=== PATIENT | female | born 1955 | race Caucasian/White ===

== ENCOUNTER 2020-07-07 07:47 | Outpatient (REF) | payer BC, SELFPAY ==
[2020-07-07 10:34] LABS: MANUAL DIFF FLAG NO
[2020-07-07 10:37] LABS: Basophils Absolute Auto 0.1 X10*3/uL (0.0-0.2); Basophils Percent Auto 0.8 % (0-2); Eosinophils Absolute Auto 0.3 X10*3/uL (0.0-0.4); Eosinophils Percent Auto 2.6 % (0-4); Hematocrit 41.4 % (37-47); Hemoglobin 13.7 g/dl (12.0-16.0); Imm Gran Abs Auto 0.03 X10*3/uL (0.00-0.03); Imm Gran Pct Auto 0.3 % (0.0-0.4); Lymphocytes Percent Auto 31.5 % (20-40); Mean Corpuscular HGB Conc 33.1 g/dl (31.0-35.0); Mean Corpuscular Hemoglobin 29.9 pg (27.0-33.0); Mean Corpuscular Volume 90.4 fL (80-98); Mean Platelet Volume 10.2 fL (9.4-12.3); Monocytes Absolute Auto 0.6 X10*3/uL (0.1-1.2); Monocytes Percent Auto 5.9 % (2-11); Neutrophils Absolute Auto 5.6 X10*3/uL (2.0-8.3); Neutrophils Percent Auto 58.9 % (45-73); Platelet Count 251 X10*3/uL (160-400); Red Blood Count 4.58 X10*6/uL (4.20-5.50); Red Cell Distribution Width 13.6 % (11.0-16.0); White Blood Count 9.5 X10*3/uL (4.8-10.8)
[2020-07-07 11:03] LABS: Alanine Aminotransferase 12 U/L (0-31); Albumin Level 3.9 g/dL (3.5-5.0); Alkaline Phosphatase 78 U/L (39-117); Anion Gap 10 (12-20); Aspartate Amino Transferase 12 U/L (5-31); Bilirubin Total 0.7 mg/dL (0.0-1.0); Blood Urea Nitrogen 11 mg/dL (9-16); Calcium 8.8 mg/dL (8.4-10.2); Carbon Dioxide 31 mmol/L (22-29); Chloride 105 mmol/L (96-108); Cholesterol 267 mg/dL; Estimated Glomerular Filt Rate > 60; Glucose Fasting 81 mg/dL (60-99); HDL Cholesterol 43 mg/dL; LDL Cholesterol Calculated 197 mg/dl; Potassium 4.4 mmol/L (3.3-5.1); Sodium 142 mmol/L (135-145); Total Protein 6.2 g/dL (6.5-8.0); Triglycerides 138 mg/dL
[2020-07-07 11:25] LABS: Free T4 (Free Thyroxine) 0.61 ng/dL (0.71-1.85)
[2020-07-08 05:42] LABS: Triiodothyronine T3 Total 90 ng/dL (76-181)
== END 2020-07-07 07:48 | disposition home or self-care (01) ==
LOC: HO.WFDLDS 07:47
PROVIDERS: Visit Provider Family Medicine
DX: Z00.00 Encounter for general adult medical examination without abnormal findings (principal); E03.9 Hypothyroidism, unspecified
CPT/HCPCS: 36415; 80053; 80061; 84439; 84443; 84480; 85025

== ENCOUNTER 2020-07-09 13:55 | Outpatient (REF) | payer BC, SELFPAY | END 2020-07-09 13:56 | disposition home or self-care (01) | LOC: HO.LNP 13:55 | PROVIDERS: Visit Provider Family Medicine | DX: N39.0 Urinary tract infection, site not specified (principal) | CPT/HCPCS: 87086 ==

== ENCOUNTER 2020-08-27 07:35 | Outpatient (REF) | payer BC, SELFPAY ==
[2020-08-27 11:08] LABS: Cholesterol 232 mg/dL; HDL Cholesterol 49 mg/dL; LDL Cholesterol Calculated 158 mg/dl; Triglycerides 127 mg/dL
[2020-08-27 12:19] LABS: Free T4 (Free Thyroxine) 0.61 ng/dL (0.71-1.85); Thyroid Stimulating Hormone 3.66 uIU/mL (0.32-4.0)
[2020-08-28 09:01] LABS: Triiodothyronine T3 Total 93 ng/dL (76-181)
== END 2020-08-27 07:36 | disposition home or self-care (01) ==
LOC: HO.WFDLDS 07:35
PROVIDERS: Visit Provider Family Medicine
DX: Z00.00 Encounter for general adult medical examination without abnormal findings (principal); E03.9 Hypothyroidism, unspecified; E78.5 Hyperlipidemia, unspecified; R30.0 Dysuria
CPT/HCPCS: 36415; 80061; 84439; 84443; 84480; 87086

== ENCOUNTER 2020-09-20 13:00 | Outpatient (REF) | payer BC, SELFPAY ==
[2020-09-24 12:36] LABS: HPV mRNA E6/E7 rflx Not Detected (Not Detected)
== END 2020-09-20 13:01 | disposition home or self-care (01) ==
LOC: HO.LAB 13:00
PROVIDERS: PCP Family Medicine; Visit Provider Obstetrics & Gynecology
DX: Z01.419 Encounter for gynecological examination (general) (routine) without abnormal findings (principal); N95.0 Postmenopausal bleeding; N95.8 Other specified menopausal and perimenopausal disorders
CPT/HCPCS: 58100; 87624; 88142

== ENCOUNTER 2020-09-29 12:52 | Outpatient (REF) | payer BC, SELFPAY ==
--- NOTE | ~2020-09-29 | US_ITS ---
EXAMINATION: ULTRASOUND PELVIS COMPLETE. CLINICAL INFORMATION: Postmenopausal bleeding. COMPARISON: None TECHNIQUE: Transabdominal and transvaginal imaging of pelvis is performed. FINDINGS: Transabdominal and transvaginal imaging of pelvis reveals nonvisualization of uterus and the ovaries. No pelvic mass or free fluid seen. Partially distended urinary bladder is noted. US/US pelvic and transvaginal IMPRESSION: Unremarkable pelvis exam with nonvisualization of uterus and ovaries. There is no given history of hysterectomy or oophorectomy by patient at this time No pelvic mass or free fluid seen.
== END 2020-09-29 12:53 | disposition home or self-care (01) ==
LOC: HO.US 12:52
PROVIDERS: Visit Provider Obstetrics & Gynecology
DX: N95.0 Postmenopausal bleeding (principal)
CPT/HCPCS: 76830; 76856

== ENCOUNTER 2020-10-12 09:52 | Outpatient (REF) | payer BC, SELFPAY ==
--- NOTE | ~2020-10-12 | MM_ITS ---
EXAMINATION: MM SCREENING DIGITAL BREAST TOMOSYNTHESIS, BILATERAL CLINICAL INFORMATION: Screening. Asymptomatic. The lifetime risk of breast cancer based on the Tyrer-Cuzick Model is 5.2%. COMPARISON: Mammography: None TECHNIQUE: Digital breast tomosynthesis is performed in both the craniocaudal and mediolateral oblique views along with computer-aided detection (CAD). Synthesized 2D images are generated from the tomosynthesis. FINDINGS: There are scattered areas of fibroglandular density (ACR BI-RADS breast composition Category b). There are no significant masses, abnormal calcifications, or other abnormalities. MM/MM tomosynthesis screening BI IMPRESSION: No specific mammographic evidence to suggest malignancy. ASSESSMENT: BI-RADS 1: Negative RECOMMENDATION: Routine annual mammography screening. This patient's information was entered into a reminder system with a target due date for their next mammogram.
== END 2020-10-12 09:53 | disposition home or self-care (01) ==
LOC: HO.MAMMO 09:52
PROVIDERS: Visit Provider Family Medicine
DX: Z12.31 Encounter for screening mammogram for malignant neoplasm of breast (principal)
CPT/HCPCS: 77063; 77067

== ENCOUNTER → 2020-10-13 10:56 | Outpatient (BNVA) | payer BC, SELFPAY | PROVIDERS: PCP Family Medicine; Visit Provider Obstetrics & Gynecology ==

== ENCOUNTER 2020-12-06 10:48 | Outpatient (REF) | payer BC, SELFPAY ==
[2020-12-06 13:40] LABS: Glucose Urine UA NEG (NEG); Leukocyte Esterase Urine 2+ (NEG); Nitrite Urine POS (NEG); Specific Gravity - Urine <= 1.005 (1.005-1.025); UACC Culture Trigger YES; Urine Blood NEG (NEG); Urine Ketones NEG (NEG); Urine Protein NEG (NEG-TRACE)
[2020-12-06 13:48] LABS: Appearance Urine HAZY; Color Urine YELLOW
[2020-12-06 13:50] LABS: Bacteria Urine 3+ /LPF; RBC Urine 0 /HPF (0); Squamous Epithelial Cell Urine 1+ /LPF
== END 2020-12-06 10:49 | disposition home or self-care (01) ==
LOC: HO.WFDLDS 10:48
PROVIDERS: Visit Provider Internal Medicine
DX: R30.0 Dysuria (principal)
CPT/HCPCS: 81001; 87086; 87088; 87186

== ENCOUNTER 2020-12-28 12:01 | Outpatient (REF) | payer BC, SELFPAY ==
[2020-12-28 14:13] LABS: Cholesterol 228 mg/dL; HDL Cholesterol 49 mg/dL; LDL Cholesterol Calculated 151 mg/dl; Triglycerides 143 mg/dL
[2020-12-28 14:35] LABS: TSH reflex Free T4 3.33 uIU/mL (0.32-4.0)
== END 2020-12-28 12:02 | disposition home or self-care (01) ==
LOC: HO.WFDLDS 12:01
PROVIDERS: Visit Provider Family Medicine
DX: Z00.00 Encounter for general adult medical examination without abnormal findings (principal); E78.5 Hyperlipidemia, unspecified
CPT/HCPCS: 36415; 80061; 84443

== ENCOUNTER 2021-02-28 12:21 | Outpatient (REF) | payer BC, SELFPAY ==
[2021-02-28 15:23] LABS: Free T4 (Free Thyroxine) 0.65 ng/dL (0.71-1.85)
[2021-03-04 21:46] LABS: Factor V Leiden POSITIVE
== END 2021-02-28 12:22 | disposition home or self-care (01) ==
LOC: HO.WFDLDS 12:21
PROVIDERS: Visit Provider Family Medicine
DX: Z00.00 Encounter for general adult medical examination without abnormal findings (principal)
CPT/HCPCS: 36415; 81241; 84439; 84443

== ENCOUNTER 2021-03-11 17:59 | Outpatient (REF) | payer BC, SELFPAY | END 2021-03-11 18:00 | disposition home or self-care (01) | LOC: HO.LNP 17:59 | PROVIDERS: Visit Provider Hospitalist | DX: N39.0 Urinary tract infection, site not specified (principal) | CPT/HCPCS: 87086; 87088; 87186 ==

== ENCOUNTER 2021-04-06 13:35 | Outpatient (REF) | payer BC, SELFPAY | END 2021-04-06 13:36 | disposition home or self-care (01) | LOC: HO.LNP 13:35 | PROVIDERS: Visit Provider Hospitalist | DX: N39.0 Urinary tract infection, site not specified (principal) | CPT/HCPCS: 87086 ==

== ENCOUNTER 2021-05-25 14:01 | Outpatient (REF) | payer BC, SELFPAY | END 2021-05-25 14:02 | disposition home or self-care (01) | LOC: HO.LNP 14:01 | PROVIDERS: Visit Provider Hospitalist | DX: N39.0 Urinary tract infection, site not specified (principal) | CPT/HCPCS: 87086; 87088; 87186 ==

== ENCOUNTER 2021-06-27 18:59 | Outpatient (REF) | payer BC, SELFPAY | END 2021-06-27 19:00 | disposition home or self-care (01) | LOC: HO.LNP 18:59 | PROVIDERS: Visit Provider Hospitalist | DX: N39.0 Urinary tract infection, site not specified (principal) | CPT/HCPCS: 87086; 87088; 87186 ==

== ENCOUNTER 2021-08-30 07:08 | Outpatient (REF) | payer BC, SELFPAY ==
[2021-08-30 12:04] LABS: Alanine Aminotransferase 15 U/L (0-31); Albumin Level 4.2 g/dL (3.5-5.0); Alkaline Phosphatase 82 U/L (39-117); Anion Gap 11 (12-20); Aspartate Amino Transferase 17 U/L (5-31); Bilirubin Total 0.5 mg/dL (0.0-1.0); Blood Urea Nitrogen 15 mg/dL (9-16); Calcium 9.6 mg/dL (8.4-10.2); Carbon Dioxide 30 mmol/L (22-29); Chloride 104 mmol/L (96-108); Cholesterol 297 mg/dL; Estimated Glomerular Filt Rate > 60; Glucose Fasting 72 mg/dL (60-99); HDL Cholesterol 47 mg/dL; LDL Cholesterol Calculated 227 mg/dl; Potassium 4.3 mmol/L (3.3-5.1); Sodium 141 mmol/L (135-145); Total Protein 7.1 g/dL (6.5-8.0); Triglycerides 119 mg/dL
[2021-08-30 12:28] LABS: TSH reflex Free T4 3.43 uIU/mL (0.32-4.0)
== END 2021-08-30 07:09 | disposition home or self-care (01) ==
LOC: HO.WFDLDS 07:08
PROVIDERS: Visit Provider Family Medicine
DX: Z00.00 Encounter for general adult medical examination without abnormal findings (principal)
CPT/HCPCS: 36415; 80053; 80061; 84443

== ENCOUNTER 2021-11-30 11:45 | Outpatient (REF) | payer BC, SELFPAY ==
[2021-11-30 15:44] LABS: Free T4 (Free Thyroxine) 0.64 ng/dL (0.71-1.85)
== END 2021-11-30 11:46 | disposition home or self-care (01) ==
LOC: HO.WFDLDS 11:45
PROVIDERS: Visit Provider Hospitalist
DX: E03.9 Hypothyroidism, unspecified (principal)
CPT/HCPCS: 36415; 84439; 84443

== ENCOUNTER 2022-02-24 14:47 | Outpatient (REF) | payer BC, SELFPAY ==
[2022-02-24 17:16] LABS: TSH reflex Free T4 4.19 uIU/mL (0.32-4.0)
[2022-02-24 17:48] LABS: Free T4 (Free Thyroxine) 0.64 ng/dL (0.71-1.85)
== END 2022-02-24 14:48 | disposition home or self-care (01) ==
LOC: HO.HMGCLDS 14:47
PROVIDERS: PCP Hospitalist; Visit Provider Hospitalist
DX: E03.9 Hypothyroidism, unspecified (principal)
CPT/HCPCS: 36415; 84439; 84443

== ENCOUNTER 2022-05-10 08:41 | Emergency (ER) | payer BC, SELFPAY ==
--- NOTE | ~2022-05-10 | XR_ITS ---
EXAMINATION: XR CHEST CLINICAL INFORMATION: Cough COMPARISON: None TECHNIQUE: Frontal view of the chest was obtained. FINDINGS: Lungs are well-inflated and clear. Trachea is midline in position. No interstitial disease, consolidation or mass. No pleural effusion or pneumothorax. Cardiac silhouette and pulmonary vessels are normal in size. The mediastinum and reba have normal contour. The visualized bones, and upper abdomen, are unremarkable. XR/XR chest 1V IMPRESSION: No evidence of pneumonia. No acute cardiopulmonary abnormality.
[2022-05-10 08:48] VITALS: BP 142/70; PULSE 68; RESP 18; TEMP 36.7; O2SAT 95; BMI 27.4
--- NOTE | 2022-05-10 09:20 | ED.URI ---
HPI - URI/Sore Throat General Chief Complaint: Upper Respiratory Symptoms Stated Complaint: Sore Throat Time Seen by Provider: 05/10/22 09:12 Source: patient Mode of arrival: ambulatory Limitations: no limitations History of Present Illness HPI Narrative: 67 y/o female with history of factor V Leiden mutation, hypothyroidism, GERD, HLD Who presents to the ER for evaluation of 5 days of worsening sore throat. She also developed a dry cough that is throaty sort hurts her throat whenever she coughs. She states the pain is worse when eating but she has been able to eat and drink normally. She denies any fevers. She has intermittent nausea but no vomiting. No known sick contacts. No shortness of breath or chest pain. She states the pain is her entire throat, not worse on 1 side or the other. No voice changes. MD elicited complaint: cough and sore throat Onset (ago): day(s) (5) Consistency: constant and progressively worsening Severity: moderate Able to tolerate fluids by mouth: Yes Exacerbating factors: swallowing and other ( Coughing) Relieving factors: rest Associated symptoms: sore throat, cough and nausea Treatments prior to arrival: none Related Data Previous Rx's Medication Instructions Recorded atorvastatin 40 mg tablet 40 mg PO BEDTIME #90 tabs 01/24/22 [place] Thy[place] 15 mg tablet 45 mg PO DAILY 30 days #90 tabs 04/12/22 (thyroid (pork)) Allergies Allergy/AdvReac Type Severity Reaction Status Date / Time No Known Allergies Allergy Verified 11/30/21 11:29 Review of Systems Review of Systems: Yes all other systems are reviewed and are negative [facility] Past Medical History Surgical History History of bladder surgery Family History Family History Mother No problems noted. Father No problems noted. Brother Prostate cancer Social History Social History Household Members: Other Housing: Other (mobile home) Housing Other:: mobile home Alcohol intake: never Patient Tobacco Use Status: Never used Tobacco e-Cigarette/Vaping Use: Never Used Second Hand Smoke Exposure: No Advance Directives: No Advance Directives Information Provided: No service: No Current occupational status: employed Current occupation: [employer] office Gender identity: Female Cognitive needs: No Hearing needs: No Vision needs: No Physical Exam Vital Signs: Vital Signs: Last Vital Signs Temp 98.1 F 05/10/22 08:48 Pulse 68 05/10/22 08:48 Resp 18 05/10/22 08:48 BP 142/70 H 05/10/22 08:48 Pulse Ox 95 05/10/22 08:48 O2 Del Method 05/10/22 08:48 BMI result Body Mass Index 27.4 Appearance: Alert. Oriented X3. No acute distress. Eyes: Pupils equal, round and reactive to light. ENT: Pharynx with moist mucous membranes, moderate posterior pharyngeal erythema without tonsillar exudate or swelling. Uvula midline. Voice is normal. Normal tympanic membranes bilaterally. Neck: Normal inspection. Neck supple. no lymphadenopathy. Trachea midline. CVS: Normal heart rate and rhythm. Pulses normal. Respiratory: No respiratory distress. Breath sounds normal. Skin: Skin warm and dry. Normal skin color. Normal skin turgor. No rashes. Extremities Normal inspection x4, no lower extremity swelling. Neuro: Oriented X 3. Grossly normal, nonfocal Course Course Course Narrative: 67 yo female presenting with sore throat and dry cough. VSS and physical exam is unremarkable aside from generalized posterior pharyngeal erythema, no tonsillar exudate. Doubt strep. Swabs for flu, covid, rsv and strep have been sent. cxr done to r/o PNA. Reevaluation(s) Reevaluation #1: x-rays negative. Swabs were all negative. Patient counseled on results and management. Stable for discharge home. Medical Decision Making Differential Diagnosis Differential Diagnoses: The differential diagnosis associated with the presentation includes Viral pharyngitis, strep pharyngitis Less likely peritonsillar or retropharyngeal abscess, doubt bacterial PNA Lab Data [facility] Lab Attestation statement: I reviewed the patient's lab results. Labs: Lab Results 05/10/22 05/10/22 Range/Units 09:05 09:05 Influenza Type A (PCR) NEGATIVE (Negative) Influenza Type B (PCR) NEGATIVE (Negative) RSV RNA Qual (PCR) NEGATIVE (Negative) SARS-CoV-2 RNA (RT-PCR) NEGATIVE (Negative) S. pyogenes GrpA LYNN Negative (Negative) Independent Interpretation I performed an independent interpretation of an: Plain X-Ray Interpretation: Independent interpretation is clear lungs no pneumonia Radiology Impression Discussion of test interpretation with radiology: I have reviewed the radiologist's reading. Radiologist Impression: IMPRESSION: No evidence of pneumonia. No acute cardiopulmonary abnormality. Prescription Management I considered prescription management with: Pain Medication, Antiviral and Antibiotic Critical Care Time Critical Care Time Critical Care Time: No Discharge Plan Discharge Clinical Impression: Viral infection Patient Disposition: Home, Self-Care Instructions: Viral Syndrome (ED) Additional Instructions: you tested negative for strep throat, COVID-19, influenza and RSV. Use symptoms nose likely due to another viral illness. Treatment is rest of supportive care. Recommend gargling with salt water 3 times a day. Recommend [id number] Chloraseptic spray or Cepacol lozenges as needed for sore throat. rest and drink plenty of fluids. follow up with your PCP as needed. If you develop new or worsening symptoms call 911 or come back to the ER for further evaluation. Prescriptions: No Action atorvastatin 40 mg tablet 40 mg PO BEDTIME Qty: 90 3RF thyroid (pork) [Distant Thyroid] 15 mg tablet 45 mg PO DAILY 30 Days Qty: 90 3RF Rx Instructions: Brand Name Only, DORIS/Dispense As Written Stand Alone Forms: Work/School Release Interventions: ED Discharge Assessment Last Done: 05/10/22 10:20 Discharge Date/Time: 05/10/22 10:20
[2022-05-10 09:24] LABS: IDNOW Serial# 6674DD1D; Strep A Nucleic Acid Negative (Negative)
[2022-05-10 10:07] LABS: Influenza A PCR NEGATIVE (Negative); Influenza B PCR NEGATIVE (Negative); Resp Syncy Virus RNA Qual PCR NEGATIVE (Negative); SARS COV2 PCR INHOUSE NEGATIVE (Negative)
== END 2022-05-10 10:20 | disposition home or self-care (01) ==
PROVIDERS: Emergency Provider Emergency Medicine Emergency Medical Services; PCP Hospitalist
DX: B34.9 Viral infection, unspecified (principal); Z20.828 Contact with and (suspected) exposure to other viral communicable diseases; J02.9 Acute pharyngitis, unspecified
CPT/HCPCS: 0241U; 71045; 87651; 99282; 99283

== ENCOUNTER 2022-05-12 12:52 | Emergency (ER) | payer BC, SELFPAY ==
--- NOTE | 2022-05-12 14:02 | ED_ITS ---
HPI - URI/Sore Throat General Chief Complaint: Upper Respiratory Symptoms Stated Complaint: cough, sore throat Time Seen by Provider: 05/12/22 14:09 Source: patient Mode of arrival: ambulatory Limitations: no limitations History of Present Illness HPI Narrative: Patient is a 67-year-old female presenting to the emergency department complaining of a dry nonproductive cough that is progressively worsening, headache. Symptom onset was 5 days ago. She states that she was seen here 2 days ago had viral testing which was negative, a chest x-ray that was normal, at that time was experiencing a sore throat but this has improved. Denies dizziness, lightheadedness, neck pain, neck stiffness, chest pain, shortness of breath, difficulty breathing, nausea, vomiting, abdominal pain, numbness or tingling in the extremities. Related Data Previous Rx's Medication Instructions Recorded atorvastatin 40 mg tablet 40 mg PO BEDTIME #90 tabs 01/24/22 [place] Thyroid 15 mg tablet 45 mg PO DAILY 30 days #90 tabs 04/12/22 (thyroid (pork)) azithromycin 250 mg tablet See Rx Instructions PO .COMPLEX #6 05/12/22 tabs benzonatate 100 mg capsule 100 mg PO BID PRN cough #14 caps 05/12/22 Allergies Allergy/AdvReac Type Severity Reaction Status Date / Time No Known Allergies Allergy Verified 11/30/21 11:29 Review of Systems Review of Systems: Constitutional: No fever. Now chills. No weakness. Positive fatigue. ENT/ Mouth: No Ear Pain, positive Nasal Congestion, no sore throat, No Rhinorrhea, No Swallowing Difficulty Skin: No rash or itching. Cardiovascular: No chest pain. No palpitations. Respiratory: No shortness of breath. Positive cough. No sputum production. Gastrointestinal: No nausea. No vomiting. No diarrhea. No abdominal pain. Genitourinary: No burning micturition. No urinary frequency. Neurologic: Positive headache. No dizziness. No syncope. No numbness or tingling in the extremities. Musculoskeletal: No muscle pain. No back pain. No joint pain or stiffness. Yes all other systems are reviewed and are negative [facility] Past Medical History Attestation statement: The following information was validated with the patient. Source: old records reviewed Surgical History History of bladder surgery Family History Family History Mother No problems noted. Father No problems noted. Brother Prostate cancer Social History Social History Household Members: Other Housing: Other (mobile home) Housing Other:: mobile home Alcohol intake: never Patient Tobacco Use Status: Never used Tobacco e-Cigarette/Vaping Use: Never Used Second Hand Smoke Exposure: No Advance Directives: Yes Advance Directives Information Provided: Yes Advance Directives on File: No service: No Current occupational status: employed Current occupation: Post office Gender identity: Female Cognitive needs: No Hearing needs: No Vision needs: No Physical Exam Vital Signs: Vital Signs: Last Vital Signs Temp 97.5 F 05/12/22 14:03 Pulse 72 05/12/22 14:03 Resp 20 05/12/22 14:03 BP 143/80 H 05/12/22 14:03 Pulse Ox 95 05/12/22 14:03 O2 Del Method 05/12/22 14:03 BMI result Body Mass Index 27.4 Vital signs have been reviewed as normal and appeared to be correct. Blood pressure normal.? Heart rate normal.? Respiration rate normal. Temperature normal.? Oxygen saturation normal. Appearance: Alert.?Oriented to person, place and time. No acute distress.?Normal affect. Eyes: Pupils equal, round and reactive to light.? ENT: TM normal bilaterally. Pharynx normal.?? Neck: Normal inspection.? Neck supple.??No cervical adenopathy. No nuchal rigidity, full AROM CVS: Heart sounds normal. Normal heart rate and rhythm.? Pulses normal.?? Respiratory: No respiratory distress.? Lung sounds clear to auscultation bilaterally?? Abdomen: Soft and non-tender. Normoactive bowel sounds. Skin: Skin warm and dry.? Normal skin color.? ? Extremities: No lower extremity edema.? Neuro: Moves all extremities spontaneously. Sensation intact bilaterally. No motor deficits. Ambulates with normal steady gait. Medical Decision Making Medical Decision Making MDM Narrative: Patient is a 67-year-old female with history of factor V Leiden mutation, hypothyroidism, GERD, HLD, presents emergency department for evaluation of worsening cough. Overall well appearing, vital signs stable, nontoxic. Reviewed chest x-ray from 2 days ago no evidence of pneumonia, negative viral testing. Currently with complaint of headache, no meningismus, low suspicion for meningitis. At this time symptoms most consistent bronchitis, provided with prescription for azithromycin and Tessalon Perles. Stable for discharge. Prescription Management I considered prescription management with: Pain Medication and Antibiotic Discharge Plan Discharge Clinical Impression: Bronchitis Patient Disposition: Home, Self-Care Instructions: Acute Bronchitis (ED) Additional Instructions: A prescription for azithromycin and Tessalon were sent to your pharmacy, please complete these as prescribed. Be sure to rest, stay well hydrated drinking plenty of fluids, eat small frequent meals. Tylenol/ibuprofen can be used as needed for fever/pain. You may return to the emergency department with any new or worsening symptoms or concerns. Follow-up with your primary care provider as needed. Prescriptions: New azithromycin 250 mg tablet See Rx Instructions .ROUTE .COMPLEX Qty: 6 0RF Rx Instructions: For 250 mg dose pack: take 500 mg today (day 1), then 250 mg for 4 days (days 2-5) benzonatate 100 mg capsule 100 mg PO BID PRN (Reason: cough) Qty: 14 0RF No Action atorvastatin 40 mg tablet 40 mg PO BEDTIME Qty: 90 3RF thyroid (pork) [[place] Thyroid] 15 mg tablet 45 mg PO DAILY 30 Days Qty: 90 3RF Rx Instructions: Brand Name Only, DORIS/Dispense As Written Referrals: Alix Zhou NP [Primary Care Provider] - Stand Alone Forms: Work/School Release Interventions: ED Discharge Assessment Last Done: 05/12/22 14:14 Discharge Date/Time: 05/12/22 14:19
[2022-05-12 14:03] VITALS: BP 143/80; PULSE 72; RESP 20; TEMP 36.4; O2SAT 95; BMI 27.4
== END 2022-05-12 14:19 | disposition home or self-care (01) ==
PROVIDERS: Emergency Provider Emergency Medicine; PCP Hospitalist
DX: J40 Bronchitis, not specified as acute or chronic (principal); R05.9 Cough, unspecified
CPT/HCPCS: 99282; 99283

== ENCOUNTER 2022-06-29 12:13 | Outpatient (REF) | payer BC, SELFPAY ==
[2022-06-29 14:27] LABS: Appearance Urine Clear; Color Urine Yellow; Glucose Urine UA Negative (Negative); Leukocyte Esterase Urine Moderate (2+) (Negative); Nitrite Urine Negative (Negative); PH 6.5 (5.0-9.0); Specific Gravity - Urine <= 1.005 (1.005-1.025); UMIC TRIGGER UA YES; Urine Blood Negative (Negative); Urine Ketones Negative (Negative); Urine Protein Negative (Neg-Trace)
[2022-06-29 14:32] LABS: Bacteria Urine None Seen (None Seen); Hyaline Casts Urine 0-2 /LPF (0-2); RBC Urine 0-2 /HPF (0-2); WBC Urine 21-50 /HPF (0-5)
== END 2022-06-29 12:14 | disposition home or self-care (01) ==
LOC: HO.LAB 12:13
PROVIDERS: Visit Provider Hospitalist
DX: N39.0 Urinary tract infection, site not specified (principal)
CPT/HCPCS: 81001

== ENCOUNTER 2022-08-09 10:43 | Outpatient (REF) | payer BC, SELFPAY ==
--- NOTE | ~2022-08-09 | XR_ITS ---
EXAMINATION: XR HAND, LEFT CLINICAL INFORMATION: Left ankle contusion. COMPARISON: None available. TECHNIQUE: PA, lateral, and oblique views of the left hand. FINDINGS: The bones and soft tissues are normal. No fracture. Alignment is anatomic. Joint spaces are maintained. No erosions or soft tissue calcifications. XR/XR hand LT min 3V IMPRESSION: Unremarkable left hand.
== END 2022-08-09 10:44 | disposition home or self-care (01) ==
LOC: HO.HMGCX 10:43
PROVIDERS: PCP Hospitalist; Visit Provider Internal Medicine
DX: S60.222A Contusion of left hand, initial encounter (principal); X58.XXXA Exposure to other specified factors, initial encounter; Y93.9 Activity, unspecified; Y92.9 Unspecified place or not applicable; Y99.9 Unspecified external cause status
CPT/HCPCS: 73130

== ENCOUNTER 2022-08-23 06:07 | Outpatient (REF) | payer BC, SELFPAY ==
[2022-08-23 12:27] LABS: TSH reflex Free T4 9.25 uIU/mL (0.32-4.0)
[2022-08-23 13:14] LABS: Free T4 (Free Thyroxine) 0.61 ng/dL (0.71-1.85)
== END 2022-08-23 06:08 | disposition home or self-care (01) ==
LOC: HO.HMGCLDS 06:07
PROVIDERS: PCP Hospitalist; Visit Provider Hospitalist
DX: E03.9 Hypothyroidism, unspecified (principal)
CPT/HCPCS: 36415; 84439; 84443

== ENCOUNTER 2022-10-19 16:44 | Outpatient (REF) | payer BC, SELFPAY | END 2022-10-19 16:45 | disposition home or self-care (01) | LOC: HO.LAB 16:44 | PROVIDERS: Visit Provider Hospitalist | DX: Z13.89 Encounter for screening for other disorder (principal) ==

== ENCOUNTER 2022-10-20 11:11 | Outpatient (REF) | payer BC, SELFPAY ==
[2022-10-20 11:38] LABS: Appearance Urine Clear; Color Urine Yellow; Glucose Urine UA Negative (Negative); Leukocyte Esterase Urine Moderate (2+) (Negative); Nitrite Urine Positive (Negative); Specific Gravity - Urine <= 1.005 (1.005-1.025); UMIC TRIGGER UACC YES; Urine Blood Negative (Negative); Urine Ketones Negative (Negative); Urine Protein Negative (Neg-Trace)
[2022-10-20 11:44] LABS: Bacteria Urine 4+ (None Seen); Hyaline Casts Urine 0-2 /LPF (0-2); RBC Urine 0-2 /HPF (0-2); Squamous Epithelial Cell Urine 0-2 /HPF (0-2); UACC Culture Trigger YES; WBC Urine 21-50 /HPF (0-5)
== END 2022-10-20 11:12 | disposition home or self-care (01) ==
LOC: HO.LNP 11:11
PROVIDERS: Visit Provider Nurse Practitioner Family
DX: N39.0 Urinary tract infection, site not specified (principal)
CPT/HCPCS: 81001; 87086; 87088; 87186

== ENCOUNTER 2022-12-18 09:33 | Emergency (ER) | payer BC, SELFPAY ==
--- NOTE | ~2022-12-18 | CT_ITS ---
EXAMINATION: CT CERVICAL SPINE WITHOUT CONTRAST CLINICAL INFORMATION: Neck pain radiating to the shoulders COMPARISON: None available. TECHNIQUE: Axial sections performed and bone and soft tissue windows without IV contrast enhancement. This CT examination was performed using dose optimization techniques as appropriate, variously including the following: *Automated exposure control *Adjustment of mA and/or kV according to patient size (this includes techniques or standardized protocols for targeted exams where dose is matched to indication/reason for exam; i.e. extremities or head) *Use of iterative reconstruction technique DLP: 341 mGy-cm FINDINGS: The odontoid and the condyles are unremarkable. No acute cervical compression fractures. Spondylosis and degenerative disc space narrowing observed C5-C7. There is mild facet arthrosis. C1 and C2 arches are intact. There are mild uncinate hypertrophic changes with slight right foraminal encroachment at C6-C7. Visualized epiglottis and vocal cords unremarkable. No suspiciously enlarged jugulodigastric or cervical chain nodes. No appreciable central canal stenosis. CT/CT cervical spine wo IV con IMPRESSION: 1. No evidence for bony fracture. 2. Spondylosis and degenerative disc space narrowing C5-C7. Mild facet arthrosis. 3. Slight right foraminal encroachment C6-C7. 4. Other incidental findings as noted above. Fleischner guidelines were followed.
[2022-12-18 09:39] VITALS: BP 139/65; PULSE 70; RESP 18; TEMP 36.5; O2SAT 96; BMI 30.9
--- NOTE | 2022-12-18 13:19 | ED.GENADULT ---
HPI - General Adult General Chief complaint: General Medical Stated complaint: upper shoulder pain and neck pain Time Seen by Provider: 12/18/22 11:52 Source: patient Mode of arrival: ambulatory Limitations: no limitations History of Present Illness HPI narrative: [age] year female presents to ED for neck pain going down to right shoulder and upper back since yesterday. Patient denies any recent trauma, headache, fever, chills, nausea, vomiting, paralysis or tingling of upper extremities. Patient denies any nausea, vomiting, facial droop, paralysis of extremities, loss of vision, chest pain, shortness of breath, trauma,abdominal pain, urinary/bowel incontinence or slurred speech. Related Data Previous Rx's Medication Instructions Recorded omeprazole 20 mg capsule,delayed 20 mg PO DAILY 30 days #30 caps 10/19/22 release sulfamethoxazole 800 1 tab PO Q12H 5 days #10 tabs 10/19/22 mg-trimethoprim 160 mg tablet (Bactrim DS) [place] Thyroid 15 mg tablet 60 mg PO DAILY #120 tabs 11/02/22 (thyroid (pork)) naproxen 500 mg tablet 500 mg PO BID PRN pain 7 days #14 12/18/22 tabs prednisone 20 mg tablet 40 mg PO DAILY 5 days #10 tabs 12/18/22 Allergies Allergy/AdvReac Type Severity Reaction Status Date / Time No Known Allergies Allergy Verified 10/19/22 16:23 Review of Systems Review of Systems: Neck pain radiating down to right shoulder upper back Yes all other systems are reviewed and are negative [facility] Past Medical History Surgical History History of bladder surgery Family History Family History Mother No problems noted. Father No problems noted. Brother Prostate cancer Social History Social History Household Members: Other Housing: Other Housing Other:: mobile home Alcohol intake: never Patient Tobacco Use Status: Never used Tobacco e-Cigarette/Vaping Use: Never Used Second Hand Smoke Exposure: No Advance Directives: No Advance Directives Information Provided: No service: No Current occupational status: employed Current occupation: Post office Gender identity: Female Cognitive needs: No Hearing needs: No Vision needs: No Physical Exam ED Vital Signs: Vital Signs - 24 hr 12/18/22 09:39 Temperature 97.7 F Pulse Rate 70 Respiratory Rate 18 Blood Pressure 139/65 Pulse Oximetry 96 Oxygen Delivery Method Room Air BMI result Body Mass Index 30.9 Const General: cooperative, healthy appearing, comfortable, no acute distress, well developed, alert, awake and Physically active Orientation/consciousness: oriented to person, oriented to place, oriented to time and patient oriented x3 [facility] Head: Yes normal to inspection, Yes No palpable skull fracture present, Yes normocephalic, Yes atraumatic and No abrasion Eyes General: appearance normal, both eyes and all related structures Neck Neck: Yes normal visual inspection, Yes full ROM, Yes no lymphadenopathy, Yes no meningeal signs, Yes trachea midline, Yes supple, No anterior neck swelling and Yes tender ( cervical spine tenderness) Chest Chest palpation & inspection: normal inspection of the chest and normal palpation of entire chest wall Resp Effort & Inspection: normal respiratory effort and able to speak in complete sentences Auscultation: clear to auscultation bilaterally Cardio Jugular venous distension: no JVD Heart sounds: S1 normal heart sound present and S2 normal heart sound present GI Inspection: Yes normal to inspection and No abdominal wall ecchymosis Palpation (GI): Soft to palpation, not firm, nontender, no guarding and not rigid General: No CVA tenderness and Yes no CVA tenderness Back/Spine/Pelvis Back: no CVA tenderness, No CVA tenderness and No back tenderness Skin General skin exam: no rashes or lesions noted, elasticity normal and turgor normal Neuro General: oriented to person, oriented to place, oriented to time, patient oriented x3, gait normal, tone normal, moves all extremities, Normal light touch and pain sensation, no meningeal signs, no focal motor deficits, CN's II-XI intact bilaterally and normal sensation to monofilament Extrem General: Yes normal to inspection and Yes full ROM Psych Appearance: grossly normal, well kempt and not disheveled Medical Decision Making Medical Decision Making MDM Narrative: 67-year-old female who presents to ED for neck pain radiating down right shoulder and upper back since yesterday. Patient denies any trauma, nausea, vomiting, headache, photophobia, rash, slurred speech, facial droop, dizziness, headache, or paralysis of extremities. Cervical spine CT scan confirms cervical radiculopathy which is consistent with symptoms. Patient will be discharged with pain medication and steroids. Patient given copy of report of CT scan for follow-up with primary care provider to see if there is indication for physical therapy or [facility] History physical exam not consistent with meningitis. Differential Diagnosis Differential Diagnoses: The differential diagnosis associated with the presentation includes ( Muscle spasm, cervical spinal fracture, cervical spine subluxation, meningitis, carotid dissection,) Admission/Observation Consideration of admission/observation: Escalation of care including admission/observation considered Independent Interpretation I performed an independent interpretation of an: CT Scan Radiology Impression Discussion of test interpretation with radiology: I have reviewed the radiologist's reading. External Record Review External record reviewed: Other (Prior ED visit) Tests considered The following testing was considered but not selected: LP Prescription Management I considered prescription management with: Pain Medication and Other (Steroids) Discharge Plan Discharge Clinical Impression: Cervical radiculopathy Patient Disposition: Home, Self-Care Instructions: Cervical Radiculopathy (ED) Additional Instructions: return to the ED immediately for any slurred speech, facial droop, paralysis of extremities, worsening neck pain, headache, nausea, vomiting, fever, chills, dizziness, photophobia, rash, or any other concerning symptoms. Please follow-up with the primary care provider. Show report of your CT scan of cervical spine. Prescriptions: New naproxen 500 mg tablet 500 mg PO BID PRN (Reason: pain) 7 Days Qty: 14 0RF prednisone 20 mg tablet 40 mg PO DAILY 5 Days Qty: 10 0RF No Action [place] Thyroid 15 mg tablet 60 mg PO DAILY Qty: 120 1RF omeprazole 20 mg capsule,delayed release(DR/EC) 20 mg PO DAILY 30 Days Qty: 30 3RF sulfamethoxazole-trimethoprim [Bactrim DS] 800-160 mg tablet 1 tab PO Q12H 5 Days Qty: 10 0RF Stand Alone Forms: Work/School Release Interventions: ED Discharge Assessment Last Done: 12/18/22 13:42 Discharge Date/Time: 12/18/22 13:43 Print Language: Swazi
== END 2022-12-18 13:43 | disposition home or self-care (01) ==
PROVIDERS: Emergency Provider Emergency Medicine; PCP Hospitalist
DX: M54.12 Radiculopathy, cervical region (principal); M54.2 Cervicalgia; E78.00 Pure hypercholesterolemia, unspecified; Z79.899 Other long term (current) drug therapy
CPT/HCPCS: 72125; 99282; 99284

== ENCOUNTER 2022-12-21 16:32 | Outpatient (REF) | payer BC, SELFPAY ==
[2022-12-21 19:25] LABS: Appearance Urine Turbid; Color Urine Yellow; Glucose Urine UA Negative (Negative); Leukocyte Esterase Urine Large (3+) (Negative); Nitrite Urine Positive (Negative); PH 5.5 (5.0-9.0); UMIC TRIGGER UACC YES; Urine Blood Moderate (2+) (Negative); Urine Ketones Negative (Negative); Urine Protein 30 (1+) mg/dL (Neg-Trace)
[2022-12-21 19:30] LABS: Bacteria Urine 4+ (None Seen); RBC Urine >20 /HPF (0-2); UACC Culture Trigger YES; WBC Urine >50 /HPF (0-5)
== END 2022-12-21 16:33 | disposition home or self-care (01) ==
LOC: HO.LAB 16:32
PROVIDERS: PCP Hospitalist; Visit Provider Nurse Practitioner Family
DX: R30.0 Dysuria (principal); N39.0 Urinary tract infection, site not specified
CPT/HCPCS: 81001; 87086; 87088; 87186

== ENCOUNTER 2022-12-22 09:28 | Outpatient (AMB) | payer BC, SELFPAY ==
[2022-12-22 09:41] VITALS: BP 128/76; PULSE 63; RESP 12; TEMP 36.3; O2SAT 97; BMI 31.5
--- NOTE | 2022-12-22 09:41 | MHC.PC.OV ---
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 Accompanied by: Self / Same As Patient Allergies No Known Allergies Allergy (Verified 12/22/22 09:59) Medication List - Last Reconciled 12/22/22 by AURE Al Thyroid (thyroid (pork)) 60 mg (4 x 15 mg) PO DAILY NS naproxen 500 mg PO BID PRN 7 days prednisone 40 mg (2 x 20 mg) PO DAILY 5 days Tobacco use date assessed: 06/29/22 Fall risk assessment: No Falls in past year Last assessed Fall Risk: 12/22/22 Dental Screening Dental Screen Date: 12/22/22 Did you have a dental visit in the last 12 months?: Yes Did you have a dental problem in the last 6 months where you did not have access to dental care?: No Was dental information given to patient?: Patient has dentist HPI HPI Comments History of Present Illness Details 67 y/o female presents with c/o frequent urination since yesterday. She reports initial dysuria which completely resolved. She denies abdominal pain, hematuria, fever, chills, flank pain, body aches, fatigue, or weakness. She reports h/o frequent UTI. She was treated for UTI with Bactrim on 10/19/2022. She notes she was followed by urology and the cause for her UTI could not be determined. She declines referral to urology. She admits to wiping her genital from front to back and wearing cotton panties. [facility] Medical History No pertinent past medical history Surgical History History of bladder surgery Family History Mother No problems noted. Father No problems noted. Brother Prostate cancer Social History Household Members: Other Housing: Other Housing Other:: mobile home Alcohol intake: never Patient Tobacco Use Status: Never used Tobacco e-Cigarette/Vaping Use: Never Used Second Hand Smoke Exposure: No service: No Current occupational status: employed Current occupation: Post office Gender identity: Female Cognitive needs: No Hearing needs: No Vision needs: No Review of Systems Const Details: Const Denies chills, Denies fatigue, Denies fever(s), Denies headache(s) and Denies weakness ENT Denies dizziness and Denies headache(s) Card Denies chest pain, Denies lightheadedness, Denies dyspnea and Denies other (Palpitations) Resp Denies cough, Denies dyspnea, Denies wheezing and Denies other ( shortness of breath) GI Reports as per HPI Reports as per HPI Musc Denies abnormal gait, Denies myalgias, Denies arthralgias, Denies numbness and Denies tingling Skin/Breast Denies rash, Denies unusual bruising and Denies wounds Neuro Denies abnormal gait, Denies dizziness, Denies headache(s), Denies memory loss, Denies numbness, Denies Sensory deficit (Neuro), Denies tingling and Denies weakness Psych Denies anxiety, Denies depression, Denies memory loss Endo Denies cold intolerance, Denies fatigue, Denies heat intolerance, Denies polydipsia and Denies polyuria Aller/Immun Denies wheezing Physical exam (Primary Care) Vital Signs: Last Vital Signs Temp 97.3 F 12/22/22 09:41 Pulse 63 12/22/22 09:41 Resp 12 12/22/22 09:41 BP 128/76 12/22/22 09:41 Pulse Ox 97 12/22/22 09:41 Oxygen Delivery Method Room Air 12/22/22 09:41 BMI result Body Mass Index 31.5 Tobacco/Smoking Status: Tobacco use Status Tobacco use date assessed 06/29/22 12/22/22 09:53 Patient Tobacco Use Status Never used Tobacco 12/22/22 09:53 e-Cigarette/Vaping Use Never Used 12/22/22 09:53 Const Other: General: no acute distress and well developed Nutritional Appearance: well nourished Orientation/consciousness: patient oriented x3 HENMT Head: Yes normocephalic and Yes atraumatic Eyes General: appearance normal, both eyes and all related structures Pupils: Equal, round and reactive pupils present EOM: EOMs intact bilaterally Resp Effort & Inspection: normal respiratory effort Auscultation: clear to auscultation bilaterally Cardio Rate: regular rate Rhythm: regular rhythm Heart sounds: S1 normal heart sound present, S2 normal heart sound present, no gallops, no murmurs and no rubs GI Palpation (GI): No Abdominal aortic bruit present, Soft to palpation, nontender, No hepatosplenomegaly present and No Rebound tenderness present Auscultation: normal bowel sounds General: Yes no CVA tenderness Back/Spine/Pelvis Back: no CVA tenderness Cervical Spine: cervical ROM normal and No Cervical spine tenderness Thoracic/Lumbar Spine: thoraco-lumbar ROM normal, No pain with thoraco-lumbar ROM, No thoracic spinal tenderness and No lumbar spinal tenderness Extrem General: Yes normal to inspection, No edema and No calf tenderness Skin General: warm and dry. Normal skin color. Normal skin turgor Lesions: no lesions Rashes: no rashes Trauma: no lacerations or abrasions Wounds: no wounds Nails: normal Neuro General: patient oriented x3, gait normal and no focal neuro deficit Cranial nerves: Yes Equal, round and reactive pupils present Cognition (Neuro): normal cognition Gait exam (Neuro): Normal gait present Sensory Exam: No Sensory deficit (Neuro) Psych Appearance: grossly normal Affect: normal affect Attitude: cooperative Thought process: Normal thought process present Assessment and Plan Assessment & Plan (1) UTI (urinary tract infection): Code(s): N39.0 - Urinary tract infection, site not specified Plan: Urinalysis is positive for leukocytes, RBCs, nitrite, hyaline cast, and bacteria. Awaiting culture results. Bactrim ordered. Take as prescribed Adequate hydration encouraged Declined urology referral Follow-up with worsening or new symptoms Verbalized understanding and agreed with treatment plan Medications: New sulfamethoxazole-trimethoprim 800-160 mg (Bactrim DS) 1 tab PO Q12H 5 days 10 tabs 0RF Coding Level of Care Code Est Pt Level 3 (78759) Diagnoses UTI (urinary tract infection) N39.0 Time Spent (min) 25
== END 2022-12-22 10:14 | disposition home or self-care (01) ==
PROVIDERS: PCP Hospitalist; Visit Provider Nurse Practitioner Family
DX: N39.0 Urinary tract infection, site not specified (principal)
CPT/HCPCS: 99213

== ENCOUNTER 2023-01-03 11:25 | Outpatient (REF) | payer BC, SELFPAY ==
--- NOTE | ~2023-01-03 | MM_ITS ---
EXAMINATION: MM SCREENING DIGITAL BREAST TOMOSYNTHESIS, BILATERAL CLINICAL INFORMATION: Screening. Asymptomatic. COMPARISON: Mammography: This study is compared with prior exams dating back to TECHNIQUE: Digital breast tomosynthesis is performed in both the craniocaudal and mediolateral oblique views along with computer-aided detection (CAD). Synthesized 2D images are generated from the tomosynthesis. FINDINGS: There are scattered areas of fibroglandular density (ACR BI-RADS breast composition Category b). There are no significant masses, abnormal calcifications, or other abnormalities. MM/MM tomosynthesis screening BI IMPRESSION: No mammographic evidence of malignancy. ASSESSMENT: BI-RADS BI-RADS 1 - Negative RECOMMENDATION: Routine annual mammography screening. 1 year F/U This examination should not preclude the clinical evaluation of a suspicious palpable abnormality. This patient's information was entered into a reminder system with a target due date for their next mammogram.
== END 2023-01-03 11:26 | disposition home or self-care (01) ==
LOC: HO.MAMMO 11:25
PROVIDERS: Visit Provider Hospitalist
DX: Z12.31 Encounter for screening mammogram for malignant neoplasm of breast (principal)
CPT/HCPCS: 77063; 77067

== ENCOUNTER → 2023-01-03 11:45 | Outpatient (BNV) | payer BC, SELFPAY | PROVIDERS: Visit Provider Radiology Diagnostic Radiology | DX: Z12.31 Encounter for screening mammogram for malignant neoplasm of breast (principal) | CPT/HCPCS: 77063; 77067 ==

== ENCOUNTER 2023-01-18 17:40 | Emergency (ER) | payer BC, SELFPAY ==
--- NOTE | 2023-01-18 | ECG_ITS ---
Test Reason : chest pain Blood Pressure : / mmHG Vent. Rate : 067 BPM Atrial Rate : 067 BPM P-R Int : 134 ms QRS Dur : 092 ms QT Int : 408 ms P-R-T Axes : 013 -07 010 degrees QTc Int : 431 ms Normal sinus rhythm Normal ECG No previous ECGs available Referred By: Generic ED Physician Electronically Signed By:DONOVAN AVILA
--- NOTE | ~2023-01-18 | XR_ITS ---
EXAMINATION: CHEST 2 VIEWS CLINICAL INFORMATION: chest pain. COMPARISON: 05/10/2022. TECHNIQUE: PA and lateral views of the chest obtained. FINDINGS: The lungs are well expanded. No focal infiltrate, effusion, edema, or pneumothorax. Cardiac and mediastinal silhouettes are within normal limits for size with a tortuous calcified aorta again noted. No acute bony abnormality seen XR/XR chest 2V IMPRESSION: No evidence of acute disease.
[2023-01-18 18:00] VITALS: BP 158/89; PULSE 73; RESP 18; TEMP 36.7; O2SAT 96; BMI 31.3
--- NOTE | 2023-01-18 18:00 | ED_ITS ---
HPI - Chest Pain General Chief Complaint: Chest Pain Stated Complaint: Chest Pain Time Seen by Provider: 01/18/23 19:40 Source: patient Mode of arrival: ambulatory History of Present Illness HPI narrative: 67-year-old female who presents with sharp, constant left lower edge chest wall pain that started about an hour ago while she was waiting to get ready to eat. She denies any shortness of breath, dizziness and has no significant history of hypertension or diabetes. Pain has resolved but patient reports that she can reproduce pain by pushing on the left lower edge of her ribs. Related Data Previous Rx's Medication Instructions Recorded naproxen 500 mg tablet 500 mg PO BID PRN pain 7 days #14 12/18/22 tabs prednisone 20 mg tablet 40 mg (2 x 20 mg) PO DAILY 5 days 12/18/22 #10 tabs nitrofurantoin macrocrystal 100 mg 100 mg PO Q12H 5 days #10 caps 12/22/22 capsule Brinkley Thyroid 15 mg tablet 60 mg (4 x 15 mg) PO DAILY #120 01/04/23 (thyroid (pork)) tabs Allergies Allergy/AdvReac Type Severity Reaction Status Date / Time sulfamethoxazole Allergy Itching Verified 01/18/23 18:06 [From Sulfamethoxazole-Trimethoprim] trimethoprim Allergy Itching Verified 01/18/23 18:06 [From Sulfamethoxazole-Trimethoprim] Review of Systems 2 Review of Systems: Pertinent positives and negatives as stated in HPI [facility] Past Medical History Source: nursing notes reviewed Medical History No pertinent past medical history Surgical History History of bladder surgery Family History Family History Mother No problems noted. Father No problems noted. Brother Prostate cancer Social History Social History Household Members: Other Housing: Other Housing Other:: mobile home Alcohol intake: never Patient Tobacco Use Status: Never used Tobacco e-Cigarette/Vaping Use: Never Used Second Hand Smoke Exposure: No service: No Current occupational status: employed Current occupation: Post office Gender identity: Female Cognitive needs: No Hearing needs: No Vision needs: No Physical Exam 2 Vital Signs: Vital Signs: Last Vital Signs Temp 98.0 F 01/18/23 18:00 Pulse 73 01/18/23 18:00 Resp 18 01/18/23 18:00 BP 158/89 H 01/18/23 18:00 Pulse Ox 96 01/18/23 18:00 O2 Del Method Room Air 01/18/23 18:00 BMI result Body Mass Index 31.3 VITAL SIGNS: Reviewed. GENERAL: Well developed, well nourished, in no acute distress. HEAD: Normocephalic/atraumatic EYES: PERRLA, EOMI EARS: Ext canals without abnormality NOSE: Nares patent bilateral OROPHARYNX: no oral lesions noted, posterior pharynx clear NECK: Supple, no adenopathy LUNGS: Normal breath sounds. No adventitious sounds or accessory muscle use. SpO2<96>; CHEST WALL: There is reproducible pain on palpation CARDIOVASCULAR: Regular rate and rhythm without noted murmurs, no JVD or lower extremity edema. ABDOMEN: Soft, non-tender, non-distended with bowel sounds. MUSCULOSKELETAL: No tenderness, deformities, or effusions noted on gross inspection. EXTREMITIES: No cyanosis, clubbing or edema. SKIN: Inspection of the skin reveals no rashes NEUROLOGIC: Alert and oriented x 4. Strength and sensation to light touch were grossly intact x 4. Course Course Course Narrative: This is an RME: Additional HPI, ROS, PE not included below will be deferred to primary provider. This is 83-msep-cse-female, hx of hypothyroidism, presenting to emergency department with complaints of left-sided chest pain which started 1 hour ago. Patient reports that she was sitting down to eat her dinner when suddenly she developed this pain. She denies any pain radiation. Endorsing nausea. Denies history of similar symptoms in the past. Reporting 10/10 pain. VSS. Pt appears comfortable. Plan: Labs, EKG, chest x-ray, troponin Medical Decision Making Medical Decision Making MDM Narrative: 67-year-old female with history and clinical presentation, DDX: Atypical chest pain, indigestion, acid reflux, costochondritis/MSK. I reviewed all investigations and hematologic indices are grossly within normal limits without leukocytosis/left shift/anemia or thrombocytopenia. Chemistry indices are negative for acute findings as there is no GREG or electrolyte/liver enzyme abnormalities, troponin is undetectable. Chest x-ray without infiltrate and otherwise my interpretation is in agreement with radiology's impression.EKG with normal sinus rhythm and no ST-T abnormalities noted. My interpretation is that patient is experiencing a musculoskeletal condition likely a costochondritis/musculoskeletal pain. Differential Diagnosis Differential Diagnoses: The differential diagnosis associated with the presentation includes Please see the discussion above Admission/Observation Consideration of admission/observation: Escalation of care including admission/observation considered Please see the discussion above Lab Data MDM Lab Attestation statement: I reviewed the patient's lab results. Please see the discussion above 01/18/23 18:20 01/18/23 18:20 Labs: Lab Results 01/18/23 Range/Units 18:20 WBC 8.3 (4.8-10.8) X10*3/uL RBC 5.08 (4.20-5.50) X10*6/uL Hgb 15.0 (12.0-16.0) g/dl Hct 44.9 (37.0-47.0) % MCV 88.4 (80.0-98.0) fL MCH 29.5 (27.0-33.0) pg MCHC 33.4 (31.0-35.0) g/dl RDW 13.9 (11.0-16.0) % Plt Count 276 (160-400) X10*3/uL MPV 9.8 (9.4-12.3) fL Immature Gran % (Auto) 0.2 (0.0-0.4) % Neut % (Auto) 52.7 (45-73) % Lymph % (Auto) 35.6 (20-40) % Jerome % (Auto) 7.0 (2-11) % Eos % (Auto) 3.9 (0-4) % Baso % (Auto) 0.6 (0-2) % Lymph # (Auto) 2.9 (1.2-4.9) X10*3/uL Jerome # (Auto) 0.6 (0.1-1.2) X10*3/uL Eos # (Auto) 0.3 (0.0-0.4) X10*3/uL Baso # (Auto) 0.1 (0.0-0.2) X10*3/uL Abs Immat Gran (auto) 0.02 (0.00-0.03) X10*3/uL Absolute Neuts (auto) 4.4 (2.0-8.3) x10*3/uL Absolute Nucleated RBC 0.000 (0.0-0.012) X10*3/uL Nucleated RBC % (auto) 0.0 (0.0-0.2) /100WBC Sodium 144 (135-145) mmol/L Potassium 4.0 (3.3-5.1) mmol/L Chloride 107 (96-108) mmol/L Carbon Dioxide 29 (22-29) mmol/L Anion Gap 12 (12-20) BUN 11 (9-16) mg/dL Creatinine 0.82 (0.5-1.4) mg/dL Estim Creat Clear Calc 67.7 Estimated GFR > 60 Random Glucose 96 (60-115) mg/dL Calcium 9.7 (8.4-10.2) mg/dL Total Bilirubin 0.4 (0.0-1.0) mg/dL Direct Bilirubin 0.1 (0.0-0.5) mg/dL AST 17 (5-31) U/L ALT 20 (0-31) U/L Alkaline Phosphatase 85 (39-117) U/L Troponin I High Sens < 2.7 (<3.5-17.0) ng/L Total Protein 7.2 (6.5-8.0) g/dL Albumin 4.3 (3.5-5.0) g/dL Independent Interpretation I performed an independent interpretation of an: EKG Interpretation: Normal sinus rhythm, HR-67, no STEMI, OK/QRS/QTC is within normal limits. Radiology Impression Discussion of test interpretation with radiology: I have reviewed the radiologist's reading. Radiologist Impression: Please see the discussion above External Record Review External record reviewed: Outpatient record, Prior outpatient labs and Prior outpatient radiology Discharge Plan Discharge Clinical Impression: Chest wall pain, Acute costochondritis Patient Disposition: Home, Self-Care Instructions: Costochondritis (ED), Chest Wall Pain (ED) Additional Instructions: 1. Resume all home medications as prescribed. 2. I have recommend [id number] Tylenol for similar symptoms, may use lidocaine patch which is also available [id number]. 3. Please follow-up with your primary care doctor for re-evaluation and further outpatient management Return to the ER for any worsening symptoms. Prescriptions: No Action nitrofurantoin macrocrystal 100 mg capsule 100 mg PO Q12H 5 Days Qty: 10 0RF Rx Instructions: must administer with a meal/food Brinkley Thyroid 15 mg tablet 60 mg PO DAILY Qty: 120 1RF naproxen 500 mg tablet 500 mg PO BID PRN (Reason: pain) 7 Days Qty: 14 0RF prednisone 20 mg tablet 40 mg PO DAILY 5 Days Qty: 10 0RF Referrals: Alix Zhou NP [Primary Care Provider] -
[2023-01-18 18:24] LABS: MANUAL DIFF FLAG NO
[2023-01-18 18:30] LABS: Basophils Absolute Auto 0.1 X10*3/uL (0.0-0.2); Basophils Percent Auto 0.6 % (0-2); Eosinophils Absolute Auto 0.3 X10*3/uL (0.0-0.4); Eosinophils Percent Auto 3.9 % (0-4); Hematocrit 44.9 % (37.0-47.0); Imm Gran Abs Auto 0.02 X10*3/uL (0.00-0.03); Imm Gran Pct Auto 0.2 % (0.0-0.4); Lymphocytes Absolute Auto 2.9 X10*3/uL (1.2-4.9); Lymphocytes Percent Auto 35.6 % (20-40); Mean Corpuscular HGB Conc 33.4 g/dl (31.0-35.0); Mean Corpuscular Hemoglobin 29.5 pg (27.0-33.0); Mean Corpuscular Volume 88.4 fL (80.0-98.0); Mean Platelet Volume 9.8 fL (9.4-12.3); Monocytes Absolute Auto 0.6 X10*3/uL (0.1-1.2); Neutrophils Absolute Auto 4.4 x10*3/uL (2.0-8.3); Neutrophils Percent Auto 52.7 % (45-73); Platelet Count 276 X10*3/uL (160-400); Red Blood Count 5.08 X10*6/uL (4.20-5.50); Red Cell Distribution Width 13.9 % (11.0-16.0); White Blood Count 8.3 X10*3/uL (4.8-10.8)
[2023-01-18 18:42] LABS: Alanine Aminotransferase 20 U/L (0-31); Albumin Level 4.3 g/dL (3.5-5.0); Alkaline Phosphatase 85 U/L (39-117); Anion Gap 12 (12-20); Aspartate Amino Transferase 17 U/L (5-31); Bilirubin Direct 0.1 mg/dL (0.0-0.5); Bilirubin Total 0.4 mg/dL (0.0-1.0); Blood Urea Nitrogen 11 mg/dL (9-16); Calcium 9.7 mg/dL (8.4-10.2); Carbon Dioxide 29 mmol/L (22-29); Chloride 107 mmol/L (96-108); Creatinine Clr Calc Pharmacy 67.7; Estimated Glomerular Filt Rate > 60; Glucose Random 96 mg/dL (60-115); Sodium 144 mmol/L (135-145); Total Protein 7.2 g/dL (6.5-8.0)
[2023-01-18 18:50] LABS: Troponin-I High Sensitivity < 2.7 ng/L (<3.5-17.0)
[2023-01-18] MEDS: Acetaminophen 325 MG TABLET 975 MG PO (21:02)
[2023-01-18] MEDS: Lidocaine 4 % Patch ADH..PATCH 1 PATCH TRANSDERMA (21:02)
== END 2023-01-18 21:15 | disposition home or self-care (01) ==
PROVIDERS: Physician Assistant Medical; Emergency Provider Student in an Organized Health Care Education/Training Program; PCP Hospitalist
DX: R07.89 Other chest pain (principal); M94.0 Chondrocostal junction syndrome [Tietze]
CPT/HCPCS: 36415; 71046; 80048; 80076; 84484; 85025; 93005; 99283

== ENCOUNTER 2023-02-07 11:01 | Outpatient (REF) | payer BC, SELFPAY ==
[2023-02-07 14:11] LABS: Thyroid Stimulating Hormone 1.04 uIU/mL (0.32-4.0)
== END 2023-02-07 11:02 | disposition home or self-care (01) ==
LOC: HO.LAB 11:01
PROVIDERS: Visit Provider Physician Assistant
DX: R19.8 Other specified symptoms and signs involving the digestive system and abdomen (principal); D68.51 Activated protein C resistance; K21.9 Gastro-esophageal reflux disease without esophagitis; K59.00 Constipation, unspecified; R10.9 Unspecified abdominal pain
CPT/HCPCS: 36415; 84443

== ENCOUNTER 2023-02-07 11:01 | Outpatient (AMB) | payer BC, SELFPAY ==
--- NOTE | 2023-02-07 11:11 | MHC.OFFVIS ---
Intake Vital Signs 02/07/23 11:17 Height 5 ft 3 in Weight 188 lb BMI 33.3 BP 133/68 Blood Pressure Location Lt brachial Position Sitting Pulse 67 Intake Visit Reasons: Gastroesophageal reflux disease (GERD) Intake Note: Patient new consult for GERD. Patient cc: constipation on and off, acid reflex with burning sensation and abdominal bloating. 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 Accompanied by: Self / Same As Patient Allergies sulfamethoxazole [From Sulfamethoxazole-Trimethoprim] Allergy (Verified 02/07/23 11:09) Itching trimethoprim [From Sulfamethoxazole-Trimethoprim] Allergy (Verified 02/07/23 11:09) Itching Medication List - Last Reconciled 02/07/23 by Eryn Burnett PA-C [place] Thyroid (thyroid (pork)) 60 mg (4 x 15 mg) PO DAILY NS bisacodyl (Dulcolax (bisacodyl)) 20 mg (4 x 5 mg) PO ONCE 1 day omeprazole 20 mg PO DAILY polyethylene glycol 3350 (Miralax) 238 grams PO ONCE PRN 1 day HPI HPI Comments History of Present Illness Details 67-year-old female referred with persistent acid reflux- LUQ pain- burning-taking tums -however she has had acid reflux for many years she has not had evaluation she sees Dilip- however she has been out she has never had a colonoscopy- Bowels fairly normal- however when thyroid is off-she gets constipation No nausea, vomiting hematemesis, hematochezia fever chills Works full-time the postop [employer] Medical History No pertinent past medical history Surgical History History of bladder surgery Family History Mother No problems noted. Father No problems noted. Brother Prostate cancer Social History Household Members: Other Housing: Other Housing Other:: mobile home Alcohol intake: never Patient Tobacco Use Status: Never used Tobacco e-Cigarette/Vaping Use: Never Used Second Hand Smoke Exposure: No service: No Current occupational status: employed Current occupation: Post office Gender identity: Female Cognitive needs: No Hearing needs: No Vision needs: No Review of Systems Const All systems reviewed & are unremarkable except as noted in HPI and below Card Denies chest pain and Denies dyspnea Resp Denies dyspnea GI Reports abdominal pain, Denies change in stool character, Reports constipation, Reports nausea and Denies vomiting Physical Exam Vital Signs: Last Vital Signs Pulse 67 02/07/23 11:17 BP 133/68 02/07/23 11:17 BMI result Body Mass Index 33.3 Const General: cooperative, healthy appearing, comfortable and no acute distress Orientation/consciousness: patient oriented x3 Limitations: no limitations Eyes Conjunctivae: conjunctivae normal Resp Effort & Inspection: normal respiratory effort and able to speak in complete sentences Auscultation: clear to auscultation bilaterally, no rales, no rhonchi and no wheezes Cardio Rate: regular rate Rhythm: regular rhythm Heart sounds: S1 normal heart sound present and S2 normal heart sound present GI Palpation (GI): Soft to palpation and nontender Auscultation: normal bowel sounds Skin General skin exam: no rashes or lesions noted Neuro General: patient oriented x3 Extrem General: Yes full ROM Psych Appearance: grossly normal and well kempt Mental Status: mental status grossly normal Speech and movement: Normal speech and movement present and Clear speech present Affect: normal affect Attitude: cooperative Thought process: Normal thought process present Thought content: Normal thought content present Insight: Good insight present (Psych) Judgement: Good judgement present (Psych) Assessment & Plan Assessment & Plan (1) Factor V Leiden mutation: Code(s): D68.51 - Activated protein C resistance (2) GERD (gastroesophageal reflux disease): Comment: Omeprazole 20 mg EGD Barretts surveillance,r/o pud, nonulcer dyspepsia, esophagitis other endoscopic findings to account for sx Code(s): K21.9 - Gastro-esophageal reflux disease without esophagitis Plan: EGD (3) Constipation: Code(s): K59.00 - Constipation, unspecified Plan: Maintain high-fiber diet Persistent bowel red (4) Encounter for screening colonoscopy: Code(s): Z12.11 - Encounter for screening for malignant neoplasm of colon Plan: Screening colonoscopy (5) Abdominal pain: Comment: Vague wondering abdominal pain-left upper quadrant/right upper-somewhat vague Code(s): R10.9 - Unspecified abdominal pain Plan: EGD and colonoscopy-MG prep discussed procedure, rare risks, need for escorted due to anesthesia Abdominal ultrasound Plan stool antigen for H pylori begin omeprazole 20 mg daily reviewed reflux precautions Maintain high-fiber diet Consistent bowel regimen index colonoscopy-MiraLax Gatorade split prep literature given EGD Abdominal ultrasound assess gallbladder etc Orders: Orders EGD/[place] Combo - GI Use Only 02/07/23 D68.51 - Activated protein C resistance, K21.9 - Gastro-esophageal reflux disease without esophagitis, Z12.11 - Encounter for screening for malignant neoplasm of colon US abdomen complete 02/07/23 R10.9 - Unspecified abdominal pain Thyroid Stimulating Hormone 02/07/23 R19.8 - Other specified symptoms and signs involving the digestive system and abdomen H pylori Ag Stool Today A04.8 - Other specified bacterial intestinal infections Medications: New omeprazole 20 mg PO DAILY 30 caps 5RF bisacodyl (Dulcolax (bisacodyl)) Day before procedure, prep day Take 4 tablets by mouth upon awakening followed by large glass of water 20 mg (4 x 5 mg) PO ONCE 1 day 4 tabs 0RF colonoscopy prep Z12.11 - Encounter for screening for malignant neoplasm of colon polyethylene glycol 3350 (Miralax) Take as directed by mouth the day before your procedure. 238 grams PO ONCE 1 day PRN 238 grams 0RF laxative effect Patient Instructions: Pleasant 67-year-old female referred with persistent acid reflux has never had screening colonoscopy stool antigen for H pylori begin omeprazole 20 mg daily reviewed reflux precautions Maintain high-fiber diet Consistent bowel regimen index colonoscopy-MiraLax Gatorade split prep literature given EGD Abdominal ultrasound assess gallbladder etc Coding Level of Care Code New Pt Level 4 (43299) Diagnoses Factor V Leiden mutation D68.51 GERD (gastroesophageal reflux disease) K21.9 Constipation K59.00 Encounter for screening colonoscopy Z12.11 Abdominal pain R10.9 Time Spent (min) 45
[2023-02-07 11:17] VITALS: BP 133/68; PULSE 67; BMI 33.3
== END 2023-02-07 11:51 | disposition home or self-care (01) ==
PROVIDERS: Visit Provider Physician Assistant
DX: D68.51 Activated protein C resistance (principal); K21.9 Gastro-esophageal reflux disease without esophagitis; K59.00 Constipation, unspecified; Z12.11 Encounter for screening for malignant neoplasm of colon; R10.9 Unspecified abdominal pain
CPT/HCPCS: 99204

== ENCOUNTER 2023-02-08 11:29 | Outpatient (REF) | payer BC, SELFPAY | END 2023-02-08 11:30 | disposition home or self-care (01) | LOC: HO.LNP 11:29 | PROVIDERS: Visit Provider Physician Assistant | DX: A04.8 Other specified bacterial intestinal infections (principal) | CPT/HCPCS: 87338 ==

== ENCOUNTER 2023-02-14 11:13 | Outpatient (REF) | payer BC, SELFPAY ==
--- NOTE | ~2023-02-14 | US_ITS ---
EXAMINATION: US ABDOMEN COMPLETE CLINICAL INFORMATION: Unspecified abdominal pain. COMPARISON: No prior abdominal ultrasound. CT scan dated October 23, 2007. TECHNIQUE: Real-time imaging of the abdominal viscera. FINDINGS: PANCREAS: Head and body appear unremarkable. Tail not visualized. ABDOMINAL AORTA: The proximal, mid, and distal segments appear unremarkable in caliber. INFERIOR VENA CAVA: Visualized portions appear normal. LIVER: The liver is normal in size. The liver contour is normal. 1.3 x 1.0 x 1.0 cm benign right simple hepatic cyst for which no further dedicated follow up imaging is indicated. No intrahepatic biliary duct dilatation is seen. GALLBLADDER: The gallbladder is physiologically distended. Multiple mobile gallstones are present. No evidence of gallbladder wall thickening, hyperemia, or pericholecystic fluid. Technologist reports negative sonographic Lea's sign. COMMON BILE DUCT: Normal in caliber measuring 0.6 cm in diameter. RIGHT KIDNEY: No hydronephrosis. No renal calculi or focal parenchymal lesion identified. The kidney measures 10.4 cm in maximum dimension. LEFT KIDNEY: No hydronephrosis. No renal calculi or focal parenchymal lesion identified. The kidney measures 9.6 cm in maximum dimension. SPLEEN: The spleen measures 9.7 cm in maximum dimension. FREE FLUID: None. ADDITIONAL FINDINGS: Limited, directed images of the superficial soft tissues of the left upper quadrant below the rib age performed in the region of pain as indicated by the patient appear unremarkable. US/US abdomen complete IMPRESSION: No acute finding. Cholelithiasis.
== END 2023-02-14 11:14 | disposition home or self-care (01) ==
LOC: HO.HMGCX 11:13
PROVIDERS: PCP Internal Medicine; Visit Provider Physician Assistant
DX: R10.9 Unspecified abdominal pain (principal)
CPT/HCPCS: 76700

== ENCOUNTER 2023-03-05 11:43 | Outpatient (AMB) | payer BC, SELFPAY ==
--- NOTE | 2023-03-05 11:48 | MHC.OFFVIS ---
Intake Vital Signs 03/05/23 11:49 Height 5 ft 3 in Weight 180 lb BMI 31.9 BP 119/77 Blood Pressure Location Lt brachial Position Sitting Pulse 82 Intake Visit Reasons: Follow up US results Intake Note: Patient follow up for US results. Patient cc: abdominal bloating, and denies any other GI issues. 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 Accompanied by: Self / Same As Patient Allergies sulfamethoxazole [From Sulfamethoxazole-Trimethoprim] Allergy (Verified 03/05/23 11:47) Itching trimethoprim [From Sulfamethoxazole-Trimethoprim] Allergy (Verified 03/05/23 11:47) Itching Medication List - Last Reconciled 03/05/23 by Eryn Brunett PA-C [place] Thyroid (thyroid (pork)) 60 mg (4 x 15 mg) PO DAILY NS bisacodyl (Dulcolax (bisacodyl)) 20 mg PO ONCE bismuth subsalicylate (Bismuth) 2 tabs PO QID 14 days omeprazole 20 mg PO DAILY polyethylene glycol 3350 (Miralax) 238 grams PO ONCE PRN 1 day HPI HPI Comments History of Present Illness Details A 67 y/o female f/u after U/S and acid reflux H pylori-was positive she has nearly completed quadruple therapy-however she omitted the last couple days of tetracycline She apparently had many GI side effects to antibiotics in which she was unable to going to work-she also had he irritation to her tongue that is now resolving. No skin eruption Her symptoms are no resolving. She had abdominal ultrasound-reviewed findings and recommendation Currently no nausea, hematemesis, hematochezia fever or chills PFSH Medical History No pertinent past medical history Surgical History History of bladder surgery Family History Mother No problems noted. Father No problems noted. Brother Prostate cancer Social History Household Members: Other Housing: Other Housing Other:: mobile home Alcohol intake: never Patient Tobacco Use Status: Never used Tobacco e-Cigarette/Vaping Use: Never Used Second Hand Smoke Exposure: No service: No Current occupational status: employed Current occupation: Post office Gender identity: Female Cognitive needs: No Hearing needs: No Vision needs: No Review of Systems Const All systems reviewed & are unremarkable except as noted in HPI and below Card Denies chest pain and Denies dyspnea Resp Denies dyspnea GI Denies abdominal pain, Denies nausea and Denies vomiting Physical Exam Vital Signs: Last Vital Signs Pulse 82 03/05/23 11:49 BP 119/77 03/05/23 11:49 BMI result Body Mass Index 31.9 Const General: cooperative, healthy appearing, comfortable and no acute distress Limitations: no limitations HEENT Mouth: moist mucous membranes and tongue abnormal fissured (Very mild healing-nt); without plaques and not hairy Resp Effort & Inspection: normal respiratory effort and able to speak in complete sentences Skin General skin exam: no rashes or lesions noted Extrem General: Yes full ROM Psych Appearance: grossly normal Mental Status: mental status grossly normal Speech and movement: Normal speech and movement present Affect: normal affect Attitude: cooperative Thought process: Normal thought process present Thought content: Normal thought content present Insight: Good insight present (Psych) Judgement: Good judgement present (Psych) Results Reviewed Results Reviewed: US/US abdomen complete IMPRESSION: No acute finding. Cholelithiasis. Assessment & Plan Assessment & Plan (1) H. pylori infection: Comment: anti bx made her sick- out of work Code(s): A04.8 - Other specified bacterial intestinal infections Plan: work note-to cover time-out LUIS ANGEL-6 weeks- (2) Cholelithiasis: Comment: Reviewed report, Code(s): K80.20 - Calculus of gallbladder without cholecystitis without obstruction Plan: HIDA (3) GERD (gastroesophageal reflux disease): Comment: Omeprazole 20 mg EGD Barretts surveillance,r/o pud, nonulcer dyspepsia, esophagitis other endoscopic findings to account for sx Code(s): K21.9 - Gastro-esophageal reflux disease without esophagitis Plan: EGD/ colon- pending Orders: Orders H pylori Ag Stool 6 Weeks A04.8 - Other specified bacterial intestinal infections NM hepatobiliary w pharm Today K80.20 - Calculus of gallbladder without cholecystitis without obstruction Patient Instructions: An H pylori stool antigen for LUIS ANGEL 6 weeks No antibiotics were PPI for 2 weeks prior to submitting sample Will call with any concerns or worsening oral complaints Work note provided Awaiting EGD colonoscopy to be scheduled Encouraged to call with any questions or concerns Coding Level of Care Code Est Pt Level 3 (11795) Diagnoses H. pylori infection A04.8 Cholelithiasis K80.20 GERD (gastroesophageal reflux disease) K21.9 Time Spent (min) 30
[2023-03-05 11:49] VITALS: BP 119/77; PULSE 82; BMI 31.9
== END 2023-03-05 12:25 | disposition home or self-care (01) ==
PROVIDERS: PCP Internal Medicine; Visit Provider Physician Assistant
DX: A04.8 Other specified bacterial intestinal infections (principal); K80.20 Calculus of gallbladder without cholecystitis without obstruction; K21.9 Gastro-esophageal reflux disease without esophagitis
CPT/HCPCS: 99213

== ENCOUNTER → 2023-03-05 11:43 | Outpatient (BNVA) | payer BC, SELFPAY | PROVIDERS: PCP Internal Medicine; Visit Provider Physician Assistant ==

== ENCOUNTER 2023-03-09 08:32 | Outpatient (AMB) | payer BC, SELFPAY ==
[2023-03-09 08:43] VITALS: BP 126/82; PULSE 80; O2SAT 98; BMI 32.1
--- NOTE | 2023-03-09 08:43 | AM.OFFWIN_ITS ---
Intake Vital Signs 03/09/23 08:43 Height 5 ft 3 in Weight 181 lb BMI 32.1 BP 126/82 Blood Pressure Location Lt brachial Position Sitting Pulse 80 Pulse Source Pulse Oximeter Pulse Oximetry (%) 98 Oxygen Delivery Method Room Air Intake Visit Reasons: EP, UTI? Patient Tobacco Use Status: Never used Tobacco Allergies sulfamethoxazole [From Sulfamethoxazole-Trimethoprim] Allergy (Verified 03/09/23 08:45) Itching trimethoprim [From Sulfamethoxazole-Trimethoprim] Allergy (Verified 03/09/23 08:45) Itching Medication List - Last Reconciled 03/09/23 by Anjali Miranda MD [place] Thyroid (thyroid (pork)) 60 mg (4 x 15 mg) PO DAILY NS bisacodyl (Dulcolax (bisacodyl)) 20 mg PO ONCE bismuth subsalicylate (Bismuth) 2 tabs PO QID 14 days nitrofurantoin monohyd/m-cryst 100 mg (Macrobid) 100 mg PO Q12H 5 days omeprazole 20 mg PO DAILY polyethylene glycol 3350 (Miralax) 238 grams PO ONCE PRN 1 day Do you need a note to return to daycare/school/sports/work: Yes HPI EP, UTI? HPI Details Patient is a 67-year-old female came in today to be evaluated for possible cystitis Patient says the symptoms developed 2 days ago with frequency and dysuria On UA today she has a urinary tract infection I have sent Macrobid for 5 days We will send urine for culture as well Review of system: There is no fever chills, there is no back pain there is no nausea or vomiting She does have suprapubic discomfort with pressure PFSH Medical History No pertinent past medical history Surgical History History of bladder surgery Family History Mother No problems noted. Father No problems noted. Brother Prostate cancer Social History Household Members: Other Housing: Other Housing Other:: mobile home Alcohol intake: never Patient Tobacco Use Status: Never used Tobacco e-Cigarette/Vaping Use: Never Used Second Hand Smoke Exposure: No service: No Current occupational status: employed Current occupation: Post office Gender identity: Female Cognitive needs: No Hearing needs: No Vision needs: No Review of Systems Const All systems reviewed & are unremarkable except as noted in HPI and below Physical Exam Vital Signs: Last Vital Signs Pulse 80 03/09/23 08:43 BP 126/82 03/09/23 08:43 Pulse Ox 98 03/09/23 08:43 Oxygen Delivery Method Room Air 03/09/23 08:43 BMI result Body Mass Index 32.1 Const General: no acute distress Orientation/consciousness: patient oriented x3 Eyes General: appearance normal, both eyes and all related structures Resp Effort & Inspection: normal respiratory effort and able to speak in complete sentences Auscultation: clear to auscultation bilaterally Cardio Other: S1 S2 GI Other: Mild suprapubic discomfort with pressure General: Yes no CVA tenderness Back/Spine/Pelvis Back: no CVA tenderness Neuro General: patient oriented x3 Psych Mental Status: mental status grossly normal Results AMB Urinalysis, Automated UA Leukoctes 500 Gerardo/uL Last Edit by Kierra Chow CMA on 03/09/23 08:46 UA Nitrite Positive Last Edit by Kierra Chow CMA on 03/09/23 08:46 UA Urobilinogen 0.2 mg/dL Last Edit by Kierra Chow CMA on 03/09/23 08:46 UA Protein 0 mg/dL Last Edit by Kierra Chow CMA on 03/09/23 08:46 UA pH 8.5 Last Edit by Kierra Chow CMA on 03/09/23 08:46 UA Blood 0 Ashish/uL Last Edit by Kierra Chow CMA on 03/09/23 08:46 UA Specific [place] 1.010 Last Edit by Kierra Chow CMA on 03/09/23 08:46 UA Ketone Negative Last Edit by Kierra Chow CMA on 03/09/23 08:46 UA Bilirubin 0 mg/dL Last Edit by Kierra Chow CMA on 03/09/23 08:46 UA Glucose 0 mg/dL Last Edit by Kierra Chow CMA on 03/09/23 08:46 Results Reviewed Results Reviewed: Laboratory Last Values Urine pH (Auto) 8.5 03/09/23 08:43 Specific [place] (Auto) 1.010 03/09/23 08:43 Urine Protein (Auto) 0 mg/dL 03/09/23 08:43 Glucose (UA)(Auto) 0 mg/dL 03/09/23 08:43 Urine Ketones (Auto) Negative 03/09/23 08:43 Urine Blood (Auto) 0 Ashish/uL 03/09/23 08:43 Urine Nitrite (Auto) Positive 03/09/23 08:43 Urine Bilirubin (Auto) 0 mg/dL 03/09/23 08:43 Urine Urobilinogen (Auto) 0.2 mg/dL 03/09/23 08:43 Leukocyte Esterase (Auto) 500 Gerardo/uL 03/09/23 08:43 Assessment & Plan Assessment & Plan (1) Acute cystitis: Code(s): N30.00 - Acute cystitis without hematuria Qualifiers: Hematuria presence: without hematuria Qualified Code(s): N30.00 - Acute cystitis without hematuria Plan Patient is a 67-year-old female came in today to be evaluated for possible cystitis Patient says the symptoms developed 2 days ago with frequency and dysuria On UA today she has a urinary tract infection I have sent Macrobid for 5 days We will send urine for culture as well Review of system: There is no fever chills, there is no back pain there is no nausea or vomiting She does have suprapubic discomfort with pressure Orders: Orders AMB Urinalysis Automated Today Z13.9 - Encounter for screening, unspecified Urine Culture Today N30.00 - Acute cystitis without hematuria Medications: New nitrofurantoin monohyd/m-cryst 100 mg (Macrobid) must administer with a meal/food 100 mg PO Q12H 10 caps 0RF 5 days Coding Level of Care Code Est Pt Level 3 (02907) Diagnoses Acute cystitis without hematuria N30.00 Hematuria presence: without hematuria
== END 2023-03-09 09:32 | disposition home or self-care (01) ==
PROVIDERS: PCP Internal Medicine; Visit Provider Internal Medicine
DX: N30.00 Acute cystitis without hematuria (principal); Z13.9 Encounter for screening, unspecified
CPT/HCPCS: 81003; 99213

== ENCOUNTER 2023-03-09 11:12 | Outpatient (REF) | payer BC, SELFPAY | END 2023-03-09 11:13 | disposition home or self-care (01) | LOC: HO.LNP 11:12 | PROVIDERS: Visit Provider Internal Medicine | DX: N30.00 Acute cystitis without hematuria (principal) | CPT/HCPCS: 87086; 87088; 87186 ==

== ENCOUNTER 2023-04-02 08:00 | Outpatient (AMB) | payer BC, SELFPAY ==
--- NOTE | 2023-04-02 08:01 | AM.OFFWIN_ITS ---
Intake Vital Signs 04/02/23 08:03 Height 5 ft 3 in Weight 181 lb BMI 32.1 BP 118/76 Blood Pressure Location Lt brachial Position Sitting Pulse 78 Pulse Source Pulse Oximeter Temp 98.0 F Temp Source Temporal Artery Scan Pulse Oximetry (%) 97 Intake Visit Reasons: EST/Uti(lobby) Intake Note: pt is here for c/o possible uti Patient Tobacco Use Status: Never used Tobacco Allergies sulfamethoxazole [From Sulfamethoxazole-Trimethoprim] Allergy (Verified 04/02/23 08:04) Itching trimethoprim [From Sulfamethoxazole-Trimethoprim] Allergy (Verified 04/02/23 08:04) Itching Do you need a note to return to daycare/school/sports/work: Yes HPI EST/Uti(lobby) HPI Details Patient presents for a sick visit. Reports symptoms of increased frequency of urination, burning on urination and discomfort in the suprapubic area. Symptoms started in the past few days. No fevers or chills. No nausea or vomiting. [facility] Medical History No pertinent past medical history Surgical History History of bladder surgery Family History Mother No problems noted. Father No problems noted. Brother Prostate cancer Household Members: Other Housing: Other Housing Other:: mobile home Alcohol intake: never Patient Tobacco Use Status: Never used Tobacco e-Cigarette/Vaping Use: Never Used Second Hand Smoke Exposure: No service: No Current occupational status: employed Current occupation: Post office Gender identity: Female Cognitive needs: No Hearing needs: No Vision needs: No Physical Exam General: Yes Bimanual renal exam normal bilaterally and Yes no CVA tenderness Back/Spine/Pelvis Back: no CVA tenderness Results AMB Urinalysis, Automated UA Leukoctes 500 Gerardo/uL Last Edit by Ricardo Healy CMA on 04/02/23 08:2 0 UA Nitrite Negative Last Edit by Ricardo Healy CMA on 04/02/23 08:20 UA Urobilinogen 0.2 mg/dL Last Edit by Ricardo Healy CMA on 04/02/23 08 :20 UA Protein 0 mg/dL Last Edit by Ricardo Healy CMA on 04/02/23 08:20 UA pH 6.0 Last Edit by Ricardo Healy, TEENA on 04/02/23 08:20 UA Blood 200 Ashish/uL Last Edit by Ricardo Healy CMA on 04/02/23 08:20 UA Specific [place] 1.010 Last Edit by Ricardo Healy CMA on 04/02/23 08:20 UA Ketone Negative Last Edit by Ricardo Healy CMA on 04/02/23 08:20 UA Bilirubin 0 mg/dL Last Edit by Ricardo Healy CMA on 04/02/23 08:20 UA Glucose 0 mg/dL Last Edit by Ricardo Healy CMA on 04/02/23 08:20 Assessment & Plan Assessment & Plan (1) UTI (urinary tract infection): Code(s): N39.0 - Urinary tract infection, site not specified Plan: Take antibiotics and Pyridium as directed. Increase fluid intake. If symptoms of burning persist, new onset of fever or lower back pain, to follow-up at the clinic. Orders: Orders AMB Urinalysis Automated Today Z13.9 - Encounter for screening, unspecified Medications: New ciprofloxacin HCl 250 mg PO BID 10 tabs 0RF 5 days phenazopyridine TID daily after meals for 2 days 200 mg PO TID 6 tabs 0RF Discontinued levofloxacin Discontinued Reason: Doctor's Order 500 mg PO DAILY 3 tabs 0RF 3 days Coding Level of Care Code Est Pt Level 3 (35656) Diagnoses UTI (urinary tract infection) N39.0
[2023-04-02 08:03] VITALS: BP 118/76; PULSE 78; TEMP 36.7; O2SAT 97; BMI 32.1
== END 2023-04-02 08:52 | disposition home or self-care (01) ==
PROVIDERS: PCP Internal Medicine; Visit Provider Internal Medicine
DX: N39.0 Urinary tract infection, site not specified (principal); R30.9 Painful micturition, unspecified
CPT/HCPCS: 81003; 99213

== ENCOUNTER → 2023-04-09 07:38 | Outpatient (REF) | payer BC, SELFPAY ==
--- NOTE | ~2023-04-09 | NM_ITS ---
EXAMINATION: BILIARY TRACT IMAGING STUDY WITH CCK CLINICAL INFORMATION: Calculus of gallbladder without cholecystitis and without obstruction.. COMPARISON: No previous biliary scan is available for comparison. Abdominal ultrasound dated 02/14/[address] scan of the abdomen and pelvis dated 10/22/2017 are available for comparison.. TECHNIQUE: Serial gamma scintillation camera images were obtained over the abdomen for a total observation period of 90 minutes following the intravenous administration of 5.0 mCi Tc-99m Mebrofenin. FINDINGS: There is good concentration of activity in the liver by 5 minutes post injection. Biliary activity is visualized by 10 minutes. The gallbladder is well visualized by 50 minutes. Small bowel is well visualized by 20 minutes. At 90 minutes post radiopharmaceutical injection, a 30-minute infusion of 1.6 micrograms Sincalide was then begun and an additional 30 minutes of images were obtained. There is only minimal gallbladder emptying during the sincalide infusion. At the end of the study there is abnormal retention of activity in the gallbladder but almost complete clearance of activity from the liver, and there is also diffuse small bowel activity visualized at this time. The calculated gallbladder ejection fraction is 13% (normal gallbladder ejection fraction is greater than 35%). NM/NM hepatobiliary w pharm IMPRESSION: 1. Visualization of the gallbladder is evidence of a patent cystic duct and strong evidence against the diagnosis of acute cholecystitis. The common bile duct is patent. Liver function appears normal. 2. Poor gallbladder emptying and a low gallbladder ejection fraction are evidence of impaired gallbladder contractility and most likely due to chronic cholecystitis.
== END ==
LOC: HO.NUCMED 07:38
PROVIDERS: PCP Internal Medicine; Visit Provider Physician Assistant
DX: K80.20 Calculus of gallbladder without cholecystitis without obstruction (principal)
CPT/HCPCS: 78227; A9537; J2805

== ENCOUNTER 2023-04-17 11:38 | Outpatient (REF) | payer BC, SELFPAY | END 2023-04-17 11:39 | disposition home or self-care (01) | LOC: HO.LNP 11:38 | PROVIDERS: Visit Provider Physician Assistant | DX: A04.8 Other specified bacterial intestinal infections (principal) | CPT/HCPCS: 87338 ==

== ENCOUNTER 2023-05-08 10:03 | Outpatient (AMB) | payer BC, SELFPAY ==
--- NOTE | 2023-05-08 10:06 | A.OFFVIS_ITS ---
Intake Vital Signs 05/08/23 10:13 Height 5 ft Weight 185 lb BMI 36.1 BP 139/75 Blood Pressure Location Rt brachial Position Sitting Pulse 75 Intake Visit Reasons: Cholelithiasis-HIDA scan done Intake Note: Patient referred by Eryn Burnett CUE SELECTOR/GI for cholelithiasis. HIDA scan on 04/09/23. Patient c/o: pain, discomfort on the LUQ. 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 She has had a workup for this including sonogram demonstrating cholelithiasis and HIDA scan demonstrating biliary dyskinesia. She has no other GI issues or complaints. She has time diet. Having regular bowel habits. She is unclear if she has fatty food intolerance. She has never been jaundiced before. Chart was reviewed patient evaluated. No prior abdominal surgeries. [facility] Medical History No pertinent past medical history Surgical History History of bladder surgery Family History Mother No problems noted. Father No problems noted. Brother Prostate cancer Social History Household Members: Other Housing: Other Housing Other:: mobile home Alcohol intake: never Patient Tobacco Use Status: Never used Tobacco e-Cigarette/Vaping Use: Never Used Second Hand Smoke Exposure: No service: No Current occupational status: employed Current occupation: Post office Gender identity: Female Cognitive needs: No Hearing needs: No Vision needs: No Physical Exam Vital Signs: Last Vital Signs Pulse 75 05/08/23 10:13 BP 139/75 05/08/23 10:13 BMI result Body Mass Index 36.1 Eyes Other: Anicteric Chest Other: Chest sounds bilaterally, HS 1 in 2 GI Other: Moderate [place], soft, benign. Assessment & Plan Assessment & Plan (1) Cholelithiasis: Comment: Reviewed report, Code(s): K80.20 - Calculus of gallbladder without cholecystitis without obstruction Plan Risks, benefits, alternatives of laparoscopic possible open cholecystectomy were reviewed with the patient and included but not limited to bleeding, infection, recurrence of symptoms, numbness, pain, scarring, bowel or bile duct injury or leak and the patient wishes to proceed. All questions answered. Arrangements will be made for this. Coding Level of Care Code New Pt Level 5 (06198) Diagnoses Cholelithiasis K80.20
[2023-05-08 10:13] VITALS: BP 139/75; PULSE 75; BMI 36.1
== END 2023-05-08 10:23 | disposition home or self-care (01) ==
PROVIDERS: PCP Internal Medicine; Referring Provider Physician Assistant; Visit Provider Surgery
DX: K80.20 Calculus of gallbladder without cholecystitis without obstruction (principal)
CPT/HCPCS: 99204

== ENCOUNTER → 2023-05-08 10:03 | Outpatient (BNVA) | payer BC, SELFPAY | PROVIDERS: PCP Internal Medicine; Referring Provider Physician Assistant; Visit Provider Surgery ==

== ENCOUNTER 2023-05-15 08:14 | Outpatient (AMB) | payer BC, SELFPAY ==
--- NOTE | 2023-05-15 08:21 | MHC.OFFVIS ---
Intake Vital Signs 05/15/23 08:23 Height 5 ft 3 in Weight 189 lb 9.561 oz BMI 33.6 BP 141/76 H Blood Pressure Location Lt brachial Position Sitting Pulse 73 Intake Visit Reasons: follow up Hida Scan Intake Note: Kaylin presents in the office as a follow up HIDA scan. CC: She has gall bladder surgery 06/28 and she is having pains in the LUQ. She thought that was going to have a BA swallow. She wants to know if there is anything else besides her gall bladder. Her gall bladder is working on 13%. Allergies sulfamethoxazole [From Sulfamethoxazole-Trimethoprim] Allergy (Verified 05/15/23 08:23) Itching trimethoprim [From Sulfamethoxazole-Trimethoprim] Allergy (Verified 05/15/23 08:23) Itching Medication List - Last Reconciled 05/15/23 by Eryn Burnett PA-C [place] Thyroid (thyroid (pork)) 60 mg (4 x 15 mg) PO DAILY NS bisacodyl (Dulcolax (bisacodyl)) 20 mg PO ONCE omeprazole 20 mg PO DAILY phenazopyridine 200 mg PO TID polyethylene glycol 3350 (Miralax) 238 grams PO ONCE PRN 1 day HPI HPI Comments History of Present Illness Details A 68 y/o female with chronic abdominal pain- LUQ has been ongoing and nothing specific makes it better or worse. Does not seem to be aggravated by food U/S- HIDA- see by Dr. Mata scheduled for 06/28/23 Scheduled for EGD/ colo- 10/2023 She has occasional nausea no vomiting no hematemesis, hematochezia fever chills [facility] Medical History (Updated 05/15/23 @ 10:51 by Eryn Burnett PA-C) No pertinent past medical history Surgical History History of bladder surgery Family History Mother No problems noted. Father No problems noted. Brother Prostate cancer Social History Household Members: Other Housing: Other Housing Other:: mobile home Alcohol intake: never Patient Tobacco Use Status: Never used Tobacco e-Cigarette/Vaping Use: Never Used Second Hand Smoke Exposure: No service: No Current occupational status: employed Current occupation: Post office Gender identity: Female Cognitive needs: No Hearing needs: No Vision needs: No Review of Systems Const All systems reviewed & are unremarkable except as noted in HPI and below Card Denies chest pain and Denies dyspnea Resp Denies dyspnea GI Reports abdominal pain (LUQ), Reports heartburn, Reports nausea and Denies vomiting Psych Reports anxiety Physical Exam Vital Signs: Last Vital Signs Pulse 73 05/15/23 08:23 BP 141/76 H 05/15/23 08:23 BMI result Body Mass Index 33.6 Const General: cooperative, healthy appearing, comfortable and no acute distress Orientation/consciousness: patient oriented x3 Limitations: no limitations Eyes Sclerae: sclerae normal Resp Effort & Inspection: normal respiratory effort and able to speak in complete sentences Auscultation: clear to auscultation bilaterally, no rales, no rhonchi and no wheezes Cardio Rate: regular rate Rhythm: regular rhythm Heart sounds: S1 normal heart sound present and S2 normal heart sound present GI Palpation (GI): Soft to palpation, Tenderness to palpation present (GI) (anterior rib) in the LUQ, no guarding and not rigid Auscultation: normal bowel sounds Skin General skin exam: no rashes or lesions noted Neuro General: patient oriented x3 Extrem General: Yes full ROM Psych Appearance: grossly normal Mental Status: mental status grossly normal Speech and movement: Clear speech present Affect: Anxious affect present Thought process: Normal thought process present Thought content: Normal thought content present Results Reviewed Results Reviewed: NM/NM hepatobiliary w pharm IMPRESSION: 1. Visualization of the gallbladder is evidence of a patent cystic duct and strong evidence against the diagnosis of acute cholecystitis. The common bile duct is patent. Liver function appears normal. 2. Poor gallbladder emptying and a low gallbladder ejection fraction are evidence of impaired gallbladder contractility and most likely due to chronic cholecystitis. US/US abdomen complete IMPRESSION: No acute finding. Cholelithiasis. Assessment & Plan Assessment & Plan (1) Abdominal pain: Comment: Vague wondering abdominal pain-left upper quadrant-at point rib/ cart? costochondritis Multiple, vague c/o Code(s): R10.9 - Unspecified abdominal pain Plan: trial nsaid w/ food Q6-8 hours prn monitor aait nolan EGD/ colon (2) Nausea: Comment: Intermittent, vague Code(s): R11.0 - Nausea Plan: Dietary modification (3) GERD (gastroesophageal reflux disease): Comment: Continue Omeprazole 20 mg EGD Code(s): K21.9 - Gastro-esophageal reflux disease without esophagitis Plan: Reflux precautions Dietary modification Plan trial nsaid w/ food Q6-8 hours prn monitor await nolan EGD/ colon Medications: Changed From phenazopyridine TID daily after meals for 2 days 200 mg PO TID 6 tabs 0RF To phenazopyridine TID daily after meals for 2 days 200 mg PO TID Patient Instructions: trial nsaid w/ food Q6-8 hours prn monitor -update on progress await nolan EGD/ colon Continue PPI Reflux precautions reviewed Avoid culprits Encouraged to call with questions or concerns Coding Level of Care Code Est Pt Level 3 (50477) Diagnoses Abdominal pain R10.9 Nausea R11.0 GERD (gastroesophageal reflux disease) K21.9 Time Spent (min) 30
[2023-05-15 08:23] VITALS: BP 141/76; PULSE 73; BMI 33.6
== END 2023-05-15 10:11 | disposition home or self-care (01) ==
PROVIDERS: PCP Internal Medicine; Visit Provider Physician Assistant
DX: R10.9 Unspecified abdominal pain (principal); R11.0 Nausea; K21.9 Gastro-esophageal reflux disease without esophagitis
CPT/HCPCS: 99213

== ENCOUNTER → 2023-05-15 08:14 | Outpatient (BNVA) | payer BC, SELFPAY | PROVIDERS: PCP Internal Medicine; Visit Provider Physician Assistant ==

== ENCOUNTER 2023-05-16 01:38 | Emergency (ER) | payer BC, SELFPAY ==
--- NOTE | 2023-05-16 | ECG_ITS ---
Test Reason : CHEST PAIN Blood Pressure : / mmHG Vent. Rate : 074 BPM Atrial Rate : 074 BPM P-R Int : 144 ms QRS Dur : 086 ms QT Int : 368 ms P-R-T Axes : 028 009 039 degrees QTc Int : 408 ms Normal sinus rhythm Normal ECG When compared with ECG of 18-JAN-2023 17:49, Nonspecific T wave abnormality has replaced inverted T waves in Inferior leads Referred By: Generic ED Physician Electronically Signed By:BECCA CAO MD
[2023-05-16 01:44] VITALS: BP 153/74; PULSE 71; RESP 18; TEMP 36.6; O2SAT 96; BMI 30.9
[2023-05-16 02:04] LABS: MANUAL DIFF FLAG NO
[2023-05-16 02:06] LABS: Basophils Absolute Auto 0.1 X10*3/uL (0.0-0.2); Eosinophils Absolute Auto 0.3 X10*3/uL (0.0-0.4); Eosinophils Percent Auto 3.8 % (0-4); Hemoglobin 13.9 g/dl (12.0-16.0); Imm Gran Abs Auto 0.01 X10*3/uL (0.00-0.03); Imm Gran Pct Auto 0.1 % (0.0-0.4); Lymphocytes Absolute Auto 2.6 X10*3/uL (1.2-4.9); Lymphocytes Percent Auto 36.6 % (20-40); Mean Corpuscular HGB Conc 33.1 g/dl (31.0-35.0); Mean Corpuscular Hemoglobin 29.1 pg (27.0-33.0); Mean Corpuscular Volume 88.1 fL (80.0-98.0); Mean Platelet Volume 9.8 fL (9.4-12.3); Monocytes Absolute Auto 0.5 X10*3/uL (0.1-1.2); Monocytes Percent Auto 6.6 % (2-11); Neutrophils Absolute Auto 3.7 x10*3/uL (2.0-8.3); Neutrophils Percent Auto 51.9 % (45-73); Platelet Count 230 X10*3/uL (160-400); Red Blood Count 4.77 X10*6/uL (4.20-5.50); Red Cell Distribution Width 13.9 % (11.0-16.0); White Blood Count 7.1 X10*3/uL (4.8-10.8)
[2023-05-16 02:23] LABS: Alanine Aminotransferase 29 U/L (0-31); Albumin Level 3.9 g/dL (3.5-5.0); Alkaline Phosphatase 97 U/L (39-117); Anion Gap 12 (12-20); Aspartate Amino Transferase 32 U/L (5-31); Bilirubin Direct 0.1 mg/dL (0.0-0.5); Bilirubin Total 0.3 mg/dL (0.0-1.0); Blood Urea Nitrogen 11 mg/dL (9-16); Calcium 9.1 mg/dL (8.4-10.2); Carbon Dioxide 24 mmol/L (22-29); Chloride 111 mmol/L (96-108); Creatinine Clr Calc Pharmacy 73.3; Estimated Glomerular Filt Rate > 60; Glucose Random 112 mg/dL (60-115); Lipase 12 U/L (8-78); Potassium 4.3 mmol/L (3.3-5.1); Sodium 143 mmol/L (135-145); Total Protein 6.5 g/dL (6.5-8.0)
[2023-05-16 02:29] LABS: Troponin-I High Sensitivity < 2.7 ng/L (<3.5-17.0)
[2023-05-16 04:43] VITALS: BP 147/84; PULSE 68; RESP 18; TEMP 36.4; O2SAT 94
--- NOTE | 2023-05-16 04:53 | PC.NURSE ---
Pt A&Ox3, reports decrease epigastric pain, states I took a tylenol . Pt reports N/V with the ABD pain earlier which has subsided now. ABD non tender to touch, + bowel sounds x 4 quadrants.
--- NOTE | 2023-05-16 05:51 | ED.ABDPAIN ---
HPI - Abdominal Pain General Chief Complaint: Abdominal Pain Stated Complaint: Chest Pain Time Seen by Provider: 05/16/23 05:11 Source: patient Mode of arrival: ambulatory Limitations: no limitations History of Present Illness HPI narrative: Patient with history of gallstones supposed to get surgery next month have frequent abdominal pains surgeon aware about it last night patient woke up from sleep at 00:45 with pain mostly in epigastric area where she gets pain all the time associated with nausea no vomiting no fever by the time patient arrived to the ER pain subsided feeling much better now taking p.o. fluids no nausea at this time Related Data Home Medications Medication Instructions Recorded Confirmed bisacodyl 5 mg tablet,delayed 20 mg PO ONCE colonoscopy prep 03/05/23 05/15/23 release (Dulcolax (bisacodyl)) phenazopyridine 200 mg tablet 200 mg PO TID 05/15/23 05/15/23 Previous Rx's Medication Instructions Recorded omeprazole 20 mg capsule,delayed 20 mg PO DAILY #30 caps 02/07/23 release polyethylene glycol 3350 17 238 g PO ONCE PRN laxative effect 02/07/23 gram/dose oral powder (Miralax) 1 day #238 grams [place] Thyroid 15 mg tablet 60 mg (4 x 15 mg) PO DAILY #120 05/04/23 (thyroid (pork)) tabs Allergies Allergy/AdvReac Type Severity Reaction Status Date / Time sulfamethoxazole Allergy Itching Verified 05/15/23 08:23 [From Sulfamethoxazole-Trimethoprim] trimethoprim Allergy Itching Verified 05/15/23 08:23 [From Sulfamethoxazole-Trimethoprim] Review of Systems Review of Systems Yes all other systems are reviewed and are negative PMFSH Past Medical History Onset Date is defined in the Problem List Problems that require an onset date and time if occurred within 24 hrs of arrival to the ED Aortic Dissection and Rupture; Neurologic impairment; Cardiopulmonary Arrest; Endotracheal Intubation; Insertion or Replacement of Mechanical Circulatory Assist Device Medical History No pertinent past medical history Surgical History History of bladder surgery Family History Family History Mother No problems noted. Father No problems noted. Brother Prostate cancer Social History Social History Household Members: Other Housing: Other Housing Other:: mobile home Alcohol intake: never Patient Tobacco Use Status: Never used Tobacco Smoked in Last 30 Days: No e-Cigarette/Vaping Use: Never Used Second Hand Smoke Exposure: No Use of substances other than those prescribed or required for medical reasons: No Advance Directives: No Advance Directives Information Provided: No service: No Current occupational status: employed Current occupation: Post office Gender identity: Female Cognitive needs: No Hearing needs: No Vision needs: No Physical Exam ED Vital Signs: Vital Signs - 24 hr 05/16/23 01:44 05/16/23 04:43 Temperature 97.8 F 97.5 F Pulse Rate 71 68 Respiratory Rate 18 18 Blood Pressure 153/74 H 147/84 H Pulse Oximetry 96 94 Oxygen Delivery Method Room Air Room Air BMI result Body Mass Index 30.9 Appearance: Alert. Oriented X3. No acute distress. Eyes: No pallor or icterus ENT: Pharynx normal. Oral Mucosa moist Neck: Normal inspection. Neck supple. CVS: Normal heart rate and rhythm. Pulses normal. Respiratory: No respiratory distress. Equal air entry bilateral, no wheezing/rales/rhonchi Abdomen: Soft mild discomfort in epigastric area Lea sign negative no rebound tenderness or guarding. Bowel sounds are present, no mass palpable, no CVA tenderness Medical Decision Making Medical Decision Making MDM Narrative: Patient is stable labs with clonic cholelithiasis no signs of acute cholecystitis at this time , labs are stable, patient is pain-free discharge patient home advised to follow with surgeon Differential Diagnosis Differential Diagnoses: The differential diagnosis associated with the presentation includes Biliary colic/cholecystitis/gastritis/kidney stone Lab Data MDM Lab Attestation statement: I reviewed the patient's lab results. 05/16/23 02:00 05/16/23 02:00 Labs: Lab Results 05/16/23 Range/Units 02:00 WBC 7.1 (4.8-10.8) X10*3/uL RBC 4.77 (4.20-5.50) X10*6/uL Hgb 13.9 (12.0-16.0) g/dl Hct 42.0 (37.0-47.0) % MCV 88.1 (80.0-98.0) fL MCH 29.1 (27.0-33.0) pg MCHC 33.1 (31.0-35.0) g/dl RDW 13.9 (11.0-16.0) % Plt Count 230 (160-400) X10*3/uL MPV 9.8 (9.4-12.3) fL Immature Gran % (Auto) 0.1 (0.0-0.4) % Neut % (Auto) 51.9 (45-73) % Lymph % (Auto) 36.6 (20-40) % Patrick % (Auto) 6.6 (2-11) % Eos % (Auto) 3.8 (0-4) % Baso % (Auto) 1.0 (0-2) % Lymph # (Auto) 2.6 (1.2-4.9) X10*3/uL Patrick # (Auto) 0.5 (0.1-1.2) X10*3/uL Eos # (Auto) 0.3 (0.0-0.4) X10*3/uL Baso # (Auto) 0.1 (0.0-0.2) X10*3/uL Abs Immat Gran (auto) 0.01 (0.00-0.03) X10*3/uL Absolute Neuts (auto) 3.7 (2.0-8.3) x10*3/uL Absolute Nucleated RBC 0.000 (0.0-0.012) X10*3/uL Nucleated RBC % (auto) 0.0 (0.0-0.2) /100WBC Sodium 143 (135-145) mmol/L Potassium 4.3 (3.3-5.1) mmol/L Chloride 111 H (96-108) mmol/L Carbon Dioxide 24 (22-29) mmol/L Anion Gap 12 (12-20) BUN 11 (9-16) mg/dL Creatinine 0.77 (0.5-1.4) mg/dL Estim Creat Clear Calc 73.3 Estimated GFR > 60 Random Glucose 112 (60-115) mg/dL Calcium 9.1 D (8.4-10.2) mg/dL Total Bilirubin 0.3 (0.0-1.0) mg/dL Direct Bilirubin 0.1 (0.0-0.5) mg/dL AST 32 H (5-31) U/L ALT 29 (0-31) U/L Alkaline Phosphatase 97 (39-117) U/L Troponin I High Sens < 2.7 (<3.5-17.0) ng/L Total Protein 6.5 (6.5-8.0) g/dL Albumin 3.9 (3.5-5.0) g/dL Lipase 12 (8-78) U/L Discharge Plan Discharge Clinical Impression: Biliary colic Patient Disposition: Home, Self-Care Instructions: Gallstones (ED) Additional Instructions: Clear liquids advanced slowly Follow-up with your surgeon Report to the ER if recurrence of severe pain/vomiting/fever Prescriptions: No Action [place] Thyroid 15 mg tablet 60 mg PO DAILY Qty: 120 1RF omeprazole 20 mg capsule,delayed release(DR/EC) 20 mg PO DAILY Qty: 30 5RF polyethylene glycol 3350 [Miralax] 17 gram/dose powder 238 g PO ONCE PRN (Reason: laxative effect) 1 Days Qty: 238 0RF Rx Instructions: Take as directed by mouth the day before your procedure. bisacodyl [Dulcolax (bisacodyl)] 5 mg tablet,delayed release (DR/EC) 20 mg PO ONCE Rx Instructions: Day before procedure, prep day Take 4 tablets by mouth upon awakening followed by large glass of water phenazopyridine 200 mg tablet 200 mg PO TID Rx Instructions: TID daily after meals for 2 days
== END 2023-05-16 06:10 | disposition home or self-care (01) ==
PROVIDERS: Emergency Provider Internal Medicine; PCP Internal Medicine
DX: K80.50 Calculus of bile duct without cholangitis or cholecystitis without obstruction (principal); E78.5 Hyperlipidemia, unspecified
CPT/HCPCS: 36415; 80053; 82248; 83690; 84484; 85025; 93005; 99283; 99284

== ENCOUNTER → 2023-05-16 01:42 | Outpatient (BNV) | payer BC, SELFPAY | PROVIDERS: Emergency Provider Internal Medicine; PCP Internal Medicine; Visit Provider Internal Medicine Cardiovascular Disease | DX: R07.9 Chest pain, unspecified (principal) | CPT/HCPCS: 93010 ==

== ENCOUNTER 2023-05-18 08:02 | Outpatient (AMB) | payer BC, SELFPAY ==
[2023-05-18 08:12] VITALS: BP 124/76; PULSE 78; TEMP 36.7; O2SAT 97; BMI 30.9
--- NOTE | 2023-05-18 08:12 | MHC.OFFWIV ---
Intake Vital Signs 05/18/23 08:12 Height 5 ft 4 in Weight 180 lb BMI 30.9 BP 124/76 Blood Pressure Location Rt brachial Position Sitting Pulse 78 Pulse Source Pulse Oximeter Temp 98.1 F Temp Source Temporal Artery Scan Pulse Oximetry (%) 97 Intake Visit Reasons: EST/uti(lobby) Intake Note: pt is here for c.o possible uti Patient Tobacco Use Status: Never used Tobacco Allergies sulfamethoxazole [From Sulfamethoxazole-Trimethoprim] Allergy (Verified 05/18/23 08:13) Itching trimethoprim [From Sulfamethoxazole-Trimethoprim] Allergy (Verified 05/18/23 08:13) Itching Do you need a note to return to daycare/school/sports/work: Yes HPI HPI Comments History of Present Illness Details This is a 68 year old female who presents to the office today for sick visit. Patient complaining of urinary symptoms including dysuria, increased urinary urgency, and urinary frequency x 3 days. Patient denies any fevers/chills or systemic symptoms. She denies back or flank pain. [facility] Medical History No pertinent past medical history Surgical History History of bladder surgery Family History Mother No problems noted. Father No problems noted. Brother Prostate cancer Social History Household Members: Other Housing: Other Housing Other:: mobile home Alcohol intake: never Patient Tobacco Use Status: Never used Tobacco e-Cigarette/Vaping Use: Never Used Second Hand Smoke Exposure: No service: No Current occupational status: employed Current occupation: Post office Gender identity: Female Cognitive needs: No Hearing needs: No Vision needs: No Review of Systems Const All systems reviewed & are unremarkable except as noted in HPI and below Reports no additional complaints Eyes Reports no additional complaints ENT Reports no additional complaints Card Reports no additional complaints Resp Reports no additional complaints GI Reports no additional complaints Reports no additional complaints Musc Reports no additional complaints Skin/Breast Reports system reviewed and no additional complaints, except as documented Neuro Reports no additional complaints Psych Reports no additional complaints Endo Reports no additional complaints Kit/Lymph Reports no additional complaints Aller/Immun Reports no additional complaints Physical Exam Const Other: Vital signs reviewed. Constitutional: Non-toxic appearing. No acute distress. Well-developed and well-nourished. HEENT: Normocephalic and atraumatic. Skin: Warm and dry. No rashes or lesions noted. Neck: Full and painless range of motion. No cervical lymphadenopathy. Cardio: Regular rate. No lower extremity edema. No JVD. Pulmonary: No respiratory distress. Gastrointestinal: Soft, nontender, and nondistended in all 4 quadrants. Genitourinary: No CVA tenderness. Musculoskeletal: Normal range of motion in joints throughout the body. No deformity or other signs of injury. Neuro: Alert and oriented x4. Cranial nerves 2-12 grossly intact. No focal deficits appreciated. Psych: Normal mood and affect. Results AMB Urinalysis, Automated UA Leukoctes 500 Gerardo/uL Last Edit by Ricardo Healy CMA on 05/18/23 08:31 UA Nitrite Negative Last Edit by Ricardo Healy CMA on 05/18/23 08:31 UA Urobilinogen 0.2 mg/dL Last Edit by Ricardo Healy CMA on 05/18/23 08:31 UA Protein 0 mg/dL Last Edit by Ricardo Healy CMA on 05/18/23 08:31 UA pH 6.0 Last Edit by Ricardo Healy CMA on 05/18/23 08:31 UA Blood 200 Ashish/uL Last Edit by Ricardo Healy CMA on 05/18/23 08:31 UA Specific [place] 1.015 Last Edit by Ricardo Healy CMA on 05/18/23 08:31 UA Ketone Negative Last Edit by Ricardo Healy CMA on 05/18/23 08:31 UA Bilirubin 0 mg/dL Last Edit by Ricardo Healy CMA on 05/18/23 08:31 UA Glucose 0 mg/dL Last Edit by Ricardo Healy CMA on 05/18/23 08:31 Assessment & Plan Assessment & Plan (1) Acute cystitis: Code(s): N30.00 - Acute cystitis without hematuria Qualifiers: Hematuria presence: without hematuria Qualified Code(s): N30.00 - Acute cystitis without hematuria Plan Patient presenting to the office complaining of urinary symptoms. POCT urinalysis shows 3+ leukocyte esterase concerning for acute cystitis. Patient's vital signs are stable, physical exam is otherwise benign, and patient is overall nontoxic appearing. No CVA tenderness or systemic symptoms to suggest acute pyelonephritis. Patient is safe to be discharged home. History and physical most consistent with an acute uncomplicated cystitis. Recommended symptomatic management including increased fluids, Advil/Tylenol as needed for pain as long as patient has no medical contraindications, and PO phenazopyridine three times daily as needed x 3 days. Patient sent home on PO cefdinir 300mg twice daily x 5 days. Her prior urin cultures were reviewed; she has grown E. Coli and Proteus sensitive to third-gen cephalosporins and the Proteus was resistant to Macrobid. Patient was advised to follow-up here or proceed directly to the emergency room if they were to develop fever/chills, nausea/vomiting, flank/back pain, or worsening/persistent symptoms. Patient verbalizes understanding and they are in agreement with the plan. Orders: Orders AMB Urinalysis Automated Today Z13.9 - Encounter for screening, unspecified Medications: New phenazopyridine (Pyridium) 200 mg PO TID PRN 6 tabs 0RF pain 6 doses cefdinir 300 mg PO BID 10 caps 0RF Coding Level of Care Code Est Pt Level 3 (70206) Diagnoses Acute cystitis without hematuria N30.00 Hematuria presence: without hematuria
== END 2023-05-18 08:40 | disposition home or self-care (01) ==
PROVIDERS: PCP Internal Medicine; Visit Provider Physician Assistant Medical
DX: N30.00 Acute cystitis without hematuria (principal)
CPT/HCPCS: 81003; 99213

== ENCOUNTER 2023-05-28 09:01 | Outpatient (AMB) | payer BC, SELFPAY ==
--- NOTE | 2023-05-28 09:02 | MHC.OFFWIV ---
Intake Vital Signs 05/28/23 09:05 Height 5 ft 4 in Weight 180 lb BMI 30.9 BP 144/80 H Blood Pressure Location Lt brachial Position Sitting Pulse 91 Pulse Source Pulse Oximeter Temp 98.0 F Temp Source Temporal Artery Scan Pulse Oximetry (%) 97 Intake Visit Reasons: EP UTI Intake Note: pt is here for c.o uti, was here on the 12th and was given medications for UTI. patient states it did not clear the infection and is requesting a different antibiotic Patient Tobacco Use Status: Never used Tobacco Allergies sulfamethoxazole [From Sulfamethoxazole-Trimethoprim] Allergy (Verified 05/28/23 09:06) Itching trimethoprim [From Sulfamethoxazole-Trimethoprim] Allergy (Verified 05/28/23 09:06) Itching Do you need a note to return to daycare/school/sports/work: No HPI HPI Comments History of Present Illness Details Patient presents to the walk in today with complaints of dysuria Reports urgency and continuously feeling like she has to void but only voiding small amounts. Denies hematuria, back pain, abd pain, vomiting or diarrhea Patient was seen here 10days ago and given Cefdinir which she took as prescribed and completed full course but symptoms persist Has been suffering with UTIs for over 1 year with multiple courses of abx. Has seen Urology in the past but not recently [facility] Medical History No pertinent past medical history Surgical History History of bladder surgery Family History Mother No problems noted. Father No problems noted. Brother Prostate cancer Social History Household Members: Other Housing: Other Housing Other:: mobile home Alcohol intake: never Patient Tobacco Use Status: Never used Tobacco e-Cigarette/Vaping Use: Never Used Second Hand Smoke Exposure: No service: No Current occupational status: employed Current occupation: [employer] office Gender identity: Female Cognitive needs: No Hearing needs: No Vision needs: No Review of Systems Const All systems reviewed & are unremarkable except as noted in HPI and below Physical Exam Vital Signs: Last Vital Signs Temp 98.0 F 05/28/23 09:05 Pulse 91 05/28/23 09:05 BP 144/80 H 05/28/23 09:05 Pulse Ox 97 05/28/23 09:05 BMI result Body Mass Index 30.9 General: awake, alert, oriented. Answers questions appropriately. Fully engaged in examination. Skin: warm, dry, intact HEENT: Normocephalic. Hearing intact. Cardiac: External chest normal in appearance. Respiratory: No cough, audible wheezing or stridor. Abdomen: without gross distension. no CVA tenderness. Abd non tender, no guarding. MS: No obvious swelling or deformities. Neurological: Oriented to person, place, time and situation. Thought process intact. Psychiatric: Appropriate mood and affect. Good judgment and insight. Results AMB Urinalysis, Automated UA Leukoctes 500 Gerardo/uL Last Edit by Ricardo Healy CMA on 05/28/23 09:23 UA Nitrite Negative Last Edit by Ricardo Healy CMA on 05/28/23 09:23 UA Urobilinogen 0.2 mg/dL Last Edit by Ricardo Healy CMA on 05/28/23 09:23 UA Protein 0 mg/dL Last Edit by Ricardo Healy CMA on 05/28/23 09:23 UA pH 6.0 Last Edit by Ricardo Healy CMA on 05/28/23 09:23 UA Blood 0 Ashish/uL Last Edit by Ricardo Healy CMA on 05/28/23 09:23 UA Specific [place] 1.010 Last Edit by Ricardo Healy CMA on 05/28/23 09:23 UA Ketone Negative Last Edit by Ricardo Healy CMA on 05/28/23 09:23 UA Bilirubin 0 mg/dL Last Edit by Ricardo Healy CMA on 05/28/23 09:23 UA Glucose 0 mg/dL Last Edit by Ricardo Healy CMA on 05/28/23 09:23 Results Reviewed Results Reviewed: Laboratory Last Values Urine pH (Auto) 6.0 05/28/23 09:22 Specific [place] (Auto) 1.010 05/28/23 09:22 Urine Protein (Auto) 0 mg/dL 05/28/23 09:22 Glucose (UA)(Auto) 0 mg/dL 05/28/23 09:22 Urine Ketones (Auto) Negative 05/28/23 09:22 Urine Blood (Auto) 0 Ashish/uL 05/28/23 09:22 Urine Nitrite (Auto) Negative 05/28/23 09:22 Urine Bilirubin (Auto) 0 mg/dL 05/28/23 09:22 Urine Urobilinogen (Auto) 0.2 mg/dL 05/28/23 09:22 Leukocyte Esterase (Auto) 500 Gerardo/uL 05/28/23 09:22 Assessment & Plan Assessment & Plan (1) UTI (urinary tract infection): Code(s): N39.0 - Urinary tract infection, site not specified Plan Patient evaluated in the walk in today for persistent UTI symptoms. Recently completed full course of Cefdinir without improvement UA poc reviewed, [id number]. Will send for UA C&S. Cipro 250mg po BID X 5 days, take as prescribed, complete full course. Increase fluids, proper hygiene Patient advised to call urology to make a follow up appointment, discussed risks associated with frequent use of abx for recurrent UTIs, eventually may become resistant to oral abx and require treament in ER/inpt. She verbalized understanding. Follow up with pcp or in walk in for any new or worsening symptoms. Fevers, back pain, severe abd pain, intractable vomiting seek treatment in ER. Orders: Orders AMB Urinalysis Automated Today Z13.9 - Encounter for screening, unspecified UA CC w/rflx Micro + Cult Today N39.0 - Urinary tract infection, site not specified Medications: Refilled ciprofloxacin HCl 250 mg PO BID 5 days 10 tabs 0RF Coding Level of Care Code Est Pt Level 4 (81096) Diagnoses UTI (urinary tract infection) N39.0
[2023-05-28 09:05] VITALS: BP 144/80; PULSE 91; TEMP 36.7; O2SAT 97; BMI 30.9
== END 2023-05-28 09:43 | disposition home or self-care (01) ==
PROVIDERS: PCP Internal Medicine; Visit Provider Registered Nurse Emergency
DX: R30.0 Dysuria (principal)
CPT/HCPCS: 81003; 99214

== ENCOUNTER 2023-05-28 13:21 | Outpatient (REF) | payer BC, SELFPAY ==
[2023-05-28 14:05] LABS: Appearance Urine Clear; Color Urine Yellow; Glucose Urine UA Negative (Negative); Leukocyte Esterase Urine Large (3+) (Negative); Nitrite Urine Negative (Negative); PH 6.5 (5.0-9.0); Specific Gravity - Urine <= 1.005 (1.005-1.025); UMIC TRIGGER UACC YES; Urine Blood Trace (Negative); Urine Ketones Negative (Negative); Urine Protein Negative (Neg-Trace)
[2023-05-28 14:10] LABS: Bacteria Urine 4+ (None Seen); Hyaline Casts Urine 0-2 /LPF (0-2); RBC Urine 0-2 /HPF (0-2); Squamous Epithelial Cell Urine 0-2 /HPF (0-2); UACC Culture Trigger YES; WBC Urine >50 /HPF (0-5)
== END 2023-05-28 13:22 | disposition home or self-care (01) ==
LOC: HO.LNP 13:21
PROVIDERS: Visit Provider Registered Nurse Emergency
DX: N39.0 Urinary tract infection, site not specified (principal)
CPT/HCPCS: 81001; 81003; 87086; 87088; 87186

== ENCOUNTER 2023-06-16 09:05 | Outpatient (AMB) | payer BC, SELFPAY ==
[2023-06-16 09:07] VITALS: BP 122/70; PULSE 93; TEMP 36.4; O2SAT 97; BMI 32.1
--- NOTE | 2023-06-16 09:07 | AM.OFFWIN_ITS ---
Intake Vital Signs 06/16/23 09:07 Height 5 ft 4 in Weight 187 lb BMI 32.1 BP 122/70 Blood Pressure Location Lt brachial Position Sitting Pulse 93 Pulse Source Pulse Oximeter Temp 97.6 F Temp Source Oral Pulse Oximetry (%) 97 Oxygen Delivery Method Room Air Intake Visit Reasons: EST/uti(lobby) Intake Note: Pt is here today c/o urinary pressure and frequency x1day Patient Tobacco Use Status: Never used Tobacco Allergies sulfamethoxazole [From Sulfamethoxazole-Trimethoprim] Allergy (Intermediate, Verified 06/21/23 10:42) Itching trimethoprim [From Sulfamethoxazole-Trimethoprim] Allergy (Intermediate, Verified 06/21/23 10:42) Itching HPI EST/uti(lobby) HPI Details Patient is a 68-year-old female comes to the walk-in clinic complaining of urinary pressure and frequency that started yesterday. She does have a history of urinary tract infections, especially within the past year, and most recently was treated about 3 weeks ago, and then about a week and a half prior to that but apparently the infection had not been cleared. She was initially written for cefdinir, and then Cipro seem to be resolve her symptoms for a few weeks now. She has a history of bladder surgical procedure to put in a mesh and resolve bladder prolapse in the past. She denies having obvious prolapse again, the questions if the mesh could be associated with her recurrent infections now. She had been or in for Cipro which was susceptible with her last infection that grew Pseudomonas aeruginosa, and she states that symptoms did resolve. She denies blood in the urine, pain with urination, nausea vomiting or diarrhea, back pain or flank pain, dizziness or weakness, myalgias or malaise, or other significant associated symptoms. [facility] Medical History (Updated 06/21/23 @ 11:47 by Katlyn Johnson RN) Chronic urinary tract infection Factor V Leiden mutation Cholelithiasis GERD (gastroesophageal reflux disease) Elevated cholesterol Hypothyroid Surgical History (Updated 06/21/23 @ 11:47 by Katlyn Johnson RN) Hx of inguinal hernia repair History of bladder surgery Family History Mother No problems noted. Father No problems noted. Brother Prostate cancer Social History Household Members: Other Housing: Other Housing Other:: mobile home Are you a primary acute care registered nurse to a significant other at home: No Do you presently have visiting nurse or other home services: No Alcohol intake: never Comment: counts correct Patient Tobacco Use Status: Former Tobacco user Quit Date: age-early 30's Tobacco use type: Cigarette Years Smoked: 17 e-Cigarette/Vaping Use: Never Used Second Hand Smoke Exposure: No service: No Current occupational status: employed Current occupation: Post office Gender identity: Female Cognitive needs: No Hearing needs: No Vision needs: No Review of Systems Const All systems reviewed & are unremarkable except as noted in HPI and below Physical Exam Vital Signs: Last Vital Signs Temp 97.6 F 06/16/23 09:07 Pulse 93 06/16/23 09:07 BP 122/70 06/16/23 09:07 Pulse Ox 97 06/16/23 09:07 Oxygen Delivery Method Room Air 06/16/23 09:07 BMI result Body Mass Index 32.1 Const General: cooperative, healthy appearing, comfortable, no acute distress, alert, awake, Physically active and well groomed; No anxious, diaphoretic, ill appearing, intoxicated appearing, poor hygiene or tired appearing Nutritional Appearance: average body habitus Limitations: no limitations Resp Effort & Inspection: normal respiratory effort GI Palpation (GI): Soft to palpation, not firm, nontender, no guarding, not rigid and No hepatosplenomegaly present General: Yes no CVA tenderness Back/Spine/Pelvis Back: no CVA tenderness Skin Other: Good color, warm and dry Psych Appearance: grossly normal Mental Status: mental status grossly normal Speech and movement: Normal speech and movement present Affect: normal affect Attitude: cooperative Thought process: Normal thought process present Insight: Good insight present (Psych) Judgement: Good judgement present (Psych) Results AMB Urinalysis, Automated UA Leukoctes 500 Gerardo/uL Last Edit by Kierra Chow CMA on 06/16/23 09:22 UA Nitrite Positive Last Edit by Kierra Chow CMA on 06/16/23 09:22 UA Urobilinogen 0.2 mg/dL Last Edit by Kierra Chow CMA on 06/16/23 09:22 UA Protein 15 mg/dL Last Edit by Kierra Chow CMA on 06/16/23 09:22 UA pH 6.0 Last Edit by Kierra Chow CMA on 06/16/23 09:22 UA Blood 200 Ashish/uL Last Edit by Kierra Chow CMA on 06/16/23 09:22 UA Specific [place] 1.015 Last Edit by Kierra Chow CMA on 06/16/23 09:22 UA Ketone Negative Last Edit by Kierra Chow CMA on 06/16/23 09:22 UA Bilirubin 0 mg/dL Last Edit by Kierra Chow CMA on 06/16/23 09:22 UA Glucose 0 mg/dL Last Edit by Kierra Chow CMA on 06/16/23 09:22 Results Reviewed Results Reviewed: Laboratory Last Values Urine pH (Auto) 6.0 06/16/23 09:07 Specific [place] (Auto) 1.015 06/16/23 09:07 Urine Protein (Auto) 15 mg/dL 06/16/23 09:07 Glucose (UA)(Auto) 0 mg/dL 06/16/23 09:07 Urine Ketones (Auto) Negative 06/16/23 09:07 Urine Blood (Auto) 200 Ashish/uL 06/16/23 09:07 Urine Nitrite (Auto) Positive 06/16/23 09:07 Urine Bilirubin (Auto) 0 mg/dL 06/16/23 09:07 Urine Urobilinogen (Auto) 0.2 mg/dL 06/16/23 09:07 Leukocyte Esterase (Auto) 500 Gerardo/uL 06/16/23 09:07 Assessment & Plan Assessment & Plan (1) Acute cystitis: Code(s): N30.00 - Acute cystitis without hematuria Qualifiers: Hematuria presence: without hematuria Qualified Code(s): N30.00 - Acute cystitis without hematuria Plan Patient patient with history of recurrent urinary tract infections who appears to have acute simple cystitis today, with no symptoms or signs suggestive of upper urinary infection or pyelonephritis. She had grown Pseudomonas aeruginosa with her last infection a month ago that was susceptible to Cipro. I will write her for that again, as her symptoms did resolve, however she has only a month out from her last UTI, and I think she has an underlying process that is causing recurrent infections. She had been advised that her last walk-in visit to make an appointment with her urologist who she has seen within the last 3 years, however she did not do so. We talked about this again, stressing the importance of an evaluation with them to rule out an underlying cause, as frequent antibiotic use can lead to problems including resistance to drugs. She knows to follow up sooner if symptoms persist or worsen, and go to the emergency department with worrisome symptoms. Orders: Orders AMB Urinalysis Automated 06/16/23 Z13.9 - Encounter for screening, unspecified Coding Level of Care Code Est Pt Level 4 (98692) Diagnoses Acute cystitis without hematuria N30.00 Hematuria presence: without hematuria
== END 2023-06-16 12:56 | disposition home or self-care (01) ==
PROVIDERS: PCP Internal Medicine; Visit Provider Physician Assistant Medical
DX: R30.0 Dysuria (principal)
CPT/HCPCS: 81003; 99214

== ENCOUNTER 2023-06-16 11:25 | Outpatient (REF) | payer BC, SELFPAY ==
[2023-06-16 11:47] LABS: Appearance Urine Turbid; Color Urine Yellow; Glucose Urine UA Negative (Negative); Leukocyte Esterase Urine Large (3+) (Negative); Nitrite Urine Positive (Negative); PH 6.5 (5.0-9.0); Specific Gravity - Urine 1.015 (1.005-1.025); UMIC TRIGGER UACC YES; Urine Blood Large (3+) (Negative); Urine Ketones Negative (Negative); Urine Protein 30 (1+) mg/dL (Neg-Trace)
[2023-06-16 11:50] LABS: Bacteria Urine 4+ (None Seen); Hyaline Casts Urine 0-2 /LPF (0-2); RBC Urine >20 /HPF (0-2); Squamous Epithelial Cell Urine 0-2 /HPF (0-2); UACC Culture Trigger YES; WBC Urine >50 /HPF (0-5)
== END 2023-06-16 11:26 | disposition home or self-care (01) ==
LOC: HO.LNP 11:25
PROVIDERS: Visit Provider Physician Assistant Medical
DX: R30.0 Dysuria (principal)
CPT/HCPCS: 81001; 87086; 87088; 87186

== ENCOUNTER 2023-06-19 09:21 | Outpatient (AMB) | payer BC, SELFPAY ==
--- NOTE | 2023-06-19 09:24 | AM.OFFWIN_ITS ---
Intake Vital Signs 06/19/23 09:27 Height 5 ft 4 in Weight 187 lb BMI 32.1 BP 150/80 H Blood Pressure Location Lt brachial Position Sitting Pulse 74 Pulse Source Pulse Oximeter Temp 97.1 F Temp Source Temporal Artery Scan Pulse Oximetry (%) 97 Oxygen Delivery Method Room Air Intake Visit Reasons: EST/UTI(lobby) Intake Note: pt is here today for UTI started Sunday Patient Tobacco Use Status: Never used Tobacco Allergies sulfamethoxazole [From Sulfamethoxazole-Trimethoprim] Allergy (Verified 06/19/23 09:27) Itching trimethoprim [From Sulfamethoxazole-Trimethoprim] Allergy (Verified 06/19/23 09:27) Itching Medication List - Last Reconciled 06/19/23 by JEY Gongora [place] Thyroid (thyroid (pork)) 60 mg (4 x 15 mg) PO DAILY NS cephalexin 500 mg PO BID 7 days ciprofloxacin HCl 250 mg PO BID 3 days omeprazole 20 mg PO DAILY Do you need a note to return to daycare/school/sports/work: No HPI HPI Comments History of Present Illness Details 68-year-old female who comes in today co mplaining of dysuria urgency and frequency x1 day. She was seen 3 days ago here for UTI was put on Cipro for 3 days and the symptoms have resolved have returned as soon as the Cipro ended. The patient has recurrent UTIs and relates this occurs monthly. She does have a call in to Urology for an evaluation. [facility] Medical History No pertinent past medical history Surgical History History of bladder surgery Family History Mother No problems noted. Father No problems noted. Brother Prostate cancer Social History Household Members: Other Housing: Other Housing Other:: mobile home Alcohol intake: never Patient Tobacco Use Status: Never used Tobacco e-Cigarette/Vaping Use: Never Used Second Hand Smoke Exposure: No service: No Current occupational status: employed Current occupation: Post office Gender identity: Female Cognitive needs: No Hearing needs: No Vision needs: No Review of Systems Reports dysuria, Reports urinary hesitancy and Reports urinary urgency Physical Exam Vital Signs: Last Vital Signs Temp 97.1 F 06/19/23 09:27 Pulse 74 06/19/23 09:27 BP 150/80 H 06/19/23 09:27 Pulse Ox 97 06/19/23 09:27 Oxygen Delivery Method Room Air 06/19/23 09:27 BMI result Body Mass Index 32.1 Const General: healthy appearing and no acute distress HEENT Head: Yes normal to inspection, Yes normocephalic and Yes atraumatic Ears: hearing grossly normal bilaterally and external ears normal Face and sinus: Yes normal facial exam Eyes General: appearance normal, both eyes and all related structures Results AMB Urinalysis, Automated UA Leukoctes Gerardo/uL Last Edit by Alix Ceron CMA on 06/19/23 09:42 UA Nitrite Negative Last Edit by Alix eCron CMA on 06/19/23 09:42 UA Urobilinogen 0 mg/dL Last Edit by Alix Ceron CMA on 06/19/23 09:42 UA Protein 0.2 mg/dL Last Edit by Alix Ceron CMA on 06/19/23 09:42 UA pH 6.0 Last Edit by Alix Ceron CMA on 06/19/23 09:42 UA Blood 0 Ashish/uL Last Edit by Alix Ceron CMA on 06/19/23 09:42 UA Specific [place] 1.015 Last Edit by Alix Ceron CMA on 06/19/23 09:4 2 UA Ketone Negative Last Edit by Alix Ceron CMA on 06/19/23 09:42 UA Bilirubin 0 mg/dL Last Edit by Alix Ceron CMA on 06/19/23 09:42 UA Glucose 0 mg/dL Last Edit by Alix Ceron CMA on 06/19/23 09:42 Results Reviewed Results Reviewed: Laboratory Last Values Urine pH (Auto) 6.0 06/19/23 09:40 Specific [place] (Auto) 1.015 06/19/23 09:40 Urine Protein (Auto) 0.2 mg/dL 06/19/23 09:40 Glucose (UA)(Auto) 0 mg/dL 06/19/23 09:40 Urine Ketones (Auto) Negative 06/19/23 09:40 Urine Blood (Auto) 0 Ashish/uL 06/19/23 09:40 Urine Nitrite (Auto) Negative 06/19/23 09:40 Urine Bilirubin (Auto) 0 mg/dL 06/19/23 09:40 Urine Urobilinogen (Auto) 0 mg/dL 06/19/23 09:40 Assessment & Plan Assessment & Plan (1) Dysuria: Code(s): R30.0 - Dysuria Plan: The patient will have another course of antibiotics for 7 days instead of 3. She is going to follow up with Urology for an evaluation of her recurrent UTIs. Plan see plan Orders: Orders AMB Urinalysis Automated Today Z13.9 - Encounter for screening, unspecified Dinesh Banks MD Medications: New cephalexin 500 mg PO BID 7 days 14 caps 0RF JEY Gongora Coding Level of Care Code Est Pt Level 3 (50978) Diagnoses Dysuria R30.0
[2023-06-19 09:27] VITALS: BP 150/80; PULSE 74; TEMP 36.2; O2SAT 97; BMI 32.1
== END 2023-06-19 10:09 | disposition home or self-care (01) ==
PROVIDERS: PCP Internal Medicine; Visit Provider Physician Assistant Medical
DX: N39.0 Urinary tract infection, site not specified (principal); Z13.9 Encounter for screening, unspecified
CPT/HCPCS: 81003; 99214

== ENCOUNTER 2023-06-28 06:29 | Day surgery (SDC) | payer BC, SELFPAY ==
[2023-06-21 11:47] VITALS: BMI 33.1
--- NOTE | 2023-06-27 08:31 | P.CONAN_ITS ---
Documented by User: Anabelle Connelly NP 06/27/23 08:34 HPI - Anesthesia Eval Consult details Narrative: 68yo F for Cholecystectomy Laparoscopic,poss open, PMFSH Active Problems Active Problems: All Active Problems (Updated 06/21/23 @ 11:47 by Katlyn Johnson RN) Dysuria (Acute) Acute cystitis (Acute) Cholelithiasis (Acute) H. pylori infection (Acute) Abdominal pain (Acute) Encounter for screening colonoscopy (Acute) Plant dermatitis (Acute) Contusion of left hand (Acute) Upper respiratory tract infection (Acute) Hypothyroidism (acquired) (Acute) High cholesterol (Acute) Normal physical exam (Acute) Factor V Leiden mutation (Acute) Difficulty sleeping (Acute) Constipation (Acute) Stye (Acute) Genitourinary syndrome of menopause (Acute) Dysuria (Acute) Breast cancer screening by mammogram (Acute) Breast pain, left (Acute) Adult general medical exam (Acute) Nausea (Acute) GERD (gastroesophageal reflux disease) (Acute) Hyperlipidemia (Acute) UTI (urinary tract infection) (Acute) Hypothyroid (Acute) Laboratory examination ordered as part of a routine general medical examination (Acute) Past Medical History Medical History (Updated 06/21/23 @ 11:47 by Katlyn Johnson RN) Chronic urinary tract infection Factor V Leiden mutation Cholelithiasis GERD (gastroesophageal reflux disease) Elevated cholesterol Hypothyroid Family History Family History Mother No problems noted. Father No problems noted. Brother Prostate cancer Surgical History Surgical History (Updated 06/21/23 @ 11:47 by Katlyn Johnson RN) Hx of inguinal hernia repair History of bladder surgery Social History Social History Household Members: Other Housing: Other Housing Other:: mobile home Are you a primary child care provider to a significant other at home: No Do you presently have visiting nurse or other home services: No Alcohol intake: never Patient Tobacco Use Status: Former Tobacco user Quit Date: age-early 30's Tobacco use type: Cigarette Years Smoked: 17 e-Cigarette/Vaping Use: Never Used Second Hand Smoke Exposure: No Use of substances other than those prescribed or required for medical reasons: No Have you been hit, kicked, punched, or otherwise hurt by someone within the past year? If so, by whom?: No Are you DNR?: No Advance Directives: No Advance Directives Information Provided: Yes Advance Directives on File: No Recently lost weight without trying: No Eating poorly because of decreased appetite: No Nutrition Risks: No Nutritional Risk Poor oral hygiene: No (upper & lower full denture) service: No Current occupational status: employed Current occupation: Post office Gender identity: Female Cognitive needs: No Hearing needs: No Vision needs: No Meds Allergies Allergy/AdvReac Type Severity Reaction Status Date / Time sulfamethoxazole Allergy Intermediate Itching Verified 06/21/23 10:42 [From Sulfamethoxazole-Trimethoprim] trimethoprim Allergy Intermediate Itching Verified 06/21/23 10:42 [From Sulfamethoxazole-Trimethoprim] Home Medications Medication Instructions Recorded Confirmed Last Taken Type omeprazole 20 mg capsule,delayed 20 mg PO QAM 06/21/23 06/21/23 Unknown History release thyroid (pork) 15 mg tablet 60 mg PO QPM 06/21/23 06/21/23 Unknown History ([place] Thyroid) Exam Height,Weight and Vital Signs: Height 5 ft 3 in Weight 84.822 kg Pertinent Lab Results Pertinent Lab Results: Laboratory Tests 05/16/23 02:00 WBC 7.1 Hgb 13.9 Hct 42.0 Plt Count 230 Sodium 143 Potassium 4.3 Chloride 111 H Carbon Dioxide 24 BUN 11 Creatinine 0.77 Narrative Narrative: EKG 05/2023 Vent. Rate : 074 BPM Atrial Rate : 074 BPM P-R Int : 144 ms QRS Dur : 086 ms QT Int : 368 ms P-R-T Axes : 028 009 039 degrees QTc Int : 408 ms Normal sinus rhythm Normal ECG When compared with ECG of 18-JAN-2023 17:49, Nonspecific T wave abnormality has replaced inverted T waves in Inferior leads Assessment and Plan Assessment Anesthesia Assessment: Chart Reviewed Documented by User: Luis A Coronado MD 06/28/23 08:58 [facility] Past Medical History Medical History (Updated 06/21/23 @ 11:47 by Katlyn Johnson RN) Chronic urinary tract infection Factor V Leiden mutation Cholelithiasis GERD (gastroesophageal reflux disease) Elevated cholesterol Hypothyroid Family History Family History Mother No problems noted. Father No problems noted. Brother Prostate cancer Family history of problems with anesthesia: No Surgical History Surgical History (Updated 06/21/23 @ 11:47 by Katlyn Johnson RN) Hx of inguinal hernia repair History of bladder surgery History of Problems with Anesthesia: No Social History Social History Household Members: Other Housing: Other Housing Other:: mobile home Are you a primary child care provider to a significant other at home: No Do you presently have visiting nurse or other home services: No Alcohol intake: never Patient Tobacco Use Status: Former Tobacco user Quit Date: age-early 30's Tobacco use type: Cigarette Years Smoked: 17 e-Cigarette/Vaping Use: Never Used Second Hand Smoke Exposure: No Use of substances other than those prescribed or required for medical reasons: No Have you been hit, kicked, punched, or otherwise hurt by someone within the past year? If so, by whom?: No Are you DNR?: No Advance Directives: No Advance Directives Information Provided: Yes Advance Directives on File: No Recently lost weight without trying: No Eating poorly because of decreased appetite: No Nutrition Risks: No Nutritional Risk Poor oral hygiene: No (upper & lower full denture) service: No Current occupational status: employed Current occupation: Post office Gender identity: Female Cognitive needs: No Hearing needs: No Vision needs: No Meds Allergies Allergy/AdvReac Type Severity Reaction Status Date / Time sulfamethoxazole Allergy Intermediate Itching Verified 06/21/23 10:42 [From Sulfamethoxazole-Trimethoprim] trimethoprim Allergy Intermediate Itching Verified 06/21/23 10:42 [From Sulfamethoxazole-Trimethoprim] Home Medications Medication Instructions Recorded Confirmed Last Taken Type omeprazole 20 mg capsule,delayed 20 mg PO QAM 06/21/23 06/21/23 Unknown History release thyroid (pork) 15 mg tablet 60 mg PO QPM 06/21/23 06/21/23 Unknown History ([place] Thyroid) Exam Airway Mallampati Class: II TM Dist: <=3cm Neck ROM: Full Denture: Upper and Lower Heart: ok Lungs: ok Assessment and Plan Assessment Anesthesia Assessment: Anesthesia Plan Discussed Final Anesthetic Review Family History of Problems with Anesthesia: No History of Problems with Anesthesia: No NPO: Yes ASA Class: II Final Preanesthetic Review: No Changes in Pt Med Stat, Meds/Allgs Chart Reviewed, Consent Obtained/Reviewed and Anes Risks/Benef Reviewed Patient Risk: Intermediate Procedure Risk: Intermediate Anesthetic Plan Anesthetic Plan: GA and Agree w/ Assess. and Plan Disposition: Standard PACU
--- NOTE | 2023-06-27 12:55 | MHC.SHP ---
Pre-Procedural Eval Section A - 24 Hr Update-Section A only Date of Service: 06/27/23 The patient is an INPATIENT: No Changes since office visit: No Cold of Flu in the past 2 weeks, No New Medical Problems, No Changes in Medication and No Patient answered all questions The patient has been examined within 24 hours of the surgical procedure. The History & Physical has been completed within 30 days and I have reviewed it.: Yes Section B - Complete if H&P > 30 days Chief Complaint: Calculus of gallbladder without cholecystitis with Allergies: Allergies Allergy/AdvReac Type Severity Reaction Status Date / Time sulfamethoxazole Allergy Intermediate Itching Verified 06/21/23 10:42 [From Sulfamethoxazole-Trimethoprim] trimethoprim Allergy Intermediate Itching Verified 06/21/23 10:42 [From Sulfamethoxazole-Trimethoprim] Plan I have reviewed the history and physical and performed a pertinent physical examination on my patient. No changes have occurred unless specified. Time Spent With Patient Time: Total time managing care of this patient today ____ minutes.
[2023-06-28] VITALS (18 sets, daily range): BP systolic 92–182; BP diastolic 54–107; PULSE 60–89; RESP 12–18; TEMP 36.1–36.6; O2SAT 90–100; BMI 32.7
[2023-06-28] MEDS: Lactated Ringers 1,000 ML 100 ML IVCONT (07:38)
--- NOTE | 2023-06-28 10:01 | W.PM.OPN ---
Operative Note Operative Note Date of Service: 06/28/23 Narrative: Preoperative diagnosis: [] Recurrent biliary colic Postop diagnosis: [] Same Procedure [] laparoscopic cholecystectomy Surgeon: [] Devon Glazier Stained Glass: [] Kennedy Type of Anesthesia: [] General Indication for surgery: [] Gallbladder with omental adhesions to it. Intrahepatic gallbladder. Findings: [] Patient brought to the operating room, placed on operative table supine position, after adequate level of general anesthesia was induced, the patient's abdomen which was moderately corpulent was prepped and draped in usual sterile fashion. Using a supraumbilical curvilinear incision, Garcia technique was used to insufflate the abdominal cavity to 15 mm of CO2 upper midline and right subcostal ports were placed under direct laparoscopic view, and the patient placed in reverse Trendelenburg, tilted to the left. Findings were as noted above. Gallbladder was grasped with laparoscopic graspers, and retracted superiorly and laterally. Soft omental adhesions were swept off the gallbladder was hilum was approached. Cystic artery and cystic duct were each individually identified, skeletonized, traced directly into the gallbladder, and critical view obtained. Each was clipped proximally x2, distally x1, and transected. Gallbladder was then cauterized from the gallbladder fossa using Bovie. Specimen was placed in an Endo-Catch bag, a retrieved through the umbilical port. Abdominal cavity was very copiously irrigated and secured hemostasis. All ports removed under direct laparoscopic view. Wounds were closed in the following manner; umbilical wound is fascia reapproximated using interrupted 0 Vicryl sutures. Skin wounds were closed using subcuticular 4-0 Vicryl sutures followed by Steri-Strips and sterile dressings. Wounds were infiltrated 0.5% Marcaine at completion. Sponge, needle, instrument counts reported correct. Patient tolerated the procedure well and emerged from anesthesia stable condition. EBL minimal
[2023-06-28] MEDS: ondansetron HCL 4 MG/2 ML VIAL IVPUSH ×2 (10:32→13:17)
[2023-06-28] MEDS: oxyCODONE HCl Immed Release 5 MG TABLET PO (13:42)
[2023-06-28] MEDS: Acetaminophen 325 MG TABLET 650 MG PO (13:42)
[2023-06-28] MEDS: fentaNYL citrate/PF 100 MCG/2 ML VIAL 50 MCG IVPUSH (13:44)
== END 2023-06-28 14:40 | disposition home or self-care (01) ==
PROVIDERS: PCP Internal Medicine; Visit Provider Surgery
PROC: 0FT44ZZ Resection of Gallbladder, Percutaneous Endoscopic Approach (ICD-10-PCS; CPT 47562; principal; 2023-06-28 08:30)
DX: K80.10 Calculus of gallbladder with chronic cholecystitis without obstruction (principal); K82.8 Other specified diseases of gallbladder; Q44.1 Other congenital malformations of gallbladder; K21.9 Gastro-esophageal reflux disease without esophagitis; D68.51 Activated protein C resistance; E78.00 Pure hypercholesterolemia, unspecified; E03.9 Hypothyroidism, unspecified; Z88.2 Allergy status to sulfonamides; Z98.890 Other specified postprocedural states; Z87.891 Personal history of nicotine dependence; Z79.899 Other long term (current) drug therapy
CPT/HCPCS: 47562; 88304; J0690; J1630; J1885; J2405; J2550; J2704; J2795; J3010

== ENCOUNTER → 2023-06-28 06:29 | Outpatient (BNV) | payer BC, SELFPAY | PROVIDERS: PCP Internal Medicine; Visit Provider Surgery | DX: K80.20 Calculus of gallbladder without cholecystitis without obstruction (principal) | CPT/HCPCS: 47562 ==

== ENCOUNTER 2023-07-09 09:45 | Outpatient (AMB) | payer BC, SELFPAY ==
[2023-07-09 09:50] VITALS: BP 134/67; PULSE 73
--- NOTE | 2023-07-09 09:50 | A.OFFVIS_ITS ---
Intake Vital Signs 07/09/23 09:50 Weight 185 lb BP 134/67 Blood Pressure Location Rt brachial Position Sitting Pulse 73 Intake Visit Reasons: S/P lap nolan Intake Note: Patient here s/p lap nolan on 06-28-23. Reports incisions healing well. Patient c/o: tenderness, abd feels sore. Still taking rx pain meds as needed. 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 She has starting a diet. Having regular bowel habits. Her biliary symptoms have resolved. [facility] Medical History (Updated 06/21/23 @ 11:47 by Katlyn Johnson RN) Chronic urinary tract infection Factor V Leiden mutation Cholelithiasis GERD (gastroesophageal reflux disease) Elevated cholesterol Hypothyroid Surgical History (Updated 07/09/23 @ 09:57 by Patricio Osorio MD) History of laparoscopic cholecystectomy (06/28/23) Hx of inguinal hernia repair History of bladder surgery Family History Mother No problems noted. Father No problems noted. Brother Prostate cancer Social History Household Members: Other Housing: Other Housing Other:: mobile home Are you a primary regular senior care provider to a significant other at home: No Do you presently have visiting nurse or other home services: No Alcohol intake: never Comment: counts correct Patient Tobacco Use Status: Former Tobacco user Quit Date: age-early 30's Tobacco use type: Cigarette Years Smoked: 17 e-Cigarette/Vaping Use: Never Used Second Hand Smoke Exposure: No service: No Current occupational status: employed Current occupation: Post office Gender identity: Female Cognitive needs: No Hearing needs: No Vision needs: No Physical Exam Vital Signs: Last Vital Signs Pulse 73 07/09/23 09:50 BP 134/67 07/09/23 09:50 GI Other: Abdomen soft. All wounds clean dry and intact. Patient has resolving ecchymosis at her umbilical wound site but no evidence of any infection. Assessment & Plan Assessment & Plan (1) Status post laparoscopic cholecystectomy: Code(s): Z90.49 - Acquired absence of other specified parts of digestive tract Plan Patient has been given local instructions and will be given a note for work approximately 2 weeks' time. All questions answered. She will otherwise follow-up p.r.n. Coding Level of Care Code Global (35265) Diagnoses Status post laparoscopic cholecystectomy Z90.49
== END 2023-07-09 09:57 | disposition home or self-care (01) ==
PROVIDERS: PCP Internal Medicine; Visit Provider Surgery
DX: Z90.49 Acquired absence of other specified parts of digestive tract (principal)
CPT/HCPCS: 99024

== ENCOUNTER → 2023-07-09 09:45 | Outpatient (BNVA) | payer BC, SELFPAY | PROVIDERS: PCP Internal Medicine; Visit Provider Surgery ==

== ENCOUNTER 2023-07-18 09:36 | Outpatient (AMB) | payer BC, SELFPAY ==
[2023-07-18 10:16] VITALS: BP 122/60; PULSE 74; TEMP 36.4; O2SAT 96
--- NOTE | 2023-07-18 10:16 | AM.OFFWIN_ITS ---
Intake Vital Signs 07/18/23 10:16 Height 5 ft 4 in BMI Reason not done Patient refused/unable BP 122/60 Blood Pressure Location Lt brachial Position Sitting Pulse 74 Pulse Source Pulse Oximeter Temp 97.6 F Temp Source Temporal Artery Scan Pulse Oximetry (%) 96 Oxygen Delivery Method Room Air Intake Visit Reasons: EP ?UTI Intake Note: pt is here today for UTI started yesterday Patient Tobacco Use Status: Former Tobacco user Quit Date: age-early 30's Allergies sulfamethoxazole [From Sulfamethoxazole-Trimethoprim] Allergy (Intermediate, Verified 07/18/23 10:16) Itching trimethoprim [From Sulfamethoxazole-Trimethoprim] Allergy (Intermediate, Verified 07/18/23 10:16) Itching Medication List - Last Reconciled 07/18/23 by JEY Gongora amoxicillin ER (Moxatag) 775 mg PO DAILY [place] Thyroid (thyroid (pork)) 60 mg (4 x 15 mg) PO DAILY NS hydrocodone-acetaminophen 5-325 mg 1 tab PO Q4-6H PRN omeprazole 20 mg PO QAM Do you need a note to return to daycare/school/sports/work: No HPI HPI Comments History of Present Illness Details 68-year-old female presents today compla ining of dysuria urgency frequency PFSH Medical History (Updated 06/21/23 @ 11:47 by Katlyn Johnson RN) Chronic urinary tract infection Factor V Leiden mutation Cholelithiasis GERD (gastroesophageal reflux disease) Elevated cholesterol Hypothyroid Surgical History (Updated 07/09/23 @ 09:57 by Patricio Osorio MD) History of laparoscopic cholecystectomy (06/28/23) Hx of inguinal hernia repair History of bladder surgery Family History Mother No problems noted. Father No problems noted. Brother Prostate cancer Social History Household Members: Other Housing: Other Housing Other:: mobile home Are you a primary resident care manager to a significant other at home: No Do you presently have visiting nurse or other home services: No Alcohol intake: never Comment: counts correct Patient Tobacco Use Status: Former Tobacco user Quit Date: age-early 30's Tobacco use type: Cigarette Years Smoked: 17 e-Cigarette/Vaping Use: Never Used Second Hand Smoke Exposure: No service: No Current occupational status: employed Current occupation: [employer] office Gender identity: Female Cognitive needs: No Hearing needs: No Vision needs: No Review of Systems Const All systems reviewed & are unremarkable except as noted in HPI and below Physical Exam Vital Signs: Last Vital Signs Temp 97.6 F 07/18/23 10:16 Pulse 74 07/18/23 10:16 BP 122/60 07/18/23 10:16 Pulse Ox 96 07/18/23 10:16 Oxygen Delivery Method Room Air 07/18/23 10:16 Const General: healthy appearing and no acute distress HEENT Head: Yes normal to inspection, Yes normocephalic and Yes atraumatic Ears: hearing grossly normal bilaterally General nose exam: Normal external nose present Face and sinus: Yes normal facial exam Results AMB Urinalysis, Automated UA Leukoctes 70 Gerardo/uL Last Edit by Ruddy Martinez CCM on 07/18/23 10:2 6 UA Nitrite Negative Last Edit by Ruddy Martinez [facility] on 07/18/23 10:26 UA Urobilinogen 0.2 mg/dL Last Edit by Ruddy Martinez [facility] on 07/18/23 10:26 UA Protein 0 mg/dL Last Edit by Ruddy Martinez [facility] on 07/18/23 10:26 UA pH 6.0 Last Edit by Ruddy Martinez [facility] on 07/18/23 10:26 UA Blood 25 Ashish/uL Last Edit by Ruddy Martinez [facility] on 07/18/23 10:26 UA Specific [place] 1.010 Last Edit by Ruddy Martinez [facility] on 07/18/23 10:26 UA Ketone Negative Last Edit by Ruddy Martinez [facility] on 07/18/23 10:26 UA Bilirubin 0 mg/dL Last Edit by Ruddy Martinez [facility] on 07/18/23 10:26 UA Glucose 0 mg/dL Last Edit by Ruddy Martinez [facility] on 07/18/23 10:26 Results Reviewed Results Reviewed: Laboratory Last Values Urine pH (Auto) 6.0 07/18/23 10:25 Specific [place] (Auto) 1.010 07/18/23 10:25 Urine Protein (Auto) 0 mg/dL 07/18/23 10:25 Glucose (UA)(Auto) 0 mg/dL 07/18/23 10:25 Urine Ketones (Auto) Negative 07/18/23 10:25 Urine Blood (Auto) 25 Ashish/uL 07/18/23 10:25 Urine Nitrite (Auto) Negative 07/18/23 10:25 Urine Bilirubin (Auto) 0 mg/dL 07/18/23 10:25 Urine Urobilinogen (Auto) 0.2 mg/dL 07/18/23 10:25 Leukocyte Esterase (Auto) 70 Gerardo/uL 07/18/23 10:25 Assessment & Plan Assessment & Plan (1) Dysuria: Code(s): R30.0 - Dysuria Plan: The patient will be put on amoxicillin and a urine culture will be sent. We will call her in 2 days with the results. Plan See plan Orders: Orders AMB Urinalysis Automated Today Z13.9 - Encounter for screening, unspecified Magdalene Miranda NP Urine Culture Today R30.0 - Dysuria JEY Gongora Medications: New amoxicillin ER (Moxatag) 775 mg PO DAILY 7 tabs 0RF JEY Gongora Coding Level of Care Code Est Pt Level 3 (50832) Diagnoses Dysuria R30.0
== END 2023-07-18 11:07 | disposition home or self-care (01) ==
PROVIDERS: PCP Internal Medicine; Visit Provider Physician Assistant Medical
DX: R30.0 Dysuria (principal)
CPT/HCPCS: 81003; 99213

== ENCOUNTER 2023-07-18 13:44 | Outpatient (REF) | payer BC, SELFPAY | END 2023-07-18 13:45 | disposition home or self-care (01) | LOC: HO.LNP 13:44 | PROVIDERS: Visit Provider Physician Assistant Medical | DX: R30.0 Dysuria (principal) | CPT/HCPCS: 87086 ==

== ENCOUNTER 2023-08-29 12:39 | Outpatient (AMB) | payer BC, SELFPAY ==
[2023-08-29 12:52] VITALS: BP 128/72; BMI 31.9
--- NOTE | 2023-08-29 12:52 | A.OFFPC_ITS ---
Vital Signs 08/29/23 12:52 Height 5 ft 4 in Weight 186 lb BMI 31.9 BP 128/72 Blood Pressure Location Lt brachial Position Sitting Intake Visit Reasons: Transfer from [facility], Hyperthyroidism Intake Note: Patient here transferring of care/ Hyperthyroidism Casing Inspector Required: No Accompanied by: Self / Same As Patient Allergies sulfamethoxazole [From Sulfamethoxazole-Trimethoprim] Allergy (Intermediate, Verified 08/29/23 13:02) Itching trimethoprim [From Sulfamethoxazole-Trimethoprim] Allergy (Intermediate, Verified 08/29/23 13:02) Itching Medication List - Last Reconciled 08/29/23 by Adrianna Barr MD [place] Thyroid (thyroid (pork)) 60 mg (4 x 15 mg) PO DAILY NS omeprazole 20 mg PO QAM Tobacco use date assessed: 08/29/23 Fall risk assessment: No Falls in past year Last assessed Fall Risk: 08/29/23 Dental Screening Dental Screen Date: 08/29/23 Did you have a dental visit in the last 12 months?: No Did you have a dental problem in the last 6 months where you did not have access to dental care?: No Was dental information given to patient?: Patient declined HPI HPI Comments History of Present Illness Details This is a 68 old female with GERD, acquired hypothyroidism and history of factor 5 laden mutation positive that comes today to establish care. GERD has been stable with PPIs. Last TSH was normal and was February 2023 and this will be repeated. She tested positive for her factor 5 laden but denies any history of blood clots. No chest pain or shortness of breath. Declines pneumonia vaccine today. Has never had a bone density test. Mammogram done 2022. Colonoscopy will be 2023. COUNTS INCLUDE 234 BEDS AT THE [facility] Medical History Chronic urinary tract infection Factor V Leiden mutation Cholelithiasis GERD (gastroesophageal reflux disease) Elevated cholesterol Hypothyroid Surgical History History of laparoscopic cholecystectomy (06/28/23) Hx of inguinal hernia repair History of bladder surgery Family History Mother No problems noted. Father No problems noted. Brother Prostate cancer Social History Household Members: Other Housing: Other Housing Other:: mobile home Are you a primary childcare attendant to a significant other at home: No Do you presently have visiting nurse or other home services: No Alcohol intake: current Alcohol intake frequency: holidays/special occasions only Alcohol type: wine Comment: counts correct Patient Tobacco Use Status: Former Tobacco user Quit Date: age-early 30's Tobacco use type: Cigarette Years Smoked: 17 e-Cigarette/Vaping Use: Never Used Second Hand Smoke Exposure: No service: No Current occupational status: employed Current occupation: Post office Current occupational exposures/hazards: No Gender identity: Female Cognitive needs: No Hearing needs: No Vision needs: Yes Questionnaire PHQ-9 Over the last 2 weeks, how often have you been bothered by any of the following problems? 1. Little interest or pleasure in doing things: not at all 2. Feeling down, depressed, or hopeless: not at all 3. Trouble falling or staying asleep, or sleeping too much: not at all 4. Feeling tired or having little energy: not at all 5. Poor appetite or overeating: not at all 6. Feeling bad about yourself - or that you are a failure or have let yourself or your family down: not at all 7. Trouble concentrating on things, such as reading the newspaper or watching television: not at all 8. Moving or speaking so slowly that other people could have noticed. Or the opposite - being so fidgety or restless that you have been moving around a lot more than usual: not at all 9. Thoughts that you would be better off or of hurting yourself in some way: not at all Total score: 0 Depression Screening Interpretation: Negative Depression Screening Done: Yes 71336 - PHQ-9 Billing: Yes Source: Developed by Drs. Oleksandr Cleveland, Elsy Cooley, Manuel Toure and colleagues, with an educational cy from [employer]. Thrive Questionnaire Date Thrive assessed: 08/29/23 I am a: Patient What is your living situation today?: I have a steady place to live Within the past 12 months, did the food you bought not last and you didn't have the money to get more?: Never true Within the past 12 months, did you worry whether your food would run out before you got money to buy more?: Never true Do you have trouble paying for medicines?: No Do you have trouble getting transportation to medical appointments?: No Do you have trouble paying your heating and electricity bill?: No Do you have trouble taking care of your child, family member or friend?: No Do you have trouble with day-to-day activities such as bathing, preparing meals, shopping, managing finances, etc.?: No Are you currently unemployed and looking for a job?: No Are you interested in more education?: No Please select the resources that you would like help with: None Currently or been in a relationship where the following occur: no concerns reported THRIVE Score: 0 AUDIT C Alcohol Use Questionnaire (AUDIT-C) 1. How often do you have a drink containing alcohol?: Monthly or less 2. How many drinks containing alcohol do you have on a typical day when you are drinking?: 1 or 2 3. How often do you have six or more drinks on one occasion?: Never Total Score: 1 Score Reviewed/Action Taken: No TIARA-7 AMB Questionnaire TIARA-7 Date TIARA - 7 assessed: 08/29/23 Feeling nervous, anxious, or on edge: 0 = Not at all Not being able to stop or control worryin = Not at all Worrying too much about different things: 0 = Not at all Trouble relaxin = Not at all Being so restless that it is hard to sit still: 0 = Not at all Becoming easily annoyed or irritable: 0 = Not at all Feeling afraid as if something awful might happen: 0 = Not at all Total TIARA-7 score (0-4 normal; 5-9 mild; 10-14 moderate; 15-21 severe): 0 Source: Developed by Drs. Oleksandr Cleveland, Elsy Cooley, Manuel Toure and colleagues, with an educational cy from [employer]. TIARA-7 Assessment Billing TIARA-7 Assessment Tool: TIARA-7 Assessment 35401 Review of Systems Const All systems reviewed & are unremarkable except as noted in HPI and below Card Denies chest pain at rest, Denies chest pain with activity, Denies edema, Denies irregular heart rhythm, Denies claudication, Denies dyspnea, Denies dyspnea on exertion, Denies orthopnea, Denies paroxysmal nocturnal dyspnea and Denies slow heart rate Resp Denies cough, Denies dyspnea and Denies dyspnea on exertion Physical exam (Primary Care) Vital Signs: Last Vital Signs BP 128/72 08/29/23 12:52 BMI result Body Mass Index 31.9 Tobacco/Smoking Status: Tobacco use Status Tobacco use date assessed 08/29/23 08/29/23 12:57 Patient Tobacco Use Status Former Tobacco user 08/29/23 12:57 Tobacco use type Cigarette 08/29/23 12:57 e-Cigarette/Vaping Use Never Used 08/29/23 12:57 PHQ-9: PHQ-9 Score PHQ-9: Total score 0 08/29/23 13:06 Depression Screening Interpretation: Negative Thrive Assessment: Date of Thrive Assessment Date Thrive assessed 08/29/23 08/29/23 12:57 Currently or been in a relationship where the following occur: no concerns reported Resp Effort & Inspection: normal respiratory effort Auscultation: clear to auscultation bilaterally Cardio Jugular venous distension: no JVD Rate: regular rate Rhythm: regular rhythm Heart sounds: S1 normal heart sound present and S2 normal heart sound present Extrem General: Yes full ROM Psych Appearance: grossly normal Assessment and Plan Assessment & Plan (1) Hypothyroidism (acquired): Code(s): E03.9 - Hypothyroidism, unspecified Plan: Continue thyroid medication. Repeat TSH today. (2) GERD (gastroesophageal reflux disease): Comment: Continue Omeprazole 20 mg EGD Code(s): K21.9 - Gastro-esophageal reflux disease without esophagitis Plan: Continue PPIs. (3) Factor V Leiden mutation: Code(s): D68.51 - Activated protein C resistance Plan: No need for anticoagulation. Orders: Orders Free T4 (Free Thyroxine) Today E03.9 - Hypothyroidism, unspecified XR DEXA axial skeleton Today N95.9 - Unspecified menopausal and perimenopausal disorder Thyroid Stimulating Hormone Today E03.9 - Hypothyroidism, unspecified Review Patient declined Pneumococcal Vaccine: 08/29/23 Coding Level of Care Code Est Pt Level 3 (78475) Diagnoses Hypothyroidism (acquired) E03.9 GERD (gastroesophageal reflux disease) K21.9 Factor V Leiden mutation D68.51 Additional Codes TIARA-7 Assessment Billing - TIARA-7 Assessment Tool: TIARA-7 Assessment 50473 ([id number]) Time Spent (min) 24
== END 2023-08-29 13:18 | disposition home or self-care (01) ==
PROVIDERS: PCP Internal Medicine; Visit Provider Internal Medicine
DX: E03.9 Hypothyroidism, unspecified (principal); K21.9 Gastro-esophageal reflux disease without esophagitis; D68.51 Activated protein C resistance
CPT/HCPCS: 99213

== ENCOUNTER 2023-08-29 13:25 | Outpatient (REF) | payer BC, SELFPAY ==
[2023-08-29 17:16] LABS: Free T4 (Free Thyroxine) 0.51 ng/dL (0.71-1.85); Thyroid Stimulating Hormone 3.22 uIU/mL (0.32-4.0)
== END 2023-08-29 13:26 | disposition home or self-care (01) ==
LOC: HO.LAB 13:25
PROVIDERS: PCP Internal Medicine; Visit Provider Internal Medicine
DX: E03.9 Hypothyroidism, unspecified (principal)
CPT/HCPCS: 36415; 84439; 84443

== ENCOUNTER 2023-09-12 09:24 | Outpatient (AMB) | payer BC, SELFPAY ==
[2023-09-12 09:25] VITALS: BP 112/78; PULSE 66; O2SAT 99; BMI 31.9
--- NOTE | 2023-09-12 09:25 | AM.OFFWIN_ITS ---
Intake Vital Signs 09/12/23 09:25 Height 5 ft 4 in Weight 186 lb BMI 31.9 BP 112/78 Blood Pressure Location Rt brachial Position Sitting Pulse 66 Pulse Source Pulse Oximeter Pulse Oximetry (%) 99 Oxygen Delivery Method Room Air Intake Visit Reasons: EST/right side lower stomach pain (lobby) Intake Note: pt is here today for rt side lower stomach pain started a few days ago. Patient Tobacco Use Status: Former Tobacco user Quit Date: age-early 30's Allergies sulfamethoxazole [From Sulfamethoxazole-Trimethoprim] Allergy (Intermediate, Verified 09/12/23 09:37) Itching trimethoprim [From Sulfamethoxazole-Trimethoprim] Allergy (Intermediate, Verified 09/12/23 09:37) Itching Do you need a note to return to daycare/school/sports/work: No HPI HPI Comments History of Present Illness Details 68-year-old female presents today compla ining right lower quadrant pain increasing intensity of the last 4 days. She states she has had a cholecystectomy and had a mesh repair of her bladder that she is at his since failing. She denies any nausea vomiting or diarrhea [facility] History Chronic urinary tract infection Factor V Leiden mutation Cholelithiasis GERD (gastroesophageal reflux disease) Elevated cholesterol Hypothyroid Surgical History History of laparoscopic cholecystectomy (06/28/23) Hx of inguinal hernia repair History of bladder surgery Family History Mother No problems noted. Father No problems noted. Brother Prostate cancer Social History Household Members: Other Housing: Other Housing Other:: mobile home Are you a primary home care manager rn to a significant other at home: No Do you presently have visiting nurse or other home services: No Alcohol intake: current Alcohol intake frequency: holidays/special occasions only Alcohol type: wine Comment: counts correct Patient Tobacco Use Status: Former Tobacco user Quit Date: age-early 30's Tobacco use type: Cigarette Years Smoked: 17 e-Cigarette/Vaping Use: Never Used Second Hand Smoke Exposure: No service: No Current occupational status: employed Current occupation: Post office Current occupational exposures/hazards: No Gender identity: Female Cognitive needs: No Hearing needs: No Vision needs: Yes Review of Systems Const All systems reviewed & are unremarkable except as noted in HPI and below Physical Exam Vital Signs: Last Vital Signs Pulse 66 09/12/23 09:25 BP 112/78 09/12/23 09:25 Pulse Ox 99 09/12/23 09:25 Oxygen Delivery Method Room Air 09/12/23 09:25 BMI result Body Mass Index 31.9 Const General: acute distress moderate HEENT Head: Yes normal to inspection, Yes normocephalic and Yes atraumatic Ears: hearing grossly normal bilaterally General nose exam: Normal external nose present Face and sinus: Yes normal facial exam Resp Effort & Inspection: normal respiratory effort Auscultation: clear to auscultation bilaterally Cardio Rate: regular rate Rhythm: regular rhythm GI Inspection: Yes normal to inspection and Yes scar Palpation (GI): Tenderness to palpation present (GI) in the RLQ, psoas sign positive, with rebound tenderness and Rovsing's sign positive and Guarding due to palpation present (GI) Percussion: Yes normal to percussion Auscultation: abnormal bowel sounds Assessment & Plan Assessment & Plan (1) Acute abdomen: Code(s): R10.0 - Acute abdomen Plan: The patient was referred to the emergency department for workup of her acute abdomen and right lower quadrant pain. They were contacted to expect her. Plan See plan Coding Level of Care Code Est Pt Level 3 (66952) Diagnoses Acute abdomen R10.0
== END 2023-09-12 10:00 | disposition home or self-care (01) ==
PROVIDERS: PCP Internal Medicine; Visit Provider Physician Assistant Medical
DX: R10.0 Acute abdomen (principal)
CPT/HCPCS: 99213

== ENCOUNTER 2023-09-12 10:38 | Emergency (ER) | payer BC, SELFPAY ==
--- NOTE | ~2023-09-12 | CT_ITS ---
EXAMINATION: CT ABDOMEN AND PELVIS WITHOUT CONTRAST CLINICAL INFORMATION: Right lower quadrant pain. COMPARISON: Abdominal ultrasound 02/14/2023 TECHNIQUE: Multidetector volumetric imaging was performed from the superior aspect of the liver through the pubic symphysis. Sagittal and coronal reformatted images were obtained on the technologist's workstation. This CT examination was performed using dose optimization techniques as appropriate, variously including the following: *Automated exposure control *Adjustment of mA and/or kV according to patient size (this includes techniques or standardized protocols for targeted exams where dose is matched to indication/reason for exam; i.e. extremities or head) *Use of iterative reconstruction technique DLP: 585 mGy-cm FINDINGS: LUNG BASES: Small hiatal hernia. LIVER, GALLBLADDER, AND BILIARY TREE: The noncontrast liver is decreased in attenuation. 1.3 cm inferior hepatic cyst. No biliary ductal dilatation is present. The gallbladder is surgically absent. PANCREAS: Unremarkable. SPLEEN: Unremarkable. ADRENAL GLANDS: Unremarkable. KIDNEYS AND URETERS: The kidneys are normal in size, shape, and attenuation. No hydronephrosis, hydroureter, or calculi seen. No perinephric stranding. BLADDER: Unremarkable. GASTROINTESTINAL TRACT: Small and large bowel loops are of normal caliber. Appendix is within normal limits. Scattered colonic diverticula. No small bowel obstruction. ABDOMINAL WALL: No significant hernia is appreciated. LYMPH NODES: No bulky lymphadenopathy. VASCULAR: Normal caliber abdominal aorta. PELVIC VISCERA: Uterus is surgically absent. OSSEOUS STRUCTURES: No destructive bone lesions. CT/CT abdomen pelvis wo IV con IMPRESSION: No acute abnormality in the abdomen or pelvis.
[2023-09-12 10:59] VITALS: BP 148/74; PULSE 76; RESP 16; TEMP 37.2; O2SAT 96
[2023-09-12 11:06] LABS: MANUAL DIFF FLAG NO
[2023-09-12 11:13] LABS: Basophils Absolute Auto 0.1 X10*3/uL (0.0-0.2); Basophils Percent Auto 0.9 % (0-2); Eosinophils Absolute Auto 0.2 X10*3/uL (0.0-0.4); Eosinophils Percent Auto 3.1 % (0-4); Hematocrit 43.3 % (37.0-47.0); Hemoglobin 14.2 g/dl (12.0-16.0); Imm Gran Abs Auto 0.01 X10*3/uL (0.00-0.03); Imm Gran Pct Auto 0.2 % (0.0-0.4); Lymphocytes Absolute Auto 2.6 X10*3/uL (1.2-4.9); Lymphocytes Percent Auto 39.4 % (20-40); Mean Corpuscular HGB Conc 32.8 g/dl (31.0-35.0); Mean Corpuscular Hemoglobin 28.9 pg (27.0-33.0); Mean Platelet Volume 9.9 fL (9.4-12.3); Monocytes Absolute Auto 0.4 X10*3/uL (0.1-1.2); Monocytes Percent Auto 5.8 % (2-11); Neutrophils Absolute Auto 3.3 x10*3/uL (2.0-8.3); Neutrophils Percent Auto 50.6 % (45-73); Platelet Count 258 X10*3/uL (160-400); Red Blood Count 4.92 X10*6/uL (4.20-5.50); Red Cell Distribution Width 14.4 % (11.0-16.0); White Blood Count 6.5 X10*3/uL (4.8-10.8)
[2023-09-12 11:15] LABS: Appearance Urine Clear; Color Urine Yellow; Glucose Urine UA Negative (Negative); Leukocyte Esterase Urine Trace (Negative); Nitrite Urine Negative (Negative); PH 6.5 (5.0-9.0); UMIC TRIGGER UACC YES; Urine Blood Negative (Negative); Urine Ketones Negative (Negative); Urine Protein Negative (Neg-Trace)
[2023-09-12 11:18] LABS: Bacteria Urine None Seen (None Seen); Hyaline Casts Urine 0-2 /LPF (0-2); RBC Urine 0-2 /HPF (0-2); Squamous Epithelial Cell Urine 0-2 /HPF (0-2); WBC Urine 0-5 /HPF (0-5)
[2023-09-12 11:36] LABS: Alanine Aminotransferase 23 U/L (0-31); Albumin Level 4.2 g/dL (3.5-5.0); Alkaline Phosphatase 114 U/L (39-117); Anion Gap 12 (12-20); Aspartate Amino Transferase 19 U/L (5-31); Bilirubin Direct < 0.2 mg/dL (0.0-0.5); Bilirubin Total 0.2 mg/dL (0.0-1.0); Blood Urea Nitrogen 12 mg/dL (9-16); Calcium 9.3 mg/dL (8.4-10.2); Carbon Dioxide 26 mmol/L (22-29); Chloride 108 mmol/L (96-108); Creatinine Clr Calc Pharmacy 88.5; Estimated Glomerular Filt Rate > 60; Glucose Random 122 mg/dL (60-115); Lipase 9 U/L (8-78); Magnesium 2.1 mg/dL (1.6-2.6); Potassium 4.2 mmol/L (3.3-5.1); Sodium 142 mmol/L (135-145); Total Protein 7.6 g/dL (6.5-8.0)
--- NOTE | 2023-09-12 14:07 | ED.ABDPAIN ---
HPI - Abdominal Pain General Chief Complaint: Abdominal Pain Stated Complaint: CT of Appendix Sent by Urgent Care Time Seen by Provider: 09/12/23 14:07 Source: patient Mode of arrival: ambulatory Limitations: no limitations History of Present Illness HPI narrative: 68-year-old female history of cholecystectomy upper respiratory infections dysuria with history of bladder infections hyperlipidemia constipation factor 5 Leiden GERD. Who presents emergency department after being seen at an urgent care. Patient was sent in here for 3 days of right lower quadrant pain that concerned the patient could have appendicitis. CT was ordered in triage patient had lab work done as well Related Data Home Medications ?Medication ?Instructions ?Recorded ?Confirmed nitrofurantoin 1 cap PO DAILY 09/12/23 monohydrate/macrocrystals 100 mg capsule Previous Rx's ?Medication ?Instructions ?Recorded omeprazole 20 mg capsule,delayed 20 mg PO DAILY #90 caps 09/04/23 release [place] Thyroid 15 mg tablet 60 mg (4 x 15 mg) PO DAILY 30 days 09/06/23 (thyroid (pork)) #120 tabs Allergies Allergy/AdvReac Type Severity Reaction Status Date / Time sulfamethoxazole Allergy Intermediate Itching Verified 09/12/23 11:01 [From Sulfamethoxazole-Trimethoprim] trimethoprim Allergy Intermediate Itching Verified 09/12/23 11:01 [From Sulfamethoxazole-Trimethoprim] Review of Systems Review of Systems Review of systems: General: Patient denies any fever chills recent illness or falls Musculoskeletal: Denies back pain or body aches or other injuries HEENT: denies headache, runny nose, ear pain Respiratory: denies shortness of breath, cough Cardiovascular: no chest pain or palpitations : denies dysuria, frequency Abdomen: no nausea vomiting denies abdominal pain Extremities: no swelling, no pain Skin: no diaphoresis Yes all other systems are reviewed and are negative PMFSH Past Medical History Medical History Chronic urinary tract infection Factor V Leiden mutation Cholelithiasis GERD (gastroesophageal reflux disease) Elevated cholesterol Hypothyroid Surgical History History of laparoscopic cholecystectomy (06/28/23) Hx of inguinal hernia repair History of bladder surgery Family History Family History Mother No problems noted. Father No problems noted. Brother Prostate cancer Social History Social History Household Members: Other Housing: Other Housing Other:: mobile home Are you a primary team primary care physician to a significant other at home: No Do you presently have visiting nurse or other home services: No Alcohol intake: current Alcohol intake frequency: holidays/special occasions only Alcohol type: wine Comment: counts correct Patient Tobacco Use Status: Former Tobacco user Quit Date: age-early 30' Tobacco use type: Cigarette Years Smoked: 17 e-Cigarette/Vaping Use: Never Used Second Hand Smoke Exposure: No service: No Current occupational status: employed Current occupation: Post office Current occupational exposures/hazards: No Gender identity: Female Cognitive needs: No Hearing needs: No Vision needs: Yes Physical Exam ED Vital Signs: Vital Signs - 24 hr 09/12/23 10:59 Temperature 98.9 F Pulse Rate 76 Respiratory Rate 16 Blood Pressure 148/74 H Pulse Oximetry 96 Oxygen Delivery Method Room Air BMI result Body Mass Index 0.3 General: Well-appearing well-nourished in no signs of distress HEENT: Normocephalic atraumatic Neck: No signs of JVD, no masses no tenderness or lymphadenopathy Cardiovascular: Regular rate and rhythm Respiratory: Clear to auscultation bilaterally Abdomen: Soft nontender no masses rectal exam performed guia negative dairy quality assurance officer confirmed. Extremities: Normal pedal pulses no signs of edema Skin: Dry warm no rashes Back: No tenderness full ROM Medical Decision Making Medical Decision Making [facility] Narrative: I will check labs give patient for CT scan Differential Diagnosis Differential Diagnoses: The differential diagnosis associated with the presentation includes Appendicitis diverticulitis acute surgical abdomen bowel obstruction dehydration electrolyte abnormality Admission/Observation Consideration of admission/observation: Escalation of care including admission/observation considered Lab Data [facility] Lab Attestation statement: I reviewed the patient's lab results. 09/12/23 11:03 09/12/23 11:03 Labs: Lab Results 09/12/23 09/12/23 Range/Units 11:03 11:09 WBC 6.5 (4.8-10.8) X10*3/uL RBC 4.92 (4.20-5.50) X10*6/uL Hgb 14.2 (12.0-16.0) g/dl Hct 43.3 (37.0-47.0) % MCV 88.0 (80.0-98.0) fL MCH 28.9 (27.0-33.0) pg MCHC 32.8 (31.0-35.0) g/dl RDW 14.4 (11.0-16.0) % Plt Count 258 (160-400) X10*3/uL MPV 9.9 (9.4-12.3) fL Immature Gran % (Auto) 0.2 (0.0-0.4) % Neut % (Auto) 50.6 (45-73) % Lymph % (Auto) 39.4 (20-40) % [place] % (Auto) 5.8 (2-11) % Eos % (Auto) 3.1 (0-4) % Baso % (Auto) 0.9 (0-2) % Lymph # (Auto) 2.6 (1.2-4.9) X10*3/uL [place] # (Auto) 0.4 (0.1-1.2) X10*3/uL Eos # (Auto) 0.2 (0.0-0.4) X10*3/uL Baso # (Auto) 0.1 (0.0-0.2) X10*3/uL Abs Immat Gran (auto) 0.01 (0.00-0.03) X10*3/uL Absolute Neuts (auto) 3.3 (2.0-8.3) x10*3/uL Absolute Nucleated RBC 0.000 (0.0-0.012) X10*3/uL Nucleated RBC % (auto) 0.0 (0.0-0.2) /100WBC Sodium 142 (135-145) mmol/L Potassium 4.2 (3.3-5.1) mmol/L Chloride 108 (96-108) mmol/L Carbon Dioxide 26 (22-29) mmol/L Anion Gap 12 (12-20) BUN 12 (9-16) mg/dL Creatinine 0.83 (0.5-1.4) mg/dL Estim Creat Clear Calc 88.5 Estimated GFR > 60 Random Glucose 122 H (60-115) mg/dL Calcium 9.3 (8.4-10.2) mg/dL Magnesium 2.1 (1.6-2.6) mg/dL Total Bilirubin 0.2 (0.0-1.0) mg/dL Direct Bilirubin < 0.2 (0.0-0.5) mg/dL AST 19 (5-31) U/L ALT 23 (0-31) U/L Alkaline Phosphatase 114 (39-117) U/L Total Protein 7.6 (6.5-8.0) g/dL Albumin 4.2 (3.5-5.0) g/dL Lipase 9 (8-78) U/L Urine Color Yellow Urine Appearance Clear Urine pH 6.5 (5.0-9.0) Ur Specific [place] 1.010 (1.005-1.025) Urine Protein Negative (Neg-Trace) mg/dL Urine Glucose (UA) Negative (Negative) mg/dL Urine Ketones Negative (Negative) mg/dL Urine Blood Negative (Negative) Urine Nitrite Negative (Negative) Ur Leukocyte Esterase Trace H (Negative) Urine RBC 0-2 (0-2) /HPF Urine WBC 0-5 (0-5) /HPF Ur Squamous Epith Cells 0-2 (0-2) /HPF Urine Bacteria None Seen (None Seen) Hyaline Casts 0-2 (0-2) /LPF Independent Interpretation I performed an independent interpretation of an: CT Scan Radiology Impression Discussion of test interpretation with radiology: I have reviewed the radiologist's reading. External Record Review External record reviewed: Inpatient record and Office record Discharge Plan Discharge Clinical Impression: Abdominal pain Patient Disposition: Home, Self-Care Instructions: Abdominal Pain (ED) Additional Instructions: You were seen to the emergency department for abdominal pain. You had a CT and labs done which were all unremarkable. Please call follow up with . If you have any worsening pain please try Tylenol ibuprofen if you have any other concerns please return to emergency department Prescriptions: No Action omeprazole 20 mg capsule,delayed release(DR/EC) 20 mg PO DAILY Qty: 90 1RF thyroid (pork) [[place] Thyroid] 15 mg tablet 60 mg PO DAILY 30 Days Qty: 120 11RF nitrofurantoin monohyd/m-cryst 100 mg capsule 1 cap PO DAILY Print Language: Macedonian
[2023-09-12 14:12] VITALS: BP 138/79; PULSE 67; RESP 16; TEMP 36.6; O2SAT 95
--- NOTE | 2023-09-12 14:33 | PC.NURSE ---
Pt does not want to wait for formal discharge paperwork. Instructed to follow up with PCP if pt has continued symptoms, verbalized understanding. Ambulatory with a steady gait to exit.
== END 2023-09-12 15:04 | disposition home or self-care (01) ==
LOC: HO.ED 14:15
PROVIDERS: Physician Assistant; Emergency Provider Student in an Organized Health Care Education/Training Program; PCP Internal Medicine
DX: R10.31 Right lower quadrant pain (principal); E78.00 Pure hypercholesterolemia, unspecified; D68.51 Activated protein C resistance; Z90.49 Acquired absence of other specified parts of digestive tract; Z87.440 Personal history of urinary (tract) infections; Z87.891 Personal history of nicotine dependence; Z79.899 Other long term (current) drug therapy
CPT/HCPCS: 36415; 74176; 80048; 80076; 81001; 83690; 83735; 85025; 99282; 99284

== ENCOUNTER 2023-10-10 08:36 | Outpatient (REF) | payer BC, SELFPAY ==
--- NOTE | ~2023-10-10 | MM_ITS ---
EXAMINATION: BONE DENSITOMETRY CLINICAL INDICATION: Menopause. COMPARISON: This is the patient's baseline examination. TECHNIQUE: Using a [employer] DXA System (software version: 13.1) manufactured by [employer], dual-energy x-ray absorptiometry was performed of the lumbar spine and left hip. The images are of good technical quality. Summary results are attached. FINDINGS: LEFT FEMUR, NECK: BMD 0.889 g/cm2, Z-score 0.1, T-score -1.1, osteopenia. LEFT FEMUR, TOTAL: BMD 1.022 g/cm2, Z-score 1.0, T-score 0.1, normal. AP SPINE L1-L4: BMD 1.472 g/cm2, Z-score 3.5, T-score 2.4, normal. IDENTIFIED RISK FACTORS: Menopause. HISTORY OF FRACTURE: None listed. MEDICATIONS: Vitamin D. MM/XR DEXA axial skeleton IMPRESSION: 1. DIAGNOSIS: Osteopenia based on the lowest T-score value of -1.1 in the femoral neck applying World Health Organization criteria. 2. 10-YEAR FRACTURE RISK PREDICTION, FRAX: Major osteoporotic fracture (clinical spine, forearm, hip or shoulder) 8.3%. Hip fracture 0.7%. 3. Treatment Recommendations: NOF guidelines recommend consideration for treatment in postmenopausal women and men age 50 and older presenting with the following: -A hip or vertebral (clinical or morphometric) fracture. -T-score less than or equal to -2.5 at the femoral neck or spine after appropriate evaluation to exclude secondary causes. -Low bone mass at the hip or spine and a 10-year fracture probability by FRAX of greater than or equal to 3% for hip fracture or greater than or equal to 20% for major osteoporotic fracture based on the [place] adapted WHO algorithm. 4. Other Recommendations: All treatment decisions require clinical judgment and consideration of individual patient factors, including patient preferences, comorbidities, previous drug use, risk factors not captured in the FRAX model (e.g. frailty, falls, vitamin D deficiency, increased bone turnover, interval significant decline in bone density) and possible under or overestimation of fracture risk by FRAX. Additional medical evaluation for secondary cause of low bone mineral density may be appropriate. FUTURE SCAN RECOMMENDATION: People with diagnosed cases of osteoporosis or at high risk for fracture should have regular bone mineral density tests. For patients eligible for Medicare, routine testing is allowed once every 2 years. The testing frequency can be increased to one year for patients who have rapidly progressing disease, those who are receiving or discontinuing medical therapy to restore bone mass, or have additional risk factors.
== END 2023-10-10 08:37 | disposition home or self-care (01) ==
LOC: HO.MAMMO 08:36
PROVIDERS: PCP Internal Medicine; Visit Provider Internal Medicine
DX: Z13.820 Encounter for screening for osteoporosis (principal); Z78.0 Asymptomatic menopausal state
CPT/HCPCS: 77080

== ENCOUNTER 2023-11-05 14:07 | Outpatient (AMB) | payer BC, SELFPAY ==
--- NOTE | 2023-11-05 14:21 | A.OFFPC_ITS ---
Vital Signs 11/05/23 14:22 Height 5 ft 3 in Weight 187 lb BMI 33.1 BP 134/80 Blood Pressure Location Lt brachial Position Sitting Pulse 68 Pulse Source Pulse Oximeter Pulse Oximetry (%) 95 Oxygen Delivery Method Room Air Intake Visit Reasons: LT foot pain Clinical Lab Scientist Required: No Accompanied by: Self / Same As Patient Allergies sulfamethoxazole [From Sulfamethoxazole-Trimethoprim] Allergy (Intermediate, Verified 11/05/23 14:33) Itching trimethoprim [From Sulfamethoxazole-Trimethoprim] Allergy (Intermediate, Verified 11/05/23 14:33) Itching Medication List - Last Reconciled 11/05/23 by Adrianna Barr MD [place] Thyroid (thyroid (pork)) 60 mg (4 x 15 mg) PO DAILY 30 days NS nitrofurantoin monohyd/m-cryst 100 mg 1 cap PO DAILY omeprazole 20 mg PO DAILY Tobacco use date assessed: 08/29/23 Dental Screening Dental Screen Date: 08/29/23 HPI HPI Comments History of Present Illness Details This is a 68-year-old female with hypothyroidism, GERD and osteopenia that comes today complaining of left foot pain that started recently. She denies any previous trauma. Has full active range of motion. Last TSH was normal. GERD stable with PPIs. Bone density done 2023 showing osteopenia and I advised to take about 1200 mg of calcium daily. Give her a list of foods and how many mg of calcium it provides. She already takes vitamin-D supplements. No chest pain or shortness on breath. [facility] Medical History (Updated 11/05/23 @ 15:07 by Adrianna Barr MD) Chronic urinary tract infection Factor V Leiden mutation Cholelithiasis GERD (gastroesophageal reflux disease) Elevated cholesterol Hypothyroid Surgical History History of laparoscopic cholecystectomy (06/28/23) Hx of inguinal hernia repair History of bladder surgery Family History Mother No problems noted. Father No problems noted. Brother Prostate cancer Social History Household Members: Other Housing: Other Housing Other:: mobile home Are you a primary resident care director to a significant other at home: No Do you presently have visiting nurse or other home services: No Alcohol intake: current Alcohol intake frequency: holidays/special occasions only Alcohol type: wine Comment: counts correct Patient Tobacco Use Status: Former Tobacco user Tobacco use type: Cigarette Years Smoked: 17 e-Cigarette/Vaping Use: Never Used Second Hand Smoke Exposure: No service: No Current occupational status: employed Current occupation: Post office Current occupational exposures/hazards: No Gender identity: Female Cognitive needs: No Hearing needs: No Vision needs: Yes Questionnaire Thrive Questionnaire Date Thrive assessed: 08/29/23 TIARA-7 AMB Questionnaire TIARA-7 Date TIARA - 7 assessed: 08/29/23 Source: Developed by Drs. Oleksandr Cleveland, Elsy Cooley, Manuel Toure and colleagues, with an educational cy from [employer]. Review of Systems Const All systems reviewed & are unremarkable except as noted in HPI and below Card Denies chest pain at rest, Denies chest pain with activity, Denies edema, Denies irregular heart rhythm, Denies claudication, Denies dyspnea, Denies dyspnea on exertion, Denies orthopnea, Denies paroxysmal nocturnal dyspnea and Denies slow heart rate Resp Denies cough, Denies dyspnea and Denies dyspnea on exertion Musc Denies atrophy, Denies deformity and Denies limited range of motion Physical exam (Primary Care) Vital Signs: Last Vital Signs Pulse 68 11/05/23 14:22 BP 134/80 11/05/23 14:22 Pulse Ox 95 11/05/23 14:22 Oxygen Delivery Method Room Air 11/05/23 14:22 BMI result Body Mass Index 33.1 Tobacco/Smoking Status: Tobacco use Status Tobacco use date assessed 08/29/23 11/05/23 14:21 Patient Tobacco Use Status Former Tobacco user 11/05/23 14:21 Tobacco use type Cigarette 11/05/23 14:21 e-Cigarette/Vaping Use Never Used 11/05/23 14:21 Thrive Assessment: Date of Thrive Assessment Date Thrive assessed 08/29/23 11/05/23 14:21 Const Orientation/consciousness: patient oriented x3 HENMT Head: Yes normal to inspection, Yes normocephalic and Yes atraumatic Ears: external ears normal Eyes General: appearance normal, both eyes and all related structures Eyelids: Yes eyelids normal Conjunctivae: conjunctivae normal Neck Neck: Yes normal visual inspection and Yes supple Resp Effort & Inspection: normal respiratory effort Auscultation: clear to auscultation bilaterally Cardio Jugular venous distension: no JVD Rate: regular rate Rhythm: regular rhythm Heart sounds: S1 normal heart sound present and S2 normal heart sound present GI Inspection: Yes normal to inspection Palpation (GI): Soft to palpation and nontender Auscultation: normal bowel sounds Skin General skin exam: no rashes or lesions noted Neuro General: patient oriented x3 and no focal motor deficits Extrem General: Yes full ROM Psych Appearance: grossly normal Assessment and Plan Assessment & Plan (1) GERD (gastroesophageal reflux disease): Comment: Continue Omeprazole 20 mg EGD Code(s): K21.9 - Gastro-esophageal reflux disease without esophagitis Qualifiers: Esophagitis presence: esophagitis presence not specified Qualified Code(s): K21.9 - Gastro-esophageal reflux disease without esophagitis Plan: Continue PPIs. (2) Hypothyroid: Code(s): E03.9 - Hypothyroidism, unspecified Qualifiers: Hypothyroidism type: acquired Qualified Code(s): E03.9 - Hypothyroidism, unspecified Plan: Continue thyroid medication. Monitor TSH. (3) Left foot pain: Code(s): M79.672 - Pain in left foot Plan: X-ray ordered. (4) Osteopenia: Code(s): M85.80 - Other specified disorders of bone density and structure, unspecified site Qualifiers: Osteopenia location: unspecified Qualified Code(s): M85.80 - Other specified disorders of bone density and structure, unspecified site Plan: Start calcium supplementation. Continue vitamin-D supplements. DEXA scan will be repeated 2025. Orders: Orders XR foot LT 2V Today M79.672 - Pain in left foot Medications: New calcium carbonate (Oyster Shell Calcium) 500 mg PO BID 180 tabs 3RF 90 days M85.80 - Other specified disorders of bone density and structure, unspecified site Coding Level of Care Code Est Pt Level 4 (85283) Complex EM visit Add On G2211 Diagnoses Gastroesophageal reflux disease, unspecified whether esophagitis present K21.9 Esophagitis presence: esophagitis presence not specified Acquired hypothyroidism E03.9 Hypothyroidism type: acquired Left foot pain M79.672 Osteopenia, unspecified location M85.80 Osteopenia location: unspecified Time Spent (min) 21
[2023-11-05 14:22] VITALS: BP 134/80; PULSE 68; O2SAT 95; BMI 33.1
== END 2023-11-05 15:41 | disposition home or self-care (01) ==
PROVIDERS: PCP Internal Medicine; Visit Provider Internal Medicine
DX: K21.9 Gastro-esophageal reflux disease without esophagitis (principal); E03.9 Hypothyroidism, unspecified; M79.672 Pain in left foot; M85.80 Other specified disorders of bone density and structure, unspecified site
CPT/HCPCS: 99214

== ENCOUNTER 2023-11-05 14:49 | Outpatient (REF) | payer BC, SELFPAY ==
--- NOTE | ~2023-11-05 | XR_ITS ---
EXAMINATION: XR FOOT, LEFT CLINICAL INFORMATION: Pain in left foot COMPARISON: None available. TECHNIQUE: AP, lateral, and oblique views of the left foot. FINDINGS: There is mild hallux valgus. There are small calcaneal spurs. The bones joints and soft tissues are otherwise unremarkable. XR/XR foot LT min 3V IMPRESSION: 1. Mild hallux valgus. 2. Small calcaneal spurs.
== END 2023-11-05 14:50 | disposition home or self-care (01) ==
LOC: HO.XRAY 14:49
PROVIDERS: PCP Internal Medicine; Visit Provider Internal Medicine
DX: M79.672 Pain in left foot (principal)
CPT/HCPCS: 73630

== ENCOUNTER 2023-11-29 16:03 | Outpatient (AMB) | payer BC, SELFPAY ==
--- NOTE | 2023-11-29 16:18 | MHC.PC.OV ---
Vital Signs 11/29/23 16:20 Height 5 ft 3 in Weight 183 lb BMI 32.4 BP 132/80 Blood Pressure Location Lt brachial Position Sitting Intake Visit Reasons: lump next to belly button File Machine Operator Required: No Accompanied by: Self / Same As Patient Allergies sulfamethoxazole [From Sulfamethoxazole-Trimethoprim] Allergy (Intermediate, Verified 11/29/23 16:40) Itching trimethoprim [From Sulfamethoxazole-Trimethoprim] Allergy (Intermediate, Verified 11/29/23 16:40) Itching Medication List - Last Reconciled 11/29/23 by Adrianna Barr MD [place] Thyroid (thyroid (pork)) 60 mg (4 x 15 mg) PO DAILY 30 days NS calcium carbonate (Oyster Shell Calcium) 500 mg PO BID 90 days omeprazole 20 mg PO DAILY Tobacco use date assessed: 08/29/23 Fall risk assessment: No Falls in past year Last assessed Fall Risk: 11/29/23 Dental Screening Dental Screen Date: 08/29/23 HPI HPI Comments History of Present Illness Details This is a 68 year old female with hypothyroidism, GERD and osteopenia that complaints of an abdominal lump right next to the umbilicus. She notice this about a month ago. Last TSH is normal. GERD stable with meds. Has osteopenia by DEXA scan and takes Calcium with Vitamin D. [facility] Medical History (Updated 11/29/23 @ 16:50 by Adrianna Barr MD) Chronic urinary tract infection Factor V Leiden mutation Cholelithiasis GERD (gastroesophageal reflux disease) Elevated cholesterol Hypothyroid Surgical History History of laparoscopic cholecystectomy (06/28/23) Hx of inguinal hernia repair History of bladder surgery Family History Mother No problems noted. Father No problems noted. Brother Prostate cancer Social History Household Members: Other Housing: Other Housing Other:: mobile home Are you a primary home health care coordinator to a significant other at home: No Do you presently have visiting nurse or other home services: No Alcohol intake: current Alcohol intake frequency: holidays/special occasions only Alcohol type: wine Comment: counts correct Patient Tobacco Use Status: Former Tobacco user Tobacco use type: Cigarette Years Smoked: 17 e-Cigarette/Vaping Use: Never Used Second Hand Smoke Exposure: No service: No Current occupational status: employed Current occupation: Post office Current occupational exposures/hazards: No Gender identity: Female Cognitive needs: No Hearing needs: No Vision needs: Yes Questionnaire Thrive Questionnaire Date Thrive assessed: 08/29/23 TIARA-7 AMB Questionnaire TIARA-7 Date TIARA - 7 assessed: 08/29/23 Source: Developed by Drs. Oleksandr Cleveland, Elsy Cooley, Manuel Toure and colleagues, with an educational cy from [employer]. Review of Systems Const All systems reviewed & are unremarkable except as noted in HPI and below Card Denies chest pain at rest, Denies chest pain with activity, Denies edema, Denies irregular heart rhythm, Denies claudication, Denies dyspnea, Denies dyspnea on exertion, Denies orthopnea, Denies paroxysmal nocturnal dyspnea and Denies slow heart rate Resp Denies cough, Denies dyspnea and Denies dyspnea on exertion Physical exam (Primary Care) Vital Signs: Last Vital Signs BP 132/80 11/29/23 16:20 BMI result Body Mass Index 32.4 BMI Assessment/Plan discussion: High BMI High, discussed plan: lifestyle, weight reduction, dietary and physical activity Tobacco/Smoking Status: Tobacco use Status Tobacco use date assessed 08/29/23 11/29/23 16:19 Patient Tobacco Use Status Former Tobacco user 11/29/23 16:19 Tobacco use type Cigarette 11/29/23 16:19 e-Cigarette/Vaping Use Never Used 11/29/23 16:19 Thrive Assessment: Date of Thrive Assessment Date Thrive assessed 08/29/23 11/29/23 16:19 Resp Effort & Inspection: normal respiratory effort Auscultation: clear to auscultation bilaterally Cardio Jugular venous distension: no JVD Rate: regular rate Rhythm: regular rhythm Heart sounds: S1 normal heart sound present and S2 normal heart sound present GI Palpation (GI): Hernia present ventral Extrem General: Yes full ROM Assessment and Plan Assessment & Plan (1) Hypothyroidism (acquired): Code(s): E03.9 - Hypothyroidism, unspecified Plan: Continue armour thyroid. Monitor TSH. (2) Osteopenia: Code(s): M85.80 - Other specified disorders of bone density and structure, unspecified site Qualifiers: Osteopenia location: unspecified Qualified Code(s): M85.80 - Other specified disorders of bone density and structure, unspecified site Plan: Continue calcium with Vitamin D. (3) GERD (gastroesophageal reflux disease): Comment: Continue Omeprazole 20 mg EGD Code(s): K21.9 - Gastro-esophageal reflux disease without esophagitis Qualifiers: Esophagitis presence: esophagitis presence not specified Qualified Code(s): K21.9 - Gastro-esophageal reflux disease without esophagitis Plan: Continue PPIs. (4) Periumbilical hernia: Code(s): K42.9 - Umbilical hernia without obstruction or gangrene Plan: US abd ordered. Orders: Orders US abdomen complete 11/29/23 K42.9 - Umbilical hernia without obstruction or gangrene Coding Level of Care Code Est Pt Level 4 (83122) Complex EM visit Add On G2211 Diagnoses Hypothyroidism (acquired) E03.9 Osteopenia, unspecified location M85.80 Osteopenia location: unspecified Gastroesophageal reflux disease, unspecified whether esophagitis present K21.9 Esophagitis presence: esophagitis presence not specified Periumbilical hernia K42.9 Time Spent (min) 23
[2023-11-29 16:20] VITALS: BP 132/80; BMI 32.4
== END 2023-11-29 16:46 | disposition home or self-care (01) ==
PROVIDERS: PCP Internal Medicine; Visit Provider Internal Medicine
DX: E03.9 Hypothyroidism, unspecified (principal); M85.80 Other specified disorders of bone density and structure, unspecified site; K21.9 Gastro-esophageal reflux disease without esophagitis; K42.9 Umbilical hernia without obstruction or gangrene
CPT/HCPCS: 99214

== ENCOUNTER 2023-12-05 08:11 | Outpatient (REF) | payer BC, SELFPAY ==
--- NOTE | ~2023-12-05 | US_ITS ---
EXAMINATION: US ABDOMEN LIMITED CLINICAL INFORMATION: Umbilical hernia without obstruction or gangrene. Periumbilical hernia, abdominal lump first noticed one month ago, previous CT September 12, 2023. COMPARISON: CT abdomen and pelvis 09/12/2023. Ultrasound abdomen 02/14/2023. TECHNIQUE: Real-time imaging of the periumbilical region. FINDINGS: Targeted ultrasound images were obtained by the ramp manager of the area of concern as indicated by the patient in the periumbilical region. Mobile peristalsing bowel noted in the subjacent abdomen. Possible hernia in the umbilical region best elicited in the upright position with neck measuring approximately 3.4 cm in diameter on upright images. Radiologist was not in attendance. Images were later provided for interpretation. US/US abdomen limited IMPRESSION: Possible hernia in the umbilical region best elicited in the upright position with neck measuring approximately 3.4 cm in diameter on upright images. CT scan recommended for further evaluation.
== END 2023-12-05 08:12 | disposition home or self-care (01) ==
LOC: HO.HMGCX 08:11
PROVIDERS: PCP Internal Medicine; Visit Provider Internal Medicine
DX: K42.9 Umbilical hernia without obstruction or gangrene (principal)
CPT/HCPCS: 76705

== ENCOUNTER 2024-01-18 13:51 | Outpatient (REF) | payer BC, SELFPAY ==
--- NOTE | ~2024-01-18 | CT_ITS ---
EXAMINATION: CT ABDOMEN AND PELVIS WITHOUT CONTRAST CLINICAL INFORMATION: Umbilical hernia without obstruction or gangrene. COMPARISON: CT abdomen and pelvis 09/12/2023, ultrasound abdomen 12/05/2023. TECHNIQUE: Multidetector volumetric imaging was performed from the superior aspect of the liver through the pubic symphysis. Sagittal and coronal reformatted images were obtained on the technologist's workstation. This CT examination was performed using dose optimization techniques as appropriate, variously including the following: *Automated exposure control *Adjustment of mA and/or kV according to patient size (this includes techniques or standardized protocols for targeted exams where dose is matched to indication/reason for exam; i.e. extremities or head) *Use of iterative reconstruction technique DLP: 571 mGy-cm. FINDINGS: LUNG BASES: The visualized lung bases are unremarkable. LIVER, GALLBLADDER, AND BILIARY TREE: The liver is normal in size, shape, and attenuation. No focal hepatic lesion or biliary ductal dilatation is present. Status post cholecystectomy. PANCREAS: Unremarkable. SPLEEN: Unremarkable. ADRENAL GLANDS: Unremarkable. KIDNEYS AND URETERS: The kidneys are normal in size, shape, and attenuation. No hydronephrosis, hydroureter, or calculi seen. No perinephric stranding. BLADDER: Unremarkable. GASTROINTESTINAL TRACT: The small and large bowel are unremarkable aside from a few scattered colonic diverticula without diverticulitis. The appendix is unremarkable. ABDOMINAL WALL: There is a new periumbilical hernia seen which contains fat as well as a single loop of unobstructed small bowel. The mouth of the hernia measures 6.2 x 3.0 cm. There is minimal diastasis of the rectus muscles just above and below this. No inguinal or other hernias are seen. LYMPH NODES: No retroperitoneal lymphadenopathy. VASCULAR: Minimal atherosclerotic changes are present in the aorta and iliofemoral vessels. There is no evidence of an abdominal aortic aneurysm. PELVIC VISCERA: The uterus is not seen. An abnormal adnexal mass is not detected. No free intraperitoneal fluid is present. OSSEOUS STRUCTURES: Mild degenerative changes are present in the spine without bony destructive lesions. CT/CT abdomen pelvis wo IV con IMPRESSION: 1. New periumbilical hernia containing fat and a single loop of unobstructed small bowel. 2. Incidental note made of cholecystectomy, hysterectomy and mild degenerative changes in the spine. Fleischner guidelines were followed. Electronically signed by: Suhail Ureña MD 02/22/2024 01:37 PM EDT RP
[2024-01-18] MEDS: Barium Sulfate Oral (Vanilla) 450 ML ORAL.SUSP PO (15:18)
== END 2024-01-18 13:52 | disposition home or self-care (01) ==
LOC: HO.CT 13:51
PROVIDERS: PCP Internal Medicine; Visit Provider Internal Medicine
DX: K42.9 Umbilical hernia without obstruction or gangrene (principal)
CPT/HCPCS: 74176

== ENCOUNTER 2024-02-05 09:38 | Outpatient (AMB) | payer BC, SELFPAY ==
--- NOTE | 2024-02-05 09:38 | A.OFFVIS_ITS ---
Vital Signs 3 02/05/24 09:50 Height 5 ft 3 in Weight 188 lb 2 oz BMI 33.3 BP 152/72 H Blood Pressure Location Lt brachial Position Sitting Pulse 78 Intake Visit Reasons: Umbilical hernia without obstruction or gangrene Intake Note: Patient is seen in office for Pt c/o: feels a lump on the umbilical area since post cholecystectomy in 06/[address] Osorio, discomfort in the RLQ, denies n/v/d/c, loose stool at times, had CT done on 01/18/24 Chassis Wirer Required: No Accompanied by: Self / Same As Patient Allergies sulfamethoxazole [From Sulfamethoxazole-Trimethoprim] Allergy (Intermediate, Verified 02/05/24 09:48) Itching trimethoprim [From Sulfamethoxazole-Trimethoprim] Allergy (Intermediate, Verified 02/05/24 09:48) Itching Medication List - Last Reconciled 02/05/24 by Nuno Young MD [place] Thyroid (thyroid (pork)) 60 mg (4 x 15 mg) PO DAILY 30 days NS barium sulfate 2%(w/v) (Readi-Cat 2) 150 mL PO ONCE 1 day calcium carbonate (Oyster Shell Calcium) 500 mg PO BID 90 days omeprazole 20 mg PO DAILY HPI Comments Details: 68-year-old female patient with a prior history of laparoscopic cholecystectomy presenting now with a painful lump located at the umbilicus. She feels that the lump has increased in size and is causing discomfort. She denies nausea, vomiting, fever or chills. CT abdomen and pelvis obtained on 01/18/2024 confirms an incisional hernia at the umbilicus. Official report from the CT abdomen and pelvis not available at the time of this dictation. [facility] Medical History Chronic urinary tract infection Factor V Leiden mutation Cholelithiasis GERD (gastroesophageal reflux disease) Elevated cholesterol Hypothyroid Surgical History History of laparoscopic cholecystectomy (06/28/23) Hx of inguinal hernia repair History of bladder surgery Family History Mother No problems noted. Father No problems noted. Brother Prostate cancer Social History Household Members: Other Housing: Other Housing Other:: mobile home Are you a primary childbirth and infant care teacher to a significant other at home: No Do you presently have visiting nurse or other home services: No Alcohol intake: current Alcohol intake frequency: holidays/special occasions only Alcohol type: wine Comment: counts correct Patient Tobacco Use Status: Former Tobacco user Tobacco use type: Cigarette Years Smoked: 17 e-Cigarette/Vaping Use: Never Used Second Hand Smoke Exposure: No service: No Current occupational status: employed Current occupation: Post office Current occupational exposures/hazards: No Gender identity: Female Cognitive needs: No Hearing needs: No Vision needs: Yes Review of Systems Const All systems reviewed & are unremarkable except as noted in HPI and below Denies chills, Denies fever(s), Denies headache(s), Denies poor appetite and Denies weakness ENT Denies headache(s) Card Denies chest pain, Denies irregular heart rhythm, Denies palpitations and Denies dyspnea Resp Denies cough, Denies excessive phlegm production and Denies dyspnea GI Denies abdominal pain, Denies bloating, Denies change in bowel habits, Denies constipation, Denies heartburn, Denies diarrhea, Denies nausea and Denies vomiting Denies urinary frequency Musc Denies back pain, Denies muscle weakness and Denies numbness Skin/Breast Denies changing lesions and Denies unusual bruising Neuro Denies headache(s), Denies numbness, Denies paresthesias and Denies weakness Psych Denies anxiety and Denies depression Endo Denies palpitations Kit/Lymph Denies lymphadenopathy Physical Exam Vital Signs: Last Vital Signs Pulse 78 02/05/24 09:50 BP 152/72 H 02/05/24 09:50 BMI result Body Mass Index 33.3 Const General: cooperative and no acute distress Nutritional Appearance: well nourished Orientation/consciousness: patient oriented x3 Limitations: no limitations HEENT Head: Yes normocephalic and Yes atraumatic Ears: hearing grossly normal bilaterally Resp Effort & Inspection: normal respiratory effort, no audible wheezes, no cough and no respiratory distress Cardio Jugular venous distension: no JVD GI Inspection: Yes normal to inspection Palpation (GI): Soft to palpation, nontender, no guarding and not rigid Abdomen image: 2 1. Palpable hernia, reducible, 3 cm diameter Skin Other: Warm, dry, no rash Neuro General: patient oriented x3 Extrem General: Yes no clubbing, cyanosis or edema Assessment & Plan Assessment & Plan (1) Periumbilical hernia: Code(s): K42.9 - Umbilical hernia without obstruction or gangrene Category: Medical Plan 68-year-old female patient status post laparoscopic cholecystectomy now with an incisional hernia at the umbilicus. On examination the hernia patient is a proximally 3 cm but is reducible when in the supine position with light pressure. We discussed repair of this umbilical hernia along with the risks, alternatives and benefits. I recommended repair of the umbilical hernia with mesh and she gives her consent for this procedure. This will be scheduled at her earliest convenience. Coding Level of Care Code New Pt Level 4 (95858) Diagnoses Periumbilical hernia K42.9
[2024-02-05 09:50] VITALS: BP 152/72; PULSE 78; BMI 33.3
== END 2024-02-05 10:04 | disposition home or self-care (01) ==
PROVIDERS: PCP Internal Medicine; Visit Provider Surgery
DX: K42.9 Umbilical hernia without obstruction or gangrene (principal)
CPT/HCPCS: 99204; 99214

== ENCOUNTER → 2024-02-05 09:38 | Outpatient (BNVA) | payer BC, SELFPAY | PROVIDERS: PCP Internal Medicine; Visit Provider Surgery ==

== ENCOUNTER 2024-02-20 09:26 | Outpatient (REF) | payer BC, SELFPAY ==
[2024-02-20 10:44] LABS: Appearance Urine Clear; Color Urine Yellow; Glucose Urine UA Negative (Negative); Leukocyte Esterase Urine Large (3+) (Negative); Nitrite Urine Negative (Negative); Specific Gravity - Urine <= 1.005 (1.005-1.025); UMIC TRIGGER UACC YES; Urine Blood Moderate (2+) (Negative); Urine Ketones Negative (Negative); Urine Protein Negative (Neg-Trace)
[2024-02-20 10:55] LABS: Bacteria Urine 2+ (None Seen); Hyaline Casts Urine 0-2 /LPF (0-2); RBC Urine 0-2 /HPF (0-2); Squamous Epithelial Cell Urine 0-2 /HPF (0-2); UACC Culture Trigger YES; WBC Urine >50 /HPF (0-5)
== END 2024-02-20 09:27 | disposition home or self-care (01) ==
LOC: HO.LAB 09:26
PROVIDERS: PCP Internal Medicine; Visit Provider Registered Nurse Emergency
DX: N39.0 Urinary tract infection, site not specified (principal)
CPT/HCPCS: 81001; 87086; 87088; 87186

== ENCOUNTER 2024-02-26 14:59 | Emergency (ER) | payer BC, SELFPAY ==
[2024-02-26 15:42] VITALS: BP 185/90; PULSE 79; RESP 18; TEMP 36.6; O2SAT 94; BMI 30.9
--- NOTE | 2024-02-26 15:46 | ECG_ITS ---
Test Reason : ARRYTHMIA Blood Pressure : / mmHG Vent. Rate : 064 BPM Atrial Rate : 064 BPM P-R Int : 132 ms QRS Dur : 092 ms QT Int : 388 ms P-R-T Axes : 027 -05 017 degrees QTc Int : 400 ms Normal sinus rhythm Cannot rule out Anterior infarct , age undetermined Abnormal ECG When compared with ECG of 16-MAY-2023 01:42, Nonspecific T wave abnormality now evident in Anterolateral leads Referred By: Katlyn Ramsay Electronically Signed By:Alejandro Rod
--- NOTE | 2024-02-26 15:46 | ED.DIZZY ---
HPI - Dizziness General Chief Complaint: Dizziness Stated Complaint: Lightheaded, nausea Time Seen by Provider: 02/26/24 19:16 History of Present Illness ED Provider: Rosetta CONTE Narrative: The patient is a 68-year-old female. Last week she had urinary discomfort and submitted a urine sample through her primary care doctor's office. This grew a pansensitive E coli. She was prescribed nitrofurantoin that she started last Sunday evening. She says that she briefly felt like the antibiotic was working but then she felt her urinary symptoms returned a day or 2 later. She contacted the covering doctor over the weekend and was prescribed ciprofloxacin 500 mg. She took a dose of this on Sunday morning. At around 11:00, approximately 4 hours after taking the antibiotic, she was at work when she felt as if her eyes crossed and she felt nauseated and unwell. The unusual crossing of her eyes only lasted a few seconds but she felt unwell enough to leave work and go home. The next day she reached her regular doctor who reduce the dose to ciprofloxacin 250 mg. She took a dose of this this morning. A few hours later she felt strangely lightheaded and dizzy while doing nothing in particular she felt lightheaded and dizzy and nauseated. She felt a sense of pressure in her face. She did not have the eye crossing sensation she experienced on Sunday but she felt unwell enough to come to the emergency room. While waiting to be seen her symptoms have resolved. She has not had a headache. No fever, sweats, chills. No change in speech. No facial asymmetry. No weakness in her extremities. Related Data Previous Rx's ?Medication ?Instructions ?Recorded Jose E Thyroid 15 mg tablet 60 mg (4 x 15 mg) PO DAILY 30 days 09/06/23 (thyroid (pork)) #120 tabs calcium carbonate (Oyster Shell 500 mg PO BID 90 days #180 tabs 11/05/23 Calcium) barium sulfate 2 % (w/v) oral 150 ml PO ONCE 1 day #150 mL 12/29/23 suspension (Readi-Cat 2) omeprazole 20 mg capsule,delayed 20 mg PO DAILY #90 caps 02/08/24 release ciprofloxacin HCl 250 mg tablet 250 mg PO BID 3 days #6 tabs 02/25/24 (Cipro) phenazopyridine 200 mg tablet 200 mg PO TID 2 days #6 tabs 02/25/24 cephalexin 500 mg capsule 500 mg PO BID #10 caps 02/26/24 Allergies Allergy/AdvReac Type Severity Reaction Status Date / Time sulfamethoxazole Allergy Intermediate Itching Verified 02/26/24 15:43 [From Sulfamethoxazole-Trimethoprim] trimethoprim Allergy Intermediate Itching Verified 02/26/24 15:43 [From Sulfamethoxazole-Trimethoprim] Review of Systems Review of Systems: Yes all other systems are reviewed and are negative [facility] Past Medical History Medical History Chronic urinary tract infection Factor V Leiden mutation Cholelithiasis GERD (gastroesophageal reflux disease) Elevated cholesterol Hypothyroid Surgical History History of laparoscopic cholecystectomy (06/28/23) Hx of inguinal hernia repair History of bladder surgery Family History Family History Mother No problems noted. Father No problems noted. Brother Prostate cancer Social History Social History Household Members: Other Housing: Other Housing Other:: mobile home Are you a primary acute care nursing assistant to a significant other at home: No Do you presently have visiting nurse or other home services: No Alcohol intake: current Alcohol intake frequency: holidays/special occasions only Alcohol type: wine Comment: counts correct Patient Tobacco Use Status: Former Tobacco user Tobacco use type: Cigarette Years Smoked: 17 e-Cigarette/Vaping Use: Never Used Second Hand Smoke Exposure: No Advance Directives: No Advance Directives Information Provided: No Do you have a plan to hurt others: No Plan service: No Current occupational status: employed Current occupation: Post office Current occupational exposures/hazards: No Gender identity: Female Cognitive needs: No Hearing needs: No Vision needs: Yes Physical Exam Vital Signs: Vital Signs: Last Vital Signs Temp 98.2 F 02/26/24 19:51 Pulse 70 02/26/24 19:51 Resp 16 02/26/24 19:51 BP 162/80 H 02/26/24 19:51 Pulse Ox 94 02/26/24 19:51 O2 Del Method Room Air 02/26/24 19:51 BMI result Body Mass Index 30.9 Const: Other: the patient is awake, alert, pleasant, cooperative. She does not appear in distress or unwell in any way. She was quite talkative. HEENT: Other: Face is symmetrical. Mucous membranes moist. Pharynx unremarkable. Eyes: Other: Pupils are round equal, conjunctivae are clear, extraocular movements intact, visual almeida are intact Neck: Other: no cervical adenopathy, moving the neck easily and normally. Resp: Effort & Inspection: normal respiratory effort Auscultation: clear to auscultation bilaterally Cardio: Rate: regular rate Rhythm: regular rhythm Heart sounds: S1 normal heart sound present and S2 normal heart sound present GI: Other: Abdomen is soft nontender : General: Yes no CVA tenderness Back/Spine/Pelvis: Back: no CVA tenderness Skin: Other: skin is dry and unremarkable Neuro: Other: the patient is awake and alert with normal mental status. She is oriented and follows commands correctly. Eye movements are intact. Visual almeida are intact. Face is symmetrical. Speech is normal. She moves her extremities normally. No pronator drift. Finger-nose is normal. Heel-martinez is normal. Gait is steady. She seems neurologically intact with an NIH stroke scale 0. Extrem: Other: no peripheral edema Course Course Course Narrative: This is a rapid medical exam performed by Katlyn Ramsay PA-C. The patient is a 68-year-old female with a history of hypothyroidism, current treatment for UTI, presents with lightheadedness. Patient states she was placed on Macrobid last week, her symptoms persisted, she was then placed on ciprofloxacin 500 mg. Patient states over the past day, she has felt lightheaded and ?just not right?. On exam, the patient is not ataxic, she is well in appearance. Her symptoms are very nonspecific. We will screen basic labs and another urinalysis. The patient is stable and can return to the weight room pending her full assessment. Medical Decision Making Medical Decision Making MDM Narrative: the patient is a 68-year-old woman who was started on antibiotics last week for UTI. The urine culture she is admitted last week has grown a pansensitive E coli. She says that she was 1st prescribed nitrofurantoin but she felt that it did not work and so she received a prescription for ciprofloxacin over the phone. She now describes having had 2 unusual episodes of dizziness and feeling unwell since starting the ciprofloxacin. The 1st of these episodes was 2 days ago on Sunday. She then went to a lower dose of ciprofloxacin but had another episode earlier this afternoon. at the time that I evaluated the patient her symptoms had resolved. It does not seem that she has actually taken that many doses of antibiotics because of this concern about side effects or effectiveness. I suspect that both of these episodes she describes may be a consequence of using ciprofloxacin. Her description of the episodes does not really suggest another etiology. I do not think she is describing stroke-like symptoms. the patient's urinalysis is slightly abnormal today. I will have the patient stop the ciprofloxacin. She will be placed on cephalexin instead. She should follow up with her regular doctor or return if worse. Lab Data 02/26/24 16:25 02/26/24 16:25 Labs: Lab Results 02/26/24 Range/Units 16:25 WBC 10.1 (4.8-10.8) X10*3/uL RBC 5.07 (4.20-5.50) X10*6/uL Hgb 15.1 (12.0-16.0) g/dl Hct 44.7 (37.0-47.0) % MCV 88.2 (80.0-98.0) fL MCH 29.8 (27.0-33.0) pg MCHC 33.8 (31.0-35.0) g/dl RDW 13.3 (11.0-16.0) % Plt Count 274 (160-400) X10*3/uL MPV 9.5 (9.4-12.3) fL Immature Gran % (Auto) 0.4 (0.0-0.4) % Neut % (Auto) 64.6 (45-73) % Lymph % (Auto) 27.5 (20-40) % [place] % (Auto) 5.5 (2-11) % Eos % (Auto) 1.4 (0-4) % Baso % (Auto) 0.6 (0-2) % Lymph # (Auto) 2.8 (1.2-4.9) X10*3/uL [place] # (Auto) 0.6 (0.1-1.2) X10*3/uL Eos # (Auto) 0.1 (0.0-0.4) X10*3/uL Baso # (Auto) 0.1 (0.0-0.2) X10*3/uL Abs Immat Gran (auto) 0.04 H (0.00-0.03) X10*3/uL Absolute Neuts (auto) 6.5 (2.0-8.3) x10*3/uL Absolute Nucleated RBC 0.000 (0.0-0.012) X10*3/uL Nucleated RBC % (auto) 0.0 (0.0-0.2) /100WBC Sodium 143 (135-145) mmol/L Potassium 3.6 (3.3-5.1) mmol/L Chloride 106 (96-108) mmol/L Carbon Dioxide 29 (22-29) mmol/L Anion Gap 12 (12-20) BUN 10 (9-16) mg/dL Creatinine 0.80 (0.5-1.4) mg/dL Estim Creat Clear Calc 70.5 Estimated GFR > 60 Random Glucose 110 (60-115) mg/dL Calcium 9.4 (8.4-10.2) mg/dL Magnesium 2.0 (1.6-2.6) mg/dL Total Bilirubin 0.2 (0.0-1.0) mg/dL AST 19 (5-31) U/L ALT 22 (0-31) U/L Alkaline Phosphatase 108 (39-117) U/L Total Protein 7.1 (6.5-8.0) g/dL Albumin 4.2 (3.5-5.0) g/dL Urine Color Dark Yellow Urine Appearance Clear Urine pH 6.5 (5.0-9.0) Ur Specific Mcgee <= 1.005 (1.005-1.025) Urine Protein Negative (Neg-Trace) mg/dL Urine Glucose (UA) Negative (Negative) mg/dL Urine Ketones Negative (Negative) mg/dL Urine Blood Negative (Negative) Urine Nitrite Positive H (Negative) Ur Leukocyte Esterase Small (1+) H (Negative) Urine RBC 0-2 (0-2) /HPF Urine WBC 0-5 (0-5) /HPF Ur Squamous Epith Cells 3-5 (0-2) /HPF Urine Bacteria None Seen (None Seen) Hyaline Casts 0-2 (0-2) /LPF Discharge Plan Discharge Clinical Impression: Nausea, Urinary tract infection, Light-headedness, Drug reaction Patient Disposition: Home, Self-Care Additional Instructions: I think the episode that you had on Sunday in the episode you had earlier today may be unusual side effects from the ciprofloxacin antibiotic you were taking. Therefore please stop this antibiotic. I think it would be reasonable for you to take a few more days of an antibiotic. I have sent a prescription for an antibiotic called cephalexin to your pharmacy. This is usually a very benign, well tolerated antibiotic. Surprisingly, when I ordered this electronically, I was told that your insurance company requires ?prior authorization? for this antibiotic. If when you get to the pharmacy tomorrow this antibiotic is not covered by your insurance plan without a prior authorization I would asked how much it would cost a few simply paid for it [id number]. I think this antibiotic is usually quite inexpensive. If you have trouble getting this medication please contact Dr. Johnston in the morning. Otherwise rest and take it easy and drink lot of fluids. Return to the emergency room if significantly worse. Prescriptions: New cephalexin 500 mg capsule 500 mg PO BID Qty: 10 0RF No Action thyroid (pork) [[place] Thyroid] 15 mg tablet 60 mg PO DAILY 30 Days Qty: 120 11RF Readi-Cat 2 2 % (w/v) suspension 150 ml PO ONCE 1 Days Qty: 150 0RF omeprazole 20 mg capsule,delayed release(DR/EC) 20 mg PO DAILY Qty: 90 1RF phenazopyridine 200 mg tablet 200 mg PO TID 2 Days Qty: 6 0RF ciprofloxacin HCl [Cipro] 250 mg tablet 250 mg PO BID 3 Days Qty: 6 0RF calcium carbonate [Oyster Shell Calcium] 500 mg calcium (1,250 mg) tablet 500 mg PO BID 90 Days Qty: 180 3RF Interventions: ED Discharge Assessment Last Done: 02/26/24 19:51 Discharge Date/Time: 02/26/24 19:52 Print Language: Niuean
[2024-02-26 16:33] LABS: MANUAL DIFF FLAG NO
[2024-02-26 16:36] LABS: Appearance Urine Clear; Color Urine Dark Yellow; Glucose Urine UA Negative (Negative); Leukocyte Esterase Urine Small (1+) (Negative); Nitrite Urine Positive (Negative); PH 6.5 (5.0-9.0); Specific Gravity - Urine <= 1.005 (1.005-1.025); UMIC TRIGGER UACC YES; Urine Blood Negative (Negative); Urine Ketones Negative (Negative); Urine Protein Negative (Neg-Trace)
[2024-02-26 16:38] LABS: Basophils Absolute Auto 0.1 X10*3/uL (0.0-0.2); Basophils Percent Auto 0.6 % (0-2); Eosinophils Absolute Auto 0.1 X10*3/uL (0.0-0.4); Eosinophils Percent Auto 1.4 % (0-4); Hematocrit 44.7 % (37.0-47.0); Hemoglobin 15.1 g/dl (12.0-16.0); Imm Gran Abs Auto 0.04 X10*3/uL (0.00-0.03); Imm Gran Pct Auto 0.4 % (0.0-0.4); Lymphocytes Absolute Auto 2.8 X10*3/uL (1.2-4.9); Lymphocytes Percent Auto 27.5 % (20-40); Mean Corpuscular HGB Conc 33.8 g/dl (31.0-35.0); Mean Corpuscular Hemoglobin 29.8 pg (27.0-33.0); Mean Corpuscular Volume 88.2 fL (80.0-98.0); Mean Platelet Volume 9.5 fL (9.4-12.3); Monocytes Absolute Auto 0.6 X10*3/uL (0.1-1.2); Monocytes Percent Auto 5.5 % (2-11); Neutrophils Absolute Auto 6.5 x10*3/uL (2.0-8.3); Neutrophils Percent Auto 64.6 % (45-73); Platelet Count 274 X10*3/uL (160-400); Red Blood Count 5.07 X10*6/uL (4.20-5.50); Red Cell Distribution Width 13.3 % (11.0-16.0); White Blood Count 10.1 X10*3/uL (4.8-10.8)
[2024-02-26 16:50] LABS: Bacteria Urine None Seen (None Seen); Hyaline Casts Urine 0-2 /LPF (0-2); RBC Urine 0-2 /HPF (0-2); UACC Culture Trigger YES; WBC Urine 0-5 /HPF (0-5)
[2024-02-26 16:55] LABS: Alanine Aminotransferase 22 U/L (0-31); Albumin Level 4.2 g/dL (3.5-5.0); Alkaline Phosphatase 108 U/L (39-117); Anion Gap 12 (12-20); Aspartate Amino Transferase 19 U/L (5-31); Bilirubin Total 0.2 mg/dL (0.0-1.0); Blood Urea Nitrogen 10 mg/dL (9-16); Calcium 9.4 mg/dL (8.4-10.2); Carbon Dioxide 29 mmol/L (22-29); Chloride 106 mmol/L (96-108); Creatinine Clr Calc Pharmacy 70.5; Estimated Glomerular Filt Rate > 60; Glucose Random 110 mg/dL (60-115); Potassium 3.6 mmol/L (3.3-5.1); Sodium 143 mmol/L (135-145); Total Protein 7.1 g/dL (6.5-8.0)
[2024-02-26 17:35] VITALS: BP 138/73; PULSE 69; RESP 14; TEMP 36.8; O2SAT 95
--- NOTE | 2024-02-26 18:54 | PC.NURSE ---
received report from Liss Solis RN, assume care of pt at this time
[2024-02-26 19:39] VITALS: BP 162/80; PULSE 70; RESP 16; TEMP 36.8; O2SAT 94
[2024-02-26 19:51] VITALS: BP 162/80; PULSE 70; RESP 16; TEMP 36.8; O2SAT 94
== END 2024-02-26 19:52 | disposition home or self-care (01) ==
PROVIDERS: Physician Assistant Medical; Emergency Provider Emergency Medicine; PCP Internal Medicine
DX: N39.0 Urinary tract infection, site not specified (principal); R42 Dizziness and giddiness; R11.2 Nausea with vomiting, unspecified; R30.0 Dysuria; I49.9 Cardiac arrhythmia, unspecified; Z79.899 Other long term (current) drug therapy; Z87.891 Personal history of nicotine dependence
CPT/HCPCS: 36415; 80053; 81001; 83735; 85025; 87086; 93005; 99283; 99285

== ENCOUNTER → 2024-02-26 15:46 | Outpatient (BNV) | payer BC, SELFPAY | PROVIDERS: Emergency Provider Emergency Medicine; PCP Internal Medicine; Visit Provider Internal Medicine Cardiovascular Disease | DX: R94.31 Abnormal electrocardiogram [ECG] [EKG] (principal) | CPT/HCPCS: 93010 ==

== ENCOUNTER 2024-03-03 06:12 | Outpatient (REF) | payer BC, SELFPAY ==
[2024-03-03 08:37] LABS: Thyroid Stimulating Hormone 4.03 uIU/mL (0.32-4.0)
== END 2024-03-03 06:13 | disposition home or self-care (01) ==
LOC: HO.LAB 06:12
PROVIDERS: PCP Internal Medicine; Visit Provider Internal Medicine
DX: E03.9 Hypothyroidism, unspecified (principal)
CPT/HCPCS: 36415; 84443

== ENCOUNTER 2024-03-04 10:26 | Outpatient (AMB) | payer BC, SELFPAY ==
--- NOTE | 2024-03-04 10:28 | MHC.PC.OV ---
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 Accompanied by: Self / Same As Patient Allergies sulfamethoxazole [From Sulfamethoxazole-Trimethoprim] Allergy (Intermediate, Verified 03/04/24 10:52) Itching trimethoprim [From Sulfamethoxazole-Trimethoprim] Allergy (Intermediate, Verified 03/04/24 10:52) Itching ciprofloxacin [From Cipro] Adverse Reaction (Intermediate, Verified 03/04/24 10:56) nausea, crossed eyes Medication List - Last Reconciled 03/04/24 by Adrianna Barr MD [place] Thyroid (thyroid (pork)) 60 mg (4 x 15 mg) PO DAILY 30 days NS calcium carbonate (Oyster Shell Calcium) 500 mg PO BID 90 days omeprazole 20 mg PO DAILY Tobacco use date assessed: 08/29/23 Fall risk assessment: No Falls in past year Last assessed Fall Risk: 03/04/24 Dental Screening Dental Screen Date: 03/04/24 Did you have a dental visit in the last 12 months?: No Did you have a dental problem in the last 6 months where you did not have access to dental care?: No Was dental information given to patient?: Patient has dentist HPI HPI Comments History of Present Illness Details This is a 68-year-old female with hypothyroidism, GERD, factor 5 leiden and umbilical hernia that comes today for follow-up on her conditions. TSH very slightly elevated and this will be repeated in 6 weeks. GERD stable with medications. She denies any active bleeding or blood clots. Has umbilical hernia that will be repair in April. No chest pain or shortness on breath. Had urinary tract infection that resolved. [facility] Medical History (Updated 03/04/24 @ 12:31 by Adrianna Barr MD) Chronic urinary tract infection Factor V Leiden mutation Cholelithiasis GERD (gastroesophageal reflux disease) Elevated cholesterol Hypothyroid Surgical History History of laparoscopic cholecystectomy (06/28/23) Hx of inguinal hernia repair History of bladder surgery Family History Mother No problems noted. Father No problems noted. Brother Prostate cancer Social History Household Members: Other Housing: Other Housing Other:: mobile home Are you a primary career services officer to a significant other at home: No Do you presently have visiting nurse or other home services: No Alcohol intake: current Alcohol intake frequency: holidays/special occasions only Alcohol type: wine Comment: counts correct Patient Tobacco Use Status: Former Tobacco user Tobacco use type: Cigarette Years Smoked: 17 e-Cigarette/Vaping Use: Never Used Second Hand Smoke Exposure: No service: No Current occupational status: employed Current occupation: Post office Current occupational exposures/hazards: No Gender identity: Female Cognitive needs: No Hearing needs: No Vision needs: Yes Questionnaire Thrive Questionnaire Date Thrive assessed: 08/29/23 AUDIT C Alcohol Use Questionnaire (AUDIT-C) 2. How many drinks containing alcohol do you have on a typical day when you are drinking?: 1 or 2 3. How often do you have six or more drinks on one occasion?: Never Total Score: 0 TIARA-7 AMB Questionnaire TIARA-7 Date TIAAR - 7 assessed: 08/29/23 Source: Developed by Drs. Oleksandr Cleveland, Elsy Cooley, Manuel Toure and colleagues, with an educational cy from [employer]. Review of Systems Const All systems reviewed & are unremarkable except as noted in HPI and below Card Denies chest pain at rest, Denies chest pain with activity, Denies edema, Denies irregular heart rhythm, Denies claudication, Denies dyspnea, Denies dyspnea on exertion, Denies orthopnea, Denies paroxysmal nocturnal dyspnea and Denies slow heart rate Resp Denies cough, Denies dyspnea and Denies dyspnea on exertion GI Denies abdominal pain, Denies change in bowel habits, Denies excessive flatus, Denies nausea and Denies vomiting Physical exam (Primary Care) Vital Signs: Last Vital Signs BP 126/70 03/04/24 10:29 BMI result Body Mass Index 32.3 Tobacco/Smoking Status: Tobacco use Status Tobacco use date assessed 08/29/23 03/04/24 10:34 Patient Tobacco Use Status Former Tobacco user 03/04/24 10:34 Tobacco use type Cigarette 03/04/24 10:34 e-Cigarette/Vaping Use Never Used 03/04/24 10:34 Thrive Assessment: Date of Thrive Assessment Date Thrive assessed 08/29/23 03/04/24 10:34 Resp Effort & Inspection: normal respiratory effort Auscultation: clear to auscultation bilaterally Cardio Jugular venous distension: no JVD Rate: regular rate Rhythm: regular rhythm Heart sounds: S1 normal heart sound present and S2 normal heart sound present Extrem General: Yes full ROM Office Procedures Flu Questionnaire Does the patient have a severe egg allergy?: No Immunizations Fluarix Triv [id number] (PF) 45 mcg (15 mcg x 3)/0.5 mL IM syringe Performing Provider: Adrianna Barr MD [facility] [place] [facility] Documented (not given) by: LAUREN Arguelles on 03/04/24 10:34 Reason Not Given: Patient Refused Coding Level of Care Code Est Pt Level 4 (68771) Complex EM visit Add On G2211 Diagnoses Hypothyroidism (acquired) E03.9 Factor V Leiden mutation D68.51 Gastroesophageal reflux disease, unspecified whether esophagitis present K21.9 Esophagitis presence: esophagitis presence not specified Umbilical hernia without obstruction and without gangrene K42.9 Obstruction and gangrene presence: without obstruction or gangrene Time Spent (min) 23 Assessment & Plan Assessment & Plan (1) Hypothyroidism (acquired): Code(s): E03.9 - Hypothyroidism, unspecified Category: Medical Plan: Repeat thyroid function test in 6 weeks. (2) Factor V Leiden mutation: Code(s): D68.51 - Activated protein C resistance Category: Medical Plan: Use compression stockings if prolonged immobilization occurs. (3) GERD (gastroesophageal reflux disease): Comment: Continue Omeprazole 20 mg EGD Code(s): K21.9 - Gastro-esophageal reflux disease without esophagitis Category: Medical Qualifiers: Esophagitis presence: esophagitis presence not specified Qualified Code(s): K21.9 - Gastro-esophageal reflux disease without esophagitis Plan: Continue PPIs. (4) Umbilical hernia: Code(s): K42.9 - Umbilical hernia without obstruction or gangrene Category: Medical Qualifiers: Obstruction and gangrene presence: without obstruction or gangrene Qualified Code(s): K42.9 - Umbilical hernia without obstruction or gangrene Plan: Surgery scheduled for April. Orders: Orders Vitamin A 6 Weeks E50.9 - Vitamin A deficiency, unspecified Phosphorus 6 Weeks M85.80 - Other specified disorders of bone density and structure, unspecified site Free T4 (Free Thyroxine) 6 Weeks E03.9 - Hypothyroidism, unspecified Influenza [id number] Immunization Today Z23 - Encounter for immunization Vitamin B12 and Folate 6 Weeks E53.8 - Deficiency of other specified B group vitamins Vitamin D 25-OH Total 6 Weeks E55.9 - Vitamin D deficiency, unspecified Magnesium 6 Weeks E61.2 - Magnesium deficiency Vitamin B1 6 Weeks E51.9 - Thiamine deficiency, unspecified Thyroid Stimulating Hormone 6 Weeks E03.9 - Hypothyroidism, unspecified
[2024-03-04 10:29] VITALS: BP 126/70; BMI 32.3
== END 2024-03-04 11:10 | disposition home or self-care (01) ==
LOC: HO.HMCH 10:27
PROVIDERS: PCP Internal Medicine; Visit Provider Internal Medicine
DX: E03.9 Hypothyroidism, unspecified (principal); D68.51 Activated protein C resistance; K21.9 Gastro-esophageal reflux disease without esophagitis; K42.9 Umbilical hernia without obstruction or gangrene; Z23 Encounter for immunization

== ENCOUNTER → 2024-03-04 10:26 | Outpatient (BNVA) | payer BC, SELFPAY | PROVIDERS: PCP Internal Medicine; Visit Provider Internal Medicine | DX: E03.9 Hypothyroidism, unspecified (principal); D68.51 Activated protein C resistance; K21.9 Gastro-esophageal reflux disease without esophagitis; K42.9 Umbilical hernia without obstruction or gangrene; Z79.899 Other long term (current) drug therapy; Z28.21 Immunization not carried out because of patient refusal | CPT/HCPCS: 90471 ==

== ENCOUNTER 2024-04-09 10:24 | Day surgery (SDC) | payer BC, SELFPAY ==
--- NOTE | 2024-04-08 09:35 | HO.ANESPROP2 ---
Documented by User: Anabelle Connelly NP 04/08/24 09:37 HPI - Anesthesia Eval Consult details Narrative: 68yo F for Repair Hernia PeriUmbilical Reducible with mesh s/p lap nolan 06/2023 with GA-ETT 7 Factor V without hx clots PMFSH Active Problems Active Problems: All Active Problems Umbilical hernia (Acute) Magnesium deficiency (Acute) UTI (urinary tract infection) (Acute) Periumbilical hernia (Acute) Osteopenia (Acute) Left foot pain (Acute) Acute abdomen (Acute) Status post laparoscopic cholecystectomy (Acute) Dysuria (Acute) Acute cystitis (Acute) Cholelithiasis (Acute) H. pylori infection (Acute) Abdominal pain (Acute) Encounter for screening colonoscopy (Acute) Plant dermatitis (Acute) Contusion of left hand (Acute) Upper respiratory tract infection (Acute) Hypothyroidism (acquired) (Acute) High cholesterol (Acute) Normal physical exam (Acute) Factor V Leiden mutation (Acute) Difficulty sleeping (Acute) Constipation (Acute) Stye (Acute) Genitourinary syndrome of menopause (Acute) Dysuria (Acute) Breast cancer screening by mammogram (Acute) Breast pain, left (Acute) Adult general medical exam (Acute) Nausea (Acute) GERD (gastroesophageal reflux disease) (Acute) Hyperlipidemia (Acute) UTI (urinary tract infection) (Acute) Hypothyroid (Acute) Laboratory examination ordered as part of a routine general medical examination (Acute) Past Medical History Medical History Chronic urinary tract infection Factor V Leiden mutation Cholelithiasis GERD (gastroesophageal reflux disease) Elevated cholesterol Hypothyroid Family History Family History Mother No problems noted. Father No problems noted. Brother Prostate cancer Family history of problems with anesthesia: No Surgical History Surgical History History of laparoscopic cholecystectomy (06/28/23) Hx of inguinal hernia repair History of bladder surgery History of Problems with Anesthesia: No Social History Social History Household Members: Other Housing: Other Housing Other:: mobile home Are you a primary foster care therapist to a significant other at home: No Do you presently have visiting nurse or other home services: No Alcohol intake: current Alcohol intake frequency: holidays/special occasions only Alcohol type: wine Comment: counts correct Patient Tobacco Use Status: Former Tobacco user Tobacco use type: Cigarette Years Smoked: 17 e-Cigarette/Vaping Use: Never Used Second Hand Smoke Exposure: No Use of substances other than those prescribed or required for medical reasons: No Are you DNR?: No Advance Directives: No Advance Directives Information Provided: Yes service: No Current occupational status: employed Current occupation: Post office Current occupational exposures/hazards: No Gender identity: Female Cognitive needs: No Hearing needs: No Vision needs: Yes Meds Allergies Allergy/AdvReac Type Severity Reaction Status Date / Time sulfamethoxazole Allergy Intermediate Itching Verified 03/04/24 10:52 [From Sulfamethoxazole-Trimethoprim] trimethoprim Allergy Intermediate Itching Verified 03/04/24 10:52 [From Sulfamethoxazole-Trimethoprim] ciprofloxacin [From Cipro] AdvReac Intermediate nausea, Verified 03/04/24 10:56 crossed eyes Exam Pertinent Lab Results Pertinent Lab Results: Laboratory Tests 02/26/24 16:25 WBC 10.1 Hgb 15.1 Hct 44.7 Plt Count 274 Sodium 143 Potassium 3.6 Chloride 106 Carbon Dioxide 29 BUN 10 Creatinine 0.80 Narrative Narrative: EKG 02/2024 Vent. Rate : 064 BPM Atrial Rate : 064 BPM P-R Int : 132 ms QRS Dur : 092 ms QT Int : 388 ms P-R-T Axes : 027 -05 017 degrees QTc Int : 400 ms Normal sinus rhythm Cannot rule out Anterior infarct , age undetermined Abnormal ECG When compared with ECG of 16-MAY-2023 01:42, Nonspecific T wave abnormality now evident in Anterolateral leads Assessment and Plan Assessment Anesthesia Assessment: Chart Reviewed Final Anesthetic Review Family History of Problems with Anesthesia: No History of Problems with Anesthesia: No Documented by User: Luis A Coronado MD 04/09/24 16:05 [facility] Past Medical History Medical History Chronic urinary tract infection Factor V Leiden mutation Cholelithiasis GERD (gastroesophageal reflux disease) Elevated cholesterol Hypothyroid Family History Family History Mother No problems noted. Father No problems noted. Brother Prostate cancer Surgical History Surgical History History of laparoscopic cholecystectomy (06/28/23) Hx of inguinal hernia repair History of bladder surgery Social History Social History Household Members: Other Housing: Other Housing Other:: mobile home Are you a primary foster care therapist to a significant other at home: No Do you presently have visiting nurse or other home services: No Alcohol intake: current Alcohol intake frequency: holidays/special occasions only Alcohol type: wine Comment: counts correct Patient Tobacco Use Status: Former Tobacco user Tobacco use type: Cigarette Years Smoked: 17 e-Cigarette/Vaping Use: Never Used Second Hand Smoke Exposure: No Use of substances other than those prescribed or required for medical reasons: No Are you DNR?: No Advance Directives: No Advance Directives Information Provided: Yes service: No Current occupational status: employed Current occupation: Post office Current occupational exposures/hazards: No Gender identity: Female Cognitive needs: No Hearing needs: No Vision needs: Yes Meds Allergies Allergy/AdvReac Type Severity Reaction Status Date / Time sulfamethoxazole Allergy Intermediate Itching Verified 03/04/24 10:52 [From Sulfamethoxazole-Trimethoprim] trimethoprim Allergy Intermediate Itching Verified 03/04/24 10:52 [From Sulfamethoxazole-Trimethoprim] ciprofloxacin [From Cipro] AdvReac Intermediate nausea, Verified 03/04/24 10:56 crossed eyes Exam Airway Mallampati Class: II TM Dist: <=3cm Neck ROM: Full Denture: Upper and Lower Heart: ok Lungs: ok Assessment and Plan Assessment Anesthesia Assessment: Anesthesia Plan Discussed Final Anesthetic Review NPO: Yes ASA Class: II Final Preanesthetic Review: No Changes in Pt Med Stat, Meds/Allgs Chart Reviewed, Consent Obtained/Reviewed and Anes Risks/Benef Reviewed Patient Risk: Intermediate Procedure Risk: Intermediate Anesthetic Plan Anesthetic Plan: GA and Agree w/ Assess. and Plan Disposition: Standard PACU
[2024-04-09] VITALS (13 sets, daily range): BP systolic 109–150; BP diastolic 55–83; PULSE 71–89; RESP 11–18; TEMP 36.2–37; O2SAT 88–98; BMI 31.4
[2024-04-09] MEDS: Lactated Ringers 1,000 ML 100 ML IVCONT (12:16)
--- NOTE | 2024-04-09 12:34 | MHC.SHP ---
Pre-Procedural Eval Section A - 24 Hr Update-Section A only Date of Service: 04/09/24 The patient is an INPATIENT: No Changes since office visit: Yes Patient answered all questions; No Cold of Flu in the past 2 weeks, No New Medical Problems and No Changes in Medication The patient has been examined within 24 hours of the surgical procedure. The History & Physical has been completed within 30 days and I have reviewed it.: Yes Section B - Complete if H&P > 30 days Chief Complaint: Umbilical hernia without obstruction or gangrene Details of Present Illness: Patient reports increased pain at the site of her incisional hernia Relevant Family History (Specify if Yes): No Relevant Social History: None Present Medications: see Short Stay Collaborative assessment Medical History: No relevant PMH History of Previous Operations: Relevant previous surgery/procedure and date(s) (Previous laparoscopic cholecystectomy) Allergies: Allergies Allergy/AdvReac Type Severity Reaction Status Date / Time sulfamethoxazole Allergy Intermediate Itching Verified 03/04/24 10:52 [From Sulfamethoxazole-Trimethoprim] trimethoprim Allergy Intermediate Itching Verified 03/04/24 10:52 [From Sulfamethoxazole-Trimethoprim] ciprofloxacin [From Cipro] AdvReac Intermediate nausea, Verified 03/04/24 10:56 crossed eyes Review of Systems Sugical H&P ROS: Negative: Constitution, Respiratory and Integumentary and Yes, Specify: Gastrointestinal (Abdominal discomfort) Exam Surgical H&P Exam: Normal: Heart, Normal: Lungs and Normal: Skin and Significant Findings: Abdomen (Periumbilical hernia with an associated incision) Plan Diagnosis/Plan: Unchanged I have reviewed the history and physical and performed a pertinent physical examination on my patient. No changes have occurred unless specified. Time Spent With Patient Time: Total time managing care of this patient today ____ minutes.
--- NOTE | 2024-04-09 14:52 | W.PM.OPN ---
Operative Note Operative Note Date of Service: 04/09/24 Narrative: Preoperative diagnosis: Periumbilical hernia Postoperative diagnosis: Same Procedure: Repair of periumbilical hernia with mesh Surgeon: Nuno Young MD Manager Mental Health: Val Benavides PA-C Anesthesia: General LMA Indications for procedure: 68-year-old female patient status post laparoscopic cholecystectomy now presenting with a large periumbilical hernia measuring approximately 5 cm in diameter. Operative findings: 5 cm fascial defect repaired with an 8 cm round Ventralex mesh Specimen: Hernia sac Estimated blood loss: 5 mL Complications: None Procedure details: Patient was brought to the OR and placed in a supine position. After administering general anesthesia patient's abdomen was prepped with ChloraPrep and draped in a sterile fashion. A surgical time-out was called the consent confirmed. Patient received preoperative antibiotics and Venodyne boots were in place. Local anesthesia was infiltrated over the umbilicus in a curvilinear incision was made in a transverse fashion directly over the umbilicus using the previous incision. The incision was carried down through subcutaneous tissue and up to the hernia sac. This was then dissected down to fascia. Umbilical skin was dissected off the fascia as well to reveal a larger hernia below the umbilicus. The defect was combined into 1 large hernia measuring approximately 5 cm in diameter. A preperitoneal space was then created and the peritoneum closed using a running 0 Polysorb suture. Redundant peritoneum was excised as hernia sac. A an 8 cm round Ventralex mesh was then obtained. This was deployed within the preperitoneal space. It was secured in 4 quadrants using 0 Tycron suture. Additional sutures were placed circumferentially to hold the mesh in place. The fascia was then closed over the mesh using a [id number] 0 Tycron sutures including the mesh in the closure. Wounds were then irrigated with saline solution and suctioned dry. Umbilical skin was then secured to the fascia using a 3-0 Polysorb suture. Dermis was reapproximated using interrupted 3-0 Polysorb sutures. Skin was then closed using a running subcuticular 4-0 Polysorb suture. Steri-Strips, 2 x 2 gauze and Tegaderm were then applied. The patient tolerated the procedure well. Sponge, instrument, needle counts reported as correct. The patient was transferred to PACU in stable condition.
[2024-04-09] MEDS: ondansetron HCL 4 MG/2 ML VIAL IVPUSH (16:10)
[2024-04-09] MEDS: fentaNYL citrate/PF 100 MCG/2 ML VIAL 50 MCG IVPUSH (16:20)
--- OUTSIDE RECORDS SUMMARY | 2024-04-15 17:40 | XMS_ITS ---
Author Organization [facility] [place] Address [address] [place] [address] Care Team Providers Care Business Unit Leader Name Role Phone Glo HART, Adrianna Primary Care Provider Unavail able Vinod Zamorano Unavailable [phone] Allergies Allergen (clinical drug ingredient) Drug/Non Drug Allergy documented on EMR Reaction Allergy Type Onset Date Status Biaxin itching Drug Allergy Active erythromycin Erythromycin itching Drug Allergy A ctive REASON FOR VISIT Skin Problem Medications Medication SIG (Take, Route, Frequency, Duration) Notes Start Date End Date Status Nitrofurantoin Monohyd Macro 100 MG TAKE 1 CAPSULE BY MOUTH ONCE DAILY Oral for 30 Days Not-Taking Omeprazole 20 MG Oral for 90 Days Active [place] Thyroid 15 MG TAKE 4 TABLETS BY MOUTH ONCE DAILY Oral for 30 Days Active Social History Tobacco Use: Social History Observation Description Date Details (start date - stop date) Former Smoker NA - NA Tobacco Use/Smoking Question Answer Notes Are you a: former smoker Additional Findings: Tobacco Non-User Current no n-smoker Alcohol Screen Question Answer Notes Did you have a drink containing alcohol in the p ast year? Yes Points 0 Interpretation Negative Tobacco use other than smoking: Question Answer Notes Are you an other tobacco user? 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 Assessments Encounter Date Diagnosis (ICD Code) Assessment Notes Treatment Notes Treatment Clinical Notes Section Notes 11/26/2023 Plantar fibromatosis (ICD-10 - M72.2) 11/26/2023 Pain in left foot (ICD-10 - M79.672) 11/26/2023 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 (ICD-10 - D21.22) Plan Of Treatment Pending Test Test Name Order Date X ray : Foot, left 3V 11/26/2023 Next Appt Details Follow Up: prn, Reason: Progress Notes * [place] CORONELOB: 6 (68 yo F)Acc No.[id number]:11/26/2023 Progress Notes Patient:?Kaylin Coronel Provider:?Vinod Zamorano DPM :1955???Age:68 Y???Sex:Female D ate:11/26/2023 Address:[address] [place] [address] Pcp:Adrianna Cody MD Subjective: * Chief Complaints: * ???Skin Problem * HPI: ???Skin problems:?Nature:?Lump, tender.?Location:?Bottom , Left , Midfoot.?Duration:?several weeks.?Course:?worse.?Aggravated by:?any pressure , standing , walking.?Treatments:?rest.? * ROS:?General/Constitutional:?Nausea?denies.?Vomiting?denies.?Hunger Thirst?denies.?Loss appetite?denies.?Chills?denies.?Fatigue?denies.?Fever?denies.?Night Sweats?denies.?Unexplained weight loss?denies.?Unexplained weight gain?denies.?HEENTM:?Dentures?admits.?Dizziness?denies.?Glasses/contacts?admits.?Retinopathy?de nies.?Blurred/double vision?denies.?TMJ?denies.?Discharge/drainage?denies.?Implants?denies.?Sore throat?denies.?Dental implants?denies.?Hard of hearing ?admits.?Difficulty chewing/swallowing/speaking?denies.?Nose bleeds?denies.?Sore mouth?denies.?Respiratory:?On Oxygen?denies.?Pneumonia/pleurisy?denies.?Bronchitis?denies.?Emphysema?denies.?C oughing?denies.?Cough blood?denies.?Shortness of breath?denies.?Wheezing?denies.?Cardiovascular:?Pacemaker?denies.?MVP?denies.?WPW?denies.?CHF?denies.?Heart attack?denies.?Septal defect?denies.?Rapid beat?denies.?Chest pain ?denies.?Atrial Fib.?denies.?Murmur/Palpitations?denies.?Gastrointestinal:?Hemorrhoids?denies.?Stomach/Abdominal pain?denies.?Dark blood stool?denies.?Irritable bowel ?denies.?Constipation?denies.?Diarrhea?denies.?Hematology:?Swelling?denies.?Clots?denies.?Varicose Veins?denies.?Bruising?denies.?Bleeding problem?denies.?Genitourinary:?Blood urine?denies.?Frequent/Painfu/urination/bladder control?denies.?Kidney stones?denies.?Infection (UTI)?denies.?Nephropathy?denies.?sex trans dis (STD)?denies.?Prostate?denies.?Musculoskeletal:?Hammertoes?denies.?Bunions?denies.?Back Pain?denies.?Muscle Cramps/ Resting?denies.?Muscle cramps / walking?denies.?Generalized aches and pains?denies.?Weakness?denies.?Integ.:?[place]leg[place]?denies.?Scars?denies.?Corns/calluses?denies.?Ingrown nails?denies.?Painful nails?denies.?Open Sores?denies.?Rashes?denies.?Neurologic:?Difficulty sleeping?denies.?Brain disorder?denies.?Numbness?denies.?Balance trouble?denies.?Confusion?denies.?Fainting/blackouts?denies.?Tingling?denies.?Tr emors?denies.? * Medical History:? * Surgical History:?Bladder Me sh 2017Gall bladder removal 2023 * Hospitalization/Major Diagno stic Procedure:?No Hospitalization History. * Family History:?Mother: becky whatley?Father: , diagnosed with Unspecified heart disease.?Siblings: diagnosed with Other malignant neoplasm of unspecified site.? * Social History:?Tobacco Use:?Tobacco Use/Smoking?Are you a:?former smoker ?Additional Findings: Tobacco Non-User?Current non-smoker ?Tobacco use other than smoking?Are you an other tobacco user??No ???Drugs/Alcohol:?Drugs?Have you used drugs other than those for medical reasons in the past 12 months??No ?Alcohol Screen?Did you have a drink containing alcohol in the past year??Yes ?Points?0 ?Interpretation?Negative ???Miscellaneous:?Caffeine: yes, 1.5 cups a day. ?Children: yes, 3. ?Marital status: . ?Occupation: [employer]. * Medications:?TakingArmour Th yroid 15 MG Tablet TAKE 4 TABLETS BY MOUTH ONCE DAILY Oral Omeprazole 20 MG Capsule Delayed Release Oral Taking [place] Thyroid 15 MG Tablet TAKE 4 TABLETS BY MOUTH ONCE DAILY Oral Taking Omeprazole 20 MG Capsule Delayed Release Oral Not-Taking/PRNNitrofurantoin Monohyd Macro 100 MG Capsule TAKE 1 CAPSULE BY MOUTH ONCE DAILY Oral Medication List reviewed and reconciled with the patientNot-Taking/PRN Nitrofurantoin Monohyd Macro 100 MG Capsule TAKE 1 CAPSULE BY MOUTH ONCE DAILY Oral Medication List reviewed and reconciled with the patient * Allergies:?Erythromycin: itc hingBiaxin: itchingyes[Allergies Verified] Objective: * Vitals:?Ht: 5 ft 4in, Wt:180 lbs, BMI:30.89, Shoe size: 9.5, Ht-cm: 162.56 cm, Wt-k.65 kg. * Examination: ???Dermatologic: ?SKIN FINDINGS:? Skin shows sign(s) of, a semi-firm, painful, non- translucent, non-pulsatile, nonmobile Sub Fascial tumor antonino. 10mm, Plantar, Midfoot , Left, Skin exam reveals normal texture, elasticity, and turgor. There are no masses. The interspaces are clear.?General Examination: ?GENERAL APPEARANCE:?Reveals a pleasant, alert, well-nourished, well- developed, well hydrated individual, who demonstrates proper attention to hygiene/body habitus, and is in no acute distress, Pt serves as own?historian for office visit today.?ORIENTED:?person, place, and time.?Neurological: ?SENSORY:?Neurological exam reveals intact sensorium, pain sensation normal, vibration sensation intact, pinprick sensation is normal in the lower extremities, Pt denies, anesthesia, burning, paresthesia, tingling, B/L.?DEEP TENDON REFLEXES:?Achilles, 2/4, B/L.?Vascular: ?DP PULSES:?3/4, B/L.?PT PULSES:?3/4, B/L.?CAPILLARY FILL TIME:?immediate, all digits, B/L.?SKIN TEMPERTURE GRADIENT OF THE LOWER EXTERMITIES:?warm to cool, proximal to distal, B/L.?HAIR GROWTH/TEXTURE/ELASTICITY/TURGOR:?normal, B/L.?PIGMENTATION:?normal, B/L.?EDEMA:?absent, B/L.?Orthopedic: ?MUSCLE STRENGTH:?5/5 all groups in a symmetrical fashion , B/L.?FOOT MORPHOLOGY:?Pes Planus structure - mild.?X-Rays - IMAGING REPORT: ?Clinical Indication(s):?Evaluate Biomechanical Deformity, Evaluate for accessory ossicle.?Views:?3 views of Foot , LAT , LO , MO , LEFT.?Findings:?normal bone density consistent for patients age and sex , increase in soft tissue contour and density at the symptomatic site , radiolucent soft tissue gas absent.?Accessory ossicles:?None.? 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 Plan: * Treatment: * Procedure Codes:?36430 X-RAY EXAM OF LEFT FOOT 3V, Modifiers: 26 , LT * Preventive Medicine:? ??Counseling:?Discussion:?-04: Office or other outpatient visit for the evaluation and management of a new patient, which required a medically appropriate history and/or examination and MODERATE level of DECISION MAKING for: 1 OR MORE CHRONIC PROBLEM(S) THATS WORSENING, 2 STABLE CHRONIC PROBLEMS, A NEWLY DIAGNOSED PROBLEM WITH UNCERTAIN PROGNOSIS, AN ACUTE COMPLICATED INJURY WITH MULTIPLE TREATMENT OPTIONS, OR AN ACUTE PROBLEM WITH ACCOMPANYING SYSTEMIC SYMPTOMS, THAT POSE(S) A MODERATE RISK OF MORBIDITY. THIS CONDITION MAY ALSO INCLUDE RX DRUG MANAGEMENT, OR A DECISON FOR MINOR SURGERY. The visit on the day of the encounter encompassed interpreting the data and educating the patient as to the nature of their condition, treatment options available according to their individual PMH, meds, allergies, and overall health/living conditions, as well as any potential risks or complications that may occur from a failure to adhere to, and participate in, the recommended course of therapy. The discussion included a complete verbal, and/or written explanation of the examination results, any x-rays taken, the proposed diagnosis, and outline of the treatment plan. A schedule for future care needs was also explained. The patient verbalized an understanding of the instructions at this time and agreed to be an active participant in their treatment. If the patient should think of any questions or concerns after the visit, I have encouraged the patient to call the office.?Fibromas:?The patient was counseled on the diagnosis, potential etiologies, and treatment options for their Fibroma condition. We discussed the risks and benefits of each option from performing no treatment, to utilizing OTC topical skin creams/ointments, to utilizing prescription topical creams/ointments such as Verapamil, to utilizing customized compounded topical medications, change in shoes, pressure accomidative innersoles, padding, deep tissue massage, injections of cortisone, sclerosis injections, EPAT/ESWT, as well as Surgical excision. We discussed the advantages and disadvantages of each possible treatment and importance for adherence to all the recommended therapies for optimum success and avoid potential complications such as open sore/infection/possible hospitalization. We discussed the potential effectiveness of each topical preparation as well as each ones possible side effects and/or patient medication interactions. We discussed the procedure for surgical removal, its potential benefits, the anesthesia, post-op recuperation and need for complete NWB/Crutches/Walker for at least a month, and possible complications such as failure, nerve damage resulting in permanent numbness, infection, scarring, and recurrence. Patient questions re: use, dosage, successful outcomes, application consistency, and surgical treatment were reviewed and the patient verbalized that all answers were clearly understood.?Orthotics:?I explained to the patient the benefits of OT use. I explained that orthoses are medically necessary to decrease the foot pain through proper mechanical control, cushion the foot by accomidating the soft tissue.?Podiatric Surgery Counseling:?Surgical procedures to treat the patients foot problem were discussed. We reviewed the risks of the procedure (described below) vs not having the procedure (persistent pain, deformity, risk for skin ulceration/infection, loss of toe). We discussed the potential procedure complications including, but not limited to: pain, swelling, bleeding, scarring, numbness, infection, delayed/non healing, floppy/unstable/shorthened toe, recurrence, failure of the procedure, overcorrection leading to plantarflexed/downward positioned toe, recurrence, need for further surgery, as well as the possibility for loss of the toe itself. We discussed the use of IV/Local anesthesia, and the usual post-op course for healing. No guarentees were given. The patient verbally indicated a full understanding of the above conversation, and any other of their questions were answered to their satisfaction.?Steriod Injection:?I explained that a steroid and local anesthetic injection usually decreases pain and inflammation. I explained the possible complications including but not limited to signs/symptoms of steroid flare, infection, bruising, atrophy, discoloration of skin, change/deviation in toe position, and that additional injections may be necessary, cortisone post-injection informative educational handout was dispensed to and reviewed with the patient.? * Follow Up:?prn * Images: * Sign off status: Completed true * Provider:?Vinod Zamorano DPM Date:?2023 Generated for Raquel sahni/Levy/Dawn on:?04/15/2024 05:40 PM EST History and Physical Notes * HPI (History of Present Illness) Category Sub-Category Detail Notes Category Not es Skin problems Nature: Lump, tender Location: Bottom , Left , Midf oot Duration: several weeks Course: worse Aggravated by: any pressure , stand ing , walking Treatments: rest Examination Category Sub-Category Detail Notes Category Not es Neurological SENSORY: Neurological exa m reveals intact sensorium, pain sensation normal, vibration sensation intact, pinprick sensation is normal in the lower extremities, Pt denies, anesthesia, burning, paresthesia, tingling, B/L DEEP TENDON REFLEXES: Achilles, 2/4, B/L Dermatologic SKIN FINDINGS: Skin shows sign( s) of, a semi-firm, painful, non-translucent, non-pulsatile, nonmobile Sub Fascial tumor antonino. 10mm, Plantar, Midfoot , Left, Skin exam reveals normal texture, elasticity, and turgor. There are no masses. The interspaces are clear Orthopedic FOOT MORPHOLOGY: Pes Planus structure - m ild MUSCLE STRENGTH: 5/5 all groups in a symmetrical fashion , B/L General Examination GENERAL APPEARANCE: Reveals a pleasant, alert, well- nourished, well-developed, well hydrated individual, who demonstrates proper attention to hygiene/body habitus, and is in no acute distress, Pt serves as own historian for office visit today ORIENTED: person, place, and t jose Vascular DP PULSES(B): 3/4, B/L PT PULSES(B): 3/4, B/L CAPILLARY FILL TIME: immediate, all digi ts, B/L TEMPERTURE GRADIENT(C): warm to cool, pr oximal to distal, B/L TROPHIC CONDITION-TEXTURE/ELASTICITY/TURGOR/HAIR GROWTH(B): normal, B/L EDEMA(C): absent, B/L PIGMENTATION: normal, B/L X-Rays - IMAGING REPORT Findings: normal b one density consistent for patients age and sex , increase in soft tissue contour and density at the symptomatic site , radiolucent soft tissue gas absent Accessory ossicles: None Views: 3 views of Foot , LA T , LO , MO , LEFT Clinical Indication(s): Evaluate Biomech anical Deformity, Evaluate for accessory ossicle
--- OUTSIDE RECORDS SUMMARY | 2024-04-15 17:40 | XMS_ITS | Patient Health Record ---
[facility] [place] Address [address] [facility] [place] [address] Care Team Providers Care Aviation Electronics Technician Name Role Phone Glo HART, Adrianna Primary Care Provider Unavail able Vinod Zamorano Unavailable [phone] Allergies Allergen (clinical drug ingredient) Drug/Non Drug Allergy documented on EMR Reaction Allergy Type Onset Date Status Biaxin itching Drug Allergy Active erythromycin Erythromycin itching Drug Allergy A ctive Reason For Referral No Information Medications Medication SIG (Take, Route, Frequency, Duration) Notes Start Date End Date Status Nitrofurantoin Monohyd Macro 100 MG TAKE 1 CAPSULE BY MOUTH ONCE DAILY Oral for 30 Days Not-Taking Omeprazole 20 MG Oral for 90 Days Active [place] Thyroid 15 MG TAKE 4 TABLETS BY [...] 11/26/2023 Encounters Encounter [facility] [address] [address] 11/26/2023 Vinod Zamorano 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 ; Pain in left foot M79.672 and 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 Assessments Encounter Date Diagnosis (ICD Code) Assessment Notes Treatment Notes Treatment Clinical Notes Section Notes 11/26/2023 Pain in left foot (ICD-10 - M79.672) 11/26/2023 Plantar fibromatosis (ICD-10 - M72.2) 11/26/2023 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
== END 2024-04-09 17:48 | disposition home or self-care (01) ==
PROVIDERS: PCP Internal Medicine; Visit Provider Surgery
PROC: (CPT 49593; principal; 2024-04-09 12:30)
DX: K42.9 Umbilical hernia without obstruction or gangrene (principal); Z90.49 Acquired absence of other specified parts of digestive tract; D68.51 Activated protein C resistance; K21.9 Gastro-esophageal reflux disease without esophagitis; E78.00 Pure hypercholesterolemia, unspecified; E03.9 Hypothyroidism, unspecified; Z87.440 Personal history of urinary (tract) infections; Z79.899 Other long term (current) drug therapy; Z88.2 Allergy status to sulfonamides; Z98.890 Other specified postprocedural states; Z87.891 Personal history of nicotine dependence
CPT/HCPCS: 49593; 88302; C1781; J0690; J2003; J2405; J2704; J2795; J3010

== ENCOUNTER → 2024-04-09 10:24 | Outpatient (BNV) | payer BC, SELFPAY | PROVIDERS: PCP Internal Medicine; Visit Provider Surgery | DX: K42.9 Umbilical hernia without obstruction or gangrene (principal) | CPT/HCPCS: 49593 ==

== ENCOUNTER 2024-04-18 10:00 | Outpatient (AMB) | payer BC, SELFPAY ==
--- NOTE | 2024-04-18 10:02 | MHC.OFFVIS ---
Vital Signs 04/18/24 10:09 Height 5 ft 4 in Weight 186 lb BMI 31.9 BP 136/90 H Blood Pressure Location Lt brachial Position Sitting Pulse 75 Intake Visit Reasons: S/P periumbilical hernia w/mesh Intake Note: Patient is seen in office for post op assessment post repair of periumbilical hernia with mesh. Pt c/o: admits to pain, sore and tender, painful around the left groin ovary surgery:04/09/24 Administrative Assistant Receptionist Required: No Accompanied by: Self / Same As Patient Allergies sulfamethoxazole [From Sulfamethoxazole-Trimethoprim] Allergy (Intermediate, Verified 04/18/24 10:09) Itching trimethoprim [From Sulfamethoxazole-Trimethoprim] Allergy (Intermediate, Verified 04/18/24 10:09) Itching ciprofloxacin [From Cipro] Adverse Reaction (Intermediate, Verified 04/18/24 10:09) nausea, crossed eyes Medication List - Last Reconciled 04/18/24 by Nuno Young MD [place] Thyroid (thyroid (pork)) 60 mg (4 x 15 mg) PO DAILY 30 days NS calcium carbonate (Oyster Shell Calcium) 500 mg PO BID 90 days omeprazole 20 mg PO DAILY HPI Comments Details: 68-year-old female patient returning 1 week following repair of a periumbilical hernia with mesh. She has some soreness in the surrounding abdomen but denies nausea, vomiting, fever or chills. Her bowels are moving normally without bleeding. The pain in her right groin improved after taking Tylenol. PFSH Medical History Chronic urinary tract infection Factor V Leiden mutation Cholelithiasis GERD (gastroesophageal reflux disease) Elevated cholesterol Hypothyroid Surgical History Hx of umbilical hernia repair (04/09/24) History of laparoscopic cholecystectomy (06/28/23) Hx of inguinal hernia repair History of bladder surgery Family History Mother No problems noted. Father No problems noted. Brother Prostate cancer Social History Household Members: Other Housing: Other Housing Other:: mobile home Are you a primary intensive care anaesthetist to a significant other at home: No Do you presently have visiting nurse or other home services: No Alcohol intake: current Alcohol intake frequency: holidays/special occasions only Alcohol type: wine Comment: counts correct Patient Tobacco Use Status: Former Tobacco user Tobacco use type: Cigarette Years Smoked: 17 e-Cigarette/Vaping Use: Never Used Second Hand Smoke Exposure: No service: No Current occupational status: employed Current occupation: Post office Current occupational exposures/hazards: No Gender identity: Female Cognitive needs: No Hearing needs: No Vision needs: Yes Physical Exam Vital Signs: Last Vital Signs Pulse 75 04/18/24 10:09 BP 136/90 H 04/18/24 10:09 BMI result Body Mass Index 31.9 Const General: comfortable Nutritional Appearance: well nourished Orientation/consciousness: patient oriented x3 Resp Effort & Inspection: normal respiratory effort GI Other: Well-healed transverse incision over the umbilicus with no redness, seroma, or hernia recurrence noted. Neuro General: patient oriented x3 Extrem Other: No edema Assessment & Plan Assessment & Plan (1) Periumbilical hernia: Code(s): K42.9 - Umbilical hernia without obstruction or gangrene Category: Medical Plan 68-year-old female returning 1 week following repair of a periumbilical hernia with mesh. She tolerated the procedure well and her wounds are healing nicely. She should continue to avoid lifting greater than 10 lb for the next 4 weeks. I have asked her to return in 4 weeks for follow-up examination. Coding Level of Care Code Global (25251) Diagnoses Periumbilical hernia K42.9
--- OUTSIDE RECORDS SUMMARY | 2024-04-18 10:04 | XMS_ITS | Patient Health Record ---
[facility] [place] Address [address] [facility] [place] [address] Care Team Providers Care Data Entry Analyst Name Role Phone Glo HART, Adrianna Primary Care Provider Unavail able Vinod Zamorano Unavailable [phone] Allergies Allergen (clinical drug ingredient) Drug/Non Drug [...] 20 MG Oral for 90 Days Active [place] Thyroid 15 MG TAKE 4 TABLETS BY [...] 11/26/2023 Encounters Encounter Location Date [facility] [address] [address] 11/26/2023 Vinod Zamorano 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
--- OUTSIDE RECORDS SUMMARY | 2024-04-18 10:04 | XMS_ITS ---
Author Organization [facility] [place] Address [address] [place] [address] Care Team Providers Care Clothing Patternmaker Name Role Phone Glo HART, Adrianna Primary Care Provider Unavail able Vinod Zamorano Unavailable [phone] Allergies Allergen (clinical drug ingredient) Drug/Non Drug [...] 20 MG Oral for 90 Days Active [place] Thyroid 15 MG TAKE 4 TABLETS BY [...] 11/26/2023 Encounters Encounter Location Date Provider Diagnosis [facility] [place] [address] [facility] [address] [place] [address] 11/26/2023 Vinod Zamorano 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 Plan: * Treatment: * Procedure Codes:?50947 X-RAY EXAM OF LEFT FOOT 3V, Modifiers: [...] Provider:?Vinod Zamorano DPM Date:?2023 Generated for Raquel sahni/Levy/Jvitting on:?04/18/2024 10:03 AM EST History and Physical Notes * HPI [...]
[2024-04-18 10:09] VITALS: BP 136/90; PULSE 75; BMI 31.9
== END 2024-04-18 10:16 | disposition home or self-care (01) ==
PROVIDERS: PCP Internal Medicine; Visit Provider Surgery
DX: K42.9 Umbilical hernia without obstruction or gangrene (principal)
CPT/HCPCS: 99212

== ENCOUNTER 2024-04-21 09:07 | Outpatient (AMB) | payer BC, SELFPAY ==
[2024-04-21 09:13] VITALS: BP 136/90; PULSE 76; TEMP 36.3; O2SAT 97; BMI 32.8
--- NOTE | 2024-04-21 09:13 | AM.OFFWIN_ITS ---
Intake Vital Signs 04/21/24 09:13 Height 5 ft 3 in Weight 185 lb 2 oz BMI 32.8 BP 136/90 H Blood Pressure Location Lt brachial Position Sitting Pulse 76 Pulse Source Pulse Oximeter Temp 97.3 F Temp Source Temporal Artery Scan Pulse Oximetry (%) 97 Oxygen Delivery Method Room Air Intake Visit Reasons: EP ?Ear infection Intake Note: Pt presents to the office today for c/o left ear pain x3 days. Patient Tobacco Use Status: Former Tobacco user Allergies sulfamethoxazole [From Sulfamethoxazole-Trimethoprim] Allergy (Intermediate, Verified 04/21/24 09:16) Itching trimethoprim [From Sulfamethoxazole-Trimethoprim] Allergy (Intermediate, Verified 04/21/24 09:16) Itching ciprofloxacin [From Cipro] Adverse Reaction (Intermediate, Verified 04/21/24 09:16) nausea, crossed eyes HPI EP ?Ear infection HPI Details This note is constructed using voice recognition software. While every effort has been made to ensure accuracy, gerentological physiotherapist errors may have been included. The patient is a 68 year old female who presents to the clinic today with left ear pressure. She denies fever, chills, cough, shortness of breath, or other URI symptoms. She reports that the pressure has been in the left ear intermittently for the last 3 days. She reports chronic issue with hearing, no worsening than her normal. She has not tried anything to make it better. Nothing seems to make it worse. [facility] Medical History Chronic urinary tract infection Factor V Leiden mutation Cholelithiasis GERD (gastroesophageal reflux disease) Elevated cholesterol Hypothyroid Surgical History Hx of umbilical hernia repair (04/09/24) History of laparoscopic cholecystectomy (06/28/23) Hx of inguinal hernia repair History of bladder surgery Family History Mother No problems noted. Father No problems noted. Brother Prostate cancer Social History Household Members: Other Housing: Other Housing Other:: mobile home Are you a primary resident care supervisor to a significant other at home: No Do you presently have visiting nurse or other home services: No Alcohol intake: current Alcohol intake frequency: holidays/special occasions only Alcohol type: wine Comment: counts correct Patient Tobacco Use Status: Former Tobacco user Tobacco use type: Cigarette Years Smoked: 17 e-Cigarette/Vaping Use: Never Used Second Hand Smoke Exposure: No service: No Current occupational status: employed Current occupation: Post office Current occupational exposures/hazards: No Gender identity: Female Cognitive needs: No Hearing needs: No Vision needs: Yes Review of Systems Const All systems reviewed & are unremarkable except as noted in HPI and below Physical Exam Vital Signs: Last Vital Signs Temp 97.3 F 04/21/24 09:13 Pulse 76 04/21/24 09:13 BP 136/90 H 04/21/24 09:13 Pulse Ox 97 04/21/24 09:13 Oxygen Delivery Method Room Air 04/21/24 09:13 BMI result Body Mass Index 32.8 Const General: cooperative, healthy appearing, comfortable and no acute distress Orientation/consciousness: patient oriented x3 Limitations: no limitations HEENT Head: Yes normal to inspection Ears: hearing grossly normal bilaterally, external ears normal and TM abnormal retracted General nose exam: Normal external nose present, No nasal discharge present and Abnormal mucous membranes and turbinates present boggy and pale Face and sinus: Yes normal facial exam and Yes sinuses nontender Mouth: Normal oral and palatal mucosa present and moist mucous membranes Throat: Yes tonsils normal, Yes uvula midline, Yes posterior oropharynx abnormal (Erythema), Yes postnasal drainage and Yes cobblestoning Eyes General: appearance normal, both eyes and all related structures Neck Neck: Yes normal visual inspection Resp Effort & Inspection: normal respiratory effort, able to speak in complete sentences, Actively coughing, no respiratory distress, not tachypneic, no tripod positioning and no use of accessory muscles Auscultation: clear to auscultation bilaterally Cardio Rate: regular rate Rhythm: regular rhythm Heart sounds: normal S1 and S2 Skin General skin exam: no rashes or lesions noted Neuro General: patient oriented x3 Extrem General: Yes normal to inspection and Yes no clubbing, cyanosis or edema Assessment & Plan Assessment & Plan (1) Allergic rhinitis: Code(s): J30.9 - Allergic rhinitis, unspecified Qualifiers: Allergic rhinitis trigger: unspecified Allergic rhinitis seasonality: unspecified Qualified Code(s): J30.9 - Allergic rhinitis, unspecified Plan: No signs of infection present on examination. Supportive measures encouraged and reviewed. Advised patient to try a Flonase nasal spray and second- generation antihistamine such as Zyrtec, Claritin, Alesia or similar. Advised consideration of sinus rinse if needed. Advised patient to follow up with primary care provider with worsening or failure to resolve. Plan See above for full details and plan. Coding Level of Care Code Est Pt Level 3 (28613) Diagnoses Allergic rhinitis, unspecified seasonality, unspecified trigger J30.9 Allergic rhinitis trigger: unspecified Allergic rhinitis seasonality: unspecified
--- OUTSIDE RECORDS SUMMARY | 2024-04-21 09:15 | XMS_ITS ---
Author Organization [facility] jason [place] Address [address] [facility] [place] [address] Care Team Providers Care X Ray Developing Machine Operator Name Role Phone Glo HART, Adrianna Primary Care Provider Unavail able Vinod Zamorano Unavailable [phone] Allergies Allergen (clinical drug ingredient) Drug/Non Drug [...] 20 MG Oral for 90 Days Active [place] Thyroid 15 MG TAKE 4 TABLETS BY [...] 11/26/2023 Encounters Encounter Location Date Provider Diagnosis [facility] [place] [address] [facility] [address] [place] [address] 11/26/2023 Vinod Zamorano 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 Plan: * Treatment: * Procedure Codes:?27468 X-RAY EXAM OF LEFT FOOT 3V, Modifiers: [...] Zamorano DPM Date:?2023 Generated for Raquel sahni/Levy/Jvitting on:?04/21/2024 09:15 AM EST History and Physical Notes * [...]
--- OUTSIDE RECORDS SUMMARY | 2024-04-21 09:16 | XMS_ITS | Patient Health Record ---
[facility] [place] Address [address] [place] [address] Care Team Providers Care Fuel Cell Repairer Name Role Phone Glo HART, Adrianna Primary Care Provider Unavail able Vinod Zamorano Unavailable [phone] Allergies Allergen (clinical drug ingredient) Drug/Non Drug [...] 20 MG Oral for 90 Days Active [place] Thyroid 15 MG TAKE 4 TABLETS BY [...] 11/26/2023 Encounters Encounter Location Date [facility] [address] [address] 11/26/2023 Vinod Zamorano 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
== END 2024-04-21 10:48 | disposition home or self-care (01) ==
PROVIDERS: PCP Internal Medicine; Visit Provider Registered Nurse
DX: J30.9 Allergic rhinitis, unspecified (principal)

== ENCOUNTER → 2024-04-21 09:07 | Outpatient (BNVA) | payer BC, SELFPAY | PROVIDERS: PCP Internal Medicine; Visit Provider Registered Nurse ==

== ENCOUNTER 2024-04-29 08:37 | Emergency (ER) | payer BC, SELFPAY ==
--- NOTE | 2024-04-29 | ECG_ITS ---
Test Reason : chest pain Blood Pressure : / mmHG Vent. Rate : 096 BPM Atrial Rate : 096 BPM P-R Int : 132 ms QRS Dur : 090 ms QT Int : 348 ms P-R-T Axes : 065 042 050 degrees QTc Int : 439 ms Normal sinus rhythm Nonspecific ST abnormality Abnormal ECG When compared with ECG of 26-FEB-2024 16:13, Vent. rate has increased BY 32 BPM T wave inversion no longer evident in Inferior leads Nonspecific T wave abnormality, improved in Anterolateral leads Referred By: Generic ED Physician Electronically Signed By:Alejandro Rod
--- NOTE | ~2024-04-29 | XR_ITS ---
EXAMINATION: XR CHEST CLINICAL INFORMATION: Coughing. COMPARISON: 01/18/2023. TECHNIQUE: 2 views of the chest were obtained. FINDINGS: There is no gross pneumothorax. Heart size is normal. Degenerative changes in the thoracic spine. Tortuous aorta with calcifications. Increased mild bibasilar linear and streaky opacities. No significant pleural effusion. Degenerative changes in the thoracic spine. XR/XR chest 2V IMPRESSION: Increased mild bibasilar linear and streaky opacities. No significant pleural effusion. This study was presented today April 29, 2024 for interpretation. Stat results provided at this time as requested by referring provider. Electronically signed by: Shreya Mason MD 04/29/2024 10:30 AM LISA
[2024-04-29 08:44] VITALS: BP 119/80; PULSE 97; RESP 16; TEMP 37; O2SAT 94; BMI 28.6
--- OUTSIDE RECORDS SUMMARY | 2024-04-29 08:46 | XMS_ITS | Patient Health Record ---
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
--- OUTSIDE RECORDS SUMMARY | 2024-04-29 08:46 | XMS_ITS ---
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 Plan: * Treatment: * Procedure Codes:?70854 X-RAY EXAM OF LEFT FOOT 3V, Modifiers: [...] Zamorano DPM Date:?2023 Generated for Raquel sahni/Levy/Jvitting on:?04/29/2024 08:45 AM EST History and Physical Notes * [...] person, place, and t jose Vascular DP PULSES (B): 3/4, B/L PT PULSES (B): 3/4, B/L CAPILLARY FILL TIME: immediate, all digi ts, B/L TEMPERTURE GRADIENT (C): warm to cool, p roximal to distal, B/L TROPHIC CONDITION-TEXTURE/ELASTICITY/TURGOR/HAIR GROWTH (B): normal, B/L EDEMA (C): absent, B/L PIGMENTATION: normal, B/L X-Rays - [...]
--- NOTE | 2024-04-29 09:18 | ED_ITS ---
HPI - URI/Sore Throat General Chief Complaint: Upper Respiratory Symptoms Stated Complaint: Chest pain, headache, nausea Time Seen by Provider: 04/29/24 09:17 Source: patient Mode of arrival: ambulatory Limitations: no limitations History of Present Illness ED Provider: Cuauhtemoc Montes De Oca PA-C HPI Narrative: 68 yo female with history of factor V leiden mutation, hypothyroidism, H. pylori, UTI, cholelithiasis, GERD who presents to the ER for evaluation of cough and rib pain that started yesterday. She had an episode of subjective fever yesterday as well. She reports bilateral lower rib pain with coughing. She did not sleep well last night due to the pain. No chest pain at rest. No SOB. No vomiting, diarrhea or abdominal pain but she has had some nausea. Her boyfriend recently tested positive for Influenza, found to have low oxygen levels and was admitted here on Sunday. MD elicited complaint: cough Onset (ago): day(s) (1) Consistency: progressively worsening Severity: moderate Able to tolerate fluids by mouth: Yes Exacerbating factors: other (coughing) Relieving factors: nothing Context: sick contacts Associated symptoms: fever, chills, myalgias, cough and chest pain Treatments prior to arrival: none Related Data Previous Rx's ?Medication ?Instructions ?Recorded calcium carbonate (Oyster Shell 500 mg PO BID 90 days #180 tabs 11/05/23 Calcium) omeprazole 20 mg capsule,delayed 20 mg PO DAILY #90 caps 02/08/[address] Thyroid 15 mg tablet 60 mg (4 x 15 mg) PO DAILY 30 days 03/31/24 (thyroid (pork)) #120 tabs amoxicillin 875 mg-potassium 1 tab PO BID #10 tabs 04/29/24 clavulanate 125 mg tablet azithromycin 250 mg tablet See Rx Instructions PO .COMPLEX #6 04/29/24 (Zithromax Z-Pepe) tabs Allergies Allergy/AdvReac Type Severity Reaction Status Date / Time sulfamethoxazole Allergy Intermediate Itching Verified 04/29/24 08:47 [From Sulfamethoxazole-Trimethoprim] trimethoprim Allergy Intermediate Itching Verified 04/29/24 08:47 [From Sulfamethoxazole-Trimethoprim] ciprofloxacin [From Cipro] AdvReac Intermediate nausea, Verified 04/29/24 08:47 crossed eyes Review of Systems Review of Systems: Yes all other systems are reviewed and are negative PMFSH Past Medical History Medical History Chronic urinary tract infection Factor V Leiden mutation Cholelithiasis GERD (gastroesophageal reflux disease) Elevated cholesterol Hypothyroid Surgical History Hx of umbilical hernia repair (04/09/24) History of laparoscopic cholecystectomy (06/28/23) Hx of inguinal hernia repair History of bladder surgery Family History Family History Mother No problems noted. Father No problems noted. Brother Prostate cancer Social History Social History Household Members: Other Housing: Other Housing Other:: mobile home Are you a primary director long term care to a significant other at home: No Do you presently have visiting nurse or other home services: No Alcohol intake: current Alcohol intake frequency: holidays/special occasions only Alcohol type: wine Comment: counts correct Patient Tobacco Use Status: Former Tobacco user Tobacco use type: Cigarette Years Smoked: 17 e-Cigarette/Vaping Use: Never Used Second Hand Smoke Exposure: No Advance Directives: No Advance Directives Information Provided: Yes service: No Current occupational status: employed Current occupation: Post office Current occupational exposures/hazards: No Gender identity: Female Cognitive needs: No Hearing needs: No Vision needs: Yes Physical Exam Vital Signs: Vital Signs: Last Vital Signs Temp 98.6 F 04/29/24 11:01 Pulse 97 04/29/24 11:01 Resp 16 04/29/24 11:01 BP 119/80 04/29/24 11:01 Pulse Ox 94 04/29/24 11:01 O2 Del Method Room Air 04/29/24 11:01 BMI result Body Mass Index 28.6 Appearance: Alert. Oriented X3. No acute distress. Head: normocephalic, atraumatic. Eyes: Pupils equal, round and reactive to light. ENT: Pharynx normal. No tonsillar swelling or exudate. Neck: Normal inspection. Neck supple. CVS: Normal heart rate and rhythm. Pulses normal. Respiratory: No respiratory distress. Breath sounds normal. Lower rib tenderness bilaterally. Abdomen: Soft and nontender. +BS x4 Skin: Skin warm and dry. Normal skin color. Normal skin turgor. No rashes. Extremities: No lower extremity edema. No joint swelling. Neuro/psych: Oriented X 3. No motor deficit. No sensory deficit. CN II-XII intact. Normal speech and cognition. Medical Decision Making Medical Decision Making [facility] Narrative: 68 yo female presenting with cough and rib pain since yesterday after known influenza exposure. not vaccinated. VSS on arrival. Lungs diminished at the bases with no resp distress, no wheezing or rhonchi. patient is negative for flu which may be a false negative given her known exposure. she has an abnormal cxr that may be consistent with early PNA. will treat with augmentin and azithromycin comfortable w/ discharge home and outpatient follow up. return precautions were discussed. Differential Diagnosis Differential Diagnoses: The differential diagnosis associated with the presentation includes strep, covid, flu, rsv, other viral syndrome, bronchitis, pneumonia, low suspicion for PE and ACS Admission/Observation Consideration of admission/observation: Escalation of care including admission/observation considered Lab Data [facility] Lab Attestation statement: I reviewed the patient's lab results. Labs: Lab Results 04/29/24 Range/Units 08:54 Influenza Type A (PCR) NEGATIVE (Negative) Influenza Type B (PCR) NEGATIVE (Negative) RSV RNA Qual (PCR) NEGATIVE (Negative) SARS-CoV-2 RNA (RT-PCR) NEGATIVE (Negative) S. pyogenes GrpA LYNN Negative (Negative) Independent Interpretation I performed an independent interpretation of an: EKG and Plain X-Ray Interpretation: cxr with right base atelectasis, agree w/ radiology read. could be early PNA ekg with normal sinus rhythm, HR 96 bpm, no ST segment elevations or depressions, normal HI interval, normal QTc Radiology Impression Discussion of test interpretation with radiology: I have reviewed the radiologist's reading. Radiologist Impression: XR/XR chest 2V IMPRESSION: Increased mild bibasilar linear and streaky opacities. No significant pleural effusion. External Record Review External record reviewed: Outpatient record, Prior outpatient labs and Prior outpatient radiology Prescription Management I considered prescription management with: Pain Medication, Antiviral and Antibiotic Critical Care Time Critical Care Time Critical Care Time: No Discharge Plan Discharge Clinical Impression: Pneumonia Qualifiers: Pneumonia type: due to unspecified organism Laterality: unspecified laterality Lung location: unspecified part of lung Qualified Code(s): J18.9 - Pneumonia, unspecified organism Patient Disposition: Home, Self-Care Instructions: Community Acquired Pneumonia (DC) Additional Instructions: You tested negative for COVID, Flu and RSV. Your chest x-ray showed possible pneumonia. Take the prescribed antibiotics as directed, complete the entire course and do not miss any doses Rest. Drink plenty of fluids. Do not go out in public while you are not feeling well. Take over the counter cold/flu medications as needed for your symptoms. Take Tylenol and/or Motrin as needed for fevers and body aches. Follow up with your doctor this week. If you develop new or worsening symptoms call 911 or come back to the ER for further evaluation. Prescriptions: New azithromycin [Zithromax Z-Pepe] 250 mg tablet See Rx Instructions .ROUTE .COMPLEX Qty: 6 0RF Rx Instructions: take 500 mg today (day 1), then 250 mg for 4 days (days 2-5) amoxicillin-pot clavulanate 875-125 mg tablet 1 tab PO BID Qty: 10 0RF No Action omeprazole 20 mg capsule,delayed release(DR/EC) 20 mg PO DAILY Qty: 90 1RF thyroid (pork) [[place] Thyroid] 15 mg tablet 60 mg PO DAILY 30 Days Qty: 120 11RF calcium carbonate [Oyster Shell Calcium] 500 mg calcium (1,250 mg) tablet 500 mg PO BID 90 Days Qty: 180 3RF Referrals: Adrianna Sanchez MD [Primary Care Provider] - Interventions: ED Discharge Assessment Last Done: 04/29/24 11:01 Discharge Date/Time: 04/29/24 11:07 Print Language: Icelandic
[2024-04-29 09:36] LABS: IDNOW Serial# 58CA691E; Strep A Nucleic Acid Negative (Negative)
[2024-04-29 09:55] LABS: Influenza A PCR NEGATIVE (Negative); Influenza B PCR NEGATIVE (Negative); Resp Syncy Virus RNA Qual PCR NEGATIVE (Negative); SARS COV2 PCR INHOUSE NEGATIVE (Negative)
[2024-04-29 11:01] VITALS: BP 119/80; PULSE 97; RESP 16; TEMP 37; O2SAT 94
== END 2024-04-29 11:07 | disposition home or self-care (01) ==
PROVIDERS: Emergency Provider Student in an Organized Health Care Education/Training Program; PCP Internal Medicine
DX: J18.9 Pneumonia, unspecified organism (principal); R07.89 Other chest pain; R51.9 Headache, unspecified; R11.0 Nausea; R05.9 Cough, unspecified; M79.10 Myalgia, unspecified site; R50.9 Fever, unspecified; Z03.818 Encounter for observation for suspected exposure to other biological agents ruled out; Z79.899 Other long term (current) drug therapy
CPT/HCPCS: 0241U; 71046; 87651; 93005; 99283

== ENCOUNTER → 2024-04-29 08:42 | Outpatient (BNV) | payer BC, SELFPAY | PROVIDERS: Emergency Provider Student in an Organized Health Care Education/Training Program; PCP Internal Medicine; Visit Provider Internal Medicine Cardiovascular Disease | DX: R94.31 Abnormal electrocardiogram [ECG] [EKG] (principal) | CPT/HCPCS: 93010 ==

== ENCOUNTER 2024-05-20 09:28 | Outpatient (AMB) | payer BC, SELFPAY ==
--- NOTE | 2024-05-20 09:42 | MHC.OFFVIS ---
Vital Signs 05/20/24 09:55 Height 5 ft 6 in Weight 182 lb 8 oz BMI 29.5 BP 172/91 H Blood Pressure Location Lt brachial Position Sitting Pulse 80 Intake Visit Reasons: 4 wk follow up S/P periumbilical hernia w/mesh Intake Note: Patient is seen in office for one month follow up visit, post repair of periumbilical hernia. Pt c/o: denies any concerns Coat Presser Required: No Accompanied by: Self / Same As Patient Allergies sulfamethoxazole [From Sulfamethoxazole-Trimethoprim] Allergy (Intermediate, Verified 05/20/24 09:55) Itching trimethoprim [From Sulfamethoxazole-Trimethoprim] Allergy (Intermediate, Verified 05/20/24 09:55) Itching ciprofloxacin [From Cipro] Adverse Reaction (Intermediate, Verified 05/20/24 09:55) nausea, crossed eyes Medication List - Last Reconciled 05/20/24 by Nuno Young MD amoxicillin-pot clavulanate 875-125 mg 1 tab PO BID [place] Thyroid (thyroid (pork)) 60 mg (4 x 15 mg) PO DAILY 30 days NS azithromycin (Zithromax Z-Pepe) take 500 mg today (day 1), then 250 mg for 4 days (days 2-5) calcium carbonate (O[place] Shell Calcium) 500 mg PO BID 90 days omeprazole 20 mg PO DAILY HPI Comments Details: 69-year-old female returning 1 month following repair of an umbilical hernia with mesh on 04/09/2024. She feels well and denies any ongoing abdominal pain. She noted some redness in the incision but denies any bleeding or discharge. [facility] Medical History Chronic urinary tract infection Factor V Leiden mutation Cholelithiasis GERD (gastroesophageal reflux disease) Elevated cholesterol Hypothyroid Surgical History Hx of umbilical hernia repair (04/09/24) History of laparoscopic cholecystectomy (06/28/23) Hx of inguinal hernia repair History of bladder surgery Family History Mother No problems noted. Father No problems noted. Brother Prostate cancer Social History Household Members: Other Housing: Other Housing Other:: mobile home Are you a primary care management coordinator to a significant other at home: No Do you presently have visiting nurse or other home services: No Alcohol intake: current Alcohol intake frequency: holidays/special occasions only Alcohol type: wine Comment: counts correct Patient Tobacco Use Status: Former Tobacco user Tobacco use type: Cigarette Years Smoked: 17 e-Cigarette/Vaping Use: Never Used Second Hand Smoke Exposure: No service: No Current occupational status: employed Current occupation: Post office Current occupational exposures/hazards: No Gender identity: Female Cognitive needs: No Hearing needs: No Vision needs: Yes Physical Exam Vital Signs: Last Vital Signs Pulse 80 05/20/24 09:55 BP 172/91 H 05/20/24 09:55 BMI result Body Mass Index 29.5 Const General: no acute distress Nutritional Appearance: well nourished Orientation/consciousness: patient oriented x3 Resp Effort & Inspection: normal respiratory effort GI Other: Abdominal incision at the umbilicus is clean, dry, and intact. Normal healing is noted and no hernia noted with Valsalva maneuvers. Skin Other: Warm, dry, no rash Neuro General: patient oriented x3 Assessment & Plan Assessment & Plan (1) Umbilical hernia: Code(s): K42.9 - Umbilical hernia without obstruction or gangrene Category: Medical Qualifiers: Obstruction and gangrene presence: without obstruction or gangrene Qualified Code(s): K42.9 - Umbilical hernia without obstruction or gangrene Plan 69-year-old female status post repair of an umbilical hernia 1 month ago. Her wounds are healing nicely and there is no evidence of recurrent hernia. She may resume normal activity without restrictions and should follow up as needed. Coding Level of Care Code Global (94379) Diagnoses Umbilical hernia without obstruction and without gangrene K42.9 Obstruction and gangrene presence: without obstruction or gangrene
[2024-05-20 09:55] VITALS: BP 172/91; PULSE 80; BMI 29.5
--- OUTSIDE RECORDS SUMMARY | 2024-05-20 10:20 | XMS_ITS | Patient Health Record ---
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
== END 2024-05-20 09:59 | disposition home or self-care (01) ==
PROVIDERS: PCP Internal Medicine; Visit Provider Surgery
DX: K42.9 Umbilical hernia without obstruction or gangrene (principal)
CPT/HCPCS: 99212

== ENCOUNTER → 2024-05-20 09:28 | Outpatient (BNVA) | payer BC, SELFPAY | PROVIDERS: PCP Internal Medicine; Visit Provider Surgery ==

== ENCOUNTER 2024-05-29 10:42 | Outpatient (AMB) | payer BC, SELFPAY ==
--- NOTE | 2024-05-29 11:03 | MHC.PC.OV ---
Vital Signs 05/29/24 11:05 Height 5 ft 6 in Weight 184 lb 4 oz BMI 29.7 BP 110/82 Blood Pressure Location Lt brachial Position Sitting Pulse 73 Pulse Source Pulse Oximeter Temp 97.1 F Temp Source Skin Pulse Oximetry (%) 97 Oxygen Delivery Method Room Air Intake Visit Reasons: Urinary tract infection Intake Note: Patient is here to follow up on UTI. Director Water And Waste Services Required: No Placement Officer: Not Required per policy Accompanied by: Self / Same As Patient Allergies sulfamethoxazole [From Sulfamethoxazole-Trimethoprim] Allergy (Intermediate, Verified 05/29/24 11:04) Itching trimethoprim [From Sulfamethoxazole-Trimethoprim] Allergy (Intermediate, Verified 05/29/24 11:04) Itching ciprofloxacin [From Cipro] Adverse Reaction (Intermediate, Verified 05/29/24 11:04) nausea, crossed eyes Medication List - Last Reconciled 05/29/24 by Nga Webb PA-C [place] Thyroid (thyroid (pork)) 60 mg (4 x 15 mg) PO DAILY 30 days NS calcium carbonate (Oyster Shell Calcium) 500 mg PO BID 90 days nitrofurantoin monohyd/m-cryst 100 mg 100 mg PO Q12H 7 days omeprazole 20 mg PO DAILY Tobacco use date assessed: 05/29/24 Fall risk assessment: No Falls in past year Last assessed Fall Risk: 05/29/24 Dental Screening Dental Screen Date: 05/29/24 Did you have a dental visit in the last 12 months?: No Did you have a dental problem in the last 6 months where you did not have access to dental care?: No Was dental information given to patient?: No (Dentures) HPI Urinary tract infection HPI Details 69-year-old female with past medical history of hypothyroid, hyperlipidemia, GERD, osteopenia last seen by Dr. Johnston 02/2024 coming in for acute problem. Patient tells us today she has a history of recurrent urinary tract infections since the placement of a bladder mesh for the treatment of bladder prolapse in 2018. Most recently she began having frequent urination with a sensation of pressure yesterday and today denying any hematuria or incontinence. Her last urinary tract infection was in February. She has been treated with nitrofurantoin in the past with good benefit. [facility] Medical History Chronic urinary tract infection Factor V Leiden mutation Cholelithiasis GERD (gastroesophageal reflux disease) Elevated cholesterol Hypothyroid Surgical History Hx of umbilical hernia repair (04/09/24) History of laparoscopic cholecystectomy (06/28/23) Hx of inguinal hernia repair History of bladder surgery Family History Mother No problems noted. Father No problems noted. Brother Prostate cancer Social History Household Members: Other Housing: Other Housing Other:: mobile home Are you a primary childcare aide to a significant other at home: No Do you presently have visiting nurse or other home services: No Alcohol intake: current Alcohol intake frequency: holidays/special occasions only Alcohol type: wine Comment: counts correct Patient Tobacco Use Status: Former Tobacco user Tobacco use type: Cigarette Years Smoked: 17 e-Cigarette/Vaping Use: Never Used Second Hand Smoke Exposure: Yes service: No Current occupational status: employed Current occupation: Post office Current occupational exposures/hazards: No Gender identity: Female Cognitive needs: No Hearing needs: No Vision needs: Yes Questionnaire PHQ-9 Over the last 2 weeks, how often have you been bothered by any of the following problems? 1. Little interest or pleasure in doing things: not at all 2. Feeling down, depressed, or hopeless: not at all 3. Trouble falling or staying asleep, or sleeping too much: not at all 4. Feeling tired or having little energy: not at all 5. Poor appetite or overeating: not at all 6. Feeling bad about yourself - or that you are a failure or have let yourself or your family down: not at all 7. Trouble concentrating on things, such as reading the newspaper or watching television: not at all 8. Moving or speaking so slowly that other people could have noticed. Or the opposite - being so fidgety or restless that you have been moving around a lot more than usual: not at all 9. Thoughts that you would be better off or of hurting yourself in some way: not at all Total score: 0 Depression Screening Interpretation: Negative Depression Screening Done: Yes Source: Developed by Drs. Oleksandr Cleveland, Elsy Cooley, Manuel Toure and colleagues, with an educational cy from [employer]. Thrive Questionnaire Date Thrive assessed: 05/29/24 I am a: Patient What is your living situation today?: I have a steady place to live Within the past 12 months, did the food you bought not last and you didn't have the money to get more?: Never true Within the past 12 months, did you worry whether your food would run out before you got money to buy more?: Never true Do you have trouble paying for medicines?: No Do you have trouble getting transportation to medical appointments?: No Do you have trouble paying your heating and electricity bill?: No Do you have trouble taking care of your child, family member or friend?: No Do you have trouble with day-to-day activities such as bathing, preparing meals, shopping, managing finances, etc.?: No Are you currently unemployed and looking for a job?: No Are you interested in more education?: No Please select the resources that you would like help with: None Currently or been in a relationship where the following occur: No concerns reported THRIVE Score: 0 AUDIT C Alcohol Use Questionnaire (AUDIT-C) 1. How often do you have a drink containing alcohol?: Monthly or less 2. How many drinks containing alcohol do you have on a typical day when you are drinking?: 1 or 2 3. How often do you have six or more drinks on one occasion?: Never Total Score: 1 TIARA-7 AMB Questionnaire TIARA-7 Date TIARA - 7 assessed: 05/29/24 Feeling nervous, anxious, or on edge: 0 = Not at all Not being able to stop or control worryin = Not at all Worrying too much about different things: 0 = Not at all Trouble relaxin = Not at all Being so restless that it is hard to sit still: 0 = Not at all Becoming easily annoyed or irritable: 0 = Not at all Feeling afraid as if something awful might happen: 0 = Not at all Total TIARA-7 score (0-4 normal; 5-9 mild; 10-14 moderate; 15-21 severe): 0 Source: Developed by Elsy PrinceW. Yasir, Manuel Toure and colleagues, with an educational cy from [employer]. Review of Systems Const Denies body aches, Denies chills, Denies fever(s) and Denies poor appetite Eyes Reports no additional complaints ENT Reports no additional complaints Card Denies chest pain, Denies lightheadedness and Denies dyspnea Resp Denies cough and Denies dyspnea GI Denies abdominal pain, Denies nausea and Denies vomiting Details: Frequent urination and suprapubic pressure Denies hematuria, Denies dysuria, Denies urinary incontinence and Denies urinary hesitancy Musc Details: Denies low back pain Reports no additional complaints and Denies abnormal gait Skin/Breast Reports system reviewed and no additional complaints, except as documented Neuro Denies abnormal gait Psych Reports no additional complaints Physical exam (Primary Care) Vital Signs: Last Vital Signs Temp 97.1 F 05/29/24 11:05 Pulse 73 05/29/24 11:05 BP 110/82 05/29/24 11:05 Pulse Ox 97 05/29/24 11:05 Oxygen Delivery Method Room Air 05/29/24 11:05 BMI result Body Mass Index 29.7 Tobacco/Smoking Status: Tobacco use Status Tobacco use date assessed 05/29/24 05/29/24 11:13 Patient Tobacco Use Status Former Tobacco user 05/29/24 11:13 Tobacco use type Cigarette 05/29/24 11:13 e-Cigarette/Vaping Use Never Used 05/29/24 11:13 PHQ-9: PHQ-9 Score PHQ-9: Total score 0 05/29/24 11:16 Depression Screening Interpretation: Negative Thrive Assessment: Date of Thrive Assessment Date Thrive assessed 05/29/24 05/29/24 11:13 Currently or been in a relationship where the following occur: No concerns reported Const General: cooperative, healthy appearing, comfortable and no acute distress Orientation/consciousness: patient oriented x3 HENMT Head: Yes normocephalic Ears: hearing grossly normal bilaterally General nose exam: Normal external nose present Eyes General: appearance normal, both eyes and all related structures Conjunctivae: conjunctivae normal Neck Neck: Yes full ROM and Yes no lymphadenopathy Resp Effort & Inspection: normal respiratory effort Auscultation: clear to auscultation bilaterally, no crackles, no rales, no rhonchi and no wheezes Cardio Rate: regular rate Rhythm: regular rhythm General: Yes no CVA tenderness Back/Spine/Pelvis Back: no CVA tenderness Skin General skin exam: no rashes or lesions noted Neuro General: patient oriented x3 Gait exam (Neuro): Normal gait present Extrem General: Yes normal to inspection, Yes full ROM and No edema Psych Affect: normal affect Attitude: cooperative Insight: Good insight present (Psych) Judgement: Good judgement present (Psych) Results AMB Urinalysis, Automated UA Leukoctes 3 Gerardo/uL Last Edit by Charles Gaines COUNT INCLUDES THE [facility] on 05/29/24 11:20 UA Nitrite Positive Last Edit by Charles Gaines COUNT INCLUDES THE [facility] on 05/29/24 11:20 UA Urobilinogen 0 mg/dL Last Edit by Charles Gaines COUNT INCLUDES THE [facility] on 05/29/24 11:20 UA Protein 0 mg/dL Last Edit by Charles Gaines COUNT INCLUDES THE [facility] on 05/29/24 11:20 UA pH 6.0 Last Edit by Charles Gaines COUNT INCLUDES THE [facility] on 05/29/24 11:20 UA Blood 1 Ashish/uL Last Edit by Charles Gaines COUNT INCLUDES THE [facility] on 05/29/24 11:20 UA Specific [place] 1.010 Last Edit by Charles Gaines COUNT INCLUDES THE [facility] on 05/29/24 11:20 UA Ketone Negative Last Edit by Charles Gaines COUNT INCLUDES THE [facility] on 05/29/24 11:20 UA Bilirubin 0 mg/dL Last Edit by Charles Gaines COUNT INCLUDES THE [facility] on 05/29/24 11:20 UA Glucose 0 mg/dL Last Edit by Charles Gaines COUNT INCLUDES THE [facility] on 05/29/24 11:20 Coding Level of Care Code Est Pt Level 3 (68308) Diagnoses UTI (urinary tract infection) N39.0 Assessment & Plan Assessment & Plan (1) UTI (urinary tract infection): Code(s): N39.0 - Urinary tract infection, site not specified Category: Medical Plan: Patient's urinalysis today suggestive of a urinary tract infection. Treatment will involve a course of nitrofurantoin, considering her history of successful use and allergies to other common antibiotics. She is advised to take the medication with food and maintain hydration. Given the potential link between recurrent UTIs and her prior bladder prolapse corrected by mesh, she will follow up with her uro/stereotyper for further assessment. Urine cultures will guide antibiotic therapy if initial treatment does not yield improvement, and contingencies for potential side effects, like yeast infections, are addressed. Patient agrees to reach out if symptoms worsen or do not improve. Plan Patient was informed and verbally consented to the use of an ambient scribe for clinic note documentation during this visit. This note was constructed using voice recognition software. While every effort has been made to ensure accuracy and liquid natural gas plant operator, still areas may have been included sometimes these areas may affect the content or meeting of the given symptoms. Total time spent caring for the patient today was 20 minutes. This includes time spent before the visit reviewing the chart, time spent during the visit, and time spent after the visit and documentation. Orders: Orders AMB Urinalysis Automated Today N39.0 - Urinary tract infection, site not specified UA CC w/rflx Micro + Cult Today N39.0 - Urinary tract infection, site not specified Medications: New nitrofurantoin monohyd/m-cryst 100 mg must administer with a meal/food 100 mg PO Q12H 7 days 14 caps 0RF
[2024-05-29 11:05] VITALS: BP 110/82; PULSE 73; TEMP 36.2; O2SAT 97; BMI 29.7
== END 2024-05-29 11:29 | disposition home or self-care (01) ==
PROVIDERS: PCP Internal Medicine
DX: N39.0 Urinary tract infection, site not specified (principal)

== ENCOUNTER 2024-05-29 10:42 | Outpatient (REF) | payer BC, SELFPAY ==
[2024-05-30 16:44] LABS: Appearance Urine Turbid; Color Urine Dark Yellow; Glucose Urine UA Negative (Negative); Leukocyte Esterase Urine Large (3+) (Negative); Nitrite Urine Positive (Negative); PH 6.5 (5.0-9.0); Specific Gravity - Urine <= 1.005 (1.005-1.025); UMIC TRIGGER UACC YES; Urine Blood Moderate (2+) (Negative); Urine Ketones Negative (Negative); Urine Protein Trace mg/dL (Neg-Trace)
--- OUTSIDE RECORDS SUMMARY | 2024-05-30 16:48 | XMS_ITS | Data Portability ---
Author Organization [facility] [address] Address [address] [place] [address] Assessment No assessment recorded. Plan of Treatment Reminders Order Date Submit Date Provider Last Modified By Organization Details Last Modified Time Details Appointments None record ed. Lab None record ed. Referral None record ed. Procedures None record ed. Surgeries None record ed. Imaging None record ed. Medication Orders None record ed. Patient TargetsNo targets recorded. Patient InstructionsNo instructions recorded. Reason for Referral None Reported. Medical Equipment None Reported. Vitals None Recorded Social History None recorded. Functional Status None recorded. Mental Status None recorded. Family History Nothing Reported. Medical History No medical history recorded. Gynecological HistoryNo gynecological history recorded. Obstetrics History GPAL:G 0 P 0 0 0 0 Past Encounters Encounter ID Performer Location Encounter Start Date Encounter Closed Date Diagnosis/Indication Diagnosis SNOMED-CT Code Diagnosis ICD10 Code Diagnosis Note [id number] [address] [place] [address] 09/03/2020 16:08:08 09/03/2020 17:27:45 Health Concerns Section Related Observation LastModified by Organization Detai ls LastModified Time None Recorded Concern Status LastModified by Organization Details LastModified Time None Recorded Advance Directives Directive None Recorded Payers None recorded. OBGyn Episode No OBEpisode recorded.
--- OUTSIDE RECORDS SUMMARY | 2024-05-30 16:49 | XMS_ITS | Patient Health Record ---
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
--- OUTSIDE RECORDS SUMMARY | 2024-05-30 16:49 | XMS_ITS ---
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 ; [...] Reason: Progress Notes * [place] CORONELOB: 6 (69 yo F)Acc No.[id number]:11/26/2023 Progress Notes Patient:?Kaylin CORONEL Provider:?Vinod Zamorano DPM :1955???Age:68 Y???Sex:Female D ate:11/26/2023 Address:[address] [place] [address] Pcp:Adrianna Cody MD Subjective: * Chief Complaints: [...] 20 MG Capsule Delayed Release Oral Taking [place] Thyroid 15 MG Tablet TAKE 4 TABLETS [...] tingling, B/L.?DEEP TENDON REFLEXES:?Achilles, 2/4, B/L.?Vascular: ?DP PULSES (B):?3/4, B/L.?PT PULSES (B):?3/4, B/L.?CAPILLARY FILL TIME:?immediate, all digits, B/L.?TROPHIC CONDITION-TEXTURE/ELASTICITY/TURGOR/HAIR GROWTH (B):?normal, B/L.?TEMPERTURE GRADIENT (C):?warm to cool, proximal to distal, B/L.?PIGMENTATION:?normal, B/L.?EDEMA (C):?absent, B/L.?Orthopedic: ?MUSCLE STRENGTH:?5/5 all groups in a [...] Assessment: 1.?Pain in left foot - M79.6 72???2.?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 Plan: * Treatment: * Procedure Codes:?52563 X-RAY EXAM OF LEFT FOOT 3V, Modifiers: [...] dispensed to and reviewed with the patient.? ??Screening/Special Tests:?Fall Risk?Screening:?No falls in the past year ?FALLS: Screening for Future Fall Risk?Have you had any falls with injury in the past year??No * Follow Up:?prn * Images: * Sign off status: Completed true * Provider:?Vinod Zamorano DPM Date:?2023 Generated for Raquel sahni/Levy/Dawn on:?05/30/2024 04:48 PM EST History and Physical Notes * [...]
[2024-05-30 17:17] LABS: Bacteria Urine 4+ (None Seen); Hyaline Casts Urine 0-2 /LPF (0-2); Squamous Epithelial Cell Urine 0-2 /HPF (0-2); UACC Culture Trigger YES; WBC Clumps Urine Present; WBC Urine >50 /HPF (0-5)
== END 2024-05-29 10:43 | disposition home or self-care (01) ==
LOC: HO.LNP 10:42
PROVIDERS: PCP Internal Medicine
DX: N39.0 Urinary tract infection, site not specified (principal); B96.20 Unspecified Escherichia coli [E. coli] as the cause of diseases classified elsewhere
CPT/HCPCS: 81001; 81003; 87086; 87088; 87186

== ENCOUNTER 2024-06-04 08:37 | Outpatient (REF) | payer BC, SELFPAY ==
--- NOTE | ~2024-06-04 | XR_ITS ---
EXAMINATION: XR FOOT, LEFT CLINICAL INFORMATION: M79.675 - Pain in left toe(s) COMPARISON: 11/05/2023. TECHNIQUE: AP, lateral, and oblique views of the left foot. FINDINGS: Normal bone mineralization. No fracture, dislocation, or suspicious bone lesion. Mild hallux valgus present without significant bunion formation. Mild arthritis present in the interphalangeal joints of the toes. MTP joints appear normal. Normal plantar arch. Midfoot and hindfoot are normally aligned without significant arthropathy. Small to moderate plantar and small dorsal calcaneal spurs. No significant soft tissue abnormalities. XR/XR foot LT 2V IMPRESSION: 1. No acute findings left foot. 2. Mild hallux valgus without significant bunion formation. 3. Mild arthritis in the interphalangeal joints of the toes. 4. Plantar and dorsal calcaneal spurs. Electronically signed by: Gerald Black MD 06/05/2024 08:53 AM LISA
== END 2024-06-04 08:38 | disposition home or self-care (01) ==
LOC: HO.XRAY 08:37
PROVIDERS: PCP Internal Medicine; Visit Provider Internal Medicine
DX: M79.675 Pain in left toe(s) (principal)
CPT/HCPCS: 73620

== ENCOUNTER → 2024-06-04 08:40 | Outpatient (BNV) | payer BC, SELFPAY | PROVIDERS: PCP Internal Medicine; Visit Provider Radiology Diagnostic Radiology | DX: M77.32 Calcaneal spur, left foot (principal) | CPT/HCPCS: 73620 ==

== ENCOUNTER 2024-07-21 19:00 | Emergency (ER) | payer BC, SELFPAY ==
[2024-07-21 19:03] VITALS: BP 155/87; PULSE 89; RESP 14; TEMP 36.8; O2SAT 93; BMI 32.4
--- NOTE | 2024-07-21 19:06 | ED.GENADULT ---
HPI - General Adult General Chief complaint: GI Bleed Stated complaint: rectal bleeding, diarrhea Time Seen by Provider: 07/22/24 00:06 Source: patient, RN notes reviewed and old records reviewed Mode of arrival: ambulatory Limitations: no limitations History of Present Illness ED Provider: Hetal CONTE narrative: 69-year-old female with past medical history significant for hypothyroidism, factor 5 Leiden not anticoagulated, GERD, hyperlipidemia presents for evaluation of rectal bleeding. Patient reports that today she had a few episodes of diarrhea this morning which was nonbloody. Later this afternoon she had additional bowel movements which was bright red blood She felt as though there was a large volume of blood but without clots She denies any history of rectal bleeding. She is not anticoagulated, she does not take aspirin She reports mild lower abdominal discomfort She denies any recent antibiotic use Related Data Previous Rx's ?Medication ?Instructions ?Recorded calcium carbonate (Oyster Shell 500 mg PO BID 90 days #180 tabs 11/05/23 Calcium) omeprazole 20 mg capsule,delayed 20 mg PO DAILY #90 caps 02/08/24 release Maxwell Thyroid 15 mg tablet 60 mg (4 x 15 mg) PO DAILY 30 days 03/31/24 (thyroid (pork)) #120 tabs nitrofurantoin 100 mg PO Q12H 7 days #14 caps 05/29/24 monohydrate/macrocrystals 100 mg capsule hydrocortisone acetate 25 mg 25 mg DE BID 7 days #24 ea 07/22/24 rectal suppository (Hemmorex-HC) polyethylene glycol 3350 17 gram 17 g PO DAILY 2 weeks #30 ea 07/22/24 oral powder packet (Miralax) Allergies Allergy/AdvReac Type Severity Reaction Status Date / Time sulfamethoxazole Allergy Intermediate Itching Verified 07/21/24 19:07 [From Sulfamethoxazole-Trimethoprim] trimethoprim Allergy Intermediate Itching Verified 07/21/24 19:07 [From Sulfamethoxazole-Trimethoprim] ciprofloxacin [From Cipro] AdvReac Intermediate nausea, Verified 07/21/24 19:07 crossed eyes Review of Systems Constitutional: Constitutional: Denies body ache(s), Denies chills, Denies fever(s) and Denies frequent falls ENT: Denies dysphagia and Denies vertigo Cardiovascular: Cardiovascular: Denies chest pain Gastrointestinal: Gastrointestinal: Reports abdominal pain, Reports hematochezia, Denies GI cramping, Denies dysphagia, Reports diarrhea, Reports loose stools and Denies nausea Neurologic: Denies vertigo and Denies frequent falls PMFSH Past Medical History Medical History Chronic urinary tract infection Factor V Leiden mutation Cholelithiasis GERD (gastroesophageal reflux disease) Elevated cholesterol Hypothyroid Surgical History Hx of umbilical hernia repair (04/09/24) History of laparoscopic cholecystectomy (06/28/23) Hx of inguinal hernia repair History of bladder surgery Family History Family History Mother No problems noted. Father No problems noted. Brother Prostate cancer Social History Social History Household Members: Other Housing: Other Housing Other:: mobile home Are you a primary animal care specialist to a significant other at home: No Do you presently have visiting nurse or other home services: No Alcohol intake: current Alcohol intake frequency: holidays/special occasions only Alcohol type: wine Comment: counts correct Patient Tobacco Use Status: Former Tobacco user Tobacco use type: Cigarette Years Smoked: 17 e-Cigarette/Vaping Use: Never Used Second Hand Smoke Exposure: Yes Advance Directives: No Advance Directives Information Provided: Yes Do you have a plan to hurt others: No Plan service: No Current occupational status: employed Current occupation: Post office Current occupational exposures/hazards: No Gender identity: Female Cognitive needs: No Hearing needs: No Vision needs: Yes Physical Exam ED Vital Signs: Vital Signs - 24 hr 07/21/24 19:03 07/21/24 23:36 07/22/24 00:57 Temperature 98.2 F 97.6 F 97.6 F Pulse Rate 89 79 79 Respiratory Rate 14 18 18 Blood Pressure 155/87 H 158/96 H 158/96 H Pulse Oximetry 93 93 93 Oxygen Delivery Method Room Air Room Air Room Air BMI result Body Mass Index 32.4 Const General: healthy appearing, comfortable, no acute distress, alert and awake Nutritional Appearance: well nourished Orientation/consciousness: patient oriented x3 HENMT Head: Yes normocephalic and Yes atraumatic Eyes Eyelids: Yes eyelids normal Conjunctivae: conjunctivae normal Sclerae: sclerae normal Corneas: corneas normal Pupils: Equal, round and reactive pupils present EOM: EOMs intact bilaterally Neck Neck: Yes full ROM Resp Effort & Inspection: normal respiratory effort, able to speak in complete sentences and not labored Cardio Rate: regular rate Rhythm: regular rhythm GI Other: Palpable internal hemorrhoids at the 12 o'clock position. Inspection: No distended Palpation (GI): Soft to palpation, not firm, nontender, no guarding and not rigid Rectal Exam - Female: visual inspection normal, normal sphincter tone, Abnormal stool present Rectal exam abnormal stool - female: blood-tinged stool, heme positive stool and Internal hemorrhoid(s) present Skin General skin exam: elasticity normal Neuro General: patient oriented x3 Cranial nerves: Yes Equal, round and reactive pupils present and Yes Bilaterally intact EOM present Cognition (Neuro): normal cognition Extrem Other: Moving all extremities well without any obvious deformities Course Course Course Narrative: This is a rapid medical exam performed by Selene Monzon NP: Additional HPI, ROS, PE not included below will be deferred to primary provider. Patient is a 69-year-old female presenting with complaint of diarrhea and now bright red rectal bleeding as well as lower abdominal pain. Plan: labs, UA Medical Decision Making Medical Decision Making [facility] Narrative: 69-year-old female presents for evaluation of bright red rectal bleeding. She was hemodynamically stable, she is not hypotensive or tachycardic. Her blood counts are within normal limits, she is not anticoagulated. She has mild abdominal discomfort. She likely has a viral colitis and may have internal hemorrhoids which are palpable on exam. She was not have a leukocytosis, her exam is reassuring. She is afebrile. I have a low suspicion acute abdomen. I discussed possible CT imaging with the patient's and she defers at this time. I feel this is appropriate. We will treat the patient's hemorrhoids with Anusol, we will start her on MiraLax and have her follow up with GI. I discussed the importance of following up workup to rule out colon cancer Differential Diagnosis Differential Diagnoses: The differential diagnosis associated with the presentation includes Rectal bleeding Internal hemorrhoids External hemorrhoids Colitis Diverticulitis Admission/Observation Consideration of admission/observation: Escalation of care including admission/observation considered Lab Data MDM Lab Attestation statement: I reviewed the patient's lab results. No leukocytosis or anemia. Normal platelet count. No electrolyte abnormality 07/21/24 19:15 07/21/24 19:15 Labs: Lab Results 07/21/24 07/21/24 Range/Units 19:15 23:51 WBC 10.6 (4.8-10.8) X10*3/uL RBC 4.85 (4.20-5.50) X10*6/uL Hgb 14.7 (12.0-16.0) g/dl Hct 42.4 (37.0-47.0) % MCV 87.4 (80.0-98.0) fL MCH 30.3 (27.0-33.0) pg MCHC 34.7 (31.0-35.0) g/dl RDW 13.7 (11.0-16.0) % Plt Count 285 (160-400) X10*3/uL MPV 9.7 (9.4-12.3) fL Immature Gran % (Auto) 0.3 (0.0-0.4) % Neut % (Auto) 64.9 (45-73) % Lymph % (Auto) 24.8 (20-40) % [place] % (Auto) 6.6 (2-11) % Eos % (Auto) 2.6 (0-4) % Baso % (Auto) 0.8 (0-2) % Lymph # (Auto) 2.6 (1.2-4.9) X10*3/uL [place] # (Auto) 0.7 (0.1-1.2) X10*3/uL Eos # (Auto) 0.3 (0.0-0.4) X10*3/uL Baso # (Auto) 0.1 (0.0-0.2) X10*3/uL Abs Immat Gran (auto) 0.03 (0.00-0.03) X10*3/uL Absolute Neuts (auto) 6.9 (2.0-8.3) x10*3/uL Absolute Nucleated RBC 0.000 (0.0-0.012) X10*3/uL Nucleated RBC % (auto) 0.0 (0.0-0.2) /100WBC Sodium 142 (135-145) mmol/L Potassium 3.9 (3.3-5.1) mmol/L Chloride 104 (96-108) mmol/L Carbon Dioxide 29 (22-29) mmol/L Anion Gap 13 (12-20) BUN 14 (9-16) mg/dL Creatinine 0.84 (0.5-1.4) mg/dL Estim Creat Clear Calc 65.5 Estimated GFR > 60 Random Glucose 111 (60-115) mg/dL Calcium 9.2 (8.4-10.2) mg/dL Magnesium 1.9 (1.6-2.6) mg/dL Total Bilirubin 0.4 (0.0-1.0) mg/dL AST 24 (5-31) U/L ALT 27 (0-31) U/L Alkaline Phosphatase 97 (39-117) U/L Total Protein 7.4 (6.5-8.0) g/dL Albumin 4.3 (3.5-5.0) g/dL Urine Color Yellow Urine Appearance Clear Urine pH 6.5 (5.0-9.0) Ur Specific [place] 1.010 (1.005-1.025) Urine Protein Negative (Neg-Trace) mg/dL Urine Glucose (UA) Negative (Negative) mg/dL Urine Ketones Negative (Negative) mg/dL Urine Blood Negative (Negative) Urine Nitrite Negative (Negative) Ur Leukocyte Esterase Moderate (2+) H (Negative) Urine RBC 0-2 (0-2) /HPF Urine WBC 21-50 H (0-5) /HPF Ur Squamous Epith Cells 0-2 (0-2) /HPF Urine Bacteria 1+ (None Seen) Hyaline Casts 0-2 (0-2) /LPF Tests considered The following testing was considered but not selected: Consider CT scan of the abdomen pelvis with IV contra this was deferred through shared decision-making with the patient Discharge Plan Discharge Clinical Impression: Bright red blood per rectum Patient Disposition: Home, Self-Care Instructions: Rectal Bleeding (ED) Additional Instructions: You had some bright red rectal bleeding. Your blood counts were within normal range On exam it is likely that you have internal hemorrhoids Take the Anusol suppositories twice daily for 1 week Take MiraLax every night for the next 2 weeks for stool softener You should drink a liquid diet tomorrow and advance as tolerated It is important that you follow up with GI as you need a colonoscopy Return for new or worsening symptoms Prescriptions: New hydrocortisone acetate [Hemmorex-HC] 25 mg suppository 25 mg DE BID 7 Days Qty: 24 0RF polyethylene glycol 3350 [Miralax] 17 gram powder in packet 17 g PO DAILY 14 Days Qty: 30 0RF No Action omeprazole 20 mg capsule,delayed release(DR/EC) 20 mg PO DAILY Qty: 90 1RF thyroid (pork) [Maxwell Thyroid] 15 mg tablet 60 mg PO DAILY 30 Days Qty: 120 11RF calcium carbonate [Oyster Shell Calcium] 500 mg calcium (1,250 mg) tablet 500 mg PO BID 90 Days Qty: 180 3RF nitrofurantoin monohyd/m-cryst 100 mg capsule 100 mg PO Q12H 7 Days Qty: 14 0RF Rx Instructions: must administer with a meal/food Referrals: Oleksandr Martel MD [Physician] - (bright red rectal bleeding) Interventions: ED Discharge Assessment Last Done: 07/22/24 00:57 Discharge Date/Time: 07/22/24 00:57 Print Language: Syriac
[2024-07-21 19:20] LABS: MANUAL DIFF FLAG NO
[2024-07-21 19:33] LABS: Alanine Aminotransferase 27 U/L (0-31); Albumin Level 4.3 g/dL (3.5-5.0); Alkaline Phosphatase 97 U/L (39-117); Anion Gap 13 (12-20); Aspartate Amino Transferase 24 U/L (5-31); Basophils Absolute Auto 0.1 X10*3/uL (0.0-0.2); Basophils Percent Auto 0.8 % (0-2); Bilirubin Total 0.4 mg/dL (0.0-1.0); Blood Urea Nitrogen 14 mg/dL (9-16); Calcium 9.2 mg/dL (8.4-10.2); Carbon Dioxide 29 mmol/L (22-29); Chloride 104 mmol/L (96-108); Creatinine Clr Calc Pharmacy 65.5; Eosinophils Absolute Auto 0.3 X10*3/uL (0.0-0.4); Eosinophils Percent Auto 2.6 % (0-4); Estimated Glomerular Filt Rate > 60; Glucose Random 111 mg/dL (60-115); Hematocrit 42.4 % (37.0-47.0); Hemoglobin 14.7 g/dl (12.0-16.0); Imm Gran Abs Auto 0.03 X10*3/uL (0.00-0.03); Imm Gran Pct Auto 0.3 % (0.0-0.4); Lymphocytes Absolute Auto 2.6 X10*3/uL (1.2-4.9); Lymphocytes Percent Auto 24.8 % (20-40); Magnesium 1.9 mg/dL (1.6-2.6); Mean Corpuscular HGB Conc 34.7 g/dl (31.0-35.0); Mean Corpuscular Hemoglobin 30.3 pg (27.0-33.0); Mean Corpuscular Volume 87.4 fL (80.0-98.0); Mean Platelet Volume 9.7 fL (9.4-12.3); Monocytes Absolute Auto 0.7 X10*3/uL (0.1-1.2); Monocytes Percent Auto 6.6 % (2-11); Neutrophils Absolute Auto 6.9 x10*3/uL (2.0-8.3); Neutrophils Percent Auto 64.9 % (45-73); Platelet Count 285 X10*3/uL (160-400); Potassium 3.9 mmol/L (3.3-5.1); Red Blood Count 4.85 X10*6/uL (4.20-5.50); Red Cell Distribution Width 13.7 % (11.0-16.0); Sodium 142 mmol/L (135-145); Total Protein 7.4 g/dL (6.5-8.0); White Blood Count 10.6 X10*3/uL (4.8-10.8)
[2024-07-21 23:36] VITALS: BP 158/96; PULSE 79; RESP 18; TEMP 36.4; O2SAT 93
[2024-07-22 00:18] LABS: Appearance Urine Clear; Color Urine Yellow; Glucose Urine UA Negative (Negative); Leukocyte Esterase Urine Moderate (2+) (Negative); Nitrite Urine Negative (Negative); PH 6.5 (5.0-9.0); UMIC TRIGGER UACC YES; Urine Blood Negative (Negative); Urine Ketones Negative (Negative); Urine Protein Negative (Neg-Trace)
[2024-07-22 00:21] LABS: Bacteria Urine 1+ (None Seen); Hyaline Casts Urine 0-2 /LPF (0-2); RBC Urine 0-2 /HPF (0-2); Squamous Epithelial Cell Urine 0-2 /HPF (0-2); UACC Culture Trigger YES; WBC Urine 21-50 /HPF (0-5)
[2024-07-22 00:57] VITALS: BP 158/96; PULSE 79; RESP 18; TEMP 36.4; O2SAT 93
== END 2024-07-22 00:57 | disposition home or self-care (01) ==
PROVIDERS: Registered Nurse Emergency; Emergency Provider Emergency Medicine; PCP Internal Medicine
DX: K64.8 Other hemorrhoids (principal); K92.1 Melena; R19.7 Diarrhea, unspecified; R10.30 Lower abdominal pain, unspecified; Z87.891 Personal history of nicotine dependence; Z79.899 Other long term (current) drug therapy
CPT/HCPCS: 36415; 80053; 81001; 83735; 85025; 87086; 99283

== ENCOUNTER 2024-08-19 10:17 | Outpatient (REF) | payer BC, SELFPAY ==
[2024-08-19 11:56] LABS: Magnesium 2.1 mg/dL (1.6-2.6); Phosphorus 2.9 mg/dL (2.7-4.5)
[2024-08-19 12:13] LABS: Free T4 (Free Thyroxine) 0.62 ng/dL (0.71-1.85); Thyroid Stimulating Hormone 3.41 uIU/mL (0.32-4.0); Vitamin D 25-OH Total 37.3 ng/mL (>30)
--- OUTSIDE RECORDS SUMMARY | 2024-08-19 12:14 | XMS_ITS | Data Portability ---
Author Organization [facility] [place] [facility], [address] [place] [address] Assessment No assessment recorded. Plan of Treatment [...] SNOMED-CT Code Diagnosis ICD10 Code Diagnosis Note [id number] [address] [place] [address] 09/03/2020 16:08:08 09/03/2020 17:27:45 Health Concerns Section Related Observation LastModified by Organization Detai ls LastModified Time None Recorded Concern Status LastModified by Organization Details LastModified Time None Recorded Advance Directives Directive None Recorded Payers None recorded. OBGyn Episode No OBEpisode recorded.
[2024-08-19 12:24] LABS: Vitamin B12 642 pg/mL (200-900)
[2024-08-23 15:08] LABS: Vitamin A 52 mcg/dL (38-98)
[2024-08-29 18:29] LABS: Vitamin B1 12 nmol/L (8-30)
== END 2024-08-19 10:18 | disposition home or self-care (01) ==
LOC: HO.LAB 10:17
PROVIDERS: PCP Internal Medicine; Visit Provider Internal Medicine
DX: E50.9 Vitamin A deficiency, unspecified (principal); E55.9 Vitamin D deficiency, unspecified; E53.8 Deficiency of other specified B group vitamins; E61.2 Magnesium deficiency; E03.9 Hypothyroidism, unspecified; M85.80 Other specified disorders of bone density and structure, unspecified site; E51.9 Thiamine deficiency, unspecified
CPT/HCPCS: 36415; 82306; 82607; 82746; 83735; 84100; 84425; 84439; 84443; 84590

== ENCOUNTER 2024-08-19 10:53 | Outpatient (AMB) | payer BC, SELFPAY ==
--- NOTE | 2024-08-19 11:24 | A.OFFVIS_ITS ---
Vital Signs 08/19/24 11:26 Height 5 ft 6 in Weight 183 lb BMI 29.5 BP 123/68 Blood Pressure Location Lt brachial Position Sitting Pulse 65 Pulse Oximetry (%) 96 Oxygen Delivery Method Room Air Intake Visit Reasons: GERD/Eryn pt anaid 05/15/2023 Intake Note: Patient complex follow up for abdominal pain/Eryn anaid 05/15/2023. Patient cc: acid reflux on and off with some burning sensation and N/V, abdominal bloating, and between diarrhea and constipation and hx of hemorrhoids without no problems. Water Carter Required: No Accompanied by: Self / Same As Patient Allergies sulfamethoxazole [From Sulfamethoxazole-Trimethoprim] Allergy (Intermediate, Verified 08/19/24 11:24) Itching trimethoprim [From Sulfamethoxazole-Trimethoprim] Allergy (Intermediate, Verified 08/19/24 11:24) Itching ciprofloxacin [From Cipro] Adverse Reaction (Intermediate, Verified 08/19/24 11:24) nausea, crossed eyes Medication List - Last Reconciled 08/19/24 by AURE Foster Thyroid (thyroid (pork)) 60 mg (4 x 15 mg) PO DAILY 30 days NS calcium carbonate (Oyster Shell Calcium) 500 mg PO BID 90 days hydrocortisone acetate (Hemmorex-HC) 25 mg HI BID 7 days nitrofurantoin monohyd/m-cryst 100 mg 100 mg PO Q12H 7 days omeprazole 20 mg PO DAILY polyethylene glycol 3350 (Miralax) 17 grams PO DAILY 2 weeks HPI HPI GERD/Erny pt anaid 05/15/2023: Details: Patient is a 69-year-old female with PMH of hypothyriodism, GERD, HLD , factor V leiden mutation. Last visit with JEY Fernandez 05/15/2023 for ab pain Pt is here today for follow up on GERD. She reports GERD symptoms are managed with omeprazole 20 mg daily. However, shares apprehensive about continuing medication and wanting to take more of a holistic approach. Therefore, engaged in a one week pill holiday approx one month ago which resulted in return of GERD symptoms. States symptoms resolved after restarting PPI Associated symptoms: regurgitation, occ pyrosis Aggravating factors: red space, tomato, onions, night Alleviating attempts: As above Patient denies: systemic symptoms, n/v, appetite changes, unintentional wt loss, dysphasia, cardiopulmonary symptoms, bladder changes or melena/hematochezia. She reports ' rare loose stools status post cholecystectomy, denies other stool concerns including constipation + as above. She is not keen on any pharmacological management for these episodes and will manage holistically. Shares she has not had any form of colonoscopy screening, including; fit testing, Cologuard or colonoscopy. She is open to colonoscopy screening and would also like to have endoscopy giving her a long-term GERD [facility] Medical History Chronic urinary tract infection Factor V Leiden mutation Cholelithiasis GERD (gastroesophageal reflux disease) Elevated cholesterol Hypothyroid Surgical History Hx of umbilical hernia repair (04/09/24) History of laparoscopic cholecystectomy (06/28/23) Hx of inguinal hernia repair History of bladder surgery Family History Mother No problems noted. Father No problems noted. Brother Prostate cancer Social History Household Members: Other Housing: Other Housing Other:: mobile home Are you a primary care information associate to a significant other at home: No Do you presently have visiting nurse or other home services: No Alcohol intake: current Alcohol intake frequency: holidays/special occasions only Alcohol type: wine Comment: counts correct Patient Tobacco Use Status: Former Tobacco user Tobacco use type: Cigarette Years Smoked: 17 e-Cigarette/Vaping Use: Never Used Second Hand Smoke Exposure: Yes service: No Current occupational status: employed Current occupation: Post office Current occupational exposures/hazards: No Gender identity: Female Cognitive needs: No Hearing needs: No Vision needs: Yes Review of Systems Const Reports as per HPI ENT Reports as per HPI Card Reports as per HPI Resp Reports as per HPI GI Reports as per HPI Reports as per HPI Physical Exam Vital Signs: Last Vital Signs Pulse 65 08/19/24 11:26 BP 123/68 08/19/24 11:26 Pulse Ox 96 08/19/24 11:26 Oxygen Delivery Method Room Air 08/19/24 11:26 BMI result Body Mass Index 29.5 Const General: healthy appearing, no acute distress and well developed Nutritional Appearance: well nourished Orientation/consciousness: patient oriented x3 HEENT Head: Yes normal to inspection, Yes normocephalic and Yes atraumatic Face and sinus: Yes normal facial exam Eyes General: appearance normal, both eyes and all related structures Neck Neck: Yes normal visual inspection Resp Effort & Inspection: normal respiratory effort, able to speak in complete sentences, no tracheal deviation and symmetric chest movement Auscultation: clear to auscultation bilaterally Cardio Jugular venous distension: no JVD Rate: regular rate Rhythm: regular rhythm Heart sounds: S1 normal heart sound present, S2 normal heart sound present, no gallops and no murmurs GI Inspection: Yes normal to inspection, No distended and Yes obesity Palpation (GI): Soft to palpation, not firm, nontender and No hepatosplenomegaly present Auscultation: normal bowel sounds Neuro General: patient oriented x3 Gait exam (Neuro): Normal gait present Psych Appearance: grossly normal Mental Status: mental status grossly normal Speech and movement: Normal speech and movement present Affect: normal affect Attitude: cooperative Thought process: Normal thought process present Thought content: Normal thought content present Insight: Good insight present (Psych) Judgement: Good judgement present (Psych) Assessment & Plan Assessment & Plan (1) Pre-op exam: Code(s): Z01.818 - Encounter for other preprocedural examination Plan: First colonoscopy screening. Reviewed prep and procedure expectations. Prep Rx'd to preferred pharmacy. (2) GERD (gastroesophageal reflux disease): Code(s): K21.9 - Gastro-esophageal reflux disease without esophagitis Category: Medical Qualifiers: Esophagitis presence: esophagitis presence not specified Qualified Code(s): K21.9 - Gastro-esophageal reflux disease without esophagitis Plan: Agreeable to endoscopy given longstanding GERD. However, advised barium swallow is more definitive for evaluating source of GERD- helps rule out hernia, obstruction, stricture or other source of GERD. She is agreeable to plan. Encouraged to continue omeprazole 20 mg as prescribed, taken approximately 30-60 minutes before first meal of the day. Education on GERD prevention-Advised against heavy meals. Encouraged small frequent meals VS large meals, remaining upright after meals x 2-3 hours, avoid spicy foods/caffeine/alcohol/known triggers and tight fitting clothes Plan As above Time: I spent a total of 45 minutes on the date of encounter which includes: Preparing to see the patient (reviewed previous documentation, test results and medical history) Performing a medically appropriate exam and/or evaluation Ordering medications, tests, and procedures Documenting clinical information in the health record Orders: Orders FL barium swallow Today K21.9 - Gastro-esophageal reflux disease without esophagitis Medications: New polyethylene glycol 3350 (Miralax) per colonoscopy prep instructions 238 grams PO ONCE 238 grams 0RF bisacodyl per colonoscopy instructions 5 mg PO ONCE 1 day 3 tabs 0RF Discontinued polyethylene glycol 3350 (Miralax) Discontinued Reason: No Longer Medically Relevant 17 grams PO DAILY 2 weeks 30 ea 0RF nitrofurantoin monohyd/m-cryst 100 mg must administer with a meal/food Discontinued Reason: No Longer Medically Relevant 100 mg PO Q12H 7 days 14 caps 0RF Coding Level of Care Code Established Pt Est Pt Level 3 (81680) Patient Type Established Diagnoses Pre-op exam Z01.818 Gastroesophageal reflux disease, unspecified whether esophagitis present K21.9 Esophagitis presence: esophagitis presence not specified
[2024-08-19 11:26] VITALS: BP 123/68; PULSE 65; O2SAT 96; BMI 29.5
== END 2024-08-19 12:22 | disposition home or self-care (01) ==
LOC: HO.HGI 10:53
PROVIDERS: PCP Internal Medicine; Visit Provider Nurse Practitioner Family
DX: K21.9 Gastro-esophageal reflux disease without esophagitis (principal)
CPT/HCPCS: 99213

== ENCOUNTER 2024-09-09 08:10 | Outpatient (AMB) | payer BC, SELFPAY ==
--- OUTSIDE RECORDS SUMMARY | 2024-09-09 08:20 | XMS_ITS | Data Portability ---
Author Organization [facility] [place] [facility], [address] [place] [address] Assessment No assessment recorded. Plan of Treatment [...] SNOMED-CT Code Diagnosis ICD10 Code Diagnosis Note [id number] [address] [place] [address] 09/03/2020 16:08:08 09/03/2020 17:27:45 Health Concerns Section Related Observation LastModified by Organization Detai ls LastModified Time None Recorded Concern Status LastModified by Organization Details LastModified Time None Recorded Advance Directives Directive None Recorded Payers None recorded. OBGyn Episode No OBEpisode recorded.
--- NOTE | 2024-09-09 08:24 | MHC.PC.OV ---
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 Accompanied by: Self / Same As Patient Allergies sulfamethoxazole [From Sulfamethoxazole-Trimethoprim] Allergy (Intermediate, Verified 09/09/24 08:36) Itching trimethoprim [From Sulfamethoxazole-Trimethoprim] Allergy (Intermediate, Verified 09/09/24 08:36) Itching ciprofloxacin [From Cipro] Adverse Reaction (Intermediate, Verified 09/09/24 08:36) nausea, crossed eyes Medication List - Last Reconciled 09/09/24 by Adrianna Barr MD [place] Thyroid (thyroid (pork)) 60 mg (4 x 15 mg) PO DAILY 30 days NS bisacodyl 5 mg PO ONCE 1 day calcium carbonate (Oyster Shell Calcium) 500 mg PO BID 90 days hydrocortisone acetate (Hemmorex-HC) 25 mg CA BID 7 days omeprazole 20 mg PO DAILY polyethylene glycol 3350 (Miralax) 238 grams PO ONCE Tobacco use date assessed: 05/29/24 Fall risk assessment: No Falls in past year Last assessed Fall Risk: 09/09/24 Dental Screening Dental Screen Date: 05/29/24 HPI HPI Comments History of Present Illness Details The patient is a 69-year-old female with hypothyroidism, GERD, osteopenia and factor 5 leiden mutation presenting for medication management and follow-up. She is on [place] Thyroid 60 mg daily for hypothyroidism and prefers to alter her medication intake from multiple pills to a single-pill regimen. Her TSH levels remain normal, with no need for medication change. She reports cold sensations in her extremities, previously raised during a DOT physical exam, but thyroid function tests continue to be within normal parameters. She manages dyspepsia with omeprazole and follows up with relevant gastrointestinal testing. The patient declines vaccinations and has similarly opted out of pneumonia and flu vaccinations post-2022 mammogram. Her colonoscopy is still in the process of being scheduled. DEXA scan done 2023 showing osteopenia and next DEXA scan should be 2025. [facility] Medical History Chronic urinary tract infection Factor V Leiden mutation Cholelithiasis GERD (gastroesophageal reflux disease) Elevated cholesterol Hypothyroid Surgical History Hx of umbilical hernia repair (04/09/24) History of laparoscopic cholecystectomy (06/28/23) Hx of inguinal hernia repair History of bladder surgery Family History Mother No problems noted. Father No problems noted. Brother Prostate cancer Social History Household Members: Other Housing: Other Housing Other:: mobile home Are you a primary technical healthcare consultant to a significant other at home: No Do you presently have visiting nurse or other home services: No Alcohol intake: current Alcohol intake frequency: holidays/special occasions only Alcohol type: wine Comment: counts correct Patient Tobacco Use Status: Former Tobacco user Tobacco use type: Cigarette Years Smoked: 17 e-Cigarette/Vaping Use: Never Used Second Hand Smoke Exposure: Yes service: No Current occupational status: employed Current occupation: Post office Current occupational exposures/hazards: No Gender identity: Female Cognitive needs: No Hearing needs: No Vision needs: Yes Questionnaire PHQ-9 Over the last 2 weeks, how often have you been bothered by any of the following problems? 1. Little interest or pleasure in doing things: not at all 2. Feeling down, depressed, or hopeless: not at all 3. Trouble falling or staying asleep, or sleeping too much: not at all 4. Feeling tired or having little energy: not at all 5. Poor appetite or overeating: not at all 6. Feeling bad about yourself - or that you are a failure or have let yourself or your family down: not at all 7. Trouble concentrating on things, such as reading the newspaper or watching television: not at all 8. Moving or speaking so slowly that other people could have noticed. Or the opposite - being so fidgety or restless that you have been moving around a lot more than usual: not at all 9. Thoughts that you would be better off or of hurting yourself in some way: not at all Total score: 0 Depression Screening Interpretation: Negative Depression Screening Done: Yes 38695 - PHQ-9 Billing: Yes Source: Developed by Drs. Oleksandr Cleveland, Elsy Cooley, Manuel Toure and colleagues, with an educational cy from [employer]. Thrive Questionnaire Date Thrive assessed: 09/09/24 I am a: Patient What is your living situation today?: I have a steady place to live Within the past 12 months, did the food you bought not last and you didn't have the money to get more?: I choose not to answer this question Within the past 12 months, did you worry whether your food would run out before you got money to buy more?: I choose not to answer this question Do you have trouble paying for medicines?: I choose not to answer this question Do you have trouble getting transportation to medical appointments?: I choose not to answer this question Do you have trouble paying your heating and electricity bill?: I choose not to answer this question Do you have trouble taking care of your child, family member or friend?: I choose not to answer this question Do you have trouble with day-to-day activities such as bathing, preparing meals, shopping, managing finances, etc.?: I choose not to answer this question Are you currently unemployed and looking for a job?: I choose not to answer this question Are you interested in more education?: I choose not to answer this question Please select the resources that you would like help with: None Currently or been in a relationship where the following occur: I choose not to answer THRIVE Score: 0 AUDIT C Alcohol Use Questionnaire (AUDIT-C) 1. How often do you have a drink containing alcohol?: Never Total Score: 0 Score Reviewed/Action Taken: No TIARA-7 AMB Questionnaire TIARA-7 Date TIARA - 7 assessed: 09/09/24 Feeling nervous, anxious, or on edge: 0 = Not at all Not being able to stop or control worryin = Not at all Worrying too much about different things: 0 = Not at all Trouble relaxin = Not at all Being so restless that it is hard to sit still: 0 = Not at all Becoming easily annoyed or irritable: 0 = Not at all Feeling afraid as if something awful might happen: 0 = Not at all Total TIARA-7 score (0-4 normal; 5-9 mild; 10-14 moderate; 15-21 severe): 0 Source: Developed by Drs. Oleksandr Cleveland, Elsy Cooley, Manuel Toure and colleagues, with an educational cy from [employer]. TIARA-7 Assessment Billing TIARA-7 Assessment Tool: TIARA-7 Assessment 94737 Review of Systems Const All systems reviewed & are unremarkable except as noted in HPI and below Card Denies chest pain at rest, Denies chest pain with activity, Denies edema, Denies irregular heart rhythm, Denies claudication, Denies dyspnea, Denies dyspnea on exertion, Denies orthopnea, Denies paroxysmal nocturnal dyspnea and Denies slow heart rate Resp Denies cough, Denies dyspnea and Denies dyspnea on exertion GI Denies abdominal pain, Denies change in bowel habits, Denies excessive flatus, Denies nausea and Denies vomiting Musc Denies atrophy, Denies deformity and Denies limited range of motion Skin/Breast Denies bleeding lesions, Denies changing lesions and Denies rash Physical exam (Primary Care) Vital Signs: Last Vital Signs BP 132/80 09/09/24 08:26 BMI result Body Mass Index 30.3 BMI Assessment/Plan discussion: High BMI High, discussed plan: lifestyle, weight reduction, dietary and physical activity Tobacco/Smoking Status: Tobacco use Status Tobacco use date assessed 05/29/24 09/09/24 08:25 Patient Tobacco Use Status Former Tobacco user 09/09/24 08:25 Tobacco use type Cigarette 09/09/24 08:25 e-Cigarette/Vaping Use Never Used 09/09/24 08:25 PHQ-9: PHQ-9 Score PHQ-9: Total score 0 09/09/24 08:40 Depression Screening Interpretation: Negative Thrive Assessment: Date of Thrive Assessment Date Thrive assessed 09/09/24 09/09/24 08:25 Currently or been in a relationship where the following occur: I choose not to answer Resp Effort & Inspection: normal respiratory effort Auscultation: clear to auscultation bilaterally Cardio Jugular venous distension: no JVD Rate: regular rate Rhythm: regular rhythm Heart sounds: S1 normal heart sound present and S2 normal heart sound present Extrem General: Yes full ROM Coding Level of Care Code Est Pt Level 4 (07728) Complex EM visit Add On G2211 Diagnoses Osteopenia, unspecified location M85.80 Osteopenia location: unspecified Hypothyroidism (acquired) E03.9 Factor V Leiden mutation D68.51 Gastroesophageal reflux disease, unspecified whether esophagitis present K21.9 Esophagitis presence: esophagitis presence not specified Additional Codes TIARA-7 Assessment Billing - TIARA-7 Assessment Tool: TIARA-7 Assessment 10652 ([id number]) PHQ-9 - 18493 - PHQ-9 Billing: Yes ([id number]) Time Spent (min) 23 Assessment & Plan Assessment & Plan (1) Osteopenia: Code(s): M85.80 - Other specified disorders of bone density and structure, unspecified site Category: Medical Qualifiers: Osteopenia location: unspecified Qualified Code(s): M85.80 - Other specified disorders of bone density and structure, unspecified site (2) Hypothyroidism (acquired): Code(s): E03.9 - Hypothyroidism, unspecified Category: Medical (3) Factor V Leiden mutation: Code(s): D68.51 - Activated protein C resistance Category: Medical (4) GERD (gastroesophageal reflux disease): Code(s): K21.9 - Gastro-esophageal reflux disease without esophagitis Category: Medical Qualifiers: Esophagitis presence: esophagitis presence not specified Qualified Code(s): K21.9 - Gastro-esophageal reflux disease without esophagitis Plan The patient's medication regimen will include [place] Thyroid 60 mg daily as a single pill for ease. Monitoring of thyroid function via TSH will continue to ensure stability. Further evaluation of gastrointestinal symptoms will include a swallow study and endoscopy, with lifestyle modifications suggested to help manage dyspepsia. The patient will return for a follow-up in six months, during which fasting blood work, including cholesterol evaluation, will be performed. The patient's current stance on vaccination is acknowledged. Patient was informed and verbally consented to the use of an ambient scribe for clinic note documentation during this visit. During the visit, we discussed the patient's medication preferences, allowing for a change in her thyroid replacement therapy to a single-pill regimen based on adequate current control. We reviewed the risks and benefits of vaccine deferral, respecting her choice not to receive pneumonia and flu vaccines. Discussions about her gastrointestinal symptoms led to scheduling additional evaluations, including a swallow test and endoscopy. We noted the significance of lifestyle changes in managing dyspepsia and advised fasting prior to bedtime. The patient was informed of the upcoming six-month follow-up for further assessment and fasting blood work for cholesterol monitoring. Orders: Orders Free T4 (Free Thyroxine) 6 Months E03.9 - Hypothyroidism, unspecified Triiodothyronine T3 Free 6 Months E03.9 - Hypothyroidism, unspecified Lipid Panel 6 Months E78.5 - Hyperlipidemia, unspecified Magnesium 6 Months E61.2 - Magnesium deficiency Thyroid Stimulating Hormone 6 Months E03.9 - Hypothyroidism, unspecified Vitamin D 25-OH Total 6 Months E55.9 - Vitamin D deficiency, unspecified, M85.80 - Other specified disorders of bone density and structure, unspecified site Comprehensive [place]. Panel Fast 6 Months R10.9 - Unspecified abdominal pain Medications: New thyroid (pork) ([place] Thyroid) 60 mg PO DAILY 90 tabs 1RF 90 days Discontinued [place] Thyroid (thyroid (pork)) Discontinued Reason: Patient Completed Course 60 mg (4 x 15 mg) PO DAILY 30 days 120 tabs 11RF NS Patient Instructions: - Take [place] Thyroid 60 mg as a single pill daily. - Monitor for any symptoms that suggest changes in thyroid levels. - Avoid eating within three hours before bedtime to manage heartburn. - Await scheduling and attend the upcoming swallow test and endoscopy. - Continue with current medications, and refill after 90 days if comfortable with costs. - Follow up in six months for blood work including cholesterol check. - Report any new or worsening symptoms immediately.
[2024-09-09 08:26] VITALS: BP 132/80; BMI 30.3
== END 2024-09-09 08:54 | disposition home or self-care (01) ==
LOC: HO.HMCH 08:11
PROVIDERS: PCP Internal Medicine; Visit Provider Internal Medicine
DX: M85.80 Other specified disorders of bone density and structure, unspecified site (principal); E03.9 Hypothyroidism, unspecified; D68.51 Activated protein C resistance; K21.9 Gastro-esophageal reflux disease without esophagitis

== ENCOUNTER → 2024-09-09 08:10 | Outpatient (BNVA) | payer BC, SELFPAY | PROVIDERS: PCP Internal Medicine; Visit Provider Internal Medicine | DX: M85.80 Other specified disorders of bone density and structure, unspecified site (principal); E03.9 Hypothyroidism, unspecified; D68.51 Activated protein C resistance; K21.9 Gastro-esophageal reflux disease without esophagitis; Z79.899 Other long term (current) drug therapy | CPT/HCPCS: 96127 ==

== ENCOUNTER 2024-09-18 08:26 | Outpatient (REF) | payer BC, SELFPAY | END 2024-09-18 08:27 | disposition home or self-care (01) | LOC: HO.LAB 08:26 | PROVIDERS: PCP Internal Medicine | DX: N30.01 Acute cystitis with hematuria (principal) | CPT/HCPCS: 81003; 87086; 87088; 87186 ==

== ENCOUNTER 2024-09-18 08:26 | Outpatient (AMB) | payer BC, SELFPAY ==
[2024-09-18 08:31] VITALS: BP 112/78; PULSE 72; TEMP 36.6; O2SAT 96
--- NOTE | 2024-09-18 08:31 | MHC.OFFWIV ---
Intake Vital Signs 09/18/24 08:31 Weight 190 lb BP 112/78 Blood Pressure Location Rt brachial Position Sitting Pulse 72 Pulse Source Pulse Oximeter Temp 97.9 F Temp Source Oral Pulse Oximetry (%) 96 Oxygen Delivery Method Room Air Intake Visit Reasons: EP-uti Intake Note: Patient here for frequent urination, bladder pressure and burning sensation that started last night. Patient Tobacco Use Status: Former Tobacco user Allergies sulfamethoxazole [From Sulfamethoxazole-Trimethoprim] Allergy (Intermediate, Verified 09/18/24 08:37) Itching trimethoprim [From Sulfamethoxazole-Trimethoprim] Allergy (Intermediate, Verified 09/18/24 08:37) Itching ciprofloxacin [From Cipro] Adverse Reaction (Intermediate, Verified 09/18/24 08:37) nausea, crossed eyes Do you need a note to return to daycare/school/sports/work: No HPI HPI Comments History of Present Illness Details History of Present Illness - The patient is a 69-year-old female presenting with urinary symptoms. - She reports a new onset of frequent urination and pressure sensation that occurs right before urination. - Accompanied by dysuria, but denies fever, hematuria, back pain, or abdominal discomfort. - There is no personal history of nephrolithiasis. - She is allergic to Ciprofloxacin and Bactrim and regularly takes Omeprazole for reflux. Physical Exam General: Cooperative, healthy appearing, comfortable, no acute distress and well developed Orientation: Patient oriented x3 Limitations: No limitations Head: Normal to inspection Ears: Hearing grossly normal bilaterally Nose: Normal External nose present Face and sinus: Normal facial exam Eyes: Appearance normal, both eyes and all related structures Neck: Normal visual inspection and Yes full ROM Respiratory: Normal respiratory effort and able to speak in complete sentences. Skin: No rashes or lesions noted Neuro: Patient oriented x3 Extremities: Normal to inspection [facility] Medical History Chronic urinary tract infection Factor V Leiden mutation Cholelithiasis GERD (gastroesophageal reflux disease) Elevated cholesterol Hypothyroid Surgical History Hx of umbilical hernia repair (04/09/24) History of laparoscopic cholecystectomy (06/28/23) Hx of inguinal hernia repair History of bladder surgery Family History Mother No problems noted. Father No problems noted. Brother Prostate cancer Social History Household Members: Other Housing: Other Housing Other:: mobile home Are you a primary child care team lead to a significant other at home: No Do you presently have visiting nurse or other home services: No Alcohol intake: current Alcohol intake frequency: holidays/special occasions only Alcohol type: wine Comment: counts correct Patient Tobacco Use Status: Former Tobacco user Tobacco use type: Cigarette Years Smoked: 17 e-Cigarette/Vaping Use: Never Used Second Hand Smoke Exposure: Yes service: No Current occupational status: employed Current occupation: Post office Current occupational exposures/hazards: No Gender identity: Female Cognitive needs: No Hearing needs: No Vision needs: Yes Review of Systems Const All systems reviewed & are unremarkable except as noted in HPI and below Physical Exam Vital Signs: Last Vital Signs Temp 97.9 F 09/18/24 08:31 Pulse 72 09/18/24 08:31 BP 112/78 09/18/24 08:31 Pulse Ox 96 09/18/24 08:31 Oxygen Delivery Method Room Air 09/18/24 08:31 Assessment & Plan Assessment & Plan (1) UTI (urinary tract infection): Code(s): N39.0 - Urinary tract infection, site not specified Qualifiers: Urinary tract infection type: acute cystitis Hematuria presence: with hematuria Qualified Code(s): N30.01 - Acute cystitis with hematuria Plan: UA 3+ leuks, pos nitrites and 3+ blood. The patient is diagnosed with acute cystitis and started on Cefuroxime, given her allergy to Ciprofloxacin and Bactrim. She is instructed on the dosage, which is 500 mg twice daily for five days, with up to seven days provided if necessary. A urine culture will verify antibiotic sensitivity, with adjustments communicated if needed. The patient is advised to avoid Omeprazole or adjust the timing due to potential absorption interference. Increased hydration is encouraged to support treatment efficacy. Patient was informed and verbally consented to the use of an ambient scribe for clinic note documentation during this visit. Orders: Orders Urine Culture Today N39.0 - Urinary tract infection, site not specified Medications: New cefuroxime axetil 500 mg PO Q12H 14 tabs 0RF Coding Level of Care Code Est Pt Level 3 (66822) Diagnoses Acute cystitis with hematuria N30.01 Urinary tract infection type: acute cystitis Hematuria presence: with hematuria
--- OUTSIDE RECORDS SUMMARY | 2024-09-18 08:45 | XMS_ITS | Data Portability ---
Author Organization [facility], [address] Address [address] [place] [address] Assessment No assessment recorded. Plan of Treatment [...] SNOMED-CT Code Diagnosis ICD10 Code Diagnosis Note [id number] [address] [place] [address] 09/03/2020 16:08:08 09/03/2020 17:27:45 Health Concerns Section Related Observation LastModified by Organization Detai ls LastModified Time None Recorded Concern Status LastModified by Organization Details LastModified Time None Recorded Advance Directives Directive None Recorded Payers Insurance Date Sequence Insurance Name Policy Number Policy Gardner Covered Member ID Gardner Member ID Guarantor Name 05/12/2022 1 [place] [employer] 111 Kaylin Coronel [id number] Kaylin Coronel OBGyn Episode No OBEpisode recorded.
== END 2024-09-18 08:55 | disposition home or self-care (01) ==
PROVIDERS: PCP Internal Medicine; Visit Provider Physician Assistant
DX: Z13.9 Encounter for screening, unspecified (principal); N30.01 Acute cystitis with hematuria

== ENCOUNTER 2024-11-19 08:49 | Outpatient (REF) | payer BC, SELFPAY ==
--- NOTE | ~2024-11-19 | FL_ITS ---
EXAMINATION: XR FLUOROSCOPY UPPER GI SERIES CLINICAL INFORMATION: Patient complaining of worsening reflux type symptoms. COMPARISON: None Correlation made with CT abdomen and pelvis 01/18/2024. TECHNIQUE: Fluoroscopic air contrast upper GI examination was performed utilizing standard techniques with thin and thick barium and effervescent granules. Numerous spot images were obtained. Several fluoroscopic image hold cine sequences were also obtained. FINDINGS: UPPER GI SERIES: Lateral cine images of the oropharynx and hypopharynx demonstrate normal swallow mechanism with normal epiglottic inversion and soft palate elevation. No laryngeal penetration, glottic or subglottic aspiration identified. No nasopharyngeal reflux present. Hypopharyngeal structures appear normal without evidence of mass or diverticulum. 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 Dual and single contrast images of the esophagus demonstrate normal caliber, contour, and mucosal pattern. No evidence of stricture, mass, or ulcerations identified. Esophageal peristalsis was moderately disordered. There is a small type I hiatus hernia present. There was episodic gastroesophageal reflux to the level of the thoracic inlet. Dual contrast and single contrast images of the stomach demonstrated normal contour and mucosal pattern without evidence of mass, ulceration, or other abnormality. Contrast freely passed into the gastric antrum and duodenal bulb without delay. Single and air-contrast images of the duodenal bulb demonstrate no abnormality. The duodenal sweep has a normal appearance, course, and mucosal fold appearance. There are cholecystectomy clips. FLUOROSCOPY TIME: 3 minutes 30 seconds Number of Spot Images:10 Number of cines obtained: 14 DOSE AREA PRODUCT: 4596 uGy-m2 (microgray-meter squared) FL/FL barium swallow with air IMPRESSION: 1. Mild to moderate cricopharyngeal achalasia. 2. Moderately disordered esophageal peristalsis. 3. Small type I hiatus hernia. 4. Episodic gastroesophageal reflux to the level of the thoracic inlet. 5. Normal-appearing stomach and duodenal sweep. Electronically signed by: Gerald Black MD 11/19/2024 10:15 AM EDT
--- OUTSIDE RECORDS SUMMARY | 2024-11-19 09:01 | XMS_ITS | Patient Health Record ---
Author Organization [facility] Address [address] [facility] [place] [address] Care Team Providers Care Apprentice Funeral Director Name Role Phone Glo HART, Adrianna Primary Care Provider Unavail able Vinod Zamorano Unavailable [phone] Allergies Allergen (clinical drug ingredient) Drug/Non Drug Allergy documented on EMR Reaction Allergy Type Onset Date Status Biaxin itching Drug Allergy Active erythromycin Erythromycin itching Drug Allergy A ctive Reason For Referral No Information Medications Medication SIG (Take, Route, Frequency, Duration) Notes Start Date End Date Status Omeprazole 20 MG Oral; Duration: 90 Days Active [place] Thyroid 15 MG TAKE 4 TABLETS BY MOUTH ONCE DAILY Oral; Duration: 30 Days Active Nitrofurantoin Monohyd Macro 100 MG TAKE 1 CAPSULE BY MOUTH ONCE DAILY Oral; Duration: 30 Days Not-Taking Social History Tobacco Use: Social History Observation Description Date Details (start date - stop date) Never Smoker NA - NA Tobacco use other than smoking: Question Answer Notes Are you an other tobacco user? No Tobacco Control (Standard) Question Answer Notes Tobacco use: Nonsmoker Additional Findings: Tobacco non-user Current no nsmoker AUDIT-C (Standard) Question Answer Notes Did you have a drink containing alcohol in the p ast year? No Points 0 Interpretation Negative Problems Problem Type SNOMED Code ICD Code Onset Dates Problem Status W/U Status Risk Notes Problem Acquired hammer toe of left foot ([id number]) Other hammer toe(s) (acquired), left foot (M20.42) Active confirmed Problem Arthritis of joint of lesser toe, left (M19.072) Active confirmed Vital Signs Blood pressure diastolic 80 mm Hg 07/01/2024 Height 5 ft 4in in 07/01/2024 Blood pressure systolic 120 mm Hg 07/01/2024 Weight 180 lbs 07/01/2024 BMI 30.89 kg/m2 07/01/2024 Encounters Encounter Location Date Provider Diagnosis [facility] [place] [address] [place] [address] [address] [place] [address] 11/26/2023 Vinodporfirio VazquezLona 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 ; Pain in left foot M79.672 and 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 [facility] [place] [address] [place] [address] 07/01/2024 Vinod Lona Pain in left toe(s) M79.675 ; Other hammer toe(s) (acquired), left foot M20.42 and Arthritis of joint of lesser toe, left M19.072 Assessments Encounter Date Diagnosis (ICD Code) Assessment Notes Treatment Notes Treatment Clinical Notes Section Notes 11/26/2023 Pain in left foot (ICD-10 - M79.672) 11/26/2023 Plantar fibromatosis (ICD-10 - M72.2) 07/01/2024 Pain in left toe(s) (ICD-10 - M79.675) 07/01/2024 Other hammer toe(s) (acquired), left foot (ICD-10 - M20.42) 07/01/2024 Arthritis of joint of lesser toe, left (ICD-10 - M19.072) 11/26/2023 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
--- OUTSIDE RECORDS SUMMARY | 2024-11-19 09:01 | XMS_ITS | Data Portability ---
Author Organization [facility], [address] Address [address] [place] [address] Assessment No assessment recorded. Plan of Treatment [...] SNOMED-CT Code Diagnosis ICD10 Code Diagnosis Note [id number] [address] [place] [address] 09/03/2020 16:08:08 09/03/2020 17:27:45 Health Concerns Section Related Observation LastModified by Organization Detai ls LastModified Time None Recorded Concern Status LastModified by Organization Details LastModified Time None Recorded Advance Directives Directive None Recorded Payers Insurance Date Sequence Insurance Name Policy Number Policy Gardner Covered Member ID Gardner Member ID Guarantor Name 05/12/2022 1 [place] [employer] 111 Kaylin Coronel [id number] Kaylin Coronel OBGyn Episode No OBEpisode recorded.
== END 2024-11-19 08:50 | disposition home or self-care (01) ==
LOC: HO.XRAY 08:49
PROVIDERS: PCP Internal Medicine; Visit Provider Nurse Practitioner Family
DX: K21.9 Gastro-esophageal reflux disease without esophagitis (principal)
CPT/HCPCS: 74221

== ENCOUNTER → 2024-11-19 08:51 | Outpatient (BNV) | payer BC, SELFPAY | PROVIDERS: PCP Internal Medicine; Visit Provider Radiology Diagnostic Radiology | DX: K22.9 Disease of esophagus, unspecified (principal); K44.9 Diaphragmatic hernia without obstruction or gangrene; K22.0 Achalasia of cardia; K21.9 Gastro-esophageal reflux disease without esophagitis | CPT/HCPCS: 74221 ==

== ENCOUNTER 2025-01-07 07:53 | Outpatient (AMB) | payer BC, SELFPAY ==
--- NOTE | 2025-01-07 07:58 | A.OFFPC_ITS ---
Vital Signs 01/07/25 07:59 Height 5 ft 6 in Weight 189 lb BMI 30.5 BP 122/72 Blood Pressure Location Lt brachial Position Sitting Pulse 69 Pulse Source Pulse Oximeter Pulse Oximetry (%) 96 Oxygen Delivery Method Room Air Intake Visit Reasons: RT side ovary pain Certified Public Accountant Required: No Accompanied by: Self / Same As Patient Allergies sulfamethoxazole (From Sulfamethoxazole-Trimethoprim) Allergy (Intermediate, Verified 01/07/25 08:25) Itching trimethoprim (From Sulfamethoxazole-Trimethoprim) Allergy (Intermediate, Verified 01/07/25 08:25) Itching ciprofloxacin (From Cipro) Adverse Reaction (Intermediate, Verified 01/07/25 08:25) nausea, crossed eyes Medication List - Last Reconciled 01/07/25 by Adrianna Barr MD omeprazole 40 mg PO DAILY thyroid (pork) ([place] Thyroid) 60 mg PO DAILY 90 days Tobacco use date assessed: 01/07/25 Fall risk assessment: No Falls in past year Last assessed Fall Risk: 01/07/25 Dental Screening Dental Screen Date: 05/29/24 HPI HPI Comments History of Present Illness Details The patient is a 69-year-old female presenting with right pelvic pain. The pain occurs occasionally, and she denies any associated vaginal bleeding, cramping, or changes in urinary or bowel habits. There is no fever reported. The patient has a history of hypothyroidism and chronic gastroesophageal reflux disease (GERD). She is aware of her barium swallow test results, which indicate mild to moderate cricopharyngeal achalasia, moderate esophageal peristalsis disorder, and a hiatal hernia. She continues to experience difficulty swallowing, although it is less prominent than before. [facility] Medical History (Updated 01/07/25 @ 10:57 by Adrianna Barr MD) Chronic urinary tract infection Factor V Leiden mutation Cholelithiasis GERD (gastroesophageal reflux disease) Elevated cholesterol Hypothyroid Surgical History Hx of umbilical hernia repair (04/09/24) History of laparoscopic cholecystectomy (06/28/23) Hx of inguinal hernia repair History of bladder surgery Family History Mother No problems noted. Father No problems noted. Brother Prostate cancer Social History Household Members: Other Housing: Other Housing Other:: mobile home Are you a primary intensive care specialist to a significant other at home: No Do you presently have visiting nurse or other home services: No Alcohol intake: current Alcohol intake frequency: holidays/special occasions only Alcohol type: wine Comment: counts correct Patient Tobacco Use Status: Former Tobacco user Tobacco use type: Cigarette Years Smoked: 17 e-Cigarette/Vaping Use: Never Used Second Hand Smoke Exposure: Yes service: No Current occupational status: employed Current occupation: Post office Current occupational exposures/hazards: No Gender identity: Female Cognitive needs: No Hearing needs: No Vision needs: Yes Questionnaire PHQ-9 Over the last 2 weeks, how often have you been bothered by any of the following problems? 1. Little interest or pleasure in doing things: not at all 2. Feeling down, depressed, or hopeless: not at all 3. Trouble falling or staying asleep, or sleeping too much: not at all 4. Feeling tired or having little energy: not at all 5. Poor appetite or overeating: not at all 6. Feeling bad about yourself - or that you are a failure or have let yourself or your family down: not at all 7. Trouble concentrating on things, such as reading the newspaper or watching television: not at all 8. Moving or speaking so slowly that other people could have noticed. Or the opposite - being so fidgety or restless that you have been moving around a lot more than usual: not at all 9. Thoughts that you would be better off or of hurting yourself in some way: not at all Total score: 0 Depression Screening Interpretation: Negative Depression Screening Done: Yes 67481 - PHQ-9 Billing: Yes Source: Developed by Drs. Oleksandr Cleveland, Elsy Cooley, Manuel Toure and colleagues, with an educational cy from [employer]. Thrive Questionnaire Date Thrive assessed: 01/07/25 I am a: Patient What is your living situation today?: I have a steady place to live Within the past 12 months, did the food you bought not last and you didn't have the money to get more?: I choose not to answer this question Within the past 12 months, did you worry whether your food would run out before you got money to buy more?: I choose not to answer this question Do you have trouble paying for medicines?: I choose not to answer this question Do you have trouble getting transportation to medical appointments?: I choose not to answer this question Do you have trouble paying your heating and electricity bill?: I choose not to answer this question Do you have trouble taking care of your child, family member or friend?: I choose not to answer this question Do you have trouble with day-to-day activities such as bathing, preparing meals, shopping, managing finances, etc.?: I choose not to answer this question Are you currently unemployed and looking for a job?: I choose not to answer this question Are you interested in more education?: I choose not to answer this question Please select the resources that you would like help with: None Currently or been in a relationship where the following occur: I choose not to answer THRIVE Score: 0 AUDIT C Alcohol Use Questionnaire (AUDIT-C) 1. How often do you have a drink containing alcohol?: Never 3. How often do you have six or more drinks on one occasion?: Never Total Score: 0 Score Reviewed/Action Taken: No TIARA-7 AMB Questionnaire TIARA-7 Date TIARA - 7 assessed: 09/09/24 Source: Developed by Drs. Oleksandr Cleveland, Elsy Cooley, Manuel Toure and colleagues, with an educational cy from [employer]. Review of Systems Const All systems reviewed & are unremarkable except as noted in HPI and below Card Denies chest pain at rest, Denies chest pain with activity, Denies edema, Denies irregular heart rhythm, Denies claudication, Denies dyspnea, Denies dyspnea on exertion, Denies orthopnea, Denies paroxysmal nocturnal dyspnea and Denies slow heart rate Resp Denies cough, Denies dyspnea and Denies dyspnea on exertion GI Denies abdominal pain, Denies change in bowel habits, Denies excessive flatus, Denies nausea and Denies vomiting Physical exam (Primary Care) Vital Signs: Last Vital Signs Pulse 69 01/07/25 07:59 BP 122/72 01/07/25 07:59 Pulse Ox 96 01/07/25 07:59 Oxygen Delivery Method Room Air 01/07/25 07:59 BMI result Body Mass Index 30.5 Tobacco/Smoking Status: Tobacco use Status Tobacco use date assessed 01/07/25 01/07/25 08:04 Patient Tobacco Use Status Former Tobacco user 01/07/25 08:04 Tobacco use type Cigarette 01/07/25 08:04 e-Cigarette/Vaping Use Never Used 01/07/25 08:04 PHQ-9: PHQ-9 Score PHQ-9: Total score 0 01/07/25 08:29 Depression Screening Interpretation: Negative Thrive Assessment: Date of Thrive Assessment Date Thrive assessed 01/07/25 01/07/25 08:04 Currently or been in a relationship where the following occur: I choose not to answer Resp Effort & Inspection: normal respiratory effort Auscultation: clear to auscultation bilaterally Cardio Jugular venous distension: no JVD Rate: regular rate Rhythm: regular rhythm Heart sounds: S1 normal heart sound present and S2 normal heart sound present Extrem General: Yes full ROM Coding Level of Care Code Est Pt Level 4 (45732) Complex EM visit Add On G2211 Diagnoses Acquired hypothyroidism E03.9 Hypothyroidism type: acquired Gastroesophageal reflux disease, unspecified whether esophagitis present K21.9 Esophagitis presence: esophagitis presence not specified Pelvic pain in female R10.2 Cricopharyngeal achalasia K22.0 Additional Codes PHQ-9 - 04125 - PHQ-9 Billing: Yes ([id number]) Time Spent (min) 21 Assessment & Plan Assessment & Plan (1) Hypothyroid: Code(s): E03.9 - Hypothyroidism, unspecified Category: Medical Qualifiers: Hypothyroidism type: acquired Qualified Code(s): E03.9 - Hypothyroidism, unspecified (2) GERD (gastroesophageal reflux disease): Code(s): K21.9 - Gastro-esophageal reflux disease without esophagitis Category: Medical Qualifiers: Esophagitis presence: esophagitis presence not specified Qualified Code(s): K21.9 - Gastro-esophageal reflux disease without esophagitis (3) Pelvic pain in female: Code(s): R10.2 - Pelvic and perineal pain Category: Medical (4) Cricopharyngeal achalasia: Code(s): K22.0 - Achalasia of cardia Category: Medical Plan Plan 1. Pelvic and perineal pain R10.2 An ultrasound of the pelvis will be ordered to investigate the cause of the right pelvic pain. 2. Hypothyroidism, unspecified E03.9 Thyroid function testing will be conducted to assess the current status of hypothyroidism. 3. Gastro-esophageal reflux disease without esophagitis K21.9 The patient is advised to be cautious with eating habits and to follow up with gastroenterology for ongoing management of GERD. 4. 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
[2025-01-07 07:59] VITALS: BP 122/72; PULSE 69; O2SAT 96; BMI 30.5
--- OUTSIDE RECORDS SUMMARY | 2025-01-07 07:59 | XMS_ITS | Clinical Summary ---
Author Organization [facility] Address [address] [place] [address] Care Team Providers Care Emu Farmer Name Role Phone Dorie Haney MD Primary Care Provider [phone] Social History Tobacco Use Types Packs/Day Years Used Date Smoking Tobacco: Never Assessed Comments Unknown Sex and Gender Information Value Date Recorded Sex Assigned at Not on file Legal Sex Female 7:43 AM EST Gender Identity Not on file Sexual Orientation Not on file Plan of Treatment Not on file Insurance Care Teams Emu Farmer Relationship Specialty Start Date End Date Dorie Haney MD PCP - General Internal Medicine 10/29/14
== END 2025-01-07 08:39 | disposition home or self-care (01) ==
LOC: HO.HMCH 07:55
PROVIDERS: PCP Internal Medicine; Visit Provider Internal Medicine
DX: E03.9 Hypothyroidism, unspecified (principal); K21.9 Gastro-esophageal reflux disease without esophagitis; R10.2 Pelvic and perineal pain; K22.0 Achalasia of cardia

== ENCOUNTER 2025-01-07 07:53 | Outpatient (REF) | payer BC, SELFPAY ==
[2025-01-07 11:03] LABS: Thyroid Stimulating Hormone 6.01 uIU/mL (0.32-4.0)
[2025-01-07 11:25] LABS: Folate 11.2 ng/mL (> or = 4.0); Vitamin B12 344 pg/mL (200-900)
== END 2025-01-07 07:54 | disposition home or self-care (01) ==
LOC: HO.LAB 07:53
PROVIDERS: PCP Internal Medicine; Visit Provider Internal Medicine
DX: E03.9 Hypothyroidism, unspecified (principal); E55.9 Vitamin D deficiency, unspecified; E53.8 Deficiency of other specified B group vitamins; K21.9 Gastro-esophageal reflux disease without esophagitis; R10.2 Pelvic and perineal pain; K22.0 Achalasia of cardia
CPT/HCPCS: 36415; 82306; 82607; 82746; 84443; 96127

== ENCOUNTER 2025-02-10 08:22 | Outpatient (REF) | payer BC, SELFPAY ==
[2025-02-10 09:10] LABS: Leukocytes Stool Qualitative NEGATIVE (NEGATIVE)
[2025-02-10 09:49] LABS: CDiff Gene PCR NEGATIVE (Negative)
== END 2025-02-10 08:23 | disposition home or self-care (01) ==
LOC: HO.LNP 08:22
PROVIDERS: Visit Provider Internal Medicine
DX: R19.7 Diarrhea, unspecified (principal)
CPT/HCPCS: 87329; 87338; 87493; 89055

== ENCOUNTER 2025-02-13 08:18 | Outpatient (AMB) | payer BC, SELFPAY ==
--- NOTE | 2025-02-13 08:19 | MHC.OFFWIV ---
Intake Vital Signs 02/13/25 08:20 Height 5 ft 6 in Weight 195 lb BMI 31.5 BP 124/70 Blood Pressure Location Lt brachial Position Sitting Pulse 71 Pulse Source Pulse Oximeter Temp 98.0 F Temp Source Oral Pulse Oximetry (%) 97 Oxygen Delivery Method Room Air Intake Visit Reasons: EP Nausea, dizzy, vertigo, ears? Intake Note: Pt is here today c/o nausea and vertigo Patient Tobacco Use Status: Former Tobacco user Allergies sulfamethoxazole (From Sulfamethoxazole-Trimethoprim) Allergy (Intermediate, Verified 02/13/25 08:21) Itching trimethoprim (From Sulfamethoxazole-Trimethoprim) Allergy (Intermediate, Verified 02/13/25 08:21) Itching ciprofloxacin (From Cipro) Adverse Reaction (Intermediate, Verified 02/13/25 08:21) nausea, crossed eyes HPI HPI Comments History of Present Illness Details This is a 69-year-old female who presented to the walk-in clinic complaining of dizziness and nausea for the past 3-4 days. Patient describes the dizziness as a room spinning sensation. She states it is exacerbated/brought on with movement and positional changes and does tend to resolve after lying down for a few minutes. She reports associated nausea but denies any vomiting. She denies any new or worsening abdominal pain or diarrhea. She denies any fevers or chills. She denies any recent illnesses. She denies any facial drooping, slurred speech, visual disturbances, or severe headaches. She denies any recent head trauma. [facility] Medical History Chronic urinary tract infection Factor V Leiden mutation Cholelithiasis GERD (gastroesophageal reflux disease) Elevated cholesterol Hypothyroid Surgical History Hx of umbilical hernia repair (04/09/24) History of laparoscopic cholecystectomy (06/28/23) Hx of inguinal hernia repair History of bladder surgery Family History Mother No problems noted. Father No problems noted. Brother Prostate cancer Social History Household Members: Other Housing: Other Housing Other:: mobile home Are you a primary acute care registered nurse to a significant other at home: No Do you presently have visiting nurse or other home services: No Alcohol intake: current Alcohol intake frequency: holidays/special occasions only Alcohol type: wine Comment: counts correct Patient Tobacco Use Status: Former Tobacco user Tobacco use type: Cigarette Years Smoked: 17 e-Cigarette/Vaping Use: Never Used Second Hand Smoke Exposure: Yes service: No Current occupational status: employed Current occupation: Post office Current occupational exposures/hazards: No Gender identity: Female Cognitive needs: No Hearing needs: No Vision needs: Yes Review of Systems Const All systems reviewed & are unremarkable except as noted in HPI and below Reports no additional complaints Eyes Reports no additional complaints ENT Reports no additional complaints Card Reports no additional complaints Resp Reports no additional complaints GI Reports no additional complaints Reports no additional complaints Musc Reports no additional complaints Skin/Breast Reports system reviewed and no additional complaints, except as documented Neuro Reports no additional complaints Psych Reports no additional complaints Endo Reports no additional complaints Kit/Lymph Reports no additional complaints Aller/Immun Reports no additional complaints Physical Exam Vital Signs: BMI result Body Mass Index 31.5 Const Other: Vital signs reviewed. Constitutional: Non-toxic appearing. No acute distress. Well-developed and well-nourished. HEENT: Normocephalic and atraumatic. Tympanic membranes without erythema, edema, or bulging bilaterally. External auditory canals without erythema or edema bilaterally. Moist mucous membranes. No pharyngeal erythema or exudates. Skin: Warm and dry. No rashes or lesions noted. Neck: Full and painless range of motion. No cervical lymphadenopathy. Cardio: Regular rate and rhythm. No murmurs, gallops, or rubs. No lower extremity edema. No JVD. Pulmonary: No respiratory distress. No accessory muscle usage. Clear to auscultation bilaterally without wheezing, crackles, or rhonchi. Gastrointestinal: Soft, nontender, and nondistended in all 4 quadrants. Musculoskeletal: Normal range of motion in joints throughout the body. No deformity or other signs of injury. Neuro: Alert and oriented x4. Cranial nerves 2-12 intact. No focal deficits appreciated. 5/5 strength of bilateral upper and lower extremities. Psych: Normal mood and affect. Assessment & Plan Assessment & Plan (1) Benign paroxysmal positional vertigo: Code(s): H81.10 - Benign paroxysmal vertigo, unspecified ear Qualifiers: Laterality: unspecified laterality Qualified Code(s): H81.10 - Benign paroxysmal vertigo, unspecified ear Plan 69-year-old female who presented to the walk-in clinic complaining of dizziness and nausea for the past 3-4 days. Patient's vital signs are stable and patient is well-appearing. She is completely neurologically intact and denies any concerning neurological symptoms. History and physical most consistent with benign paroxysmal positional vertigo. Patient was given a prescription for p.o. meclizine 50 mg twice daily as needed for dizziness as well as p.o. ondansetron 4 mg every 8 hours as needed for nausea/vomiting. Patient was also provided education regarding the Shlomo maneuver to try at home. Patient was also educated to stay hydrated. Patient was advised to proceed directly to the emergency room if she were to develop any facial drooping, slurred speech, visual disturbances, or severe headaches. Patient verbalized her understanding and she is in agreement with the plan. Medications: New meclizine 50 mg (2 x 25 mg) PO BID PRN 20 tabs 0RF dizziness ondansetron HCl 4 mg PO Q8H PRN 10 tabs 0RF nausea and vomiting Coding Level of Care Code Est Pt Level 3 (82172) Diagnoses Benign paroxysmal positional vertigo, unspecified laterality H81.10 Laterality: unspecified laterality
[2025-02-13 08:20] VITALS: BP 124/70; PULSE 71; TEMP 36.7; O2SAT 97; BMI 31.5
== END 2025-02-13 08:53 | disposition home or self-care (01) ==
PROVIDERS: PCP Internal Medicine; Visit Provider Physician Assistant Medical
DX: H81.10 Benign paroxysmal vertigo, unspecified ear (principal)

== ENCOUNTER 2025-02-17 14:49 | Outpatient (REF) | payer BC, SELFPAY ==
--- NOTE | ~2025-02-17 | US_ITS ---
EXAMINATION: US PELVIS TRANSABDOMINAL AND TRANSVAGINAL HISTORY: R10.2 - Pelvic and perineal pain COMPARISON: Comparison is made with the prior examination dated 09/29/2020. TECHNIQUE: Transabdominal and endovaginal real-time 2D holland-scale ultrasound was performed. FINDINGS: Uterus: The uterus is not identified. Right ovary: The right ovary is not identified. Left ovary: The left ovary is not identified. Pelvic fluid: none. US/US pelvic and transvaginal IMPRESSION: The uterus and ovaries are not identified. Electronically signed by: Oleksandr Salomon MD 02/17/2025 03:17 PM EDT
== END 2025-02-17 14:50 | disposition home or self-care (01) ==
LOC: HO.HMGCX 14:49
PROVIDERS: PCP Internal Medicine; Visit Provider Internal Medicine
DX: R10.20 Pelvic and perineal pain unspecified side (principal)
CPT/HCPCS: 76830; 76856

== ENCOUNTER → 2025-02-17 14:51 | Outpatient (BNV) | payer BC, SELFPAY | PROVIDERS: PCP Internal Medicine; Visit Provider Radiology Diagnostic Radiology | DX: R10.20 Pelvic and perineal pain unspecified side (principal) | CPT/HCPCS: 76830; 76856 ==

== ENCOUNTER 2025-03-05 09:52 | Outpatient (REF) | payer BC, SELFPAY ==
--- NOTE | ~2025-03-05 | FL_ITS ---
EXAMINATION: XR BARIUM SWALLOW CLINICAL INFORMATION: Reflux COMPARISON: None available. TECHNIQUE: Barium swallow was performed using thin and thick barium and effervescent granules. The barium tablet was also administered. FINDINGS: Swallowing mechanism is normal. No aspiration or penetration. Esophageal motility is normal. There is moderate gastroesophageal reflux. There is slight mucosal irregularity of the mid and distal thoracic esophagus questionable for mild esophagitis. No mass stricture or reflux. Barium tablet passed freely into the stomach. FLUOROSCOPY TIME: 1.25 minutes DOSE AREA PRODUCT: 75 uGy-m2 (microgray-meter squared) FL/FL barium swallow with air IMPRESSION: Moderate gastroesophageal reflux. Question mild esophagitis of the mid and distal thoracic esophagus. Electronically signed by: Kaylin Euceda MD 03/05/2025 10:40 AM EDT
--- OUTSIDE RECORDS SUMMARY | 2025-03-05 11:39 | XMS_ITS | Clinical Summary ---
Author Organization [facility] Address [address] [place] [id number] Care Team Providers Care Systems Checkout Mechanic Name Role Phone Dorie Haney MD Primary Care Provider [phone]- [phone] Social History Tobacco Use Types Packs/Day Years Used Date Smoking Tobacco: Never Assessed Comments Unknown Sex and Gender Information Value Date Recorded Sex Assigned at Not on file Legal Sex Female 7:43 AM EST Gender Identity Not on file Sexual Orientation Not on file Plan of Treatment Not on file Insurance EMPLOYEE Care Teams Systems Checkout Mechanic Relationship Specialty Start Date End Date Dorie Haney MD PCP - General Internal Medicine 10/29/14
--- OUTSIDE RECORDS SUMMARY | 2025-03-05 11:39 | XMS_ITS | Data Portability ---
Author Organization [facility], [id number] Address [address] [place] [address] Assessment No assessment recorded. Plan of Treatment [...] Diagnosis SNOMED-CT Code Diagnosis ICD10 Code Diagnosis IMO Codes Diagnosis Note [id number] [address] [place] [address] 09/03/2020 16:08:08 09/03/2020 17:27:45 Health Concerns Section Related Observation LastModified by Organization Detai ls LastModified Time None Recorded Concern Status LastModified by Organization Details LastModified Time None Recorded Advance Directives Directive None Recorded Payers Insurance Date Sequence Insurance Name Policy Number Policy Gardner Covered Member ID Gardner Member ID Guarantor Name 05/12/2022 1 [place] [place] 111 Kaylin Coronel [id number] Kaylin Coronel OBGyn Episode No OBEpisode recorded.
== END 2025-03-05 09:53 | disposition home or self-care (01) ==
LOC: HO.XRAY 09:52
PROVIDERS: PCP Internal Medicine; Visit Provider Nurse Practitioner Family
DX: K21.9 Gastro-esophageal reflux disease without esophagitis (principal)
CPT/HCPCS: 74221

== ENCOUNTER → 2025-03-05 09:55 | Outpatient (BNV) | payer BC, SELFPAY | PROVIDERS: PCP Internal Medicine; Visit Provider Radiology Diagnostic Radiology | DX: K21.9 Gastro-esophageal reflux disease without esophagitis (principal) | CPT/HCPCS: 74221 ==

== ENCOUNTER 2025-03-11 09:20 | Outpatient (AMB) | payer BC, SELFPAY ==
[2025-03-11 09:25] VITALS: BP 130/78; PULSE 73; TEMP 36.3; O2SAT 98; BMI 31.2
--- NOTE | 2025-03-11 09:25 | MHC.PC.OV ---
Vital Signs 03/11/25 09:25 Height 5 ft 6 in Weight 193 lb 8 oz BMI 31.2 BP 130/78 Blood Pressure Location Lt brachial Position Sitting Pulse 73 Pulse Source Pulse Oximeter Temp 97.3 F Temp Source Temporal Artery Scan Pulse Oximetry (%) 98 Oxygen Delivery Method Room Air Intake Visit Reasons: Annual Exam Staff Development Coordinator Required: No Accompanied by: Self / Same As Patient Allergies sulfamethoxazole (From Sulfamethoxazole-Trimethoprim) Allergy (Intermediate, Verified 03/11/25 09:39) Itching trimethoprim (From Sulfamethoxazole-Trimethoprim) Allergy (Intermediate, Verified 03/11/25 09:39) Itching ciprofloxacin (From Cipro) Adverse Reaction (Intermediate, Verified 03/11/25 09:39) nausea, crossed eyes Medication List - Last Reconciled 03/11/25 by Adrianna Barr MD meclizine 50 mg (2 x 25 mg) PO BID PRN omeprazole 40 mg PO DAILY ondansetron HCl 4 mg PO Q8H PRN thyroid (pork) (Drake Thyroid) 60 mg PO DIRECTED 90 days Tobacco use date assessed: 01/07/25 Fall risk assessment: No Falls in past year Last assessed Fall Risk: 03/11/25 Dental Screening Dental Screen Date: 05/29/24 Did you have a dental visit in the last 12 months?: No Did you have a dental problem in the last 6 months where you did not have access to dental care?: No Was dental information given to patient?: No HPI HPI Comments History of Present Illness Details The patient is a 69-year-old female presenting for an annual physical exam. She reports intermittent abdominal pain that is severe enough to require a heating pad and Tylenol. 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 The patient has a history of gastrointestinal issues, including GERD and possible mild esophagitis noted on a past barium swallow. She takes omeprazole as needed for symptoms. Her medical history is significant for autoimmune thyroiditis (Cailin's disease), and her last thyroid lab result was slightly elevated. She takes thyroid medication, but there is some confusion regarding the formulation she is currently on versus what she was prescribed. Past surgical history includes an umbilical hernia repair and cholecystectomy last year, as well as a vaginal hysterectomy and bladder mesh surgery approximately seven years ago. She has known allergies to sulfa, which causes itchiness, and ciprofloxacin, which causes nausea and visual disturbances. Regarding health maintenance, she had a bone density scan in 2023 with the next one due in 2025. She declined a mammogram and colonoscopy but agreed to Cologuard testing for colorectal cancer screening. She also declined recommended vaccinations for pneumonia, tetanus, and influenza. Her father had COPD, and her mother last year at age 97. The patient is a former smoker and drinks alcohol occasionally. She denies depression. [facility] Medical History Chronic urinary tract infection Factor V Leiden mutation Cholelithiasis GERD (gastroesophageal reflux disease) Elevated cholesterol Hypothyroid Surgical History Hx of umbilical hernia repair (04/09/24) History of laparoscopic cholecystectomy (06/28/23) Hx of inguinal hernia repair History of bladder surgery Family History (Updated 03/11/25 @ 09:50 by Adrianna Barr MD) Mother No problems noted. Father COPD (chronic obstructive pulmonary disease) Brother Prostate cancer Social History Household Members: Other Housing: Other Housing Other:: mobile home Are you a primary career development facilitator to a significant other at home: No Do you presently have visiting nurse or other home services: No Alcohol intake: current Alcohol intake frequency: holidays/special occasions only Alcohol type: wine Comment: counts correct Patient Tobacco Use Status: Former Tobacco user Tobacco use type: Cigarette Years Smoked: 17 e-Cigarette/Vaping Use: Never Used Second Hand Smoke Exposure: Yes service: No Current occupational status: employed Current occupation: Post office Current occupational exposures/hazards: No Gender identity: Female Cognitive needs: No Hearing needs: No Vision needs: Yes Questionnaire PHQ-9 Over the last 2 weeks, how often have you been bothered by any of the following problems? 1. Little interest or pleasure in doing things: not at all 2. Feeling down, depressed, or hopeless: not at all 3. Trouble falling or staying asleep, or sleeping too much: not at all 4. Feeling tired or having little energy: not at all 5. Poor appetite or overeating: not at all 6. Feeling bad about yourself - or that you are a failure or have let yourself or your family down: not at all 7. Trouble concentrating on things, such as reading the newspaper or watching television: not at all 8. Moving or speaking so slowly that other people could have noticed. Or the opposite - being so fidgety or restless that you have been moving around a lot more than usual: not at all 9. Thoughts that you would be better off or of hurting yourself in some way: not at all Total score: 0 Depression Screening Interpretation: Negative Depression Screening Done: Yes 53630 - PHQ-9 Billing: Yes Source: Developed by Drs. Oleksandr Cleveland, Elsy Cooley, Manuel Toure and colleagues, with an educational cy from [employer]. Thrive Questionnaire Date Thrive assessed: 09/02/24 I am a: Patient What is your living situation today?: I have a steady place to live Within the past 12 months, did the food you bought not last and you didn't have the money to get more?: I choose not to answer this question Within the past 12 months, did you worry whether your food would run out before you got money to buy more?: I choose not to answer this question Do you have trouble paying for medicines?: I choose not to answer this question Do you have trouble getting transportation to medical appointments?: I choose not to answer this question Do you have trouble paying your heating and electricity bill?: I choose not to answer this question Do you have trouble taking care of your child, family member or friend?: I choose not to answer this question Do you have trouble with day-to-day activities such as bathing, preparing meals, shopping, managing finances, etc.?: I choose not to answer this question Are you currently unemployed and looking for a job?: I choose not to answer this question Are you interested in more education?: I choose not to answer this question Please select the resources that you would like help with: None Currently or been in a relationship where the following occur: I choose not to answer THRIVE Score: 0 AUDIT C Alcohol Use Questionnaire (AUDIT-C) 1. How often do you have a drink containing alcohol?: Never 3. How often do you have six or more drinks on one occasion?: Never Total Score: 0 Score Reviewed/Action Taken: No TIARA-7 AMB Questionnaire TIARA-7 Date TIARA - 7 assessed: 09/09/24 Feeling nervous, anxious, or on edge: 0 = Not at all Not being able to stop or control worryin = Not at all Worrying too much about different things: 0 = Not at all Trouble relaxin = Not at all Being so restless that it is hard to sit still: 0 = Not at all Becoming easily annoyed or irritable: 0 = Not at all Feeling afraid as if something awful might happen: 0 = Not at all Total TIARA-7 score (0-4 normal; 5-9 mild; 10-14 moderate; 15-21 severe): 0 Source: Developed by Drs. Oleksandr Cleveland, Elsy Cooley, Manuel Toure and colleagues, with an educational cy from [employer]. TIARA-7 Assessment Billing TIARA-7 Assessment Tool: TIARA-7 Assessment 59531 Review of Systems Const All systems reviewed & are unremarkable except as noted in HPI and below Card Denies chest pain at rest, Denies chest pain with activity, Denies edema, Denies irregular heart rhythm, Denies claudication, Denies dyspnea, Denies dyspnea on exertion, Denies orthopnea, Denies paroxysmal nocturnal dyspnea and Denies slow heart rate Resp Denies cough, Denies dyspnea and Denies dyspnea on exertion GI Denies abdominal pain, Denies change in bowel habits, Denies excessive flatus, Denies nausea and Denies vomiting Physical exam (Primary Care) Vital Signs: Last Vital Signs Temp 97.3 F 03/11/25 09:25 Pulse 73 03/11/25 09:25 BP 130/78 03/11/25 09:25 Pulse Ox 98 03/11/25 09:25 Oxygen Delivery Method Room Air 03/11/25 09:25 BMI result Body Mass Index 31.2 BMI Assessment/Plan discussion: High BMI High, discussed plan: lifestyle, weight reduction, dietary and physical activity Tobacco/Smoking Status: Tobacco use Status Tobacco use date assessed 01/07/25 03/11/25 09:31 Patient Tobacco Use Status Former Tobacco user 03/11/25 09:31 Tobacco use type Cigarette 03/11/25 09:31 e-Cigarette/Vaping Use Never Used 03/11/25 09:31 PHQ-9: PHQ-9 Score PHQ-9: Total score 0 03/11/25 09:31 Depression Screening Interpretation: Negative Thrive Assessment: Date of Thrive Assessment Date Thrive assessed 09/02/24 03/11/25 09:31 Currently or been in a relationship where the following occur: I choose not to answer HENMT Head: Yes normal to inspection, Yes normocephalic and Yes atraumatic Ears: external ears normal Eyes General: appearance normal, both eyes and all related structures Eyelids: Yes eyelids normal Conjunctivae: conjunctivae normal Neck Neck: Yes normal visual inspection and Yes supple Resp Effort & Inspection: normal respiratory effort Auscultation: clear to auscultation bilaterally Cardio Jugular venous distension: no JVD Rate: regular rate Rhythm: regular rhythm Heart sounds: S1 normal heart sound present and S2 normal heart sound present GI Inspection: Yes normal to inspection Palpation (GI): Soft to palpation and nontender Auscultation: normal bowel sounds Skin General skin exam: no rashes or lesions noted Neuro General: no focal motor deficits Extrem General: Yes full ROM Psych Appearance: grossly normal Coding Level of Care Code Est Pt Prev Care >65y(31570) Diagnoses Adult general medical exam Z00.00 Additional Codes PHQ-9 - 58606 - PHQ-9 Billing: Yes ([id number]) TIARA-7 Assessment Billing - TIARA-7 Assessment Tool: TIARA-7 Assessment 22572 ([id number]) Time Spent (min) 30 Assessment & Plan Assessment & Plan (1) Adult general medical exam: Code(s): Z00.00 - Encounter for general adult medical examination without abnormal findings Category: Medical Plan Plan 1. Physical exam Repeat in a year. Orders: Orders Thyroid Stimulating Hormone Today E03.9 - Hypothyroidism, unspecified Comprehensive [place]. Panel Fast 4 Months Z00.00 - Encounter for general adult medical examination without abnormal findings Lipid Panel 4 Months E78.5 - Hyperlipidemia, unspecified Referrals Cologuard Test Z12.11 - Encounter for screening for malignant neoplasm of colon, Z12.12 - Encounter for screening for malignant neoplasm of rectum
--- OUTSIDE RECORDS SUMMARY | 2025-03-11 10:15 | XMS_ITS | Data Portability ---
Author Organization [facility], [id number] Address [address] [place] [address] Assessment No assessment recorded. Plan of Treatment [...] ICD10 Code Diagnosis IMO Codes Diagnosis Note [id number] [address] [place] [address] 09/03/2020 16:08:08 09/03/2020 17:27:45 Health Concerns Section Related Observation LastModified by Organization Detai ls LastModified Time None Recorded Concern Status LastModified by Organization Details LastModified Time None Recorded Advance Directives Directive None Recorded Payers Insurance Date Sequence Insurance Name Policy Number Policy Gardner Covered Member ID Gardner Member ID Guarantor Name 05/12/2022 1 [place] [employer] 111 Kaylin Coronel [id number] Kaylin Coronel OBGyn Episode No OBEpisode recorded.
--- OUTSIDE RECORDS SUMMARY | 2025-03-11 10:15 | XMS_ITS | Clinical Summary ---
Author Organization [facility] Address [address] [id number] Care Team Providers Care Mastic Sprayer Name Role Phone Dorie Haney MD Primary Care Provider [phone] Social History Tobacco Use Types Packs/Day Years Used Date Smoking Tobacco: Never Assessed Comments Unknown Sex and Gender Information Value Date Recorded Sex Assigned at Not on file Legal Sex Female 7:43 AM EST Gender Identity Not on file Sexual Orientation Not on file Plan of Treatment Not on file Insurance EMPLOYEE Care Teams Mastic Sprayer Relationship Specialty Start Date End Date Dorie Haney MD PCP - General Internal Medicine 10/29/14
== END 2025-03-11 10:02 | disposition home or self-care (01) ==
LOC: HO.HMCH 09:21
PROVIDERS: PCP Internal Medicine; Visit Provider Internal Medicine
DX: Z00.00 Encounter for general adult medical examination without abnormal findings (principal)

== ENCOUNTER 2025-03-11 09:20 | Outpatient (REF) | payer BC, SELFPAY ==
[2025-03-11 11:33] LABS: Magnesium 2.1 mg/dL (1.6-2.6)
[2025-03-11 11:52] LABS: Free T4 (Free Thyroxine) 0.53 ng/dL (0.71-1.85); Thyroid Stimulating Hormone 5.98 uIU/mL (0.32-4.0)
== END 2025-03-11 09:21 | disposition home or self-care (01) ==
LOC: HO.LAB 09:20
PROVIDERS: PCP Internal Medicine; Visit Provider Internal Medicine
DX: Z00.00 Encounter for general adult medical examination without abnormal findings (principal); E61.2 Magnesium deficiency; E55.9 Vitamin D deficiency, unspecified; M85.80 Other specified disorders of bone density and structure, unspecified site; K21.9 Gastro-esophageal reflux disease without esophagitis; E06.3 Autoimmune thyroiditis; E78.5 Hyperlipidemia, unspecified; E03.9 Hypothyroidism, unspecified
CPT/HCPCS: 36415; 82306; 83735; 84439; 84443; 84481; 96127